=== PATIENT | female | born 1955 | race Caucasian/White ===

== ENCOUNTER 2019-03-15 10:22 | Day surgery (SDC) | payer BC, SELFPAY ==
[2019-03-15] VITALS (7 sets, daily range): BP systolic 81–133; BP diastolic 66–96; PULSE 50–64; RESP 14–18; TEMP 36.6–36.7; O2SAT 94–100; BMI 22.0
[2019-03-15 10:46] LABS: Prothrombin Time Fingerstick 14.8 SEC (11.9-14.4)
[2019-03-15] MEDS: Lactated Ringers 1,000 ML 100 ML IV (11:11)
[2019-03-15] MEDS: Cefazolin 2 GM in 0.9% Normal Saline 100 ML IV (11:46)
--- NOTE | 2019-03-15 11:50 | BON_PTH ---
PATIENT: LINDSAY DOS SANTOS [place] [facility] [id number] AGE/SX: 63/F ROOM: RE03/15/[address]: Dr. Orlando Shukla MD : 1955 BED: DIS: 03/15/2019 SPEC #: [id number] RECD: 03/15/19 15:42 STATUS: KRISTIE RENesha #: [id number] JARETH: 03/15/19 11:[address]: Orlando Shukla DEPT: SURGICAL PATHOLOGY RECD BY: Amado Plasencia ENTERED: 03/16/19 07:26 SP TYPE: Bone OTHR DR: Dr. Irvin Eisenberg MD Tissues: Vertebra, NOS Procedures: Decalcification bone/plaque Surgery Specimen Level IV HEADER OPERATION: Kyphoplasty L3 and L5 PRE-OP DIAGNOSIS: Compression fracture of spine, back pain, lumbosacral radiculopathy, degeneration of lumbosacral intervertebral disc, lumbosacral spondylosis TISSUE SUBMITTED: Vertebral body of L3 MICROSCOPIC DIAGNOSIS Vertebral body, L3, kyphoplasty: A piece of bone, negative for malignancy. See comment. MONA:jared 03/17/19 COMMENT The specimen also shows hematopoietic marrow with trilineage hematopoiesis. Bone also shows focal thinning of trabeculae suggestive of osteoporosis. MICROSCOPIC DESCRIPTION Slides are reviewed. GROSS DESCRIPTION Received in fixative is one container labeled with the patient's name and designated vertebral body of L3. The specimen consists of multiple irregular fragments of brownish soft tissue mixed with fragments of bone that in aggregate measure 1 x 1 x 0.1 cm. The specimen is totally submitted in one cassette after decalcification. / MONA:jared 03/16/19 TC:5 CPT: 66505, 74130
--- NOTE | 2019-03-15 11:55 | RAD_ITS ---
CLINICAL HISTORY: Female, 63 years old. Kyphoplasty of the L3 and L5 vertebrae. PROCEDURE: KYPHOPLASTY - L3 and L5 vertebrae. FLUOROSCOPY TIME (if supplied): (342 seconds) minutes/seconds TECHNIQUE: (All elements of maximal sterile barrier technique followed, including US elements as applicable) Under direct fluoroscopic guidance, the pain management physician performed arthroplasty of the L3 and L5 vertebrae. RAD/Lumbar Spine 2 or 3 Views IMPRESSION: Intraoperative imaging provided for arthroplasty of the L3 and L5 vertebrae. Electronically Signed: Jose Miguel Garcia, at 15:08 EST , Service support ,
[2019-03-15] MEDS: Bacitracin 500 UNITS/GM PACKET (13:00)
[2019-03-15] MEDS: Bupivacaine Mpf 0.5% 30 ML VIAL (13:00)
--- NOTE | 2019-03-15 13:41 | OP.PCM_ITS ---
Report of Operation Date of Procedure: 03/15/19 Description of Surgical Findings:: PROCEDURES: 1. Octavia balloon kyphoplasty at the L3 level and L5 level 2. Insertion of Octavia HV-R bone cement under low pressure at the L3 and L5 Level 3. Bone biopsy at L3 4. Fluoroscopic guidance and interpretation of images PREOPERATIVE DIAGNOSES: Osteoporosis, compression fracture of L3 and L5 POSTOPERATIVE DIAGNOSES: Osteoporosis, compression fracture of L3 and L5 ANESTHESIA: MAC COMPLICATIONS: None BLOOD LOSS: Less than 25 cc PROCEDURE IN DETAIL: History and physical today was reviewed. Risks and benefits of procedure explained. The patient understood, agreed to procedure, informed consent was obtained. IV inserted per routine protocol. The patient was taken to the operating room, placed in the prone position with a pillow positioned underneath the chest. A 2 g of Ancef IV piggyback was infused per anesthesia. The upper and middle back area was prepped and draped in a sterile fashion using iodine x3. Under direct visualization with fluoroscopy with the C-arm, which brought into position on AP as well as lateral view at the L3 level., the L3 pedicle was then identified. In the view of the collapsed L3, L5 a transpedicular approach to the vertebral body was appropriate. Starting on the left side at L3 level, an 11-gauge needle was advanced through the L3 pedicle through the junction of the pedicle and the vertebral body on the left side. Position was then confirmed on AP as well as lateral view. Following satisfactory placement of the needle to make sure it is further off the midline and interlaminar space. The stylet of the needle was then removed. A guide pen and then inserted through the 11-gauge trocar and advanced approximately 3 mm from the anterior cortex on the lateral view. AP and lateral images were then taken to verify position and trajectory of the needle. The needle was then removed leaving the guide pen in place. The introducer was then advanced through the pedicle. Once the Trochar was at the junction of the pedicle and the vertebral body, a lateral image was taken to ensure that the cannula was positioned approximately 1 cm past the vertebral body and a lateral image was then taken to ensure correct [id number] and through the cannula, a drill was then advanced into the vertebral body under fluoroscopic guidance towards the anterior cortex creating a channel. The anterior cortex were then probed with guide pen to ensure no perforation in the anterior cortex. After completion of the entry into the vertebral body, a 30 mL inflatable bone tamp was then inserted through the cannula and advanced under direct fluoroscopic guidance into the vertebral body near the anterior cortex., The biopsy was then taken at the L3 level. The above procedure was then repeated to the L5 level on the right side, after completion of the entry into the vertebral body, a balloon tamp utilizing radiopaque marker bands on the bone tamp were identified using AP and lateral images. The . Once both bone tamp were in position, they were inflated to approximately 3 mL and making sure that the pressure is not passing 250 psi. Expansion of the bone tamp was then done sequentially in an increments of 0.25 to 0.5 mL of contrast with a careful attention was being paid to the inflation pressure and the balloon position. The inflation was then monitored on AP and lateral view images. The final balloon volume was 3 mL on the left side and approximately 3.5 cc on the right at L5 There was no breach of the lateral wall or the anterior cortex of the vertebral body. Direct reduction of the fracture was then achieved. Endplate movement was then noticed and approximately 5 mm of the height gnosticism was achieved at L3 and at approximately 2 mm reduction was then achieved at the L3 level. Under fluoroscopic imaging and a bone void filler, internal fixation was achieved through a low pressure injection of a Octavia HV-R bone cement. The cavity was then filled with a total volume of 6.5 mL on the left side at L1 and approximately 7.5 mL of cement on the right side at the L5 level. Once the bone cement had hardened, the cannula was then removed. Once the cannula was removed and satisfactory hemostasis was maintained, the incision as then closed with a 4-0 Vicryl at the skin. The patient was kept in the prone position for approximately 10 minutes post-cement injection. The patient was then turned into supine position, monitored briefly and returned to PACU. The patient was moving both of her lower extremities at the same time without any apparent neurological deficits. Throughout the procedure, there were no intraoperative complications, motor as well as sensory exam was unchanged from prior to the procedure. ASSESSMENT AND PLAN: This is a 63-year-old female with compression fracture of L3, L5, osteoporosis, status post Delbarton balloon kyphoplasty at L3, [place]on balloon kyphoplasty at L5 and insertion of [place] HV-R bone cement under low pressure at L3 and L5 level and bone biopsy at L3 the patient will continue her current medication. . The patient will follow-up in approximately 1 week for re- evaluation.
== END 2019-03-15 15:25 | disposition home or self-care (01) ==
LOC: SDC 10:23 → AC 10:27
PROVIDERS: Family Provider Internal Medicine; PCP Internal Medicine; Referring Provider Anesthesiology Pain Medicine; Visit Provider Anesthesiology Pain Medicine
PROC: (CPT 22514; principal; 2019-03-15 11:35)
DX: M80.88XA Other osteoporosis with current pathological fracture, vertebra(e), initial encounter for fracture (principal); Z86.718 Personal history of other venous thrombosis and embolism; Z79.01 Long term (current) use of anticoagulants; F17.210 Nicotine dependence, cigarettes, uncomplicated
CPT/HCPCS: 22514; 22515; 36416; 72100; 76000; 85610; 88305; 88311; J7120; J2405

== ENCOUNTER → 2019-03-30 12:48 | Outpatient (CLI) | payer BC, SELFPAY ==
[2019-03-15 10:58] VITALS: BMI 22.0
--- NOTE | 2019-03-30 12:55 | BD_ITS ---
STUDY: DUAL ENERGY X-RAY ABSORPTIOMETRY / DXA REASON FOR EXAM: Female, 63 years old. Early menopause. Loss of height. TECHNIQUE: Bone Mineral Density (BMD) measurements of lumbar spine and bilateral hips were obtained. COMPARISON: None. FINDINGS: Lumbar Spine (L1-L4): g/cm2 (0.693) / T-score (-3.9) / Z-score (-2.6) Findings are suggestive of osteoporosis with a high fracture risk. Left Femur Total: g/cm2 (0.506) / T-score (-4.0) / Z-score (-3.0) Left Femoral Neck: g/cm2 (0.559) / T-score (-3.4) / Z-score (-2.2) Right Femur Total: g/cm2 (0.422) / T-score (-4.6) / Z-score (-3.7) Right Femoral Neck: g/cm2 (0.492) / T-score (-3.9) / Z-score (-2.6) BD/Dexa Bone Density Study IMPRESSION: The patient is considered osteoporotic as outlined below according to World Jai Organization (WHO) criteria with a high fracture risk. Reference Information: The T-score is the number of standard deviations above or below the standard which is normal for young adults at their peak bone mineral density. The World Health Organization (WHO) interprets the T-scores as follows: Above -1 Normal bone density Between -1 and -2.5 Osteopenia Equal to / or below -2.5 Osteoporosis As a practical clinical guideline, osteopenia may be graded as follows: Mild -1 through -1.5 Moderate -1.6 through -2.0 Severe -2.1 through -2.4 The Z-score is the number of standard deviations above or below age-matched controls. A Z-score of less than -1.5 would be considered abnormal. References: 1. NIH Osteoporosis and Related Bone Diseases http://www.osteo.org 2. International Society for Clinical Densitometry http://www.iscd.org 3. National Osteoporosis Foundation http://www.nof.org Electronically Signed: Jose Miguel Garcia, at 12:42 EST , Service support ,
--- NOTE | 2019-03-30 13:10 | BI_ITS ---
MAMMOGRAPHY - BILATERAL SCREENING REASON FOR EXAM: Female, 63 years old. Routine annual screening examination. PERTINENT HISTORY: Mother with breast cancer. TECHNIQUE: Digital bilateral breast ayde (3D mammographic acquisition) in the CC and MLO projections. 2-D mediolateral oblique (MLO) and craniocaudad (CC) views of both breasts were obtained. CAD: Full Field Digital Mammography with Computer Added Detection was performed. COMPARISON: Comparison is made with prior study dated July 01, 2016. FINDINGS: Breast Composition: The breasts are heterogeneously dense, which may obscure small masses. There are no dominant masses or suspicious calcifications. No other significant abnormalities are identified. There has been no significant change since the prior study. BI/SCREEN MAMM (CAD) W/AYDE BILAT IMPRESSION: Stable bilateral screening mammogram. Yearly follow-up mammogram recommended. (A) ASSESSMENT CATEGORY: BIRADS Category 1: Negative. A letter regarding these results will be sent to the patient by the facility within 30 days. Approximately 10% of breast cancers are not detected by mammography. A normal mammogram should not delay biopsy of a clinically suspicious abnormality. [id number] Electronically Signed: Jose Miguel Garcia, at 15:30 EST , Service support ,
== END ==
PROVIDERS: Family Provider Internal Medicine; PCP Internal Medicine; Referring Provider Internal Medicine; Visit Provider Internal Medicine
DX: Z12.31 Encounter for screening mammogram for malignant neoplasm of breast (principal); M81.0 Age-related osteoporosis without current pathological fracture
CPT/HCPCS: 77063; 77067; 77080

== ENCOUNTER → 2020-04-11 13:09 | Outpatient (CLI) | payer BC, SELFPAY ==
[2019-03-15 10:58] VITALS: BMI 22.0
--- NOTE | 2020-04-11 13:13 | BI_ITS ---
MAMMOGRAPHY - BILATERAL SCREENING REASON FOR EXAM: Female, 64 years old. Routine annual screening examination. PERTINENT HISTORY: PT MOTHER HAD BREAST CA AT AGE 65 PT WAS 16 WHEN SHE HAD HER FIRST CHILD NO SX TECHNIQUE: Digital bilateral breast ayde (3D mammographic acquisition) in the CC and MLO projections. 2-D mediolateral oblique (MLO) and craniocaudad (CC) views of both breasts were obtained. CAD: Full Field Digital Mammography with Computer Added Detection was performed. COMPARISON: 03/30/2019, 07/01/2016 FINDINGS: Breast Composition: The breasts are heterogeneously dense, which may obscure small masses. There are no dominant masses or suspicious calcifications. No other significant abnormalities are identified. BI/SCREEN MAMM (CAD) W/AYDE BILAT IMPRESSION: Stable bilateral screening mammogram. Yearly follow-up mammogram recommended. (A) ASSESSMENT CATEGORY: BIRADS Category 2: Benign. A letter regarding these results will be sent to the patient by the facility within 30 days. Approximately 10% of breast cancers are not detected by mammography. A normal mammogram should not delay biopsy of a clinically suspicious abnormality. [id number] Electronically Signed: Manuel Quigley, at 9:59 EST Tel , Service support ,
== END ==
PROVIDERS: PCP Internal Medicine; Referring Provider Internal Medicine; Visit Provider Internal Medicine
DX: Z12.31 Encounter for screening mammogram for malignant neoplasm of breast (principal)
CPT/HCPCS: 77063; 77067

== ENCOUNTER → 2021-10-10 | Outpatient (CLI) | payer BC, SELFPAY ==
--- NOTE | 2021-10-10 10:47 | BI_ITS ---
MAMMOGRAPHY - BILATERAL SCREENING REASON FOR EXAM: Female, 65 years old. Routine annual screening examination. PERTINENT HISTORY: Mother with breast cancer. TECHNIQUE: Digital bilateral breast ayde (3D mammographic acquisition) in the CC and MLO projections. 2-D mediolateral oblique (MLO) and craniocaudad (CC) views of both breasts were obtained. CAD: Full Field Digital Mammography with Computer Added Detection was performed. COMPARISON: Comparison is made with prior examination dated 04/11/2020 and 03/30/2019. FINDINGS: Breast Composition: The breasts are heterogeneously dense, which may obscure small masses. There are no dominant masses or suspicious calcifications. No other significant abnormalities are identified. There has been no significant change since the prior study. BI/SCRN MAMM (CAD)W/AYDE BILAT IMPRESSION: Stable bilateral screening mammogram. Yearly follow-up mammogram recommended. (A) ASSESSMENT CATEGORY: BIRADS Category 1: Negative. A letter regarding these results will be sent to the patient by the facility within 30 days. Approximately 10% of breast cancers are not detected by mammography. A normal mammogram should not delay biopsy of a clinically suspicious abnormality. [id number] Electronically Signed: Jose Miguel Garcia MD at 12:16 EDT ,
== END | disposition home or self-care (01) ==
LOC: OPBI 10:45
PROVIDERS: PCP Internal Medicine; Visit Provider Internal Medicine
DX: Z12.31 Encounter for screening mammogram for malignant neoplasm of breast (principal)
CPT/HCPCS: 77063; 77067

== ENCOUNTER → 2022-12-12 | Outpatient (CLI) | payer MEDICARE, OTHER, SELFPAY ==
--- NOTE | 2022-12-12 08:48 | BD_ITS ---
STUDY: DUAL ENERGY X-RAY ABSORPTIOMETRY / DXA REASON FOR EXAM: Female, 67 years old. 733.00OsteoporosisBONE DENSITY REASON FOR EXAM TECHNIQUE: Bone Mineral Density (BMD) measurements of lumbar spine and bilateral hips were obtained. COMPARISON: Comparison is made with prior study dated March 30, 2019. FINDINGS: Lumbar Spine (L1-L4): g/cm2 (0.832) / T-score (-1.3) / Z-score (0.3) Findings are suggestive of osteopenia with a low fracture risk. Left Femur Total: g/cm2 (0.588) / T-score (-2.9) / Z-score (-1.7) Left Femoral Neck: g/cm2 (0.515) / T-score (-3.0) / Z-score (-1.5) Right Femur Total: g/cm2 (0.532) / T-score (-3.4) / Z-score (-2.1) Right Femoral Neck: g/cm2 (0.442) / T-score (-3.7) / Z-score (-2.2) The T-Scores on the most recent prior examination were: Lumbar Spine (L1-L4): There has been improvement of bone density since the previous examination. Left Femur Total: which represents an improvement of 29.3%. Right Femur Total: which represents an improvement of 42.6%. BD/Dexa Bone Density Study IMPRESSION: The patient is considered normal as outlined below according to World Jai Organization (WHO) criteria with a low fracture risk. There has been improvement of bone density since the previous examination. Reference Information: The T-score is the number of standard deviations above or below the standard which is normal for young adults at their peak bone mineral density. The World Health Organization (WHO) interprets the T-scores as follows: Above -1 Normal bone density Between -1 and -2.5 Osteopenia Equal to / or below -2.5 Osteoporosis As a practical clinical guideline, osteopenia may be graded as follows: Mild -1 through -1.5 Moderate -1.6 through -2.0 Severe -2.1 through -2.4 The Z-score is the number of standard deviations above or below age-matched controls. A Z-score of less than -1.5 would be considered abnormal. References: 1. NIH Osteoporosis and Related Bone Diseases www osteo.org 2. International Society for Clinical Densitometry www iscd.org 3. National Osteoporosis Foundation www nof.org Electronically Signed: Jose Miguel Garcia MD at 10:58 EDT ,
--- NOTE | 2022-12-12 08:49 | BI_ITS ---
MAMMOGRAPHY - BILATERAL SCREENING REASON FOR EXAM: Female, 67 years old. Routine annual screening examination. PERTINENT HISTORY: Mother with breast cancer. Occasional right lateral breast heaviness. TECHNIQUE: Digital bilateral breast ayde (3D mammographic acquisition) in the CC and MLO projections. 2-D mediolateral oblique (MLO) and craniocaudad (CC) views of both breasts were obtained. CAD: Full Field Digital Mammography with Computer Added Detection was performed. COMPARISON: Comparison is made with prior study dated October 10, 2021. FINDINGS: Breast Composition: The breasts are heterogeneously dense, which may obscure small masses. I suspect a 6.9 mm x 10.5 mm well-defined nodule in the upper lateral aspect of the right breast. The patient will be recalled for additional views of the right breast including 90 degree lateral and compression spot views. No other significant abnormalities are identified. BI/SCRN MAMM (CAD)W/AYDE BILAT IMPRESSION: I suspect a 6.9 mm x 10.5 mm well-defined nodule in the upper lateral aspect of the right breast as described. The patient will be recalled for additional views of the right breast including 90 degree lateral and compression spot views. Recall Side: Right Breast ASSESSMENT CATEGORY: BIRADS Category 0: Incomplete. Need additional imaging evaluation. A letter regarding these results will be sent to the patient by the facility within 30 days. Approximately 10% of breast cancers are not detected by mammography. A normal mammogram should not delay biopsy of a clinically suspicious abnormality. [id number] Electronically Signed: Jose Miguel Garcia MD at 10:11 EDT ,
== END | disposition home or self-care (01) ==
PROVIDERS: PCP Internal Medicine; Referring Provider Internal Medicine; Visit Provider Internal Medicine
DX: Z12.31 Encounter for screening mammogram for malignant neoplasm of breast (principal); M81.0 Age-related osteoporosis without current pathological fracture
CPT/HCPCS: 77063; 77067; 77080

== ENCOUNTER → 2022-12-18 | Outpatient (CLI) | payer MEDICARE, OTHER, SELFPAY ==
--- NOTE | 2022-12-18 09:20 | US_ITS ---
STUDY: ULTRASOUND BREAST - RIGHT REASON FOR EXAM: Female, 67 years old. Abnormal screening mammogram. TECHNIQUE: Axial and longitudinal images of the RIGHT breast were performed with a high resolution ultrasound transducer. # OF IMAGES: 6 COMPARISON: Comparison is made with prior mammogram done earlier in the day. FINDINGS: RIGHT Breast: Mammographic abnormality corresponds to an 8 mm x 8 mm x 7 mm cyst is seen at the 9:00 position of the breast at 3 cm from the nipple. US/Breast Limited Unilateral IMPRESSION: 8 mm x 8 mm x 7 mm cyst at the 9:00 position of the breast at 3 cm from the nipple. ASSESSMENT CATEGORY: BIRADS Category 2: Benign. A letter regarding these results will be sent to the patient by the facility within 30 days. Electronically Signed: Jose Miguel Garcia MD at 12:37 EDT ,
--- NOTE | 2022-12-18 09:20 | BI_ITS ---
MAMMOGRAPHY - UNILATERAL DIAGNOSTIC: RIGHT BREAST REASON FOR EXAM: Female, 67 years old. Abnormal screening mammogram. PERTINENT HISTORY: Mother with breast cancer. TECHNIQUE: Compression spot views of the right breast in the mediolateral oblique and craniocaudal projections were obtained. CAD: Full Field Digital Mammography with Computer Added Detection was performed. COMPARISON: Comparison is made with prior mammogram dated December 12, 2022. FINDINGS: Breast Composition: The breasts are heterogeneously dense, which may obscure small masses. Persistent 1.1 cm x 1.4 cm well-defined nodule in the upper lateral aspect of the right breast. Correlation with ultrasound is recommended. No other significant abnormalities are identified. BI/DIAG MAMM W/CAD, UNILAT IMPRESSION: 1.1 cm x 1.4 cm well-defined nodule in the upper-outer aspect of the right breast. Correlation with ultrasound is recommended. ASSESSMENT CATEGORY: BIRADS Category 0: Incomplete. Need additional imaging evaluation. A letter regarding these results will be sent to the patient by the facility within 30 days. Approximately 10% of breast cancers are not detected by mammography. A normal mammogram should not delay biopsy of a clinically suspicious abnormality. Electronically Signed: Jose Miguel Garcia MD at 10:43 EDT ,
== END | disposition home or self-care (01) ==
LOC: OPBI 09:18
PROVIDERS: PCP Internal Medicine; Referring Provider Internal Medicine; Visit Provider Internal Medicine
DX: R92.8 Other abnormal and inconclusive findings on diagnostic imaging of breast (principal)
CPT/HCPCS: 76642; 77065

== ENCOUNTER → 2023-06-19 | Outpatient (CLI) | payer MEDICARE, OTHER, SELFPAY ==
--- NOTE | 2023-06-19 08:55 | BI_ITS ---
MAMMOGRAPHY - UNILATERAL DIAGNOSTIC: RIGHT BREAST REASON FOR EXAM: Female, 67 years old. ABN MAMM PERTINENT HISTORY: Non-contributory. TECHNIQUE: Digital examination. Mediolateral oblique (MLO) and craniocaudad (CC) views of the breast were obtained. CAD: CAD was not performed on this study. COMPARISON: 12/18/2022, 12/12/2022 FINDINGS: Breast Composition: There are scattered areas of fibroglandular density. There is no change in 1 cm oval circumscribed equal density mass in the upper outer quadrant right breast which has been proven to be a cyst. No other significant abnormalities are identified. BI/DIAG MAMM W/CAD, UNILAT IMPRESSION: Stable unilateral diagnostic mammogram. Ultrasound of the sestamibi obtained. ASSESSMENT CATEGORY: BIRADS Category 0: Incomplete. Need additional imaging evaluation. A letter regarding these results will be sent to the patient by the facility within 30 days. FOLLOW-UP RECOMMENDATION: Ultrasound recommended. (I) Approximately 10% of breast cancers are not detected by mammography. A normal mammogram should not delay biopsy of a clinically suspicious abnormality. Electronically Signed: Galindo Corrigan MD at 9:34 EST ,
--- NOTE | 2023-06-19 08:55 | US_ITS ---
STUDY: ULTRASOUND BREAST - RIGHT REASON FOR EXAM: Female, 67 years old. Short interval follow-up TECHNIQUE: Axial and longitudinal images of the RIGHT breast were performed with a high resolution ultrasound transducer. # OF IMAGES: 14 COMPARISON: Diagnostic mammogram earlier today, prior ultrasound 12/18/2022 FINDINGS: RIGHT Breast: Heterogeneous background echotexture. At 9:00, 3 cm in the portal, ultrasound confirms a 10 mm oval parallel circumscribed anechoic mass with posterior enhancement consistent with a cyst within some dense breast parenchyma consistent with fibrocystic change.: US/Breast Limited Unilateral IMPRESSION: Ultrasound confirms fibrocystic change with a 1 cm cyst. ASSESSMENT CATEGORY: BIRADS Category 2: Benign. A letter regarding these results will be sent to the patient by the facility within 30 days. Electronically Signed: Galindo Corrigan MD at 9:52 EST ,
== END | disposition home or self-care (01) ==
LOC: OPBI 08:53
PROVIDERS: PCP Internal Medicine; Referring Provider Internal Medicine; Visit Provider Internal Medicine
DX: R92.8 Other abnormal and inconclusive findings on diagnostic imaging of breast (principal)
CPT/HCPCS: 76642; 77061; 77065; G0279

== ENCOUNTER 2023-12-09 14:30 | Outpatient (RCR) | payer MEDICARE, OTHER, SELFPAY ==
[2023-11-18 14:24] VITALS: BP 144/72; PULSE 74; RESP 18; TEMP 36.3; BMI 24.3
--- NOTE | 2023-11-19 08:53 | WC ---
PHOTO 11/18/23 LLE POST
--- NOTE | 2023-11-19 11:41 | PCM.WC.HP ---
History of Present Illness Date of Service: 11/18/23 Chief Complaint: Ulcerations of the left posterior calf History of Wound: This is a 67-year-old female who claims to have experienced multiple bug bite in both lower extremities approximately 4 weeks prior to her presentation. She developed pain, swelling, and erythema in both leg following her claimed episode of bug bites. As result, she has been treated with 2 courses of oral antibiotics by her primary care physician. These have included a course of oral clindamycin, as well as cephalexin. The wounds/ulcerations on the patient's right leg have healed, and she presented with a clustered ulceration on the left posterior calf. The patient admits to having a history of swelling and edema in her lower extremities. She has a history of bilateral lower extremity deep vein thrombosis, and is on chronic systemic anticoagulation with warfarin. She indicates that she wears graduated compression stockings on a daily basis, which are of 30 to 40 mmHg compression. She has not been using any topical remedies relative to the ulceration on her left posterior calf. The patient is of normal body habitus, with a BMI of 24.3. PFSH Medical History Chronic anticoagulation Right leg swelling Left leg swelling Venous stasis ulcer Chronic venous insufficiency Degeneration of lumbosacral intervertebral disc Lumbosacral spondylosis Lumbosacral radiculopathy History of compression fracture of spine Hyperlipidemia History of thrombophlebitis of deep vein of lower extremity Migraine headache Osteoporosis Encounter for smoking cessation counseling Smoking greater than 30 pack years Home Medications ?Medication ?Instructions ?Recorded ?Last Taken ?Type ergocalciferol (vitamin D2) 1,250 50,000 unit PO .QOWEEK 03/10/19 Unknown History mcg (50,000 unit) capsule alendronate 70 mg tablet 70 mg PO QWEEK 11/18/23 Unknown History atorvastatin 20 mg tablet 20 mg PO DAILY 11/18/23 Unknown History warfarin 1 mg tablet 3 mg PO DAILY 11/18/23 Unknown History Allergy/AdvReac Type Severity Reaction Status Date / Time codeine Allergy Hives Verified 03/15/19 10:56 Sulfa (Sulfonamide Allergy Unknown Verified 03/15/19 10:56 Antibiotics) Surgical History History of tonsillectomy History of kyphoplasty Social History Smoking Status: Current every day smoker Vital Signs Vital Signs Vital Signs: 11/18/23 14:24 Temperature 97.3 F L Temperature Source Temporal Pulse Rate 74 Respiratory Rate 18 Blood Pressure 144/72 H Blood Pressure Mean 96 Blood Pressure Source Monitor Blood Pressure Position Semi-Fowlers Blood Pressure Location Left Arm Weight Weight: 160 lb Body Mass Index (BMI) 24.3 Physical Exam Const alert, oriented x3, no apparent distress, average body habitus, no limitations and well nourished Constitutional Narrative: The patient's BMI is 24.3 General Appearance: cooperative, comfortable, well kempt and well developed Orientation / Consciousness: awake, oriented to person, oriented to place and oriented to time Exam Limitations: no limitations HEENT normocephalic and head/scalp atraumatic Head and Scalp: normal to inspection, normocephalic and atraumatic Face and Sinus: normal facial exam Nose: external nose normal External Ear: external ears normal Eyes PERRL and EOMs intact bilaterally General Eye: normal appearance of both eyes Resp normal respiratory effort, normal air movement, no retractions and no use of accessory muscles Effort and Inspection: able to speak in complete sentences and symmetric chest movement Cardio regular rate and regular rhythm Extremity no calf tenderness General Extremity: Negative for clubbing or cyanosis Skin Wound Narrative: Slight swelling is noted in the patient's lower extremities bilaterally. Pedal pulses are palpable bilaterally. Hyperpigmentation and hemosiderin staining is noted to the medial malleoli bilaterally. An ulceration is noted on the left posterior calf there is a moderate amount of bioburden and nonviable tissue. Dimensions are documented elsewhere. There is significant erythema surrounding the ulceration. As a result, a swab culture has been obtained for aerobic and anaerobic bacterial growth. Hair: normal Neuro oriented x3, CN's II-XII intact bilaterally, moves all extremities, no focal motor deficits and no sensory deficits noted Psych Appearance: grossly normal and appropriate Attitude: calm Activity / Motor Behavior: appropriate eye contact Speech: normal speech Mood & Affect: euthymic mood Thought Process: normal thought process Thought Content: normal thought content Attention / Concentration: attention grossly intact Debridement Note Debridement Note Wound debrided: Left posterior calf Laterality: Left Type of Debridement: Excisional debridement Anesthesia Used: 5% Lidocaine Gel Depth: Down to and including healthy tissue and in the subcutaneous layer Percentage of wound debrided: 100 Instrument Used: 5mm curette Tissue Removed: Bioburden and nonviable tissue Severity: Fat Layer Exposed Amount of bleeding with debridement: Mild Bleeding Controlled with: Compression and gauze Patient tolerated procedure: Patient tolerated procedure well Post-Debridement Measurements and Additional Note: Post-Debridement Measurements/Treatment WC - Nurse 1 - General Ulcer Assessment Start: 11/18/23 14:21 Freq: Status: Active Protocol: SHAE Activity Type Activity Date Activity User E-sign Co-sign Detail Recorded Client Recorded Date Recorded By Document 11/18/23 14:24 RB [email or web address] 11/18/23 14:30 RB 11/18/23 14:24 - Today's Visit Information Type of service Initial Visit Arrival Mode Ambulatory Transfer Assistance None Patient Identification Verified (Name & Yes ) Patient Requires Transmission-Based No Precautions Height and Weight Height 5 ft 8 in Weight 160 lb Weight in Pounds 160.0 lbs Body Mass Index (BMI) 24.3 BMI Classification Normal BSA - Julian 1.86 Vital Signs Temperature (97.8 F-99.1 F) 97.3 F L Temperature Source Temporal Pulse Rate (60-100) 74 Pulse Location Monitor Respiratory Rate (12-18) 18 Respiratory rate source Observation Blood Pressure (90/60-120/80) 144/72 H Blood Pressure Mean 96 Source Monitor Position Semi-Fowlers Blood Pressure Location Left Arm Pain Scale: 0-10 Numeric Is Patient Pain Free? No LLE -Description Sharp,Burning, Aching -Intensity 6 -Duration (hours) Acute -Pain Behavior Guarding, Irritability, Withdrawal from Touch -Pain Aggravating Factors Exercise/ Activity, Walking -Alleviating Factors/Interventions Medication -Effectiveness of Alleviating Factor/ Minimally Intervention effective Lower Extremity Assessment/ Foot Assessment/ Toe Nail Assessment Right -Posterior Tibial Palpable Yes -Posterior Tibial Doppler Multiphasic -Dorsalis Pedis Palpable Yes -Dorsalis Pedis Doppler Multiphasic -Extremity Color Hyperpigmented -Hair Growth on Legs Yes -Hair Growth on Toes No -Temperature of Extremity Hot -Capillary Refill Less than 3 Seconds -Dependent Rubor No -Blanched when Elevated No -Lipodermatosclerosis No -Other Deformity No -Prior Foot Ulcer No -Charcot Joint No -Prior Amputation No -Thick No -Discolored No -Deformed No -Improper Length & Hygeine Yes Left -Posterior Tibial Palpable Yes -Posterior Tibial Doppler Multiphasic -Dorsalis Pedis Palpable Yes -Dorsalis Pedis Doppler Multiphasic -Extremity Color Hyperpigmented -Hair Growth on Legs Yes -Hair Growth on Toes No -Temperature of Extremity Warm -Capillary Refill Less than 3 Seconds -Dependent Rubor No -Blanched when Elevated No -Lipodermatosclerosis No -Other Deformity No -Prior Foot Ulcer No -Charcot Joint No -Prior Amputation No -Thick No -Discolored No -Deformed No -Improper Length & Hygeine Yes Neuropathy Assessment Feet - Top Side and Bottom <Entered> (a) Communication Assessment Preferred language [place] Workplace Rehabilitation Officer Required No Able to Read Yes Able to Write Yes Communication Tools None Right Hearing Abillity Normal Left Hearing Abillity Normal Visual Assistive Devices Glasses Teaching Assessment Preferences Verbal,Written, Demonstration Barriers to Learning None Readiness To Learn Good Willingness to Engage in Self Management Med Activies Readiness to Engage in Self Management Med Activities Anxiety Level Anxious Cooperation Cooperative Perception Coherent Interest in Health Problem Asks Questions Education Importance Acknowledges Need Does Patient Smoke tobacco or other No substances Smoking Status Current every day smoker Is Patient Diabetic No Functional Assessment Recent Decline in Ability to Perform Denies Any Declines Assistive Device With Patient No Culture/Methodist/Energy Rater Cultural/Methodist Needs that may affect No Treatment Plan Would you allow our hospital buffet server to No meet you for the purpose of spiritual/ emotional support? Energy Rater to contact place of jew No Teaching: Wound Center *Welcome to the Wound Center -Person Taught Patient -Teaching Method Discussion, Demonstration -Response to teaching Verbalize Understanding (a) 1 - + throughout WC - Nurse 1 - General Ulcer Measurement Start: 11/18/23 14:21 Freq: Status: Active Protocol: Activity Type Activity Date Activity User E-sign Co-sign Detail Recorded Client Recorded Date Recorded By Document 11/18/23 14:24 RB [email or web address] 11/18/23 14:30 RB 11/18/23 14:24 Wound Center Nurse 1 1. LLE posterior -Combined with other wound No -Current Size (cm) - Length 4 -Current Size (cm) - Width 6.5 -Current Size (cm) - Depth 0.1 -Total Square Cm 26.0 -Photo Taken Yes -Tunneling No -Undermining/Tunneling No -Circular Undermining No -Exudate Amt Medium -Exudate Type Serosanguineous -Wound Margin Distinct, Outline Attached -Granulation Amt Medium (34-66%) -Granulation Quality Allgood -Slough/Fibrin Yes -Necrosis Amt Medium (34-66%) -Necrotic Tissue Type Adherent Slough -Structure Exposed N/A -Texture (Mary-wound Skin Appearance) Assessed -Moisture (Mary-wound Skin Appearance) Assessed -Color (Mary-wound Skin Appearance) Hemosiderin Staining -Temperature (Mary-wound Skin No Abnormality Appearance) (Pt Warm) -Tenderness on Palpation (Mary-wound No Skin Appearance) -Ulcer Cleansing Wound Cleanser -Foul Odor after Cleansing No -Anesthetic Used 4% Lidocaine Solution Lower Limb Edema Present Yes Right Calf (cm) 36 Right Ankle (cm) 22.5 Left Calf (cm) 37.5 Left Ankle (cm) 24 WC - Nurse 2 - General Ulcer CM Notes Start: 11/18/23 14:21 Freq: Status: Active Protocol: Activity Type Activity Date Activity User E-sign Co-sign Detail Recorded Client Recorded Date Recorded By Document 11/18/23 14:41 DS 1 11/18/23 14:52 DS 11/18/23 14:41 Wound Center Nurse 2 1. LLE posterior -Time 14:45 -Correct Patient Yes -Correct Side, Site, Position Yes -Correct Procedure Yes -Procedure Performed Yes -Type of Procedure Debridement -Clinical Debridement Subcutaneous -Tissue Removed Subcutaneous -Post Debridement (cm) - Length 2.6 -Post Debridement (cm) - Width 6.0 -Post Debridement (cm) - Depth 0.1 -Total Square (Post) (cm) 15.60 -Area of Debridement (cm) - Length 2.6 -Area of Debridement (cm) - Width 6.0 -Total Square (Area) (cm) 15.60 -Tunneling No -Undermining/Tunneling No -Circular Undermining No -Wound/Ulcer Outcome Not Healed -Bleeding Controlled with Pressure -Treatment Response Procedure Tolerated Well -Debridement - Subq, 1st 20sq cm Yes Pain Scale: 0-10 Numeric Is Patient Pain Free? Yes GRISELDA - Nurse 3 - General Ulcer D/C NN Start: 11/18/23 14:21 Freq: Status: Active Protocol: Activity Type Activity Date Activity User E-sign Co-sign Detail Recorded Client Recorded Date Recorded By Document 11/18/23 15:20 RB woumd 11/18/23 15:21 RB 11/18/23 15:20 Wound Care Center Nurse 3 1. LLE posterior -Other Dressing hydrogel -Primary Dressing Covered/Secured with Dry Gauze & Roll Gauze, Secured with Tape bilateral LE -Stockings Yes -Other pt own stockings Treatment Response Procedure Tolerated Well Pain Scale: 0-10 Numeric Is Patient Pain Free? Yes WC - Visit Discharge Discharge Condition Stable Ambulatory Status Ambulatory Transportation Private Auto Medication Reconcilliation completed & No provided to patient/care provider Clinical Summary of Care Provided Yes Charges/Coding Multi Select Codes Visit Charges Office Visit/Consults: 17906 OV L4 New 45 min Integumentary Integumentary CPT Codes: 52300 Jenelle subq tissue 20 sq cm/< Assessment/Plan Assessment/Plan (1) Venous stasis ulcer: CODE(S): I83.009 - Varicose veins of unspecified lower extremity with ulcer of unspecified site; L97.909 - Non-pressure chronic ulcer of unspecified part of unspecified lower leg with unspecified severity QUALIFIERS: Venous stasis ulcer site: calf Varicose vein presence: without varicose veins Laterality: left Non-pressure ulcer stage: with fat layer exposed Qualified Code(s): I87.2 - Venous insufficiency (chronic) (peripheral); L97.222 - Non-pressure chronic ulcer of left calf with fat layer exposed (2) Chronic venous insufficiency: CODE(S): I87.2 - Venous insufficiency (chronic) (peripheral) (3) Left leg swelling: CODE(S): M79.89 - Other specified soft tissue disorders (4) Right leg swelling: CODE(S): M79.89 - Other specified soft tissue disorders (5) Smoking greater than 30 pack years: CODE(S): F17.210 - Nicotine dependence, cigarettes, uncomplicated (6) Encounter for smoking cessation counseling: CODE(S): Z71.6 - Tobacco abuse counseling (7) Osteoporosis: CODE(S): M81.0 - Age-related osteoporosis without current pathological fracture (8) Migraine headache: CODE(S): G43.909 - Migraine, unspecified, not intractable, without status migrainosus (9) History of thrombophlebitis of deep vein of lower extremity: CODE(S): Z86.72 - Personal history of thrombophlebitis (10) Hyperlipidemia: CODE(S): E78.5 - Hyperlipidemia, unspecified (11) History of compression fracture of spine: CODE(S): Z87.81 - Personal history of (healed) traumatic fracture (12) Lumbosacral radiculopathy: CODE(S): M54.17 - Radiculopathy, lumbosacral region (13) Lumbosacral spondylosis: CODE(S): M47.817 - Spondylosis without myelopathy or radiculopathy, lumbosacral region (14) Degeneration of lumbosacral intervertebral disc: CODE(S): M51.37 - Other intervertebral disc degeneration, lumbosacral region (15) History of kyphoplasty: CODE(S): Z98.890 - Other specified postprocedural states (16) History of tonsillectomy: CODE(S): Z90.89 - Acquired absence of other organs (17) Chronic anticoagulation: CODE(S): Z79.01 - termite renewal inspector (current) use of anticoagulants PLAN: Plan This is a 67-year-old female who presented with an ulceration on the left posterior calf. The ulceration has been present for approximately 4 weeks. Patient stated that the ulceration was initiated by means of bug bites . She has been treated by her primary care physician for cellulitis at the site, which has involved the use of 2 courses of oral antibiotics, clindamycin and cephalexin. Upon her presentation, significant erythema is noted about the ulceration, which prompted a concern for cellulitis. A swab culture was obtained for aerobic and anaerobic bacterial growth. Culture results will be awaited. Patient has a history of bilateral lower extremity deep vein thrombosis, and is treated with long-term systemic anticoagulation with warfarin. Her presenting manifestations are highly suggestive of chronic venous insufficiency. The patient has been instructed in the appropriate means of conservative management. Leg elevation has been advised. She is to sleep on a flat mattress at night. Legs are to be elevated both at night and during daytime hours. Legs are to be elevated to heart level, or higher. Prolonged idle sitting has been discouraged. Activity has been encouraged. She has been encouraged to continue wearing her graduated compression stockings on a daily basis. Her weight appears to be optimal. We are to implement the use of collagen hydrogel topically on a daily basis. Patient has been instructed in the appropriate means of application. A venous duplex examination and a noninvasive lower extremity arterial study are to be obtained. The patient is to return in 2 weeks for reevaluation. Total time: 50 minutes
--- NOTE | 2023-12-02 12:45 | ART_ITS ---
Reason For Study: wOUND Procedure A bilateral lower extremity continuous wave Doppler with analog waveform analysis,segmental pressures,and ankle brachial indexes without exercise. Left Segmental Pressures Left brachial= 133mmHg. Left posterior tibial artery = 158mmHg. Left dorsalis pedis artery = 175mmHg. Left digit = 118 mmHg. The left posterior tibial artery waveforms are triphasic. The left dorsalis pedis waveforms are triphasic. Right Segmental Pressures Right brachial= 130mmHg. Right posterior tibial artery = 139mmHg. Right dorsalis pedis artery = 150mmHg. Right digit = 101 mmHg. The right posterior tibial artery waveforms are triphasic. The right dorsalis pedis waveforms are triphasic. Indices The right ankle brachial index by the posterior tibial artery is 1.05. The right ankle brachial index by the dorsalis pedis is 1.13. The right digital-brachial index is 0.76. The left ankle brachial index by the posterior tibial artery is 1.19. The left ankle brachial index by the dorsalis pedis is 1.32. The left digital-brachial index is 0.89. VL/Lower Ext Art Exam w/o Exercis Interpretation Summary Triphasic Doppler waveforms are noted at ankle level bilaterally. Pulse-volume recordings appear satisfactory at all levels bilaterally. Resting ankle-brachial indices are norm al bilaterally. Digital-brachial indices are normal bilaterally. There is no evidence of significant arterial occlusive disease in the lower ext remities bilaterally. Ordering Physician: Qamar Robles Referring Physician: Krishna Eisenberg Performed By: Derrick Kelly, RVT
--- NOTE | 2023-12-02 12:46 | VDLE_ITS ---
Reason For Study: BLE Wound / Swelling RIGHT LEFT CFV is compressible, spontaneous, phasic, CFV is compressible, spontaneous, phasic, competent and demonstrates normal competent, and demonstrates normal augmentation. augmentation. FV is compressible, phasic, and INCOMPETENT FV is compressible, phasic, and INCOMPETENT for greater than 1.0 second. for greater than 1.0 second. POP V is compressible, phasic, and POP V is PARTIALLY COMPRESSIBLE w/ bright INCOMPETENT for greater than 1.0 second. intraluminal echoes consistent w/ CHRONIC T/P Trunk is PARTIALLY COMPRESSIBLE w/ bright DVT. POP is INCOMPETENT for greater than 1.0 intraluminal echoes consistent w/ CHRONIC second. DVT. T/P Trunk is PARTIALLY COMPRESSIBLE w/ bright PTV is compressible. intraluminal echoes consistent w/ CHRONIC RT PerV is compressible. DVT. SFJ is competent and measures 0.98 cm. PTV is PARTIALLY COMPRESSIBLE w/ bright GSV proximal thigh measures 0.84 x 0.99 cm. intraluminal echoes consistent w/ CHRONIC GSV at knee measures 0.57 x 0.60 cm. DVT. GSV above knee is competent. RT PerV is compressible. GSV below knee is dilated and NONCOMPRESSIBLE SFJ is competent and measures 0.79 cm. consistent w/ SVT. GSV proximal thigh measures 0.42 x 0.43 cm. SSV proximal calf is INCOMPETENT for greater GSV at knee measures 0.31 x 0.33 cm. than 0.5 seconds and measures 0.47 x 0.45 cm GSV above knee is INCOMPETENT for greater SSV mid and distal calf is dilated and than 0.5 seconds. NONCOMPRESSIBLE consistent w/ SVT. GSV below knee is dilated and NONCOMPRESSIBLE Procedure consistent w/ SVT Exam performed in department. SSV prox to distal calf is dilated and This is a venous duplex using B-mode, color NONCOMPRESSIBLE consistent w/ SVT. flow and spectral Doppler. The exam was diagnostic. The study was technically difficult. Patient was scanned in reverse Trendelenburg position during reflux assessment. A preliminary report was called and/or faxed to [facility]. VL/Venous Duplex US - Toney Extrem Interpretation Summary Valvular incompetence is noted in the right femoral vein and popliteal vein. Ch ronic venous changes are noted in the right tibio-peroneal trunk. The remainder of the right lower e xtremity deep venous system is patent and compressible. Valvular incompetence is noted in the left f emoral vein and popliteal vein. Chronic venous changes are noted in the left popliteal vein, ti bio-peroneal trunk, and posterior tibial vein. The remainder of the left lower extremity deep venou s system is patent and compressible. Sapheno-femoral junctions are bilaterally competent . The rig ht great saphenous vein appears competent above the knee. Acute superficial thrombophlebitis is no kenney in the right great saphenous vein below the knee. The left great saphenous vein is incompete nt above the knee. Acute superficial thrombophlebitis is noted in the left great saphenous vein be low the knee. Acute superficial thrombophlebitis is noted in the small saphenous veins bilaterally. Ordering Physician: Qamar Robles Referring Physician: Irvin Eisenberg Performed By: Derrick Kelly RVT
[2023-12-02 14:31] VITALS: BP 150/69; PULSE 85; RESP 18; TEMP 35.7; BMI 24.3
--- NOTE | 2023-12-02 17:54 | HP.PCM_ITS ---
History of Present Illness Date of Service: 12/02/23 Chief Complaint: Ulcerations of the left posterior calf History of Wound: This is a 68 year-old female who claims to have experienced multiple bug bite in both lower extremities approximately 4 weeks prior to her presentation. She developed pain, swelling, and erythema in both legs following her claimed episode of bug bites. As result, she was treated with 2 courses of oral antibiotics by her primary care physician. These have included a course of oral clindamycin, as well as cephalexin. The wounds/ulcerations on the patient's right leg have healed, and she presented with a clustered ulceration on the left posterior calf. The patient admits to having a history of swelling and edema in her lower extremities. She has a history of bilateral lower extremity deep vein thrombosis, and is on chronic systemic anticoagulation with warfarin. She indicates that she wears graduated compression stockings on a daily basis, which are of 30 to 40 mmHg compression. She had not been using any topical remedies relative to the ulceration on her left posterior calf. The patient is of normal body habitus, with a BMI of 24.3. [facility] Medical History Non-pressure chronic ulcer of left calf with fat layer exposed Chronic anticoagulation Right leg swelling Left leg swelling Venous stasis ulcer Chronic venous insufficiency Degeneration of lumbosacral intervertebral disc Lumbosacral spondylosis Lumbosacral radiculopathy History of compression fracture of spine Hyperlipidemia History of thrombophlebitis of deep vein of lower extremity Migraine headache Osteoporosis Encounter for smoking cessation counseling Smoking greater than 30 pack years Home Medications ?Medication ?Instructions ?Recorded ?Last Taken ?Type ergocalciferol (vitamin D2) 1,250 50,000 unit PO .QOWEEK 03/10/19 Unknown History mcg (50,000 unit) capsule alendronate 70 mg tablet 70 mg PO QWEEK 11/18/23 Unknown History atorvastatin 20 mg tablet 20 mg PO DAILY 11/18/23 Unknown History warfarin 1 mg tablet 3 mg PO DAILY 11/18/23 Unknown History Allergy/AdvReac Type Severity Reaction Status Date / Time codeine Allergy Hives Verified 03/15/19 10:56 Sulfa (Sulfonamide Allergy Unknown Verified 03/15/19 10:56 Antibiotics) Surgical History History of tonsillectomy History of kyphoplasty Social History Smoking Status: Current every day smoker Vital Signs Vital Signs Vital Signs: 12/02/23 14:31 Temperature 96.3 F L Temperature Source Temporal Pulse Rate 85 Respiratory Rate 18 Blood Pressure 150/69 H Blood Pressure Mean 96 Blood Pressure Source Monitor Blood Pressure Position Standing Blood Pressure Location Left Arm Oxygen Delivery Method Room Air Weight Weight: 160 lb Body Mass Index (BMI) 24.3 Physical Exam Const alert, oriented x3, no apparent distress, average body habitus, no limitations and well nourished Constitutional Narrative: The patient's BMI is 24.3 General Appearance: cooperative, comfortable, well kempt and well developed Orientation / Consciousness: awake, oriented to person, oriented to place and oriented to time Exam Limitations: no limitations HEENT normocephalic and head/scalp atraumatic Head and Scalp: normal to inspection, normocephalic and atraumatic Face and Sinus: normal facial exam Nose: external nose normal External Ear: external ears normal Eyes EOMs intact bilaterally General Eye: normal appearance of both eyes Neck full ROM Resp normal respiratory effort, normal air movement, no retractions and no use of accessory muscles Effort and Inspection: able to speak in complete sentences and symmetric chest movement Extremity no calf tenderness General Extremity: Negative for clubbing or cyanosis Skin Wound Narrative: Slight swelling is noted in the patient's lower extremities bilaterally. Pedal pulses are palpable bilaterally. Hyperpigmentation and hemosiderin staining is noted to the medial malleoli bilaterally. An ulceration is noted on the left posterior calf. There appears to have been significant deterioration since the patient's last visit. The ulceration on the left posterior calf now demonstrates a very large, dry, necrotic, black eschar. In addition, there is a rim of erythema about the ulceration, suggestive of cellulitis. The dimensions of the ulceration are documented elsewhere. Despite a culture result which was negative recently, a swab culture has again been obtained for aerobic and anaerobic bacterial growth. Culture results will be awaited. Hair: normal Neuro oriented x3, CN's II-XII intact bilaterally, moves all extremities, no focal motor deficits and no sensory deficits noted Sensorium / Orientation: awake, alert, oriented to person, oriented to place and oriented to time Psych Appearance: grossly normal and appropriate Attitude: calm Activity / Motor Behavior: appropriate eye contact Speech: normal speech Mood & Affect: euthymic mood Thought Process: normal thought process Thought Content: normal thought content Attention / Concentration: attention grossly intact Debridement Note Debridement Note Wound debrided: Left posterior calf Laterality: Left Type of Debridement: Excisional debridement Anesthesia Used: 5% Lidocaine Gel Depth: Down to and including healthy tissue and in the subcutaneous layer Percentage of wound debrided: 100 Instrument Used: 5mm curette, #15 blade and Forceps Tissue Removed: Necrotic tissue, eschar, and bioburden Severity: Fat Layer Exposed Amount of bleeding with debridement: Mild Bleeding Controlled with: Compression and gauze Patient tolerated procedure: Patient tolerated procedure well Debridement Free Text: The patient presented with a significant change in the appearance of her left posterior calf ulceration. A very large, necrotic eschar was present. Using sharp dissection with a #15 scalpel blade, the eschar was removed. There remains a small amount of frankly necrotic material within the ulceration, for which we are to initiate the use of collagenase Santyl topically. Post-Debridement Measurements and Additional Note: Post-Debridement Measurements/Treatment - Nurse 1 - General Ulcer Assessment Start: 11/18/23 14:21 Freq: Status: Active Protocol: WC.LOWEXT Activity Type Activity Date Activity User E-sign Co-sign Detail Recorded Client Recorded Date Recorded By Document 11/18/23 14:24 RB [email or web address] 11/18/23 14:30 RB Document 12/02/23 14:31 KW [id number] 12/02/23 14:36 KW 11/18/23 12/02/23 14:24 14:31 - Today's Visit Information Type of service Initial Visit Follow-up Visit (Physician/DRIVE IN TELLER ) Arrival Mode Ambulatory Ambulatory Transfer Assistance None Patient Identification Verified (Name & Yes Yes ) Patient Requires Transmission-Based No Precautions Height and Weight Height 5 ft 8 in Weight 160 lb Weight in Pounds 160.0 lbs Body Mass Index (BMI) 24.3 24.3 BMI Classification Normal Normal BSA - Julian 1.86 Vital Signs Temperature (97.8 F-99.1 F) 97.3 F L 96.3 F L Temperature Source Temporal Temporal Pulse Rate (60-100) 74 85 Pulse Location Monitor Monitor Respiratory Rate (12-18) 18 18 Respiratory rate source Observation Monitor Oxygen Delivery Method Room Air Blood Pressure (90/60-120/80) 144/72 H 150/69 H Blood Pressure Mean 96 96 Source Monitor Monitor Position Semi-Fowlers Standing Blood Pressure Location Left Arm Left Arm History Since Last Visit- (Skip if this is Patient's initial visit) Have you changed medications since your No last visit? Any new allergies or adverse reactions No Had a fall/change in ADL's that may No increase risk of falls Signs or symptoms of abuse and/or No neglect since last visit Have you been in the hospital since your No last visit? Has dressing in place as prescribed Yes Has compression in place as prescribed N/A Has offloadiing in place as prescribed N/A Experienced any changes in pain level or No management Left Footwear Regular Shoe Right Footwear Regular Shoe Pain Scale: 0-10 Numeric Is Patient Pain Free? No Yes LLE -Description Sharp,Burning, Aching -Intensity 6 -Duration (hours) Acute -Pain Behavior Guarding, Irritability, Withdrawal from Touch -Pain Aggravating Factors Exercise/ Activity, Walking -Alleviating Factors/Interventions Medication -Effectiveness of Alleviating Factor/ Minimally Intervention effective Lower Extremity Assessment/ Foot Assessment/ Toe Nail Assessment Right -Posterior Tibial Palpable Yes -Posterior Tibial Doppler Multiphasic -Dorsalis Pedis Palpable Yes -Dorsalis Pedis Doppler Multiphasic -Extremity Color Hyperpigmented -Hair Growth on Legs Yes -Hair Growth on Toes No -Temperature of Extremity Hot -Capillary Refill Less than 3 Seconds -Dependent Rubor No -Blanched when Elevated No -Lipodermatosclerosis No -Other Deformity No -Prior Foot Ulcer No -Charcot Joint No -Prior Amputation No -Thick No -Discolored No -Deformed No -Improper Length & Hygeine Yes Left -Posterior Tibial Palpable Yes -Posterior Tibial Doppler Multiphasic -Dorsalis Pedis Palpable Yes -Dorsalis Pedis Doppler Multiphasic -Extremity Color Hyperpigmented -Hair Growth on Legs Yes -Hair Growth on Toes No -Temperature of Extremity Warm -Capillary Refill Less than 3 Seconds -Dependent Rubor No -Blanched when Elevated No -Lipodermatosclerosis No -Other Deformity No -Prior Foot Ulcer No -Charcot Joint No -Prior Amputation No -Thick No -Discolored No -Deformed No -Improper Length & Hygeine Yes Neuropathy Assessment Feet - Top Side and Bottom <Entered> (a) Communication Assessment 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 language [employer]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 No Able to Read Yes Able to Write Yes Communication Tools None Right Hearing Abillity Normal Left Hearing Abillity Normal Visual Assistive Devices Glasses Teaching Assessment Preferences Verbal,Written, Demonstration Barriers to Learning None Readiness To Learn Good Willingness to Engage in Self Management Med Activies Readiness to Engage in Self Management Med Activities Anxiety Level Anxious Cooperation Cooperative Perception Coherent Interest in Health Problem Asks Questions Education Importance Acknowledges Need Does Patient Smoke tobacco or other No substances Smoking Status Current every day smoker Is Patient Diabetic No Functional Assessment Recent Decline in Ability to Perform Denies Any Declines Assistive Device With Patient No Culture/Yazidi/Web Development Director Cultural/Yazidi Needs that may affect No Treatment Plan Would you allow our [facility] welder fitter arc to No meet you for the purpose of spiritual/ emotional support? Web Development Director to contact place of anabaptism No Teaching: Wound Center *Welcome to the Wound Center -Person Taught Patient -Teaching Method Discussion, Demonstration -Response to teaching Verbalize Understanding (a) 1 - + throughout WC - Nurse 1 - General Ulcer Measurement Start: 11/18/23 14:21 Freq: Status: Active Protocol: Activity Type Activity Date Activity User E-sign Co-sign Detail Recorded Client Recorded Date Recorded By Document 11/18/23 14:24 RB [email or web address] 11/18/23 14:30 RB Document 12/02/23 14:31 KW [id number] 12/02/23 14:36 KW 11/18/23 12/02/23 14:24 14:31 Wound Center Nurse 1 1. LLE posterior -Combined with other wound No -Current Size (cm) - Length 4 3 -Current Size (cm) - Width 6.5 4.9 -Current Size (cm) - Depth 0.1 0.1 -Total Square Cm 26.0 14.7 -Photo Taken Yes -Tunneling No -Undermining/Tunneling No -Circular Undermining No -Exudate Amt Medium Small -Exudate Type Serosanguineous Serosanguineous -Wound Margin Distinct, Distinct, Outline Outline Attached Attached -Granulation Amt Medium (34-66%) Small (1-33%) -Granulation Quality [place] -Slough/Fibrin Yes -Necrosis Amt Medium (34-66%) Large (67-100%) -Necrotic Tissue Type Adherent Slough Eschar -Structure Exposed N/A -Texture (Mary-wound Skin Appearance) Assessed Assessed -Moisture (Mary-wound Skin Appearance) Assessed Assessed -Color (Mary-wound Skin Appearance) Hemosiderin Assessed, Staining Erythema -Temperature (Mary-wound Skin No Abnormality Appearance) (Pt Warm) -Tenderness on Palpation (Mary-wound No Skin Appearance) -Ulcer Cleansing Wound Cleanser Rinsed/ Irrigated with Saline -Foul Odor after Cleansing No -Anesthetic Used 4% Lidocaine 5% Lidocaine Solution Gel Lower Limb Edema Present Yes Right Calf (cm) 36 Right Ankle (cm) 22.5 Left Calf (cm) 37.5 Left Ankle (cm) 24 WC - Nurse 2 - General Ulcer CM Notes Start: 11/18/23 14:21 Freq: Status: Active Protocol: Activity Type Activity Date Activity User E-sign Co-sign Detail Recorded Client Recorded Date Recorded By Document 11/18/23 14:41 DS 1 11/18/23 14:52 DS Document 12/02/23 14:58 [id number] 12/02/23 15:12 11/18/23 12/02/23 14:41 14:58 Wound Center Nurse 2 1. LLE posterior -Time 14:45 14:58 -Correct Patient Yes Yes -Correct Side, Site, Position Yes Yes -Correct Procedure Yes Yes -Procedure Performed Yes Yes -Type of Procedure Debridement Debridement -Clinical Debridement Subcutaneous Subcutaneous -Tissue Removed Subcutaneous Subcutaneous -Post Debridement (cm) - Length 2.6 2.8 -Post Debridement (cm) - Width 6.0 5.5 -Post Debridement (cm) - Depth 0.1 0.4 -Total Square (Post) (cm) 15.60 15.40 -Area of Debridement (cm) - Length 2.6 2.8 -Area of Debridement (cm) - Width 6.0 5.5 -Total Square (Area) (cm) 15.60 15.40 -Tunneling No No -Undermining/Tunneling No No -Circular Undermining No No -Wound/Ulcer Outcome Not Healed Not Healed -Ulcer Cleansing Rinsed/ Irrigated with Saline -Foul Odor after Cleansing No -Bioengineered Tissue No -Bleeding Controlled with Pressure Pressure -Treatment Response Procedure Procedure Tolerated Well Tolerated Well -Offloading No -Debridement - Subq, 1st 20sq cm Yes Yes Pain Scale: 0-10 Numeric Is Patient Pain Free? Yes Yes WC - Nurse 3 - General Ulcer D/C NN Start: 11/18/23 14:21 Freq: Status: Active Protocol: Activity Type Activity Date Activity User E-sign Co-sign Detail Recorded Client Recorded Date Recorded By Document 11/18/23 15:20 RB [email or web address] 11/18/23 15:21 RB Document 12/02/23 15:32 RB [id number] 12/02/23 15:32 RB 11/18/23 12/02/23 15:20 15:32 Wound Care Center Nurse 3 1. LLE posterior -Ulcer Cleansing Wound Cleanser -Primary Dressing Applied C Hydrogel ($) -Other Dressing hydrogel -Primary Dressing Covered/Secured with Dry Gauze & Dry Gauze & Roll Gauze, Roll Gauze Secured with Tape bilateral LE -Stockings Yes Yes -Other pt own stockings Treatment Response Procedure Procedure Tolerated Well Tolerated Well Pain Scale: 0-10 Numeric Is Patient Pain Free? Yes Yes WC - Visit Discharge Discharge Condition Stable Stable Ambulatory Status Ambulatory Ambulatory Transportation Private Auto Private Auto Medication Reconcilliation completed & No No provided to patient/care provider Clinical Summary of Care Provided Yes Yes Charges/Coding Multi Select Codes Visit Charges Office Visit/Consults: 13650 OV L2 Est 10min Integumentary Integumentary CPT Codes: 48241 Jenelle subq tissue 20 sq cm/< Assessment/Plan Assessment/Plan (1) Non-pressure chronic ulcer of left calf with fat layer exposed: CODE(S): L97.222 - Non-pressure chronic ulcer of left calf with fat layer exposed (2) Venous stasis ulcer: CODE(S): I83.009 - Varicose veins of unspecified lower extremity with ulcer of unspecified site; L97.909 - Non-pressure chronic ulcer of unspecified part of unspecified lower leg with unspecified severity QUALIFIERS: Venous stasis ulcer site: calf Varicose vein presence: without varicose veins Laterality: left Non-pressure ulcer stage: with fat layer exposed Qualified Code(s): I87.2 - Venous insufficiency (chronic) (peripheral); L97.222 - Non-pressure chronic ulcer of left calf with fat layer exposed (3) Chronic venous insufficiency: CODE(S): I87.2 - Venous insufficiency (chronic) (peripheral) (4) Left leg swelling: CODE(S): M79.89 - Other specified soft tissue disorders (5) Right leg swelling: CODE(S): M79.89 - Other specified soft tissue disorders (6) Smoking greater than 30 pack years: CODE(S): F17.210 - Nicotine dependence, cigarettes, uncomplicated (7) Encounter for smoking cessation counseling: CODE(S): Z71.6 - Tobacco abuse counseling (8) Osteoporosis: CODE(S): M81.0 - Age-related osteoporosis without current pathological fra cture (9) Migraine headache: CODE(S): G43.909 - Migraine, unspecified, not intractable, without status migrainosus (10) History of thrombophlebitis of deep vein of lower extremity: CODE(S): Z86.72 - Personal history of thrombophlebitis (11) Hyperlipidemia: CODE(S): E78.5 - Hyperlipidemia, unspecified (12) History of compression fracture of spine: CODE(S): Z87.81 - Personal history of (healed) traumatic fracture (13) Lumbosacral radiculopathy: CODE(S): M54.17 - Radiculopathy, lumbosacral region (14) Lumbosacral spondylosis: CODE(S): M47.817 - Spondylosis without myelopathy or radiculopathy, lumbosacral region (15) Degeneration of lumbosacral intervertebral disc: CODE(S): M51.37 - Other intervertebral disc degeneration, lumbosacral region (16) History of kyphoplasty: CODE(S): Z98.890 - Other specified postprocedural states (17) History of tonsillectomy: CODE(S): Z90.89 - Acquired absence of other organs (18) Chronic anticoagulation: CODE(S): Z79.01 - terminal operations supervisor (current) use of anticoagulants PLAN: Plan This is a 68 year-old female who presented with an ulceration on the left posterior calf. The ulceration had been present for approximately 4 weeks. Patient stated that the ulceration was initiated by means of bug bites . She had been treated by her primary care physician for cellulitis at the site, which had involved the use of 2 courses of oral antibiotics, clindamycin and cephalexin. Upon her presentation, significant erythema was noted about the ulceration, which prompted a concern for cellulitis. A swab culture was obtained for aerobic and anaerobic bacterial growth. Culture results were negative. At the patient's follow-up visit today, there has been significant deterioration of her left calf ulceration, with the development of frankly necrotic and nonviable eschar. In addition, there is continued mary-ulcer erythema, somewhat worse than noted previously, and concerning for cellulitis. As result, swab cultures have again been obtained for aerobic and anaerobic bacterial culture. The results will be awaited. The patient has a history of bilateral lower extremity deep vein thrombosis, and is treated with long-term systemic anticoagulation using warfarin. A venous duplex examination and a noninvasive lower extremity arterial study have been performed today, and results noted. Patient's noninvasive lower extremity arterial study revealed triphasic Doppler waveforms at ankle level bilaterally, with normal resting ankle-brachial indices bilaterally, and normal digital-brachial indices bilaterally as well. Therefore, there is no evidence of significant arterial occlusive disease. The patient's venous duplex examination reveals incompetence in the deep venous systems bilaterally, involving the femoral and popliteal veins. Chronic venous changes are also noted in the deep venous systems bilaterally. In addition, acute superficial thrombophlebitis is noted in the great saphenous veins below the knees bilaterally. Acute superficial thrombophlebitis is also noted bilaterally in the small saphenous veins. In lieu of these findings, a discussion has been undertaken with the patient with regard to her anticoagulation management. She indicates that her most recent INR was 1.8, and that her dose of warfarin was increased by her primary care physician, Dr. Eisenberg. Indeed, the patient was recently on oral antibiotics, which may have affected her INR results. 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 The patient has been instructed in the appropriate means of conservative management. Leg elevation has been advised. She is to sleep on a flat mattress at night. Legs are to be elevated both at night and during daytime hours. Legs are to be elevated to heart level, or higher. Prolonged idle sitting has been discouraged. Activity has been encouraged. She has been encouraged to continue wearing her graduated compression stockings on a daily basis. Her weight appears to be optimal. We are to implement the use of collagenase Santyl topically to the ulceration on her left posterior calf. The patient has been instructed in the appropriate means of application. She has been provided a prescription for the collagenase Santyl, as well as a coupon to mitigate its cost. The patient is to return in 1 week for reevaluation. The results of the patient's recent vascular tests and her recent medical records are to be forwarded to her primary care physician, Dr. Eisenberg. We have discussed testing for a thrombophilic disorder, though further evaluation in this regard will be deferred to her other providers. Total time: minutes
--- NOTE | 2023-12-04 13:49 | WC ---
PHOTO 12/02/23 LLE POST
[2023-12-09 14:26] VITALS: BP 141/70; PULSE 83; RESP 16; TEMP 36.3; BMI 24.3
--- NOTE | 2023-12-09 16:24 | HP.PCM_ITS ---
History of Present Illness Date of Service: 12/09/23 Chief Complaint: Ulcerations of the left posterior calf History of Wound: This is a 68 year-old female who claims to have experienced multiple bug bite in both lower extremities approximately 4 weeks prior to her presentation. She developed pain, swelling, and erythema in both legs following her claimed episode of bug bites. As result, she was treated with 2 courses of oral antibiotics by her primary care physician. These included a course of oral clindamycin, as well as cephalexin. The wounds/ulcerations on the patient's right leg have healed, and she presented with a clustered ulceration on the left posterior calf. The patient admits to having a history of swelling and edema in her lower extremities. She has a history of bilateral lower extremity deep vein thrombosis, and is on chronic systemic anticoagulation with warfarin. She indicates that she wears graduated compression stockings on a daily basis, which are of 30 to 40 mmHg compression. She had not been using any topical remedies relative to the ulceration on her left posterior calf. The patient is of normal body habitus, with a BMI of 24.3. PFSH Medical History Superficial thrombophlebitis of both legs Non-pressure chronic ulcer of left calf with fat layer exposed Chronic anticoagulation Right leg swelling Left leg swelling Venous stasis ulcer Chronic venous insufficiency Degeneration of lumbosacral intervertebral disc Lumbosacral spondylosis Lumbosacral radiculopathy History of compression fracture of spine Hyperlipidemia History of thrombophlebitis of deep vein of lower extremity Migraine headache Osteoporosis Encounter for smoking cessation counseling Smoking greater than 30 pack years Home Medications ?Medication ?Instructions ?Recorded ?Last Taken ?Type ergocalciferol (vitamin D2) 1,250 50,000 unit PO .QOWEEK 03/10/19 Unknown History mcg (50,000 unit) capsule alendronate 70 mg tablet 70 mg PO QWEEK 11/18/23 Unknown History atorvastatin 20 mg tablet 20 mg PO DAILY 11/18/23 Unknown History warfarin 1 mg tablet 3 mg PO DAILY 11/18/23 Unknown History ciprofloxacin HCl 500 mg tablet 500 mg PO BID #20 tabs 12/08/23 Unknown Rx Allergy/AdvReac Type Severity Reaction Status Date / Time codeine Allergy Hives Verified 03/15/19 10:56 Sulfa (Sulfonamide Allergy Unknown Verified 03/15/19 10:56 Antibiotics) Surgical History History of tonsillectomy History of kyphoplasty Social History Smoking Status: Current every day smoker Vital Signs Vital Signs Vital Signs: 12/09/23 14:26 Temperature 97.3 F L Temperature Source Temporal Pulse Rate 83 Respiratory Rate 16 Blood Pressure 141/70 H Blood Pressure Mean 93 Blood Pressure Source Monitor Blood Pressure Position Sitting Blood Pressure Location Left Arm Oxygen Delivery Method Room Air Weight Weight: 160 lb Body Mass Index (BMI) 24.3 Physical Exam Const alert, oriented x3, no apparent distress, average body habitus, no limitations and well nourished Constitutional Narrative: The patient's BMI is 24.3 General Appearance: cooperative, comfortable, well kempt and well developed Orientation / Consciousness: awake, oriented to person, oriented to place and oriented to time Exam Limitations: no limitations HEENT normocephalic and head/scalp atraumatic Head and Scalp: normal to inspection, normocephalic and atraumatic Face and Sinus: normal facial exam Nose: external nose normal External Ear: external ears normal Eyes EOMs intact bilaterally General Eye: normal appearance of both eyes Neck full ROM Resp normal respiratory effort, normal air movement, no retractions and no use of accessory muscles Effort and Inspection: able to speak in complete sentences and symmetric chest movement Extremity no calf tenderness General Extremity: Negative for clubbing or cyanosis Skin Wound Narrative: There is no significant swelling or edema noted in the patient's lower extremities bilaterally. Pedal pulses are palpable bilaterally. Hyperpigmentation and hemosiderin staining is noted to the medial malleoli bilaterally. An ulceration is noted on the left posterior calf. It is full- thickness, extending into the subcutaneous tissues. There is a large amount of bioburden and necrotic, nonviable tissue. The large amount of dry, necrotic, black eschar which was noted on the previous visit has been eliminated. There is a rim of erythema about the ulceration, suggestive of cellulitis. The dimensions of the ulceration are documented elsewhere. Culture results, obtained last week, were positive for Serratia marcescens, and the patient has been placed on an antibiotic appropriate to the isolated bacterial culture. Hair: normal Neuro oriented x3, CN's II-XII intact bilaterally, moves all extremities, no focal motor deficits and no sensory deficits noted Sensorium / Orientation: awake, alert, oriented to person, oriented to place and oriented to time Psych Appearance: grossly normal and appropriate Attitude: calm Activity / Motor Behavior: appropriate eye contact Speech: normal speech Mood & Affect: euthymic mood Thought Process: normal thought process Thought Content: normal thought content Attention / Concentration: attention grossly intact Debridement Note Debridement Note Wound debrided: Left posterior calf Laterality: Left Type of Debridement: Excisional debridement Anesthesia Used: 5% Lidocaine Gel and Cetacaine Depth: Down to and including healthy tissue and in the subcutaneous layer Percentage of wound debrided: 100 Instrument Used: 5mm curette, #15 blade and Forceps Tissue Removed: Necrotic tissue, eschar, and bioburden Severity: Fat Layer Exposed Amount of bleeding with debridement: Mild Bleeding Controlled with: Compression and gauze Patient tolerated procedure: Patient tolerated procedure well Debridement Free Text: Both 5% lidocaine gel and Cetacaine spray were applied topically to optimize patient comfort. A large amount of necrotic and nonviable tissue was noted in the wound upon presentation today. Sharp debridement was performed using a 5 mm curette, #15 scalpel blade, and forceps in an effort to remove as much of the nonviable and necrotic tissue as possible. The patient tolerated the debridement generally well, but had some pain and discomfort which hindered the ability to remove all of the necrotic tissue. A large amount of the necrotic and nonviable tissue was removed, though a small amount remains. 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 ) ) Arrival Mode Ambulatory Ambulatory Ambulatory Transfer Assistance None Patient Identification Verified (Name & Yes Yes Yes ) Patient Requires Transmission-Based No Precautions Height and Weight Height 5 ft 8 in Weight 160 lb Weight in Pounds 160.0 lbs Body Mass Index (BMI) 24.3 24.3 24.3 BMI Classification Normal Normal Normal BSA - Julian 1.86 Vital Signs Temperature (97.8 F-99.1 F) 97.3 F L 96.3 F L 97.3 F L Temperature Source Temporal Temporal Temporal Pulse Rate (60-100) 74 85 83 Pulse Location Monitor Monitor Monitor Respiratory Rate (12-18) 18 18 16 Respiratory rate source Observation Monitor Observation Oxygen Delivery Method Room Air Room Air Blood Pressure (90/60-120/80) 144/72 H 150/69 H 141/70 H Blood Pressure Mean 96 96 93 Source Monitor Monitor Monitor Position Semi-Fowlers Standing Sitting Blood Pressure Location Left Arm Left Arm Left Arm History Since Last Visit- (Skip if this is Patient's initial visit) Have you changed medications since your No No last visit? Any new allergies or adverse reactions No No Had a fall/change in ADL's that may No No increase risk of falls Signs or symptoms of abuse and/or No No neglect since last visit Have you been in the hospital since your No No last visit? Has dressing in place as prescribed Yes Yes Has compression in place as prescribed N/A Yes Has offloadiing in place as prescribed N/A N/A Experienced any changes in pain level or No No management Left Footwear Regular Shoe Regular Shoe Right Footwear Regular Shoe Regular Shoe Pain Scale: 0-10 Numeric Is Patient Pain Free? No Yes No LLE -Description Sharp,Burning, Sharp,Burning Aching -Intensity 6 6 -Duration (hours) Acute -Pain Behavior Guarding, Irritability, Withdrawal from Touch -Pain Aggravating Factors Exercise/ Activity, Walking -Alleviating Factors/Interventions Medication Medication, Turning/ Repositioning -Effectiveness of Alleviating Factor/ Minimally Intervention effective Lower Extremity Assessment/ Foot Assessment/ Toe Nail Assessment Right -Posterior Tibial Palpable Yes -Posterior Tibial Doppler Multiphasic -Dorsalis Pedis Palpable Yes -Dorsalis Pedis Doppler Multiphasic -Extremity Color Hyperpigmented -Hair Growth on Legs Yes -Hair Growth on Toes No -Temperature of Extremity Hot -Capillary Refill Less than 3 Seconds -Dependent Rubor No -Blanched when Elevated No -Lipodermatosclerosis No -Other Deformity No -Prior Foot Ulcer No -Charcot Joint No -Prior Amputation No -Thick No -Discolored No -Deformed No -Improper Length & Hygeine Yes Left -Posterior Tibial Palpable Yes -Posterior Tibial Doppler Multiphasic -Dorsalis Pedis Palpable Yes -Dorsalis Pedis Doppler Multiphasic -Extremity Color Hyperpigmented -Hair Growth on Legs Yes -Hair Growth on Toes No -Temperature of Extremity Warm -Capillary Refill Less than 3 Seconds -Dependent Rubor No -Blanched when Elevated No -Lipodermatosclerosis No -Other Deformity No -Prior Foot Ulcer No -Charcot Joint No -Prior Amputation No -Thick No -Discolored No -Deformed No -Improper Length & Hygeine Yes Neuropathy Assessment Feet - Top Side and Bottom <Entered> (a) Communication Assessment Preferred language 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 Able to Read Yes Able to Write Yes Communication Tools None Right Hearing Abillity Normal Left Hearing Abillity Normal Visual Assistive Devices Glasses Teaching Assessment Preferences Verbal,Written, Demonstration Barriers to Learning None Readiness To Learn Good Willingness to Engage in Self Management Med Activies Readiness to Engage in Self Management Med Activities Anxiety Level Anxious Cooperation Cooperative Perception Coherent Interest in Health Problem Asks Questions Education Importance Acknowledges Need Does Patient Smoke tobacco or other No substances Smoking Status Current every day smoker Is Patient Diabetic No Functional Assessment Recent Decline in Ability to Perform Denies Any Declines Assistive Device With Patient No Culture/Mandaeism/[employer]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 [employer] Advanced Operator Maintainer to contact place of jainism No Teaching: Wound Center *Welcome to the Wound Center -Person Taught Patient -Teaching Method Discussion, Demonstration -Response to teaching Verbalize Understanding (a) 1 - + throughout WC - Nurse 1 - General Ulcer Measurement Start: 11/18/23 14:21 Freq: Status: Active Protocol: Activity Type Activity Date Activity User E-sign Co-sign Detail Recorded Client Recorded Date Recorded By Document 11/18/23 14:24 RB [email or web address] 11/18/23 14:30 RB Document 12/02/23 14:31 KW [id number] 12/02/23 14:36 KW Document 12/09/23 14:26 KW [id number] 12/09/23 14:36 KW 11/18/23 12/02/23 12/09/23 14:24 14:31 14:26 Wound Center Nurse 1 1. LLE posterior -Combined with other wound No -Current Size (cm) - Length 4 3 3 -Current Size (cm) - Width 6.5 4.9 4.8 -Current Size (cm) - Depth 0.1 0.1 0.4 -Total Square Cm 26.0 14.7 14.4 -Date of Last Picture (Recall this 12/09/23 field) -Photo Taken Yes -Tunneling No -Undermining/Tunneling No -Circular Undermining No -Exudate Amt Medium Small Small -Exudate Type Serosanguineous Serosanguineous Serosanguineous -Wound Margin Distinct, Distinct, Distinct, Outline Outline Outline Attached Attached Attached -Granulation Amt Medium (34-66%) Small (1-33%) Small (1-33%) -Granulation Quality [place] Kinderhook [place]inder[place] -Slough/Fibrin Yes -Necrosis Amt Medium (34-66%) Large (67-100%) Large (67-100%) -Necrotic Tissue Type Adherent Slough Eschar Adherent Slough -Structure Exposed N/A -Texture (Mary-wound Skin Appearance) Assessed Assessed Assessed -Moisture (Mary-wound Skin Appearance) Assessed Assessed Assessed -Color (Mary-wound Skin Appearance) Hemosiderin Assessed, Assessed, Staining Erythema Erythema -Temperature (Mary-wound Skin No Abnormality No Abnormality Appearance) (Pt Warm) (Pt Warm) -Tenderness on Palpation (Mary-wound No No Skin Appearance) -Ulcer Cleansing Wound Cleanser Rinsed/ Rinsed/ Irrigated with Irrigated with Saline Saline -Foul Odor after Cleansing No No -Anesthetic Used 4% Lidocaine 5% Lidocaine 5% Lidocaine Solution Gel Gel Lower Limb Edema Present Yes Right Calf (cm) 36 Right Ankle (cm) 22.5 Left Calf (cm) 37.5 Left Ankle (cm) 24 WC - Nurse 2 - General Ulcer CM Notes Start: 11/18/23 14:21 Freq: Status: Active Protocol: Activity Type Activity Date Activity User E-sign Co-sign Detail Recorded Client Recorded Date Recorded By Document 11/18/23 14:41 DS 1 11/18/23 14:52 DS Document 12/02/23 14:58 [id number] 12/02/23 15:12 Document 12/09/23 14:40 DS [id number] 12/09/23 14:53 DS 11/18/23 12/02/23 12/09/23 14:41 14:58 14:40 Wound Center Nurse 2 1. LLE posterior -Time 14:45 14:58 14:41 -Correct Patient Yes Yes Yes -Correct Side, Site, Position Yes Yes Yes -Correct Procedure Yes Yes Yes -Procedure Performed Yes Yes Yes -Type of Procedure Debridement Debridement Debridement -Clinical Debridement Subcutaneous Subcutaneous Subcutaneous -Tissue Removed Subcutaneous Subcutaneous Subcutaneous -Post Debridement (cm) - Length 2.6 2.8 3.4 -Post Debridement (cm) - Width 6.0 5.5 1.9 -Post Debridement (cm) - Depth 0.1 0.4 0.6 -Total Square (Post) (cm) 15.60 15.40 6.46 -Area of Debridement (cm) - Length 2.6 2.8 3.4 -Area of Debridement (cm) - Width 6.0 5.5 1.9 -Total Square (Area) (cm) 15.60 15.40 6.46 -Tunneling No No No -Undermining/Tunneling No No No -Circular Undermining No No No -Wound/Ulcer Outcome Not Healed Not Healed Not Healed -Ulcer Cleansing Rinsed/ Irrigated with Saline -Foul Odor after Cleansing No -Bioengineered Tissue No -Bleeding Controlled with Pressure Pressure -Treatment Response Procedure Procedure Tolerated Well Tolerated Well -Offloading No -Debridement - Subq, 1st 20sq cm Yes Yes Yes Pain Scale: 0-10 Numeric Is Patient Pain Free? Yes Yes No LLE -Description Sharp,Throbbing -Intensity 8 -Duration (hours) Acute -Pain Behavior Moaning, Irritability -Pain Aggravating Factors Debridement -Alleviating Factors/Interventions Medication -Comments cetacaine used WC - Nurse 3 - General Ulcer D/C NN Start: 11/18/23 14:21 Freq: Status: Active Protocol: Activity Type Activity Date Activity User E-sign Co-sign Detail Recorded Client Recorded Date Recorded By Document 11/18/23 15:20 RB [email or web address] 11/18/23 15:21 RB Document 12/02/23 15:32 RB [id number] 12/02/23 15:32 RB Document 12/09/23 15:07 RB [id number] 12/09/23 15:09 RB [id number] 12/09/23 15:20 15:32 15:07 Wound Care Center Nurse 3 1. LLE posterior -Ulcer Cleansing Wound Cleanser Wound Cleanser -Primary Dressing Applied C Hydrogel ($) -Other Dressing hydrogel hydrogel/ abd -Primary Dressing Covered/Secured with Dry Gauze & Dry Gauze & Dry Gauze & Roll Gauze, Roll Gauze Roll Gauze, Secured with Secured with Tape Tape bilateral LE -Stockings Yes Yes Yes -Other pt own stockings Treatment Response Procedure Procedure Procedure Tolerated Well Tolerated Well Tolerated Well Pain Scale: 0-10 Numeric Is Patient Pain Free? Yes Yes Yes Teaching: Wound Center Dressing Your Wound -Person Taught Patient -Teaching Method Discussion, Demonstration -Response to teaching Verbalize Understanding WC - Visit Discharge Discharge Condition Stable Stable Stable Ambulatory Status Ambulatory Ambulatory Ambulatory Transportation Private Auto Private Auto Private Auto Medication Reconcilliation completed & No No No provided to patient/care provider Clinical Summary of Care Provided Yes Yes Yes Lab / Micro Data Micro: Microbiology 12/02/23 15:07 Wound - Leg, Left Gram Stain - Final 12/02/23 15:07 Wound - Leg, Left Wound Culture - Final Serratia marcescens 12/02/23 15:07 Wound - Leg, Left Anaerobic Culture - Final No anaerobic bacteria isolated. Charges/Coding Multi Select Codes Visit Charges Office Visit/Consults: 01774 OV L2 Est 10min Integumentary Integumentary CPT Codes: 22026 Jenelle subq tissue 20 sq cm/< Assessment/Plan Assessment/Plan (1) Non-pressure chronic ulcer of left calf with fat layer exposed: CODE(S): L97.222 - Non-pressure chronic ulcer of left calf with fat layer exposed (2) Venous stasis ulcer: CODE(S): I83.009 - Varicose veins of unspecified lower extremity with ulcer of unspecified site; L97.909 - Non-pressure chronic ulcer of unspecified part of unspecified lower leg with unspecified severity QUALIFIERS: Venous stasis ulcer site: calf Varicose vein presence: without varicose veins Laterality: left Non-pressure ulcer stage: with fat layer exposed Qualified Code(s): I87.2 - Venous insufficiency (chronic) (peripheral); L97.222 - Non-pressure chronic ulcer of left calf with fat layer exposed (3) Chronic venous insufficiency: CODE(S): I87.2 - Venous insufficiency (chronic) (peripheral) (4) Left leg swelling: CODE(S): M79.89 - Other specified soft tissue disorders (5) Right leg swelling: CODE(S): M79.89 - Other specified soft tissue disorders (6) Superficial thrombophlebitis of both legs: CODE(S): I80.03 - Phlebitis and thrombophlebitis of superficial vessels of lower extremities, bilateral (7) Smoking greater than 30 pack years: CODE(S): F17.210 - Nicotine dependence, cigarettes, uncomplicated (8) Encounter for smoking cessation counseling: CODE(S): Z71.6 - Tobacco abuse counseling (9) Osteoporosis: CODE(S): M81.0 - Age-related osteoporosis without current pathological fracture (10) Migraine headache: CODE(S): G43.909 - Migraine, unspecified, not intractable, without status migrainosus (11) History of thrombophlebitis of deep vein of lower extremity: CODE(S): Z86.72 - Personal history of thrombophlebitis (12) Hyperlipidemia: CODE(S): E78.5 - Hyperlipidemia, unspecified (13) History of compression fracture of spine: CODE(S): Z87.81 - Personal history of (healed) traumatic fracture (14) Lumbosacral radiculopathy: CODE(S): M54.17 - Radiculopathy, lumbosacral region (15) Lumbosacral spondylosis: CODE(S): M47.817 - Spondylosis without myelopathy or radiculopathy, lumbosacral region (16) Degeneration of lumbosacral intervertebral disc: CODE(S): M51.37 - Other intervertebral disc degeneration, lumbosacral region (17) History of kyphoplasty: CODE(S): Z98.890 - Other specified postprocedural states (18) History of tonsillectomy: CODE(S): Z90.89 - Acquired absence of other organs (19) Chronic anticoagulation: 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 The ulceration had been present for approximately 4 weeks. The patient stated that the ulceration was initiated by means of bug bites . She had been treated by her primary care physician for cellulitis at the site, which had involved the use of 2 courses of oral antibiotics, clindamycin and cephalexin. Upon her presentation, significant erythema was noted about the ulceration, which prompted a concern for cellulitis. A swab culture was obtained for aerobic and anaerobic bacterial growth. The first culture results were negative. Subsequently, and a follow-up visit, a repeat culture was obtained. The most recent culture result, obtained on December 02, 2023, was positive for Serratia marcescens. Based upon culture results, the patient was placed on Cipro 500 mg p.o. twice daily for a total of 10 days. She was early in the course of the antibiotic. A rim of erythema persists, but is expected to respond to antibiotic therapy as a course of antibiotic nears completion. There has been significant deterioration of her left calf ulceration, with the development of frankly necrotic and nonviable tissue. An effort has been made to remove as much of the nonviable and necrotic material as possible, but patient discomfort today, despite the use of topical analgesics, limited the amount of nonviable tissue which could be removed mechanically. The patient has a history of bilateral lower extremity deep vein thrombosis, and is treated with long-term systemic anticoagulation using warfarin. A venous duplex examination and a noninvasive lower extremity arterial study performed on December 03, 2023, and results were noted. A noninvasive lower extremity arterial study revealed triphasic Doppler waveforms at ankle level bilaterally, with normal resting ankle-brachial indices bilaterally, and normal digital-brachial indices bilaterally as well. Therefore, there is no evidence of significant arterial occlusive disease. The patient's venous duplex examination revealed incompetence in the deep venous systems bilaterally, involving the femoral and popliteal veins. Chronic venous changes were also noted in the deep venous systems bilaterally. In addition, acute superficial thrombophlebitis was noted in the great saphenous veins below the knees bilaterally. Acute superficial thrombophlebitis was also noted bilaterally in the small saphenous veins. In lieu of these findings, a discussion has been undertaken with the patient with regard to her anticoagulation management. She indicates that her most recent INR was 1.8, and that her dose of warfarin was increased by her primary care physician, Dr. Eisenberg. Indeed, the patient was recently on oral antibiotics, which may have affected her INR results. The patient has been counseled that the new course of oral antibiotic may also affect her INR, and she has been advised to discuss this matter with her primary care physician, Dr. Eisenberg. She understands to make them aware that she is on a new course of antibiotics, which may affect her INR and require adjustment of her warfarin dose. She typically has her INR checked weekly on Fridays. 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 The patient has been instructed in the appropriate means of conservative management. Leg elevation has been advised. She is to sleep on a flat mattress at night. Legs are to be elevated both at night and during daytime hours. Legs are to be elevated to heart level, or higher. Prolonged idle sitting has been discouraged. Activity has been encouraged. She has been encouraged to continue wearing her graduated compression stockings on a daily basis. Her weight appears to be optimal. We are to continue the use of collagenase Santyl topically to the ulceration on her left posterior calf. The patient has been instructed in the appropriate means of application. The patient is to return in 1 week for reevaluation. The results of the patient's recent vascular tests and her recent medical records have been forwarded to her primary care physician, Dr. Eisenberg. We have discussed testing for a thrombophilic disorder, though further evaluation in this regard will be deferred to her other providers. Total time: 26 minutes
--- NOTE | 2023-12-17 09:45 | WC ---
PHOTO 12/09/23 LLE POST
== END 2023-12-13 23:59 | disposition home or self-care (01) ==
LOC: WC 14:30
PROVIDERS: PCP Internal Medicine; Referring Provider Internal Medicine; Visit Provider Surgery
DX: I83.022 Varicose veins of left lower extremity with ulcer of calf (principal); L97.222 Non-pressure chronic ulcer of left calf with fat layer exposed; I87.2 Venous insufficiency (chronic) (peripheral); G43.909 Migraine, unspecified, not intractable, without status migrainosus; E78.5 Hyperlipidemia, unspecified; M81.0 Age-related osteoporosis without current pathological fracture; Z71.6 Tobacco abuse counseling; M47.27 Other spondylosis with radiculopathy, lumbosacral region; M51.37 Other intervertebral disc degeneration, lumbosacral region; I80.03 Phlebitis and thrombophlebitis of superficial vessels of lower extremities, bilateral; F17.210 Nicotine dependence, cigarettes, uncomplicated; Z79.83 Long term (current) use of bisphosphonates; Z79.01 Long term (current) use of anticoagulants; Z79.899 Other long term (current) drug therapy; Z86.718 Personal history of other venous thrombosis and embolism
CPT/HCPCS: 11042; 87070; 87075; 87077; 87186; 87205; 93923; 93970; 99213; G0463

== ENCOUNTER 2023-12-30 14:30 | Outpatient (RCR) | payer MEDICARE, OTHER, SELFPAY ==
[2023-12-14 00:53] VITALS: BP 141/70; PULSE 83; RESP 16; TEMP 36.3; BMI 24.3
[2023-12-16 14:19] VITALS: BP 125/75; PULSE 75; RESP 18; TEMP 36.1; BMI 24.3
[2023-12-23 14:32] VITALS: BP 129/78; PULSE 78; RESP 14; TEMP 36.1; BMI 24.3
[2023-12-30 14:39] VITALS: BP 124/86; PULSE 99; RESP 18; TEMP 36.1; BMI 24.3
[2023-12-30 15:36] VITALS: BMI 24.3
== END 2024-01-12 23:59 | disposition home or self-care (01) ==
LOC: WC 14:30
PROVIDERS: PCP Internal Medicine; Referring Provider Internal Medicine; Visit Provider Surgery
DX: I87.332 Chronic venous hypertension (idiopathic) with ulcer and inflammation of left lower extremity (principal); L97.222 Non-pressure chronic ulcer of left calf with fat layer exposed; I87.2 Venous insufficiency (chronic) (peripheral); M79.89 Other specified soft tissue disorders; I80.03 Phlebitis and thrombophlebitis of superficial vessels of lower extremities, bilateral; M81.0 Age-related osteoporosis without current pathological fracture; E78.5 Hyperlipidemia, unspecified; M47.27 Other spondylosis with radiculopathy, lumbosacral region; M51.37 Other intervertebral disc degeneration, lumbosacral region; Z71.6 Tobacco abuse counseling; F17.210 Nicotine dependence, cigarettes, uncomplicated; Z79.83 Long term (current) use of bisphosphonates; Z79.01 Long term (current) use of anticoagulants; Z79.899 Other long term (current) drug therapy; Z86.718 Personal history of other venous thrombosis and embolism
CPT/HCPCS: 11042

== ENCOUNTER 2024-01-22 17:48 | Outpatient (CLI) | payer MEDICARE, OTHER, SELFPAY ==
[2024-01-22 12:14] LABS: Hematocrit 39.4 % (37-47); Hemoglobin 12.7 g/dL (12.0-15.0); Mean Corp Hgb Conc 32.2 g/dL (32-36); Mean Platelet Vol. 10.2 fl (6.2-12.0); Platelet Count 489 K/mm3 (150-450); RBC Distribution Width SD 51.5 fl (35.1-43.9); Red Blood Count 4.53 M/mm3 (4.2-5.4); White Blood Count 14.4 K/mm3 (4.4-11.0)
[2024-01-22 12:34] LABS: Anion Gap 7 (5-15); BUN 13 mg/dL (7-18); BUN/Creat Ratio 19.6 RATIO (10-20); Calcium,Total 9.1 mg/dL (8.5-10.1); Chloride 107 mmol/L (98-107); Creatinine, Serum 0.66 mg/dL (0.55-1.02); EST Glomerular Filtration Rate 95 mL/min (>60); Est Glom Filt Rate - Afr Amer 114 mL/min (>60); Glucose 101 mg/dL (74-106); Potassium 4.3 mmol/L (3.5-5.1); Sodium Level 139 mmol/L (136-145)
[2024-01-22 12:41] VITALS: BMI 23.1
[2024-01-22 13:00] LABS: International Normalized Ratio 2.2; Prothrombin Time (Protime)PT. 24.5 SECONDS (11.7-14.9)
--- NOTE | 2024-01-22 14:38 | PCM.HP.STD ---
HPI - General HPI Narrative LINDSAY DOS SANTOS, is a 68 F who presents with history of multiple bilateral LE DVT, on coumadin since the 90s. She has no known hypercoagulable state. Most recently she developed extensive DVT up to common femoral vein while therapeutic on coumadin. She has not ever been on alternative agent other than briefly on lovenox in one of her acute thrombus events. She presents now for IVC filter placement. 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 Post-phlebitic syndrome Superficial thrombophlebitis of both legs Non-pressure chronic ulcer of left calf with fat layer exposed Chronic anticoagulation Right leg swelling Left leg swelling Venous stasis ulcer Chronic venous insufficiency Degeneration of lumbosacral intervertebral disc Lumbosacral spondylosis Lumbosacral radiculopathy History of compression fracture of spine Hyperlipidemia History of thrombophlebitis of deep vein of lower extremity Migraine headache Osteoporosis Encounter for smoking cessation counseling Smoking greater than 30 pack years Home Medications ?Medication ?Instructions ?Recorded ?Last Taken ?Type ergocalciferol (vitamin D2) 1,250 50,000 unit PO .QOWEEK 03/10/19 Unknown History mcg (50,000 unit) capsule alendronate 70 mg tablet 70 mg PO QWEEK 11/18/23 Unknown History atorvastatin 20 mg tablet 20 mg PO DAILY 11/18/23 Unknown History warfarin 1 mg tablet 4 mg PO DAILY 11/18/23 01/20/24 History Allergy/AdvReac Type Severity Reaction Status Date / Time codeine Allergy Hives Verified 03/15/19 10:56 Sulfa (Sulfonamide Allergy Unknown Verified 03/15/19 10:56 Antibiotics) Surgical History History of tonsillectomy History of kyphoplasty Social History Smoking Status: Current every day smoker tobacco type: cigarettes ROS Constitutional Constitutional: Denies chills, fever(s), frequent falls, lethargy or weakness Eyes Eyes: Denies blind spots, change in vision or loss of vision ENT HEENT: Denies bleeding gums, hoarseness or sore throat Cardiovascular Cardiovascular: Reports leg edema; Denies abdominal pain, bluish discoloration of hand/feet, chest pain with activity, claudication, cold extremities, cyanosis, dyspnea on exertion, erythema on extremities, irregular heart rhythm, leg ulcers, numbness in extremities or weakness in extremities Respiratory/Chest Respiratory/Chest: Denies cough, excessive phlegm production, shortness of breath at rest, shortness of breath with exertion or wheezing Gastrointestinal Gastrointestinal: Denies anorexia, change in stool character, constipation, diarrhea, melena or rectal bleeding Genitourinary Genitourinary: Denies dysuria or hematuria Musculoskeletal Musculoskeletal: Denies abnormal gait Integumentary Integumentary: Reports wounds; Denies erythema or non-healing lesions Neurologic Neurologic: Denies abnormal speech, focal weakness, headache(s), loss of vision, numbness, paresthesias or sensory deficit Hematologic/Lymphatic Hematologic/Lymphatic: Denies easy bleeding, easy bruising or lymphadenopathy Vital Signs Vital Signs Vital Signs: Weight Weight: 148 lb Body Mass Index (BMI) 23.1 Results Lab / Micro Data 01/22/24 12:02 01/22/24 12:02 Labs: Laboratory Results - last 24 hr 01/22/24 12:02: WBC 14.4 H, RBC 4.53, Hgb 12.7, Hct 39.4, MCV 87.0, MCH 28.0, MCHC 32.2, RDW Std Deviation 51.5 H, RDW Coeff of Dimas 16.0 H, Plt Count 489 H, MPV 10.2, PT 24.5 H, INR 2.2, Sodium 139, Potassium 4.3, Chloride 107, Carbon Dioxide 25.0, Anion Gap 7, BUN 13, Creatinine 0.66, Est GFR (MDRD) Af Amer 114, Est GFR (MDRD) Non-Af 95, BUN/Creatinine Ratio 19.6, Glucose 101, Calcium 9.1 Assessment & Plan Assessment/Plan (1) Acute deep vein thrombosis of right lower extremity: QUALIFIERS: Affected thrombotic vein of extremity: femoral Qualified Code(s): I82.411 - Acute embolism and thrombosis of right femoral vein PLAN: -plan IVC filter -will discuss extermination supervisor anticoagulation plan with her PCP; may be beneficial to place on lovenox for 3 months then alternative oral agent -will also evaluate iliac veins for anatomic obstruction and extent of thrombus; with degree of symptoms may benefit from thrombectomy at later time
--- NOTE | 2024-01-22 16:12 | OP.PCM_ITS ---
Report of Operation Date of Procedure: 01/22/24 Pre-Operative Diagnosis: DVT while therapeutic on coumadin Post-Operative Diagnosis: same Surgery/Procedure Performed:: Insertion IVC filter IVUS bilateral common/external iliac veins Surgeon: Jeremy Batista Type of Anesthesia: Local and Sedation,Conscious Estimated Blood Loss (mL): 2 Description of Procedure: HPI: Patient is a 68-year-old female with history of multiple deep venous thrombosis events in bilateral extremities was maintained on Coumadin long-term. She recently developed new extensive DVT of the right lower extremity despite therapeutic INR. She is felt to be appropriate for filter placement so she presents now for both inferior vena cava filter placement as well as evaluation of the iliac vessels for possible anatomic cause for her recurrent thrombotic events. Description of procedure: Upon obtaining form consent and verification correct patient procedure site patient was taken to the Field Staff where she was positioned prepped and draped in usual sterile fashion. Timeouts performed, sedation administered Versed and fentanyl. An over the right internal jugular vein was anesthetized 1% lidocaine the vessel accessed under ultrasound guidance with a micropuncture needle wire. This exchanged for micropuncture sheath through which a Bentson wire is advanced into the inferior vena cava. The micropuncture sheath and exchanged for a short 8 Wallisian sheath through which a Bentson wire and straight flush catheter were utilized to navigate into the left iliac vein system. Once the catheter was positioned in the common femoral vein digital subtraction left iliac and IVC venogram was performed which revealed widening of the left common iliac vein. Wire was then readvanced and the catheter exchanged for an intravascular ultrasound probe and recorded pullback performed of the left external iliac, left common iliac, IVC. This revealed approximately 60% compression of the left common iliac vein. Next the intravascular shunt probe was pulled back into the IVC and the Bentson wire we navigated into the right iliac vein system advancing the wire and intravascular ultrasound catheter to the common femoral vein. This position recorded pullback was performed which revealed rather chronic appearing thrombus in the inferior aspect of the common iliac vein and the superior aspect of the external iliac vein. This also revealed more acute appearing thrombus in the common femoral vein. There was no significant compression of the right. Next the intravascular shunt probe was pulled back in the IVC and the position of the confluence of the iliac veins as well as the renal veins was marked. The intravascular ultrasound probe was then withdrawn and the 8 Wallisian sheath exchanged for the dilator for the [employer] filter delivery sheath was used to dilate the subcutaneous tissue. The dilator was then withdrawn and the Cook filter delivery sheath advanced into position in the inferior vena cava. Next a Cook [place] t[place]ip inferior vena cava filter was advanced and deployed in the mid vena cava inferior to the renal veins. Completion venacavogram confirmed satisfactory stent positioning and no significant tilt. The sheath was then withdrawn and manual pressure held for 5 minutes after satisfactory stasis was noted. The patient then taken to the PCU for bedrest prior to discharge home.
[2024-01-22 17:37] VITALS: BP 110/76; PULSE 80; RESP 18; TEMP 36.5; O2SAT 97
[2024-01-22 18:00] VITALS: BP 110/73; PULSE 84; RESP 18; TEMP 37.1; O2SAT 97
[2024-01-22 18:55] VITALS: BP 108/62; PULSE 81; RESP 16; TEMP 36.9; O2SAT 96
[2024-01-22 19:48] VITALS: BP 120/85; PULSE 78
--- NOTE | 2024-01-22 19:59 | NURSING ---
Pt off bedrest from post IVC filter via right jugular. Vitals taken and pt walked around room with no complaints. Discharged home.
== END 2024-01-22 19:55 | disposition home or self-care (01) ==
LOC: PCU 17:50 → CLSP 01-25 10:53 → PCU 01-25 10:54
PROVIDERS: PCP Internal Medicine; Referring Provider Surgery Trauma Surgery; Visit Provider Surgery Trauma Surgery
DX: I82.411 Acute embolism and thrombosis of right femoral vein (principal); F17.210 Nicotine dependence, cigarettes, uncomplicated; Z79.899 Other long term (current) drug therapy; Z86.718 Personal history of other venous thrombosis and embolism
CPT/HCPCS: 36415; 37191; 37252; 37253; 76937; 80048; 85027; 85610; 99152; 99153; C1753; C1769; C1880; C1894; Q9967

== ENCOUNTER 2024-02-05 08:21 | Day surgery (SDC) | payer MEDICARE, OTHER, SELFPAY ==
[2024-02-04 14:37] VITALS: BMI 23.6
--- NOTE | 2024-02-05 08:54 | NURSING ---
spoke with Dr. Umaña office. no need for pre operative atx at this time
[2024-02-05 13:02] LABS: ACT Activated Clotting Time 213 sec (74-137)
[2024-02-05 13:02] LABS: ACT Activated Clotting Time 165 sec (74-137)
--- NOTE | 2024-02-05 20:07 | OP.PCM_ITS ---
Operative Report (Standard) Operative Information Surgery/Procedure Performed: Venogram IVC IVUS IVC, right common/external iliac veins, right common femoral vein thrombectomy right common/external iliac vein, right common femoral vein angioplasty right common/external iliac vein Surgeon: Jeremy Batista Date of Procedure: 02/05/24 Procedure Start Time: 10:00 Procedure Stop Time: 13:00 Pre-Operative Diagnosis: DVT Post-Operative Diagnosis: Same Select all DRAINS/GRAFTS/IMPLANTS that apply: None Type of Anesthesia: Local and Sedation,Conscious Estimated Blood Loss: 50 Specimen collected: No Description of surgery: HPI: Patient is a 68 yo 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 She had an IVC filter placed and was transitioned to lovenox with no improvement in symptoms. She presents for venogram with possible thro mbectomy. Description of procedure: Upon obtaining informed consent and verification of correct patient, procedure and site she was taken to the experimental machining lab manager and positioned, prepped, and draped in the usual fashion. Time out was performed and sedation administered with versed and fentanyl. Skin overlying the left common femoral vein was anesthetized with 1% lidocaine and the vessel accessed under u ltrasound guidance with a micropuncture needle and wire. This was then exchanged for micropuncture sheath and hand injection iliac-IVC venogram performed revealing satisfactory position with no extravasation or dissection. This also revealed patent IVC and filter. Through the micropuncture sheath a glide advantage wire was advanced and the sheath exchanged for a 5 Fr sheath. Through this a C2 catheter was advanced and efforts made to cross the confluence into the contralateral iliac system. Further efforts were then continued with an omniflush catheter without success. We then anesthetized over the right common femoral vein and saphenofemoral junction access with the micropuncture needle and wire. This was then exchanged for the micropuncture sheath and hand injection venogram performed. This revealed satisfactory position and extensive thrombus throughout the common iliac, external iliac, and common femoral vein. A second glide advantage wire was then advanced into the IVC from the right femoral access sheath and exchanged for an 8 Fr sheath. IVUS was then advanced into the IVC and recorded pull back performed. This confirmed wire tract through the iliac vessels with no side branches entered. The left sheath was then exchanged for a 7 Fr sheath and a snare advanced. This was then used to snare the wire from the right access site and exteriorized. The patient was then heparinized and subsequent dosing performed based on ACTs. The left femoral sheath was then exchanged for the T20 Inari FlowTriever which was advanced across the confluence and positioned in the right external iliac vein. Multiple aspirations were performed throughout the external and common iliac with very chronic thrombus returned. Blood was returned via the right femoral sheath. After multiple aspirations were performed repeat venogram was performed that showed significant improvement though not resolution. Further aspirations were performed. The external and common iliac veins were balloon angioplastied with 10 mm x 40 Bard Conquest and more aspirations performed. The glide advantage was advanced via the Flowtriever and directed into the right femoral vein then exchanged for an Amplatz wire. The T20 was advanced into the common femoral vein and aspirations performed. Repeat venogram showed much improved iliac and common femoral veins but unfortunately very chronic appearing thrombus remained in the profunda vein and the femoral vein. A T16 was then advanced through the T20 and engaged in the profunda thrombus and multiple aspirations performed. Repeat venogram showed improvement but not resolution. Further aspirations and imaging resulted in no further thrombus return and minimal gains in flow lumen. It was felt that further efforts would not provide and significant gains and that hopefully the outflow clearance and lovenox would provide opportunity for thrombus resolution. Silk purse string sutures were then placed at the access sites and sheath removed followed by 5 minutes manual pressure and satisfactory hemostasis. Surgical Findings: right iliac and femoral occlusions with chronic thrombus; improved post thrombectomy Personal Lines Sales Executive caseworker protective services: No Complications Complications: No
== END 2024-02-05 14:54 | disposition home or self-care (01) ==
PROVIDERS: PCP Internal Medicine; Referring Provider Surgery Trauma Surgery; Visit Provider Surgery Trauma Surgery
DX: I82.411 Acute embolism and thrombosis of right femoral vein (principal); L97.222 Non-pressure chronic ulcer of left calf with fat layer exposed; F17.210 Nicotine dependence, cigarettes, uncomplicated; E78.5 Hyperlipidemia, unspecified; M79.89 Other specified soft tissue disorders; Z79.899 Other long term (current) drug therapy
CPT/HCPCS: 36010; 37187; 37248; 37252; 37253; 75825; 76937; 85347; 99152; 99153; C1753; C1757; C1769; C1887; C1894; J7040; Q9967; C1725; C1773

== ENCOUNTER 2024-02-09 13:00 | Outpatient (RCR) | payer MEDICARE, OTHER, SELFPAY ==
[2024-01-13 00:45] VITALS: BP 141/70; PULSE 83; RESP 16; TEMP 36.3; BMI 24.3
[2024-01-13 14:40] VITALS: BP 141/90; PULSE 84; RESP 18; TEMP 35.9; BMI 24.3
--- NOTE | 2024-01-14 15:38 | HP.PCM_ITS ---
History of Present Illness Date of Service: 01/13/24 Chief Complaint: Ulcerations of the left posterior calf History of Wound: This is a 68 year-old female who claims to have experienced multiple bug bites in both lower extremities approximately 4 weeks prior to her presentation. She developed pain, swelling, and erythema in both legs following her claimed episode of bug bites. As a result, she was treated with 2 courses of oral antibiotics by her primary care physician. These included a course of oral clindamycin, as well as cephalexin. The wounds/ulcerations on the patient's right leg have healed, and she presented with a clustered ulceration on the left posterior calf. The patient admits to having a history of swelling and edema in her lower extremities. She has a history of bilateral lower extremity deep vein thrombosis, and is on chronic systemic anticoagulation with warfarin. She indicates that she wears graduated compression stockings on a daily basis, which are of 20 to 30 mmHg compression. She had not been using any topical remedies relative to the ulceration on her left posterior calf. The patient is of normal body habitus, with a BMI of 24.3. 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 Post-phlebitic syndrome Superficial thrombophlebitis of both legs Non-pressure chronic ulcer of left calf with fat layer exposed Chronic anticoagulation Right leg swelling Left leg swelling Venous stasis ulcer Chronic venous insufficiency Degeneration of lumbosacral intervertebral disc Lumbosacral spondylosis Lumbosacral radiculopathy History of compression fracture of spine Hyperlipidemia History of thrombophlebitis of deep vein of lower extremity Migraine headache Osteoporosis Encounter for smoking cessation counseling Smoking greater than 30 pack years Home Medications ?Medication ?Instructions ?Recorded ?Last Taken ?Type ergocalciferol (vitamin D2) 1,250 50,000 unit PO .QOWEEK 03/10/19 Unknown History mcg (50,000 unit) capsule alendronate 70 mg tablet 70 mg PO QWEEK 11/18/23 Unknown History atorvastatin 20 mg tablet 20 mg PO DAILY 11/18/23 Unknown History warfarin 1 mg tablet 4 mg PO DAILY 11/18/23 Unknown History ciprofloxacin HCl 500 mg tablet 500 mg PO BID #20 tabs 12/08/23 Unknown Rx Allergy/AdvReac Type Severity Reaction Status Date / Time codeine Allergy Hives Verified 03/15/19 10:56 Sulfa (Sulfonamide Allergy Unknown Verified 03/15/19 10:56 Antibiotics) Surgical History History of tonsillectomy History of kyphoplasty Social History Smoking Status: Current every day smoker Vital Signs Vital Signs Vital Signs: Weight Weight: 160 lb Body Mass Index (BMI) 24.3 Physical Exam Const alert, oriented x3, no apparent distress, average body habitus, no limitations and well nourished Constitutional Narrative: The patient's BMI is 24.3 General Appearance: cooperative, comfortable, well kempt and well developed Orientation / Consciousness: awake, oriented to person, oriented to place and oriented to time Exam Limitations: no limitations HEENT normocephalic and head/scalp atraumatic Head and Scalp: normal to inspection, normocephalic and atraumatic Face and Sinus: normal facial exam Nose: external nose normal External Ear: external ears normal Eyes EOMs intact bilaterally General Eye: normal appearance of both eyes Neck full ROM Resp normal respiratory effort, normal air movement, no retractions and no use of accessory muscles Effort and Inspection: able to speak in complete sentences and symmetric chest movement Extremity no calf tenderness General Extremity: Negative for clubbing or cyanosis Skin Wound Narrative: There is no significant swelling or edema noted in the patient's lower extremities bilaterally. Pedal pulses are palpable bilaterally. Hyperpigmentation and hemosiderin staining is noted near the medial malleoli bilaterally. A clustered ulceration is noted on the left posterior calf. It is full-thickness, extending into the subcutaneous tissues. There is a moderate amount of bioburden, and a small amount of necrotic, nonviable tissue. The large amount of dry, necrotic, black eschar, which was noted initially, has been eliminated. The rim of erythema about the ulceration appears to have resolved. The dimensions of the ulceration are documented elsewhere. Although the size of the ulceration has not significantly diminished, the amount of necrotic and nonviable tissue continues to decrease. Hair: normal Neuro oriented x3, CN's II-XII intact bilaterally, moves all extremities, no focal motor deficits and no sensory deficits noted Sensorium / Orientation: awake, alert, oriented to person, oriented to place and oriented to time Psych Appearance: grossly normal and appropriate Attitude: calm Activity / Motor Behavior: appropriate eye contact Speech: normal speech Mood & Affect: euthymic mood Thought Process: normal thought process Thought Content: normal thought content Attention / Concentration: attention grossly intact Debridement Note Debridement Note Wound debrided: Left posterior calf ulceration Laterality: Left Type of Debridement: Excisional debridement Anesthesia Used: 5% Lidocaine Gel and Cetacaine Depth: Down to and including healthy tissue and in the subcutaneous layer Percentage of wound debrided: 100 Instrument Used: 5mm curette Tissue Removed: Bioburden and a small amount of necrotic and nonviable tissue Severity: Fat Layer Exposed Amount of bleeding with debridement: Mild Bleeding Controlled with: Compression and gauze Patient tolerated procedure: Patient did not tolerate procedure well Debridement Free Text: Both 5% lidocaine gel and Cetacaine spray were applied topically to optimize patient comfort. The patient tolerated the debridement generally well, but had some pain and discomfort which hindered the ability to remove all of the necrotic tissue. Post-Debridement Measurements and Additional Note: Post-Debridement Measurements/Treatment - Nurse 1 - General Ulcer Assessment Start: 01/13/24 14:40 Freq: Status: Active Protocol: SHAE Activity Type Activity Date Activity User E-sign Co-sign Detail Recorded Client Recorded Date Recorded By Document 01/13/24 14:40 RB [id number] 01/13/24 14:45 RB 01/13/24 14:40 - Today's Visit Information Type of service Follow-up Visit (Physician/SPECIAL SERVICES COORDINATOR ) Arrival Mode Ambulatory Transfer Assistance None Patient Identification Verified (Name & Yes ) Patient Requires Transmission-Based No Precautions Height and Weight Body Mass Index (BMI) 24.3 BMI Classification Normal Vital Signs Temperature (97.8 F-99.1 F) 96.6 F L Temperature Source Temporal Pulse Rate (60-100) 84 Pulse Location Monitor Respiratory Rate (12-18) 18 Respiratory rate source Observation Blood Pressure (90/60-120/80) 141/90 H Blood Pressure Mean 107 Source Monitor Position Sitting Blood Pressure Location Left Arm History Since Last Visit- (Skip if this is Patient's initial visit) Have you changed medications since your Yes last visit? Any new allergies or adverse reactions No Had a fall/change in ADL's that may No increase risk of falls Signs or symptoms of abuse and/or No neglect since last visit Have you been in the hospital since your Yes last visit? Has dressing in place as prescribed Yes Has compression in place as prescribed Yes Has offloadiing in place as prescribed No Experienced any changes in pain level or No management Pain Scale: 0-10 Numeric Is Patient Pain Free? No LLE -Description Aching -Intensity 8 -Duration (hours) Acute -Pain Behavior Withdrawal from Touch -Pain Aggravating Factors Exercise/ Activity -Alleviating Factors/Interventions Medication -Effectiveness of Alleviating Factor/ Moderately Intervention effective WC - Nurse 1 - General Ulcer Measurement Start: 01/13/24 14:40 Freq: Status: Active Protocol: Activity Type Activity Date Activity User E-sign Co-sign Detail Recorded Client Recorded Date Recorded By Document 01/13/24 14:40 RB [id number] 01/13/24 14:45 RB 01/13/24 14:40 Wound Center Nurse 1 1. LLE posterior -Combined with other wound No -Current Size (cm) - Length 3 -Current Size (cm) - Width 5 -Current Size (cm) - Depth 0.8 -Total Square Cm 15 -Tunneling No -Undermining/Tunneling No -Circular Undermining No -Exudate Amt Large -Exudate Type Serosanguineous -Wound Margin Thickened & Rolled Under -Granulation Amt Medium (34-66%) -Granulation Quality Orwin -Slough/Fibrin Yes -Necrosis Amt Large (67-100%) -Necrotic Tissue Type Adherent Slough -Structure Exposed N/A -Texture (Mary-wound Skin Appearance) Assessed, Scarring -Moisture (Mary-wound Skin Appearance) Assessed -Color (Mary-wound Skin Appearance) Assessed -Temperature (Mary-wound Skin No Abnormality Appearance) (Pt Warm) -Tenderness on Palpation (Mary-wound No Skin Appearance) -Ulcer Cleansing Wound Cleanser -Foul Odor after Cleansing No -Anesthetic Used 5% Lidocaine Gel -Wound Comment(s) pt stated today diagnosed with blood clot in R leg thigh ... .. Dr Eisenberg increased coumadin 4mg daily Lower Limb Edema Present Yes Left Calf (cm) 33.5 Left Ankle (cm) 21.5 WC - Nurse 2 - General Ulcer CM Notes Start: 01/13/24 14:40 Freq: Status: Active Protocol: Activity Type Activity Date Activity User E-sign Co-sign Detail Recorded Client Recorded Date Recorded By Document 01/13/24 15:19 DS [id number] 01/13/24 15:26 DS 10/01/24 15:19 Wound Center Nurse 2 1. LLE posterior -Time 15:20 -Correct Patient Yes -Correct Side, Site, Position Yes -Correct Procedure Yes -Procedure Performed Yes -Type of Procedure Debridement -Clinical Debridement Subcutaneous -Tissue Removed Subcutaneous -Post Debridement (cm) - Length 2.6 -Post Debridement (cm) - Width 5.4 -Post Debridement (cm) - Depth 0.5 -Total Square (Post) (cm) 14.04 -Area of Debridement (cm) - Length 2.6 -Area of Debridement (cm) - Width 5.4 -Total Square (Area) (cm) 14.04 -Tunneling No -Undermining/Tunneling No -Circular Undermining No -Wound/Ulcer Outcome Not Healed -Ulcer Cleansing Rinsed/ Irrigated with Saline -Bioengineered Tissue No -Bleeding Controlled with Pressure -Treatment Response Procedure Tolerated Well -Debridement - Subq, 1st 20sq cm Yes Pain Scale: 0-10 Numeric Is Patient Pain Free? No LLE -Description Sharp,Throbbing -Intensity 8 -Duration (hours) Chronic -Pain Behavior Moaning -Pain Aggravating Factors Debridement -Alleviating Factors/Interventions Will continue to monitor, Emotional Support -Comments cetecaine spray WC - Nurse 3 - General Ulcer D/C NN Start: 01/13/24 14:40 Freq: Status: Active Protocol: Activity Type Activity Date Activity User E-sign Co-sign Detail Recorded Client Recorded Date Recorded By Document 01/13/24 15:30 KW [id number] 01/13/24 15:31 KW 01/13/24 15:30 Wound Care Center Nurse 3 1. LLE posterior -Primary Dressing Applied Optilok 6.5x10 -Other Dressing pt santyl -Primary Dressing Covered/Secured with Dry Gauze & Roll Gauze, Secured with Tape -Optilok 6.5x10 1 Pain Scale: 0-10 Numeric Is Patient Pain Free? Yes WC - Visit Discharge Discharge Condition Stable Ambulatory Status Ambulatory Transportation Private Auto Medication Reconcilliation completed & No provided to patient/care provider Clinical Summary of Care Provided Yes Charges/Coding Procedures Integumentary [id number]: [id number] Jenelle subq tissue 20 sq cm/< Assessment/Plan Assessment/Plan (1) Non-pressure chronic ulcer of left calf with fat layer exposed: CODE(S): L97.222 - Non-pressure chronic ulcer of left calf with fat layer exposed (2) Venous stasis ulcer: CODE(S): I83.009 - Varicose veins of unspecified lower extremity with ulcer of unspecified site; L97.909 - Non-pressure chronic ulcer of unspecified part of unspecified lower leg with unspecified severity QUALIFIERS: Venous stasis ulcer site: calf Varicose vein presence: without varicose veins Laterality: left Non-pressure ulcer stage: with fat layer exposed Qualified Code(s): I87.2 - Venous insufficiency (chronic) (peripheral); L97.222 - Non-pressure chronic ulcer of left calf with fat layer exposed (3) Chronic venous insufficiency: CODE(S): I87.2 - Venous insufficiency (chronic) (peripheral) (4) Left leg swelling: CODE(S): M79.89 - Other specified soft tissue disorders (5) Right leg swelling: CODE(S): M79.89 - Other specified soft tissue disorders (6) Superficial thrombophlebitis of both legs: CODE(S): I80.03 - Phlebitis and thrombophlebitis of superficial vessels of lower extremities, bilateral (7) 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: CODE(S): I87.039 - Postthrombotic syndrome with ulcer and inflammation of unspecified lower extremity (8) Smoking greater than 30 pack years: CODE(S): F17.210 - Nicotine dependence, cigarettes, uncomplicated (9) Encounter for smoking cessation counseling: CODE(S): Z71.6 - Tobacco abuse counseling (10) Osteoporosis: CODE(S): M81.0 - Age-related osteoporosis without current pathological fracture (11) Migraine headache: CODE(S): G43.909 - Migraine, unspecified, not intractable, without status migrainosus (12) History of thrombophlebitis of deep vein of lower extremity: CODE(S): Z86.72 - Personal history of thrombophlebitis (13) Hyperlipidemia: CODE(S): E78.5 - Hyperlipidemia, unspecified (14) History of compression fracture of spine: CODE(S): Z87.81 - Personal history of (healed) traumatic fracture (15) Lumbosacral radiculopathy: CODE(S): M54.17 - Radiculopathy, lumbosacral region (16) Lumbosacral spondylosis: CODE(S): M47.817 - Spondylosis without myelopathy or radiculopathy, lumbosacral region (17) Degeneration of lumbosacral intervertebral disc: CODE(S): M51.37 - Other intervertebral disc degeneration, lumbosacral region (18) History of kyphoplasty: CODE(S): Z98.890 - Other specified postprocedural states (19) History of tonsillectomy: CODE(S): Z90.89 - Acquired absence of other organs (20) Chronic anticoagulation: CODE(S): Z79.01 - group home (current) use of anticoagulants PLAN: Plan This is a 68 year-old female who presented with an ulceration on the left posterior calf. The ulceration had been present for approximately 4 weeks. The patient stated that the ulceration was initiated by bug bites. She had been treated by her primary care physician for cellulitis at the site, which had involved the use of 2 courses of oral antibiotics, clindamycin and cephalexin. Upon her presentation, significant erythema was noted about the ulceration, which prompted a concern for cellulitis. A swab culture was obtained for aerobic and anaerobic bacterial growth. The first culture results were negative. Subsequently, and at a follow-up visit, a repeat culture was obtained. The most recent culture result, obtained on December 02, 2023, was positive for Serratia marcescens. Based upon culture results, the patient was placed on Cipro 500 mg p.o. twice daily for a total of 10 days. The course of antibiotics has been completed. The erythema about the ulceration has resolved. A small amount of necrotic and nonviable tissue persists within the patient's left posterior calf wound. An effort has been made to remove as much of the nonviable and necrotic material as possible, but patient discomfort today, despite the use of topical analgesics, limited the amount of nonviable tissue which could be removed mechanically. The patient has a history of bilateral lower extremity deep vein thrombosis, and is treated with long-term systemic anticoagulation using warfarin. A venous duplex examination and a noninvasive lower extremity arterial study were performed on December 03, 2023, and results were noted. A noninvasive lower extremity arterial study revealed triphasic Doppler waveforms at ankle level bilaterally, with normal resting ankle-brachial indices bilaterally, and normal digital-brachial indices bilaterally as well. Therefore, there is no evidence of significant arterial occlusive disease. The patient's venous duplex examination revealed incompetence in the deep venous systems bilaterally, involving the femoral and popliteal veins. Chronic venous changes were also noted in the deep venous systems bilaterally. In addition, acute superficial thrombophlebitis was noted in the great saphenous veins below the knees bilaterally. Acute superficial thrombophlebitis was also noted bi laterally in the small saphenous veins. The patient's anticoagulation management is overseen by her primary care physician, Dr. Eisenberg. Furthermore, the patient developed right thigh pain approximately 3 days ago, and underwent a venous duplex ultrasound examination earlier today, which revealed extension of her thrombophlebitis to the right side. Management continues by her primary care physician, and we await receipt of a fax with her ultrasound results. The patient indicates that her INR was 2.2 five days ago, and that her dose of warfarin has been increased. Oversight and management of the patient's systemic anticoagulation will be deferred to her primary care physician. The patient has a history of lower extremity deep vein thrombosis, with likely postphlebitic syndrome. She has been instructed in the appropriate means of conservative management. Leg elevation has been advised. She is to sleep on a flat mattress at night. Legs are to be elevated both at night and during daytime hours. Legs are to be elevated to heart level, or higher. Prolonged idle sitting has been discouraged. Activity has been encouraged. She has been encouraged to continue wearing her graduated compression stockings on a daily basis. Her weight appears to be optimal. Nutritional optimization has been advised. The patient indicates that she has recently undergone laboratory testing by her primary care physician, the results of which are to be requested. She indicates that her protein is low. She has been encouraged to enhance her protein intake. We are to continue the use of collagenase Santyl topically to the ulceration on her left posterior calf, and covered with dry gauze. We are to continue the use of Vashe, which will be used to moisten gauze with each dressing change. The moistened gauze will be placed within the ulceration for approximately 10 minutes each day, prior to the application of collagenase Santyl. The patient relates highly exudative drainage from her wound, and we are to assist her in obtaining Optilock, or another highly absorptive dressing. The patient is to return in 1 week for reevaluation. We have discussed testing for a thrombophilic disorder, though further evaluation in this regard will be deferred to her other providers. The patient has again been advised to discontinue her smoking habit. Total time: 26 minutes
[2024-01-20 14:36] VITALS: BP 124/84; PULSE 79; RESP 18; TEMP 36.1; BMI 24.3
[2024-01-20 15:21] VITALS: BP 134/60; PULSE 80; RESP 18
--- NOTE | 2024-01-20 17:15 | HP.PCM_ITS ---
History of Present Illness Date of Service: 01/20/24 Chief Complaint: Ulcerations of the left posterior calf History of Wound: This is a 68 year-old female who claims to have experienced multiple bug bites in both lower extremities approximately 4 weeks prior to her presentation. She developed pain, swelling, and erythema in both legs following her claimed episode of bug bites. As a result, she was treated with 2 courses of oral antibiotics by her primary care physician. These included a course of oral clindamycin, as well as cephalexin. The wounds/ulcerations on the patient's right leg have healed, and she presented with a clustered ulceration on the left posterior calf. The patient admits to having a history of swelling and edema in her lower extremities. She has a history of bilateral lower extremity deep vein thrombosis, and is on chronic systemic anticoagulation with warfarin. She indicates that she wears graduated compression stockings on a daily basis, which are of 20 to 30 mmHg compression. She had not been using any topical remedies relative to the ulceration on her left posterior calf. The patient is of normal body habitus, with a BMI of 24.3. 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 Post-phlebitic syndrome Superficial thrombophlebitis of both legs Non-pressure chronic ulcer of left calf with fat layer exposed Chronic anticoagulation Right leg swelling Left leg swelling Venous stasis ulcer Chronic venous insufficiency Degeneration of lumbosacral intervertebral disc Lumbosacral spondylosis Lumbosacral radiculopathy History of compression fracture of spine Hyperlipidemia History of thrombophlebitis of deep vein of lower extremity Migraine headache Osteoporosis Encounter for smoking cessation counseling Smoking greater than 30 pack years Home Medications ?Medication ?Instructions ?Recorded ?Last Taken ?Type ergocalciferol (vitamin D2) 1,250 50,000 unit PO .QOWEEK 03/10/19 Unknown History mcg (50,000 unit) capsule alendronate 70 mg tablet 70 mg PO QWEEK 11/18/23 Unknown History atorvastatin 20 mg tablet 20 mg PO DAILY 11/18/23 Unknown History warfarin 1 mg tablet 4 mg PO DAILY 11/18/23 Unknown History ciprofloxacin HCl 500 mg tablet 500 mg PO BID #20 tabs 12/08/23 Unknown Rx Allergy/AdvReac Type Severity Reaction Status Date / Time codeine Allergy Hives Verified 03/15/19 10:56 Sulfa (Sulfonamide Allergy Unknown Verified 03/15/19 10:56 Antibiotics) Surgical History History of tonsillectomy History of kyphoplasty Social History Smoking Status: Current every day smoker Vital Signs Vital Signs Vital Signs: 01/20/24 14:36 01/20/24 15:21 Temperature 97.0 F L Temperature Source Temporal Pulse Rate 79 80 Respiratory Rate 18 18 Blood Pressure 124/84 H 134/60 H Blood Pressure Mean 97 84 Blood Pressure Source Monitor Monitor Blood Pressure Position Semi-Fowlers Sitting Blood Pressure Location Left Arm Left Arm Oxygen Delivery Method Room Air Room Air Weight Weight: 160 lb Body Mass Index (BMI) 24.3 Physical Exam Const alert, oriented x3, no apparent distress, average body habitus, no limitations and well nourished Constitutional Narrative: The patient's BMI is 24.3 General Appearance: cooperative, comfortable, well kempt and well developed Orientation / Consciousness: awake, oriented to person, oriented to place and oriented to time Exam Limitations: no limitations HEENT normocephalic and head/scalp atraumatic Head and Scalp: normal to inspection, normocephalic and atraumatic Face and Sinus: normal facial exam Nose: external nose normal External Ear: external ears normal Eyes EOMs intact bilaterally General Eye: normal appearance of both eyes Neck full ROM Resp normal respiratory effort, normal air movement, no retractions and no use of accessory muscles Effort and Inspection: able to speak in complete sentences and symmetric chest movement Extremity no calf tenderness General Extremity: Negative for clubbing or cyanosis Skin Wound Narrative: There is no significant swelling or edema noted in the patient's left lower extremity. Pedal pulses are palpable bilaterally. Hyperpigmentation and hemosiderin staining are noted near the medial malleoli bilaterally. A clustered ulceration is noted on the left posterior calf. It is full-thickness, extending into the subcutaneous tissues. There is a moderate amount of bioburden, and a small amount of necrotic, nonviable tissue. The large amount of dry, necrotic, black eschar, which was noted initially, has been eliminated. The rim of erythema about the ulceration appears to have resolved. The dimensions of the ulceration are documented elsewhere. Although the size of the ulceration has not significantly diminished, the amount of necrotic and nonviable tissue continues to decrease. Hair: normal Neuro oriented x3, CN's II-XII intact bilaterally, moves all extremities, no focal mot or deficits and no sensory deficits noted Sensorium / Orientation: awake, alert, oriented to person, oriented to place and oriented to time Psych Appearance: grossly normal and appropriate Attitude: calm Activity / Motor Behavior: appropriate eye contact Speech: normal speech Mood & Affect: euthymic mood Thought Process: normal thought process Thought Content: normal thought content Attention / Concentration: attention grossly intact Debridement Note Debridement Note Wound debrided: Left posterior calf ulceration Laterality: Left Type of Debridement: Excisional debridement Anesthesia Used: 5% Lidocaine Gel and Cetacaine Depth: Down to and including healthy tissue and in the subcutaneous layer Percentage of wound debrided: 100 Instrument Used: 5mm curette Tissue Removed: Bioburden and a small amount of necrotic and nonviable tissue Severity: Fat Layer Exposed Amount of bleeding with debridement: Mild Bleeding Controlled with: Compression and gauze Patient tolerated procedure: Patient did not tolerate procedure well Debridement Free Text: Both 5% lidocaine gel and Cetacaine spray were applied topically to optimize patient comfort. The patient tolerated the debridement generally well, but had some pain and discomfort which hindered the removal of all of the necrotic tissue. Post-Debridement Measurements and Additional Note: Post-Debridement Measurements/Treatment - Nurse 1 - General Ulcer Assessment Start: 01/13/24 14:40 Freq: Status: Active Protocol: WC.LOWEXT Activity Type Activity Date Activity User E-sign Co-sign Detail Recorded Client Recorded Date Recorded By Document 01/13/24 14:40 RB [id number] 01/13/24 14:45 RB Document 01/20/24 14:36 KW [id number] 01/20/24 14:42 KW 01/13/24 01/20/24 14:40 14:36 - Today's Visit Information Type of service Follow-up Visit Follow-up Visit (Physician/FANCY STITCHER (Physician/FANCY STITCHER ) ) Arrival Mode Ambulatory Ambulatory Transfer Assistance None Patient Identification Verified (Name & Yes Yes ) Patient Requires Transmission-Based No Precautions Height and Weight Body Mass Index (BMI) 24.3 24.3 BMI Classification Normal Normal Vital Signs Temperature (97.8 F-99.1 F) 96.6 F L 97.0 F L Temperature Source Temporal Temporal Pulse Rate (60-100) 84 79 Pulse Location Monitor Monitor Respiratory Rate (12-18) 18 18 Respiratory rate source Observation Observation Oxygen Delivery Method Room Air Blood Pressure (90/60-120/80) 141/90 H 124/84 H Blood Pressure Mean 107 97 Source Monitor Monitor Position Sitting Semi-Fowlers Blood Pressure Location Left Arm Left Arm History Since Last Visit- (Skip if this is Patient's initial visit) Have you changed medications since your Yes No last visit? Any new allergies or adverse reactions No No Had a fall/change in ADL's that may No No increase risk of falls Signs or symptoms of abuse and/or No No neglect since last visit Have you been in the hospital since your Yes No last visit? Has dressing in place as prescribed Yes Yes Has compression in place as prescribed Yes Yes Has offloadiing in place as prescribed No N/A Experienced any changes in pain level or No No management Left Footwear Regular Shoe Right Footwear Regular Shoe Pain Scale: 0-10 Numeric Is Patient Pain Free? No No LLE -Description Aching -Intensity 8 9 -Duration (hours) Acute -Pain Behavior Withdrawal from Touch -Pain Aggravating Factors Exercise/ Activity -Alleviating Factors/Interventions Medication Medication -Effectiveness of Alleviating Factor/ Moderately Intervention effective WC - Nurse 1 - General Ulcer Measurement Start: 01/13/24 14:40 Freq: Status: Active Protocol: Activity Type Activity Date Activity User E-sign Co-sign Detail Recorded Client Recorded Date Recorded By Document 01/13/24 14:40 RB [id number] 01/13/24 14:45 RB Document 01/20/24 14:36 KW [id number] 01/20/24 14:42 KW 01/13/24 01/20/24 14:40 14:36 Wound Center Nurse 1 1. LLE posterior -Combined with other wound No -Current Size (cm) - Length 3 3 -Current Size (cm) - Width 5 5.3 -Current Size (cm) - Depth 0.8 0.5 -Total Square Cm 15 15.9 -Tunneling No -Undermining/Tunneling No -Circular Undermining No -Exudate Amt Large -Exudate Type Serosanguineous Serosanguineous -Wound Margin Thickened & Distinct, Rolled Under Outline Attached -Granulation Amt Medium (34-66%) Small (1-33%) -Granulation Quality [place] -Slough/Fibrin Yes -Necrosis Amt Large (67-100%) Large (67-100%) -Necrotic Tissue Type Adherent Slough Adherent Slough -Structure Exposed N/A -Texture (Mary-wound Skin Appearance) Assessed, Assessed Scarring -Moisture (Mary-wound Skin Appearance) Assessed Assessed -Color (Mary-wound Skin Appearance) Assessed Assessed -Temperature (Mary-wound Skin No Abnormality No Abnormality Appearance) (Pt Warm) (Pt Warm) -Tenderness on Palpation (Mary-wound No No Skin Appearance) -Ulcer Cleansing Wound Cleanser Rinsed/ Irrigated with Saline -Foul Odor after Cleansing No No -Anesthetic Used 5% Lidocaine 5% Lidocaine Gel Gel -Wound Comment(s) pt stated today diagnosed with blood clot in R leg thigh ... .. Dr Eisenberg increased coumadin 4mg daily Lower Limb Edema Present Yes Left Calf (cm) 33.5 36.5 Left Ankle (cm) 21.5 21.6 WC - Nurse 2 - General Ulcer CM Notes Start: 01/13/24 14:40 Freq: Status: Active Protocol: Activity Type Activity Date Activity User E-sign Co-sign Detail Recorded Client Recorded Date Recorded By Document 01/13/24 15:19 DS [id number] 01/13/24 15:26 DS Document 01/20/24 14:59 DS [id number] 01/20/24 15:06 DS 01/13/24 01/20/24 15:19 14:59 Wound Center Nurse 2 1. BRY posterior -Time 15:20 14:56 -Correct Patient Yes Yes -Correct Side, Site, Position Yes Yes -Correct Procedure Yes Yes -Procedure Performed Yes Yes -Type of Procedure Debridement Debridement -Clinical Debridement Subcutaneous Subcutaneous -Tissue Removed Subcutaneous Subcutaneous -Post Debridement (cm) - Length 2.6 3.0 -Post Debridement (cm) - Width 5.4 5.1 -Post Debridement (cm) - Depth 0.5 0.5 -Total Square (Post) (cm) 14.04 15.30 -Area of Debridement (cm) - Length 2.6 3.0 -Area of Debridement (cm) - Width 5.4 5.1 -Total Square (Area) (cm) 14.04 15.30 -Tunneling No No -Undermining/Tunneling No No -Circular Undermining No No -Wound/Ulcer Outcome Not Healed Not Healed -Ulcer Cleansing Rinsed/ Rinsed/ Irrigated with Irrigated with Saline Saline -Bioengineered Tissue No No -Bleeding Controlled with Pressure Pressure -Treatment Response Procedure Procedure Tolerated Well Tolerated Well -Debridement - Subq, 1st 20sq cm Yes Yes Pain Scale: 0-10 Numeric Is Patient Pain Free? No No LLE -Description Sharp,Throbbing Sharp,Throbbing -Intensity 8 9 -Duration (hours) Chronic Chronic -Pain Behavior Moaning Moaning, Guarding, Irritability, Withdrawal from Touch -Pain Aggravating Factors Debridement -Alleviating Factors/Interventions Will continue Will continue to monitor, to monitor, Emotional Emotional Support Support -Comments cetecaine spray cetecaine spray WC - Nurse 3 - General Ulcer D/C NN Start: 01/13/24 14:40 Freq: Status: Active Protocol: Activity Type Activity Date Activity User E-sign Co-sign Detail Recorded Client Recorded Date Recorded By Document 01/13/24 15:30 KW [id number] 01/13/24 15:31 KW Document 01/20/24 15:21 KW [id number] 01/20/24 15:22 KW Edit Result 01/20/24 15:21 KW (1) [id number] 01/20/24 15:27 KW (1) Pulse Rate (60-100) => 80 Pulse Location => Monitor Respiratory Rate (12-18) => 18 Respiratory rate source => Observation Oxygen Delivery Method => Room Air Blood Pressure (90/60-120/80) => 134/60 H Blood Pressure Mean => 84 Source => Monitor Position => Sitting Blood Pressure Location => Left Arm Comment => pt went from prone => to sitting up and => had a period of => fogginess and => dizzines 01/13/24 01/20/24 15:30 15:21 Wound Care Center Nurse 3 1. LLE posterior -Ulcer Cleansing Rinsed/ Irrigated with Saline -Primary Dressing Applied Optilok 6.5x10 Optilok 6.5x10 -Other Dressing pt santyl pt santyl -Primary Dressing Covered/Secured with Dry Gauze & Dry Gauze, Roll Gauze, Secured with Secured with Tape Tape -Optilok 6.5x10 1 1 BLE -Other pt own compression stockings Vital Signs Pulse Rate (60-100) 80 Pulse Location Monitor Respiratory Rate (12-18) 18 Respiratory rate source Observation Oxygen Delivery Method Room Air Blood Pressure (90/60-120/80) 134/60 H Blood Pressure Mean 84 Source Monitor Position Sitting Blood Pressure Location Left Arm Comment pt went from prone to sitting up and had a period of fogginess and dizzines Pain Scale: 0-10 Numeric Is Patient Pain Free? Yes Yes WC - Visit Discharge Discharge Condition Stable Ambulatory Status Ambulatory Transportation Private Auto Medication Reconcilliation completed & No provided to patient/care provider Clinical Summary of Care Provided Yes Charges/Coding Multi Select Codes Visit Charges Office Visit/Consults: 05098 OV L2 Est 10min Integumentary Integumentary CPT Codes: 78365 Jenelle subq tissue 20 sq cm/< Assessment/Plan Assessment/Plan (1) Non-pressure chronic ulcer of left calf with fat layer exposed: CODE(S): L97.222 - Non-pressure chronic ulcer of left calf with fat layer exposed (2) Venous stasis ulcer: CODE(S): I83.009 - Varicose veins of unspecified lower extremity with ulcer of unspecified site; L97.909 - Non-pressure chronic ulcer of unspecified part of unspecified lower leg with unspecified severity QUALIFIERS: Venous stasis ulcer site: calf Varicose vein presence: without varicose veins Laterality: left Non-pressure ulcer stage: with fat layer exposed Qualified Code(s): I87.2 - Venous insufficiency (chronic) (peripheral); L97.222 - Non-pressure chronic ulcer of left calf with fat layer exposed (3) Acute deep vein thrombosis of right lower extremity: CODE(S): I82.401 - Acute embolism and thrombosis of unspecified deep veins of right lower extremity QUALIFIERS: Affected thrombotic vein of extremity: femoral Qualified Code(s): I82.411 - Acute embolism and thrombosis of right femoral vein (4) Superficial thrombophlebitis of both legs: CODE(S): I80.03 - Phlebitis and thrombophlebitis of superficial vessels of lower extremities, bilateral (5) Chronic venous insufficiency: CODE(S): I87.2 - Venous insufficiency (chronic) (peripheral) (6) Left leg swelling: CODE(S): M79.89 - Other specified soft tissue disorders (7) Right leg swelling: CODE(S): M79.89 - Other specified soft tissue disorders (8) 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: CODE(S): I87.039 - Postthrombotic syndrome with ulcer and inflammation of unspecified lower extremity (9) Smoking greater than 30 pack years: CODE(S): F17.210 - Nicotine dependence, cigarettes, uncomplicated (10) Encounter for smoking cessation counseling: CODE(S): Z71.6 - Tobacco abuse counseling (11) Osteoporosis: CODE(S): M81.0 - Age-related osteoporosis without current pathological fracture (12) Migraine headache: CODE(S): G43.909 - Migraine, unspecified, not intractable, without status migrainosus (13) History of thrombophlebitis of deep vein of lower extremity: CODE(S): Z86.72 - Personal history of thrombophlebitis (14) Hyperlipidemia: CODE(S): E78.5 - Hyperlipidemia, unspecified (15) History of compression fracture of spine: CODE(S): Z87.81 - Personal history of (healed) traumatic fracture (16) Lumbosacral radiculopathy: CODE(S): M54.17 - Radiculopathy, lumbosacral region (17) Lumbosacral spondylosis: CODE(S): M47.817 - Spondylosis without myelopathy or radiculopathy, lumbosacral region (18) Degeneration of lumbosacral intervertebral disc: CODE(S): M51.37 - Other intervertebral disc degeneration, lumbosacral region (19) History of kyphoplasty: CODE(S): Z98.890 - Other specified postprocedural states (20) History of tonsillectomy: CODE(S): Z90.89 - Acquired absence of other organs (21) Chronic anticoagulation: CODE(S): Z79.01 - superintendent container terminal (current) use of anticoagulants PLAN: Plan This is a 68 year-old female who presented with an ulceration on the left posterior calf. The ulceration had been present for approximately 4 weeks. The patient stated that the ulceration was initiated by bug bites. She had been treated by her primary care physician for cellulitis at the site, which had involved the use of 2 courses of oral antibiotics, clindamycin and cephalexin. Upon her presentation, significant erythema was noted about the ulceration, which prompted a concern for cellulitis. A swab culture was obtained for aerobic and anaerobic bacterial growth. The first culture results were negative. Subsequently, and at a follow-up visit, a repeat culture was obtaine d. The most recent culture result, obtained on December 02, 2023, was positive for Serratia marcescens. Based upon culture results, the patient was placed on Cipro 500 mg p.o. twice daily for a total of 10 days. The course of antibiotics has been completed. The erythema about the ulceration has resolved. A small amount of necrotic and nonviable tissue persists within the patient's left posterior calf wound. An effort has been made to remove as much of the nonviable and necrotic material as possible, but patient discomfort today, despite the use of topical analgesics, limited the amount of nonviable tissue which could be removed mechanically. The patient has a history of bilateral lower extremity deep vein thrombosis, and is treated with long-term systemic anticoagulation using warfarin. The patient's warfarin dosage is regulated by her primary care physician, Dr. Eisenberg. Her warfarin dosage is monitored by means of weekly PT/INR results. It has been known that the patient developed a recent superficial thrombophlebitis, thought due to a drop in her INR as a result of her recent antibiotic which was used in treatment of her wound infection. However, it appears that her INRs have been relatively steady since that time. Of note, a right lower extremity venous duplex ultrasound result from January 13, 2024, performed at [facility], revealed Findings consistent with subacute to acute thrombus above and below the level of the knee. Involved vessels the common femoral vein, saphenofemoral junction, proximal and distal femoral vein, popliteal vein, tibioperoneal trunk, posterior tibial vein, and saphenous vein. Records have also been received by fax with serial INR test results for the last several months. However, the fax transmission is somewhat compromised, and dates and values are difficult to discern. For the most part, INR's appear to be well-regulated between 2.0 and 3.0, as desired. The apparent recent development of acute deep vein thrombosis in the patient's right lower extremity arouses concern. The development of acute deep vein thrombosis while systemically anticoagulated may be a risk for pulmonary embolism. In such a case, there may be an indication for placement of an inferior vena cava filter. This concern will be conveyed to the patient's primary care physician, Dr. Eisenberg, who is involved in the patient's medical management, and as regards her systemic anticoagulation. A recent noninvasive lower extremity arterial study revealed triphasic Doppler waveforms at ankle level bilaterally, with normal resting ankle-brachial indices bilaterally, and normal digital-brachial indices bilaterally as well. Therefore, there is no evidence of significant arterial occlusive disease. The patient has a history of lower extremity deep vein thrombosis, with symptoms of manifestations consistent with postphlebitic syndrome. She has been instructed in the appropriate means of conservative management. Leg elevation has been advised. She is to sleep on a flat mattress at night. Legs are to be elevated both at night and during daytime hours. Legs are to be elevated to heart level, or higher. Prolonged idle sitting has been discouraged. Activity has been encouraged. She has been encouraged to continue wearing her graduated compression stockings on a daily basis. Her weight appears to be optimal. Nutritional optimization has been advised. Receipt of recent laboratory testing at [facility] will continue to be awaited. She indicates that her protein is low. She has been encouraged to enhance her protein intake. We are to continue the use of collagenase Santyl topically to the ulceration on her left posterior calf, and covered with dry gauze. We are to continue the use of Vashe, which will be used to moisten gauze with each dressing change. The moistened gauze will be placed within the ulceration for approximately 10 minutes each day, prior to the application of collagenase Santyl. The patient relates highly exudative drainage from her wound, and she is to continue using Optilock, an absorptive dressing. The patient is to return in 1 week for reevaluation. We have discussed testing for a thrombophilic disorder, though further evaluation in this regard will be deferred to her other providers. The patient has again been advised to discontinue her smoking habit. Total time: 28 minutes - 15 minutes regarding discussion and review of recent venous duplex ultrasound study
[2024-01-27 13:31] VITALS: BP 119/77; PULSE 73; RESP 18; TEMP 35.8; BMI 24.3
[2024-01-27 17:22] LABS: International Normalized Ratio 2.4; Prothrombin Time (Protime)PT. 25.8 SECONDS (11.7-14.9)
--- NOTE | 2024-01-27 17:55 | HP.PCM_ITS ---
History of Present Illness Date of Service: 01/27/24 Chief Complaint: Ulcerations of the left posterior calf History of Wound: This is a 68 year-old female who claims to have experienced multiple bug bites in both lower extremities approximately 4 weeks prior to her presentation. She developed pain, swelling, and erythema in both legs following her claimed episode of bug bites. As a result, she was treated with 2 courses of oral antibiotics by her primary care physician. These included a course of oral clindamycin, as well as cephalexin. The wounds/ulcerations on the patient's right leg have healed, and she presented with a clustered ulceration on the left posterior calf. The patient admits to having a history of swelling and edema in her lower extremities. She has a history of bilateral lower extremity deep vein thrombosis, and is on chronic systemic anticoagulation with warfarin. She indicates that she wears graduated compression stockings on a daily basis, which are of 20 to 30 mmHg compression. She had not been using any topical remedies relative to the ulceration on her left posterior calf. The patient is of normal body habitus, with a BMI of 24.3. 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 Post-phlebitic syndrome Superficial thrombophlebitis of both legs Non-pressure chronic ulcer of left calf with fat layer exposed Chronic anticoagulation Right leg swelling Left leg swelling Venous stasis ulcer Chronic venous insufficiency Degeneration of lumbosacral intervertebral disc Lumbosacral spondylosis Lumbosacral radiculopathy History of compression fracture of spine Hyperlipidemia History of thrombophlebitis of deep vein of lower extremity Migraine headache Osteoporosis Encounter for smoking cessation counseling Smoking greater than 30 pack years Home Medications ?Medication ?Instructions ?Recorded ?Last Taken ?Type ergocalciferol (vitamin D2) 1,250 50,000 unit PO .QOWEEK 03/10/19 Unknown History mcg (50,000 unit) capsule alendronate 70 mg tablet 70 mg PO QWEEK 11/18/23 Unknown History atorvastatin 20 mg tablet 20 mg PO DAILY 11/18/23 Unknown History enoxaparin 80 mg/0.8 mL 70 mg (0.7 mL) subcut Q12H 30 days 01/27/24 Unknown Rx subcutaneous syringe (Lovenox) #42 mL warfarin 1 mg tablet 3.5 mg PO DAILY 01/27/24 Unknown History Allergy/AdvReac Type Severity Reaction Status Date / Time codeine Allergy Hives Verified 03/15/19 10:56 Sulfa (Sulfonamide Allergy Unknown Verified 03/15/19 10:56 Antibiotics) Surgical History History of tonsillectomy History of kyphoplasty Social History Smoking Status: Current every day smoker tobacco type: cigarettes Vital Signs Vital Signs Vital Signs: 01/27/24 13:31 Temperature 96.5 F L Temperature Source Temporal Pulse Rate 73 Respiratory Rate 18 Blood Pressure 119/77 Blood Pressure Mean 91 Blood Pressure Source Monitor Blood Pressure Position Sitting Blood Pressure Location Left Arm Oxygen Delivery Method Room Air Weight Weight: 160 lb Body Mass Index (BMI) 24.3 Physical Exam Const alert, oriented x3, no apparent distress, average body habitus, no limitations and well nourished Constitutional Narrative: The patient's BMI is 24.3 General Appearance: cooperative, comfortable, well kempt and well developed Orientation / Consciousness: awake, oriented to person, oriented to place and oriented to time Exam Limitations: no limitations HEENT normocephalic and head/scalp atraumatic Head and Scalp: normal to inspection, normocephalic and atraumatic Face and Sinus: normal facial exam Nose: external nose normal External Ear: external ears normal Eyes EOMs intact bilaterally General Eye: normal appearance of both eyes Neck full ROM Resp normal respiratory effort, normal air movement, no retractions and no use of accessory muscles Effort and Inspection: able to speak in complete sentences and symmetric chest movement Extremity no calf tenderness General Extremity: Negative for clubbing or cyanosis Skin Wound Narrative: There is no significant swelling or edema noted in the patient's left lower extremity. Pedal pulses are palpable bilaterally. Hyperpigmentation and hemosiderin staining are noted near the medial malleoli bilaterally. A clustered ulceration is noted on the left posterior calf. It is full-thickness, extending into the subcutaneous tissues. There is a moderate amount of bioburden and necrotic, nonviable tissue. The large amount of dry, necrotic, black eschar, which was noted initially, has been eliminated. A rim of erythema is noted about the ulcerations. The dimensions of the ulceration are documented elsewhere. The size of the ulcerations have not significantly diminished, and dimensions are documented elsewhere. There is slight undermining superiorly. Hair: normal Neuro oriented x3, CN's II-XII intact bilaterally, moves all extremities, no focal motor deficits and no sensory deficits noted Sensorium / Orientation: awake, alert, oriented to person, oriented to place and oriented to time Speech: speech normal Psych Appearance: grossly normal and appropriate Attitude: calm Activity / Motor Behavior: appropriate eye contact Speech: normal speech Mood & Affect: euthymic mood Thought Process: normal thought process Thought Content: normal thought content Attention / Concentration: attention grossly intact Debridement Note Debridement Note Wound debrided: Left posterior calf ulceration Laterality: Left Type of Debridement: Excisional debridement Anesthesia Used: 5% Lidocaine Gel and Cetacaine Depth: Down to and including healthy tissue and in the subcutaneous layer Percentage of wound debrided: 100 Instrument Used: 5mm curette and - (Misonix ultrasonic debridement) Tissue Removed: Bioburden and necrotic, nonviable tissue Severity: Fat Layer Exposed Amount of bleeding with debridement: Mild Bleeding Controlled with: Compression and gauze Patient tolerated procedure: Patient did not tolerate procedure well Debridement Free Text: Both 5% lidocaine gel and Cetacaine spray were applied topically to optimize patient comfort. The patient tolerated the debridement generally well, but had some pain and discomfort which hindered the removal of all of the necrotic tissue. Misonix ultrasonic debridement was also utilized to facilitate the removal of the necrotic and nonviable tissue. The use of ultrasonic debridement provided some enhanced capability in the removal of the nonviable tissue. However, patient discomfort continues to limit the ability of in-office debridement to remove all of the desired nonviable material. Due to the presence of slight mary-wound erythema, and persisting necrotic material within the wound, swab cultures were obtained for aerobic and anaerobic bacterial growth. Post-Debridement Measurements and Additional Note: Post-Debridement Measurements/Treatment WC - Nurse 1 - General Ulcer Assessment Start: 01/13/24 14:40 Freq: Status: Active Protocol: SHAE Activity Type Activity Date Activity User E-sign Co-sign Detail Recorded Client Recorded Date Recorded By Document 01/13/24 14:40 RB [id number] 01/13/24 14:45 RB Document 01/20/24 14:36 KW [id number] 01/20/24 14:42 KW Document 01/27/24 13:31 RB [id number] 01/27/24 13:35 RB 01/13/24 01/20/24 01/27/24 14:40 14:36 13:31 WC - Today's Visit Information Type of service Follow-up Visit Follow-up Visit Follow-up Visit (Physician/A R COLLECTIONS REP (Physician/A R COLLECTIONS REP (Physician/A R COLLECTIONS REP ) ) ) Arrival Mode Ambulatory Ambulatory Ambulatory Transfer Assistance None Patient Identification Verified (Name & Yes Yes Yes ) Patient Requires Transmission-Based No Precautions Height and Weight Body Mass Index (BMI) 24.3 24.3 24.3 BMI Classification Normal Normal Normal Vital Signs Temperature (97.8 F-99.1 F) 96.6 F L 97.0 F L 96.5 F L Temperature Source Temporal Temporal Temporal Pulse Rate (60-100) 84 79 73 Pulse Location Monitor Monitor Monitor Respiratory Rate (12-18) 18 18 18 Respiratory rate source Observation Observation Observation Oxygen Delivery Method Room Air Room Air Blood Pressure (90/60-120/80) 141/90 H 124/84 H 119/77 Blood Pressure Mean 107 97 91 Source Monitor Monitor Monitor Position Sitting Semi-Fowlers Sitting Blood Pressure Location Left Arm Left Arm Left Arm History Since Last Visit- (Skip if this is Patient's initial visit) Have you changed medications since your Yes No No last visit? Any new allergies or adverse reactions No No No Had a fall/change in ADL's that may No No No increase risk of falls Signs or symptoms of abuse and/or No No No neglect since last visit Have you been in the hospital since your Yes No No last visit? Has dressing in place as prescribed Yes Yes Yes Has compression in place as prescribed Yes Yes Yes Has offloadiing in place as prescribed No N/A N/A Experienced any changes in pain level or No No No management Left Footwear Regular Shoe Regular Shoe Right Footwear Regular Shoe Regular Shoe Pain Scale: 0-10 Numeric Is Patient Pain Free? No No Yes LLE -Description Aching -Intensity 8 9 -Duration (hours) Acute -Pain Behavior Withdrawal from Touch -Pain Aggravating Factors Exercise/ Activity -Alleviating Factors/Interventions Medication Medication -Effectiveness of Alleviating Factor/ Moderately Intervention effective WC - Nurse 1 - General Ulcer Measurement Start: 01/13/24 14:40 Freq: Status: Active Protocol: Activity Type Activity Date Activity User E-sign Co-sign Detail Recorded Client Recorded Date Recorded By Document 01/13/24 14:40 RB [id number] 01/13/24 14:45 RB Document 01/20/24 14:36 KW [id number] 01/20/24 14:42 KW Document 01/27/24 13:31 RB [id number] 01/27/24 13:35 RB 01/13/24 01/20/24 01/27/24 14:40 14:36 13:31 Wound Center Nurse 1 1. LLE posterior -Combined with other wound No -Current Size (cm) - Length 3 3 2.9 -Current Size (cm) - Width 5 5.3 5.4 -Current Size (cm) - Depth 0.8 0.5 0.8 -Total Square Cm 15 15.9 15.66 -Tunneling No -Undermining/Tunneling No -Circular Undermining No -Exudate Amt Large Medium -Exudate Type Serosanguineous Serosanguineous Serosanguineous -Wound Margin Thickened & Distinct, Distinct, Rolled Under Outline Outline Attached Attached -Granulation Amt Medium (34-66%) Small (1-33%) Small (1-33%) -Granulation Quality [place] -Slough/Fibrin Yes -Necrosis Amt Large (67-100%) Large (67-100%) Large (67-100%) -Necrotic Tissue Type Adherent Slough Adherent Slough Adherent Slough -Structure Exposed N/A -Texture (Mary-wound Skin Appearance) Assessed, Assessed Assessed Scarring -Moisture (Mary-wound Skin Appearance) Assessed Assessed Assessed -Color (Mary-wound Skin Appearance) Assessed Assessed Assessed -Temperature (Mary-wound Skin No Abnormality No Abnormality No Abnormality Appearance) (Pt Warm) (Pt Warm) (Pt Warm) -Tenderness on Palpation (Mary-wound No No No Skin Appearance) -Ulcer Cleansing Wound Cleanser Rinsed/ Rinsed/ Irrigated with Irrigated with Saline Saline -Foul Odor after Cleansing No No No -Anesthetic Used 5% Lidocaine 5% Lidocaine 4% Lidocaine Gel Gel Solution,5% Lidocaine Gel -Wound Comment(s) pt stated today diagnosed with blood clot in R leg thigh ... .. Dr James increased coumadin 4mg daily Lower Limb Edema Present Yes Left Calf (cm) 33.5 36.5 Left Ankle (cm) 21.5 21.6 33.3 Left Foot (cm) 21.5 WC - Nurse 2 - General Ulcer CM Notes Start: 10/01/24 14:40 Freq: Status: Active Protocol: Activity Type Activity Date Activity User E-sign Co-sign Detail Recorded Client Recorded Date Recorded By Document 01/13/24 15:19 DS [id number] 01/13/24 15:26 DS Document 01/20/24 14:59 DS [id number] 01/20/24 15:06 DS Document 01/27/24 14:11 DS [id number] 01/27/24 14:20 DS 01/13/24 01/20/24 01/27/24 15:19 14:59 14:11 Wound Center Nurse 2 1. LLE posterior -Time 15:20 14:56 14:00 -Correct Patient Yes Yes Yes -Correct Side, Site, Position Yes Yes Yes -Correct Procedure Yes Yes Yes -Procedure Performed Yes Yes Yes -Type of Procedure Debridement Debridement Debridement -Clinical Debridement Subcutaneous Subcutaneous Subcutaneous -Tissue Removed Subcutaneous Subcutaneous Subcutaneous -Post Debridement (cm) - Length 2.6 3.0 2.7 -Post Debridement (cm) - Width 5.4 5.1 5.1 -Post Debridement (cm) - Depth 0.5 0.5 0.5 -Total Square (Post) (cm) 14.04 15.30 13.77 -Area of Debridement (cm) - Length 2.6 3.0 2.7 -Area of Debridement (cm) - Width 5.4 5.1 5.1 -Total Square (Area) (cm) 14.04 15.30 13.77 -Tunneling No No Yes -Tunneling Position (O'clock) 12 -Tunneling Distance (cm) 0.5 -Undermining/Tunneling No No No -Circular Undermining No No No -Wound/Ulcer Outcome Not Healed Not Healed Not Healed -Ulcer Cleansing Rinsed/ Rinsed/ Rinsed/ Irrigated with Irrigated with Irrigated with Saline Saline Saline -Bioengineered Tissue No No No -Bleeding Controlled with Pressure Pressure -Treatment Response Procedure Procedure Tolerated Well Tolerated Well -Debridement - Subq, 1st 20sq cm Yes Yes Yes Pain Scale: 0-10 Numeric Is Patient Pain Free? No No No LLE -Description Sharp,Throbbing Sharp,Throbbing Sharp,Throbbing -Intensity 8 9 5 -Duration (hours) Chronic Chronic Acute -Pain Behavior Moaning Moaning, Guarding, Irritability, Withdrawal from Touch -Pain Aggravating Factors Debridement Debridement -Alleviating Factors/Interventions Will continue Will continue Will continue to monitor, to monitor, to monitor, Emotional Emotional Emotional Support Support Support -Comments cetecaine spray cetecaine spray cetecaine spray and misonix used for debridement WC - Nurse 3 - General Ulcer D/C NN Start: 01/13/24 14:40 Freq: Status: Active Protocol: Activity Type Activity Date Activity User E-sign Co-sign Detail Recorded Client Recorded Date Recorded By Document 01/13/24 15:30 KW [id number] 01/13/24 15:31 KW Document 01/20/24 15:21 KW [id number] 01/20/24 15:22 KW Edit Result 01/20/24 15:21 KW (1) [id number] 01/20/24 15:27 KW Document 01/27/24 14:33 KW [id number] 01/27/24 14:35 KW (1) Pulse Rate (60-100) => 80 Pulse Location => Monitor Respiratory Rate (12-18) => 18 Respiratory rate source => Observation Oxygen Delivery Method => Room Air Blood Pressure (90/60-120/80) => 134/60 H Blood Pressure Mean => 84 Source => Monitor Position => Sitting Blood Pressure Location => Left Arm Comment => pt went from prone => to sitting up and => had a period of => fogginess and => dizzines 01/13/24 01/20/24 01/27/24 15:30 15:21 14:33 Wound Care Center Nurse 3 1. LLE posterior -Ulcer Cleansing Rinsed/ Rinsed/ Irrigated with Irrigated with Saline Saline -Primary Dressing Applied Optilok 6.5x10 Optilok 6.5x10 Optilok 6.5x10 -Other Dressing pt santyl pt santyl pt own santyl moistened gauze -Primary Dressing Covered/Secured with Dry Gauze & Dry Gauze, Dry Gauze & Roll Gauze, Secured with Roll Gauze, Secured with Tape Secured with Tape Tape -Optilok 6.5x10 1 1 1 BLE -Other pt own pt own compression compression stockings stockings Vital Signs Pulse Rate (60-100) 80 Pulse Location Monitor Respiratory Rate (12-18) 18 Respiratory rate source Observation Oxygen Delivery Method Room Air Blood Pressure (90/60-120/80) 134/60 H Blood Pressure Mean 84 Source Monitor Position Sitting Blood Pressure Location Left Arm Comment pt went from prone to sitting up and had a period of fogginess and dizzines Pain Scale: 0-10 Numeric Is Patient Pain Free? Yes Yes Yes WC - Visit Discharge Discharge Condition Stable Ambulatory Status Ambulatory Transportation Private Auto Medication Reconcilliation completed & No provided to patient/care provider Clinical Summary of Care Provided Yes Lab / Micro Data Labs: Laboratory Results - last 24 hr 01/27/24 16:18: PT 25.8 H, INR 2.4 Charges/Coding Procedures Integumentary [id number]: [id number] Jenelle subq tissue 20 sq cm/< Assessment/Plan Assessment/Plan (1) Non-pressure chronic ulcer of left calf with fat layer exposed: CODE(S): L97.222 - Non-pressure chronic ulcer of left calf with fat layer exposed (2) Venous stasis ulcer: CODE(S): I83.009 - Varicose veins of unspecified lower extremity with ulcer of unspecified site; L97.909 - Non-pressure chronic ulcer of unspecified part of unspecified lower leg with unspecified severity QUALIFIERS: Venous stasis ulcer site: calf Varicose vein presence: without varicose veins Laterality: left Non-pressure ulcer stage: with fat layer exposed Qualified Code(s): I87.2 - Venous insufficiency (chronic) (peripheral); L97.222 - Non-pressure chronic ulcer of left calf with fat layer exposed (3) Acute deep vein thrombosis of right lower extremity: CODE(S): I82.401 - Acute embolism and thrombosis of unspecified deep veins of right lower extremity QUALIFIERS: Affected thrombotic vein of extremity: femoral Qualified Code(s): I82.411 - Acute embolism and thrombosis of right femoral vein (4) Superficial thrombophlebitis of both legs: CODE(S): I80.03 - Phlebitis and thrombophlebitis of superficial vessels of lower extremities, bilateral (5) Chronic venous insufficiency: CODE(S): I87.2 - Venous insufficiency (chronic) (peripheral) (6) Left leg swelling: CODE(S): M79.89 - Other specified soft tissue disorders (7) Right leg swelling: CODE(S): M79.89 - Other specified soft tissue disorders (8) 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: CODE(S): I87.039 - Postthrombotic syndrome with ulcer and inflammation of unspecified lower extremity (9) Smoking greater than 30 pack years: CODE(S): F17.210 - Nicotine dependence, cigarettes, uncomplicated (10) Encounter for smoking cessation counseling: CODE(S): Z71.6 - Tobacco abuse counseling (11) Osteoporosis: CODE(S): M81.0 - Age-related osteoporosis without current pathological fracture (12) Migraine headache: CODE(S): G43.909 - Migraine, unspecified, not intractable, without status migrainosus (13) History of thrombophlebitis of deep vein of lower extremity: CODE(S): Z86.72 - Personal history of thrombophlebitis (14) Hyperlipidemia: CODE(S): E78.5 - Hyperlipidemia, unspecified (15) History of compression fracture of spine: CODE(S): Z87.81 - Personal history of (healed) traumatic fracture (16) Lumbosacral radiculopathy: CODE(S): M54.17 - Radiculopathy, lumbosacral region (17) Lumbosacral spondylosis: CODE(S): M47.817 - Spondylosis without myelopathy or radiculopathy, lumbosacral region (18) Degeneration of lumbosacral intervertebral disc: CODE(S): M51.37 - Other intervertebral disc degeneration, lumbosacral region (19) History of kyphoplasty: CODE(S): Z98.890 - Other specified postprocedural states (20) History of tonsillectomy: CODE(S): Z90.89 - Acquired absence of other organs (21) Chronic anticoagulation: CODE(S): Z79.01 - residential (current) use of anticoagulants PLAN: Plan This is a 68 year-old female who presented with an ulceration on the left posterior calf. The ulceration had been present for approximately 4 weeks. The patient stated that the ulceration was initiated by bug bites. She had been treated by her primary care physician for cellulitis at the site, which had involved the use of 2 courses of oral antibiotics, clindamycin and cephalexin. Upon her presentation, significant erythema was noted about the ulceration, which prompted a concern for cellulitis. A swab culture was obtained for aerobic and anaerobic bacterial growth. The first culture results were negative. Subsequently, and at a follow-up visit, a repeat culture was obtained. The most recent culture result, obtained on December 02, 2023, was positive for Serratia marcescens. Based upon culture results, the patient was placed on Cipro 500 mg p.o. twice daily for a total of 10 days. The course of antibiotics was completed. The erythema about the ulceration resolved. Necrotic and nonviable tissue has persisted within the patient's left posterior calf wound. An effort has been made to remove as much of the nonviable and necrotic material as possible with each debridement, but patient discomfort has been an ongoing impediment. The [employer] ultrasonic debridement device was used for debridement today, as well as standard debridement using a sterile 5 mm curette. Because of the persisting necrotic and nonviable tissue within the w ound, as well as mary-wound erythema, swab cultures have been obtained today for aerobic and anaerobic bacterial growth. Culture results will be awaited. We are to continue the use of collagenase Santyl topically to the ulcer on a daily basis. The patient has been instructed in the appropriate means of application. She is also to continue using moistened gauze with Vashe hypochlorous acid for approximately 10 minutes prior to each dressing change. The patient has recently been diagnosed with right lower extremity acute deep vein thrombosis despite systemic anticoagulation therapy with warfarin. Despite adequate anticoagulation, the patient developed acute deep vein thrombosis in her right lower extremity, which was felt to warrant the placement of an inferior vena cava filter. An inferior vena cava filter was placed on January 22, 2024, by Dr. Batista. The patient is also known to have superficial thrombophlebitis in both lower extremities. A recent noninvasive lower extremity arterial study revealed no evidence of significant arterial occlusive disease. The patient has been advised to continue measures appropriate to conservative management of her lower extremity venous disease. Leg elevation has been advised. She is to sleep on a flat mattress at night. Legs are to be elevated both at night and during daytime hours. Legs are to be elevated to heart level, or higher. Prolonged idle sitting has been discouraged. Activity has been encouraged. She has been encouraged to continue wearing her graduated compression stockings on a daily basis. Her weight appears to be optimal. Nutritional optimization has been advised. The patient is to return in 1 week for reevaluation. The patient has again been advised to discontinue her smoking habit. We are to seek c onsultation with the Plastic Surgery service, Dr. Jarrod Umaña, for evaluation relative to the role of surgical debridement in the operating room setting, which may expedite the healing process. Total time: 28 minutes
[2024-02-02 15:35] VITALS: BP 136/80; PULSE 72; RESP 15; TEMP 35.6; BMI 24.3
--- NOTE | 2024-02-03 06:57 | PCM.WC.HP ---
History of Present Illness Date of Service: 02/02/24 Chief Complaint: Ulcerations of the left posterior calf History of Wound: From previous wound center HPI this is a 68 year-old female who claims to have experienced multiple bug bites in both lower extremities approximately 4 weeks prior to her presentation. She developed pain, swelling, and erythema in both legs following her claimed episode of bug bites. As a result, she was treated with 2 courses of oral antibiotics by her primary care physician. These included a course of oral clindamycin, as well as cephalexin. The wounds/ulcerations on the patient's right leg have healed, and she presented with a clustered ulceration on the left posterior calf. The patient admits to having a history of swelling and edema in her lower extremities. She has a history of bilateral lower extremity deep vein thrombosis, and is on chronic systemic anticoagulation with warfarin. She indicates that she wears graduated compression stockings on a daily basis, which are of 20 to 30 mmHg compression. She had not been using any topical remedies relative to the ulceration on her left posterior calf. The patient is of normal body habitus, with a BMI of 24.3. Current encounter 03 February 2024 Elizabeth Bartlett is a 68-year-old female referred to me by the vascular surgery team for left lower extremity wound on her posterior calf. There is a small cluster of wounds that have developed over the course of the past 3 months when she was reportedly bit by an insect on her left calf. She has been following with the vascular surgery team for lower extremity swelling and a right lower extremity deep vein thrombosis. They referred her to me for management of the wound and potential skin grafting. She is currently on Lovenox (but usually takes warfarin) to see if it improves the right lower extremity clot. She has been offered a right lower extremity thrombectomy and venogram with the vascular surgery team, and reports today that she would like to pursue this option. She has not had a hypercoagulable workup because it was deemed too dangerous to come off of the anticoagulation. She is status post IVC filter placement with Dr. Batista on 22 January 2024 (12 days ago). Of note her ABIs have been normal (recently done) and there are no planned lower extremity vascular interventions to improve arterial blood flow. 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 Post-phlebitic syndrome Superficial thrombophlebitis of both legs Non-pressure chronic ulcer of left calf with fat layer exposed Chronic anticoagulation Right leg swelling Left leg swelling Venous stasis ulcer Chronic venous insufficiency Degeneration of lumbosacral intervertebral disc Lumbosacral spondylosis Lumbosacral radiculopathy History of compression fracture of spine Hyperlipidemia History of thrombophlebitis of deep vein of lower extremity Migraine headache Osteoporosis Encounter for smoking cessation counseling Smoking greater than 30 pack years Home Medications ?Medication ?Instructions ?Recorded ?Last Taken ?Type ergocalciferol (vitamin D2) 1,250 50,000 unit PO .QOWEEK 03/10/19 Unknown History mcg (50,000 unit) capsule alendronate 70 mg tablet 70 mg PO QWEEK 11/18/23 Unknown History atorvastatin 20 mg tablet 20 mg PO DAILY 11/18/23 Unknown History enoxaparin 80 mg/0.8 mL 70 mg (0.7 mL) subcut Q12H 30 days 01/27/24 Unknown Rx subcutaneous syringe (Lovenox) #42 mL Allergy/AdvReac Type Severity Reaction Status Date / Time codeine Allergy Hives Verified 03/15/19 10:56 Sulfa (Sulfonamide Allergy Unknown Verified 03/15/19 10:56 Antibiotics) Surgical History History of tonsillectomy History of kyphoplasty Social History Smoking Status: Current every day smoker tobacco type: cigarettes Vital Signs Vital Signs Vital Signs: 02/02/24 15:35 Temperature 96.1 F L Temperature Source Temporal Pulse Rate 72 Respiratory Rate 15 Blood Pressure 136/80 H Blood Pressure Mean 98 Blood Pressure Source Monitor Blood Pressure Position Sitting Blood Pressure Location Left Arm Weight Weight: 160 lb Body Mass Index (BMI) 24.3 Physical Exam Narrative Left lower extremity Left lower extremity wound is exudative and contains fibrinous exudate quite tender to palpation. Intervening skin bridge between 2 wounds and a cluster. No purulent drainage and no signs of surrounding induration/cellulitis. No exposed vital structures. Extremity Peripheral Pulses: Yes pulses 2+ throughout Debridement Note Debridement Note Post-Debridement Measurements and Additional Note: Post-Debridement Measurements/Treatment WC - Nurse 1 - General Ulcer Assessment Start: 01/13/24 14:40 Freq: Status: Active Protocol: SHAE Activity Type Activity Date Activity User E-sign Co-sign Detail Recorded Client Recorded Date Recorded By Document 01/13/24 14:40 RB [id number] 01/13/24 14:45 RB Document 01/20/24 14:36 KW [id number] 01/20/24 14:42 KW Document 01/27/24 13:31 RB [id number] 01/27/24 13:35 RB Document 02/02/24 15:35 ML [id number] 02/02/24 15:47 ML 01/13/24 01/20/24 01/27/24 14:40 14:36 13:31 - Today's Visit Information Type of service Follow-up Visit Follow-up Visit Follow-up Visit (Physician/GROUNDS CREW SUPERVISOR (Physician/GROUNDS CREW SUPERVISOR (Physician/GROUNDS CREW SUPERVISOR ) ) ) Arrival Mode Ambulatory Ambulatory Ambulatory Transfer Assistance None Patient Identification Verified (Name & Yes Yes Yes ) Patient Requires Transmission-Based No Precautions Height and Weight Body Mass Index (BMI) 24.3 24.3 24.3 BMI Classification Normal Normal Normal Vital Signs Temperature (97.8 F-99.1 F) 96.6 F L 97.0 F L 96.5 F L Temperature Source Temporal Temporal Temporal Pulse Rate (60-100) 84 79 73 Pulse Location Monitor Monitor Monitor Respiratory Rate (12-18) 18 18 18 Respiratory rate source Observation Observation Observation Oxygen Delivery Method Room Air Room Air Blood Pressure (90/60-120/80) 141/90 H 124/84 H 119/77 Blood Pressure Mean 107 97 91 Source Monitor Monitor Monitor Position Sitting Semi-Fowlers Sitting Blood Pressure Location Left Arm Left Arm Left Arm History Since Last Visit- (Skip if this is Patient's initial visit) Have you changed medications since your Yes No No last visit? Any new allergies or adverse reactions No No No Had a fall/change in ADL's that may No No No increase risk of falls Signs or symptoms of abuse and/or No No No neglect since last visit Have you been in the hospital since your Yes No No last visit? Has dressing in place as prescribed Yes Yes Yes Has compression in place as prescribed Yes Yes Yes Has offloadiing in place as prescribed No N/A N/A Experienced any changes in pain level or No No No management Left Footwear Regular Shoe Regular Shoe Right Footwear Regular Shoe Regular Shoe Pain Scale: 0-10 Numeric Is Patient Pain Free? No No Yes LLE -Description Aching -Intensity 8 9 -Duration (hours) Acute -Pain Behavior Withdrawal from Touch -Pain Aggravating Factors Exercise/ Activity -Alleviating Factors/Interventions Medication Medication -Effectiveness of Alleviating Factor/ Moderately Intervention effective 02/02/24 15:35 WC - Today's Visit Information Type of service Follow-up Visit (Physician/GROUNDS CREW SUPERVISOR ) Arrival Mode Ambulatory Transfer Assistance None Patient Identification Verified (Name & Yes ) Patient Requires Transmission-Based No Precautions Height and Weight Body Mass Index (BMI) 24.3 BMI Classification Normal Vital Signs Temperature (97.8 F-99.1 F) 96.1 F L Temperature Source Temporal Pulse Rate (60-100) 72 Pulse Location Respiratory Rate (12-18) 15 Respiratory rate source Observation Oxygen Delivery Method Blood Pressure (90/60-120/80) 136/80 H Blood Pressure Mean 98 Source Monitor Position Sitting Blood Pressure Location Left Arm History Since Last Visit- (Skip if this is Patient's initial visit) Have you changed medications since your Yes last visit? Any new allergies or adverse reactions No Had a fall/change in ADL's that may No increase risk of falls Signs or symptoms of abuse and/or No neglect since last visit Have you been in the hospital since your No last visit? Has dressing in place as prescribed Yes Has compression in place as prescribed Yes Has offloadiing in place as prescribed No Experienced any changes in pain level or No management Left Footwear Right Footwear Pain Scale: 0-10 Numeric Is Patient Pain Free? Yes LLE -Description -Intensity -Duration (hours) -Pain Behavior -Pain Aggravating Factors -Alleviating Factors/Interventions -Effectiveness of Alleviating Factor/ Intervention - Nurse 1 - General Ulcer Measurement Start: 01/13/24 14:40 Freq: Status: Active Protocol: Activity Type Activity Date Activity User E-sign Co-sign Detail Recorded Client Recorded Date Recorded By Document 01/13/24 14:40 RB [id number] 01/13/24 14:45 RB Document 01/20/24 14:36 KW [id number] 01/20/24 14:42 KW Document 01/27/24 13:31 RB [id number] 01/27/24 13:35 RB Document 02/02/24 15:35 ML [id number] 02/02/24 15:47 ML 01/13/24 01/20/24 01/27/24 14:40 14:36 13:31 Wound Center Nurse 1 1. LLE posterior -Combined with other wound No -Current Size (cm) - Length 3 3 2.9 -Current Size (cm) - Width 5 5.3 5.4 -Current Size (cm) - Depth 0.8 0.5 0.8 -Total Square Cm 15 15.9 15.66 -Epithelialization -Tunneling No -Undermining/Tunneling No -Circular Undermining No -Exudate Amt Large Medium -Exudate Type Serosanguineous Serosanguineous Serosanguineous -Wound Margin Thickened & Distinct, Distinct, Rolled Under Outline Outline Attached Attached -Granulation Amt Medium (34-66%) Small (1-33%) Small (1-33%) -Granulation Quality [place] -Slough/Fibrin Yes -Necrosis Amt Large (67-100%) Large (67-100%) Large (67-100%) -Necrotic Tissue Type Adherent Slough Adherent Slough Adherent Slough -Structure Exposed N/A -Texture (Mary-wound Skin Appearance) Assessed, Assessed Assessed Scarring -Moisture (Mary-wound Skin Appearance) Assessed Assessed Assessed -Color (Mary-wound Skin Appearance) Assessed Assessed Assessed -Temperature (Mary-wound Skin No Abnormality No Abnormality No Abnormality Appearance) (Pt Warm) (Pt Warm) (Pt Warm) -Tenderness on Palpation (Mary-wound No No No Skin Appearance) -Ulcer Cleansing Wound Cleanser Rinsed/ Rinsed/ Irrigated with Irrigated with Saline Saline -Foul Odor after Cleansing No No No -Anesthetic Used 5% Lidocaine 5% Lidocaine 4% Lidocaine Gel Gel Solution,5% Lidocaine Gel -Wound Comment(s) pt stated today diagnosed with blood clot in R leg thigh ... .. Dr James increased coumadin 4mg daily Lower Limb Edema Present Yes Left Calf (cm) 33.5 36.5 Left Ankle (cm) 21.5 21.6 33.3 Left Foot (cm) 21.5 02/02/24 15:35 Wound Center Nurse 1 1. LLE posterior -Combined with other wound -Current Size (cm) - Length 3 -Current Size (cm) - Width 4.5 -Current Size (cm) - Depth 0.3 -Total Square Cm 13.5 -Epithelialization Medium 34-66% -Tunneling -Undermining/Tunneling -Circular Undermining -Exudate Amt Medium -Exudate Type Serosanguineous -Wound Margin Distinct, Outline Attached -Granulation Amt Medium (34-66%) -Granulation Quality -Slough/Fibrin -Necrosis Amt Medium (34-66%) -Necrotic Tissue Type Adherent Slough -Structure Exposed -Texture (Mary-wound Skin Appearance) No Abnormality -Moisture (Mary-wound Skin Appearance) No Abnormality -Color (Mary-wound Skin Appearance) No Abnormality -Temperature (Mary-wound Skin No Abnormality Appearance) (Pt Warm) -Tenderness on Palpation (Mary-wound Skin Appearance) -Ulcer Cleansing Rinsed/ Irrigated with Saline -Foul Odor after Cleansing No -Anesthetic Used 5% Lidocaine Gel -Wound Comment(s) Lower Limb Edema Present Left Calf (cm) Left Ankle (cm) Left Foot (cm) WC - Nurse 2 - General Ulcer CM Notes Start: 01/13/24 14:40 Freq: Status: Active Protocol: Activity Type Activity Date Activity User E-sign Co-sign Detail Recorded Client Recorded Date Recorded By Document 01/13/24 15:19 DS [id number] 01/13/24 15:26 DS Document 01/20/24 14:59 DS [id number] 01/20/24 15:06 DS Document 01/27/24 14:11 DS [id number] 01/27/24 14:20 DS Document 02/02/24 16:24 JF [id number] 02/02/24 16:31 01/13/24 01/20/24 01/27/24 15:19 14:59 14:11 Wound Center Nurse 2 1. LLE posterior -Time 15:20 14:56 14:00 -Correct Patient Yes Yes Yes -Correct Side, Site, Position Yes Yes Yes -Correct Procedure Yes Yes Yes -Procedure Performed Yes Yes Yes -Type of Procedure Debridement Debridement Debridement -Clinical Debridement Subcutaneous Subcutaneous Subcutaneous -Tissue Removed Subcutaneous Subcutaneous Subcutaneous -Post Debridement (cm) - Length 2.6 3.0 2.7 -Post Debridement (cm) - Width 5.4 5.1 5.1 -Post Debridement (cm) - Depth 0.5 0.5 0.5 -Total Square (Post) (cm) 14.04 15.30 13.77 -Area of Debridement (cm) - Length 2.6 3.0 2.7 -Area of Debridement (cm) - Width 5.4 5.1 5.1 -Total Square (Area) (cm) 14.04 15.30 13.77 -Tunneling No No Yes -Tunneling Position (O'clock) 12 -Tunneling Distance (cm) 0.5 -Undermining/Tunneling No No No -Circular Undermining No No No -Wound/Ulcer Outcome Not Healed Not Healed Not Healed -Ulcer Cleansing Rinsed/ Rinsed/ Rinsed/ Irrigated with Irrigated with Irrigated with Saline Saline Saline -Bioengineered Tissue No No No -Bleeding Controlled with Pressure Pressure -Treatment Response Procedure Procedure Tolerated Well Tolerated Well -Debridement - Subq, 1st 20sq cm Yes Yes Yes Pain Scale: 0-10 Numeric Is Patient Pain Free? No No No LLE -Description Sharp,Throbbing Sharp,Throbbing Sharp,Throbbing -Intensity 8 9 5 -Duration (hours) Chronic Chronic Acute -Pain Behavior Moaning Moaning, Guarding, Irritability, Withdrawal from Touch -Pain Aggravating Factors Debridement Debridement -Alleviating Factors/Interventions Will continue Will continue Will continue to monitor, to monitor, to monitor, Emotional Emotional Emotional Support Support Support -Comments cetecaine spray cetecaine spray cetecaine spray and misonix used for debridement 02/02/24 16:24 Wound Center Nurse 2 1. LLE posterior -Time -Correct Patient No -Correct Side, Site, Position No -Correct Procedure No -Procedure Performed No -Type of Procedure -Clinical Debridement -Tissue Removed -Post Debridement (cm) - Length -Post Debridement (cm) - Width -Post Debridement (cm) - Depth -Total Square (Post) (cm) -Area of Debridement (cm) - Length -Area of Debridement (cm) - Width -Total Square (Area) (cm) -Tunneling -Tunneling Position (O'clock) -Tunneling Distance (cm) -Undermining/Tunneling -Circular Undermining -Wound/Ulcer Outcome Not Healed -Ulcer Cleansing -Bioengineered Tissue -Bleeding Controlled with -Treatment Response -Debridement - Subq, 1st 20sq cm Pain Scale: 0-10 Numeric Is Patient Pain Free? Yes LLE -Description -Intensity -Duration (hours) -Pain Behavior -Pain Aggravating Factors -Alleviating Factors/Interventions -Comments WC - Nurse 3 - General Ulcer D/C NN Start: 01/13/24 14:40 Freq: Status: Active Protocol: Activity Type Activity Date Activity User E-sign Co-sign Detail Recorded Client Recorded Date Recorded By Document 01/13/24 15:30 KW [id number] 01/13/24 15:31 KW Document 01/20/24 15:21 KW [id number] 01/20/24 15:22 KW Edit Result 01/20/24 15:21 KW (1) [id number] 01/20/24 15:27 KW Document 01/27/24 14:33 KW [id number] 01/27/24 14:35 KW Document 02/02/24 16:45 BMF [id number] 02/02/24 16:46 BMF (1) Pulse Rate (60-100) => 80 Pulse Location => Monitor Respiratory Rate (12-18) => 18 Respiratory rate source => Observation Oxygen Delivery Method => Room Air Blood Pressure (90/60-120/80) => 134/60 H Blood Pressure Mean => 84 Source => Monitor Position => Sitting Blood Pressure Location => Left Arm Comment => pt went from prone => to sitting up and => had a period of => fogginess and => dizzines 01/13/24 01/20/24 01/27/24 15:30 15:21 14:33 Wound Care Center Nurse 3 1. LLE posterior -Ulcer Cleansing Rinsed/ Rinsed/ Irrigated with Irrigated with Saline Saline -Foul Odor after Cleansing -Primary Dressing Applied Optilok 6.5x10 Optilok 6.5x10 Optilok 6.5x10 -Other Dressing pt santyl pt santyl pt own santyl moistened gauze -Primary Dressing Covered/Secured with Dry Gauze & Dry Gauze, Dry Gauze & Roll Gauze, Secured with Roll Gauze, Secured with Tape Secured with Tape Tape -Other Covering -Optilok 6.5x10 1 1 1 BLE -Other pt own pt own compression compression stockings stockings Treatment Response Vital Signs Pulse Rate (60-100) 80 Pulse Location Monitor Respiratory Rate (12-18) 18 Respiratory rate source Observation Oxygen Delivery Method Room Air Blood Pressure (90/60-120/80) 134/60 H Blood Pressure Mean 84 Source Monitor Position Sitting Blood Pressure Location Left Arm Comment pt went from prone to sitting up and had a period of fogginess and dizzines Pain Scale: 0-10 Numeric Is Patient Pain Free? Yes Yes Yes WC - Visit Discharge Discharge Condition Stable Ambulatory Status Ambulatory Transportation Private Auto Accompanied by Medication Reconcilliation completed & No provided to patient/care provider Clinical Summary of Care Provided Yes 02/02/24 16:45 Wound Care Center Nurse 3 1. LLE posterior -Ulcer Cleansing Rinsed/ Irrigated with Saline -Foul Odor after Cleansing No -Primary Dressing Applied -Other Dressing santyl oint -Primary Dressing Covered/Secured with Dry Gauze & Roll Gauze, Secured with Tape -Other Covering abd -Optilok 6.5x10 BLE -Other pt applies own compression stocking Treatment Response Procedure Tolerated Well Vital Signs Pulse Rate (60-100) Pulse Location Respiratory Rate (12-18) Respiratory rate source Oxygen Delivery Method Blood Pressure (90/60-120/80) Blood Pressure Mean Source Position Blood Pressure Location Comment Pain Scale: 0-10 Numeric Is Patient Pain Free? Yes WC - Visit Discharge Discharge Condition Stable Ambulatory Status Ambulatory Transportation Private Auto Accompanied by Medication Reconcilliation completed & provided to patient/care provider Clinical Summary of Care Provided Charges/Coding Visit Charges Office Visits / Consults: [id number] OV L3 New 30min Assessment/Plan Assessment/Plan (1) Non-pressure chronic ulcer of left calf with fat layer exposed: CODE(S): L97.222 - Non-pressure chronic ulcer of left calf with fat layer exposed PLAN: Plan Patient has a nonhealing left calf wound. I discussed with her the option of debridement in the operating room with biopsy of the wound, followed by negative pressure wound therapy to promote granulation, followed by potential skin grafting. I talked to her about the risk benefits and alternatives of these procedures. She understands the risk of infection, bleeding, damage to surrounding structures, failure to obtain the desired result, failure of future skin grafts and need for revisions, and worsening of the wound. I will coordinate with Dr. Batista to potentially debride the wound at the same time that he performs the right lower extremity thrombectomy.
[2024-02-09 13:12] VITALS: BP 120/78; PULSE 73; RESP 18; TEMP 36.2; BMI 24.3
== END 2024-02-12 23:59 | disposition home or self-care (01) ==
LOC: WC 13:00
PROVIDERS: Physician Assistant; PCP Internal Medicine; Referring Provider Internal Medicine; Visit Provider Surgery
DX: L97.222 Non-pressure chronic ulcer of left calf with fat layer exposed (principal); I87.039 Postthrombotic syndrome with ulcer and inflammation of unspecified lower extremity; I82.411 Acute embolism and thrombosis of right femoral vein; I87.2 Venous insufficiency (chronic) (peripheral); I83.90 Asymptomatic varicose veins of unspecified lower extremity; M81.0 Age-related osteoporosis without current pathological fracture; Z79.83 Long term (current) use of bisphosphonates; Z71.6 Tobacco abuse counseling; Z79.01 Long term (current) use of anticoagulants; G43.909 Migraine, unspecified, not intractable, without status migrainosus; E78.5 Hyperlipidemia, unspecified; Z86.718 Personal history of other venous thrombosis and embolism; M47.27 Other spondylosis with radiculopathy, lumbosacral region; F17.210 Nicotine dependence, cigarettes, uncomplicated; Z86.72 Personal history of thrombophlebitis; Z87.81 Personal history of (healed) traumatic fracture; Z90.89 Acquired absence of other organs; M79.89 Other specified soft tissue disorders
CPT/HCPCS: 11042; 36415; 85610; 99213; G0463

== ENCOUNTER 2024-02-18 05:50 | Day surgery (SDC) | payer MEDICARE, OTHER, SELFPAY ==
[2024-02-18] VITALS (8 sets, daily range): BP systolic 89–119; BP diastolic 63–74; PULSE 64–69; RESP 14–16; TEMP 36.4–36.8; O2SAT 98–100; BMI 21.7
[2024-02-18] MEDS: 0.9% Saline Lock 10 ML Syringe IV (06:25)
[2024-02-18] MEDS: Cefazolin 2 GM in Syringe IV (07:34)
[2024-02-18] MEDS: Bupiv/Epi 0.25% 30 ML Vial (08:03)
[2024-02-18] MEDS: Lidocaine 1% /Epi 1:100 (50ml) 50 ML VIAL (08:03)
== END 2024-02-18 11:17 | disposition home or self-care (01) ==
LOC: SDC 05:51 → AC 05:52
PROVIDERS: PCP Internal Medicine; Referring Provider Surgery Plastic and Reconstructive Surgery; Visit Provider Surgery Plastic and Reconstructive Surgery
PROC: (CPT 15002; principal; 2024-02-18 07:15)
DX: L97.222 Non-pressure chronic ulcer of left calf with fat layer exposed (principal); E78.00 Pure hypercholesterolemia, unspecified; F17.200 Nicotine dependence, unspecified, uncomplicated; Z79.899 Other long term (current) drug therapy; Z79.83 Long term (current) use of bisphosphonates; Z86.718 Personal history of other venous thrombosis and embolism
CPT/HCPCS: 15002; 00400; 88305; 88312; A4216; J2405

== ENCOUNTER 2024-03-08 09:15 | Outpatient (RCR) | payer MEDICARE, OTHER, SELFPAY ==
[2024-02-13 00:23] VITALS: BP 141/70; PULSE 83; RESP 16; TEMP 36.3; BMI 24.3
[2024-02-20 11:48] VITALS: BP 148/87; PULSE 77; RESP 18; TEMP 35.7; BMI 24.3
[2024-02-23 13:18] VITALS: BP 140/83; PULSE 66; RESP 18; TEMP 36.4; BMI 24.3
--- NOTE | 2024-02-23 17:01 | PCM.WC.PN ---
History of Present Illness Date of Service: 02/23/24 Chief Complaint: Ulcerations of the left posterior calf History of Wound: This is a 68 year-old female who claims to have experienced multiple bug bites in both lower extremities approximately 4 weeks prior to her presentation. She developed pain, swelling, and erythema in both legs following her claimed episode of bug bites. As a result, she was treated with 2 courses of oral antibiotics by her primary care physician. These included a course of oral clindamycin, as well as cephalexin. The wounds/ulcerations on the patient's right leg have healed, and she presented with a clustered ulceration on the left posterior calf. The patient admits to having a history of swelling and edema in her lower extremities. She has a history of bilateral lower extremity deep vein thrombosis, and is on chronic systemic anticoagulation with warfarin. She indicates that she wears graduated compression stockings on a daily basis, which are of 20 to 30 mmHg compression. She had not been using any topical remedies relative to the ulceration on her left posterior calf. The patient is of normal body habitus, with a BMI of 24.3. Subjective Subjective 1 week post op debridement in the OR (POD 6). Tolerating VAC. Pain controlled. Has not had home health come for VAC changes (unable to find home health agency that comes to their community, so may have to continue coming to the [facility] for VAC changes). Objective Data Objective Data Vital Signs: Vital Signs Temp Pulse Resp BP O2 Del Method 97.6 F L 66 18 140/83 H Room Air 02/23/24 13:18 02/23/24 13:18 02/23/24 13:18 02/23/24 13:18 02/23/24 13:18 Oxygen Delivery Method Room Air Weight: 160 lb Body Mass Index (BMI) 24.3 Charges/Coding Procedures Integumentary 111xxx-113xx: 92166 Global Visit Physical Exam Narrative LEFT LOWER EXTREMITY Granulation tissue forming in the wound 2/2 VAC and s/p debridement. No signs of infection. VAC helping wound close well. 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 OPERATOR ) Arrival Mode Ambulatory Ambulatory Transfer Assistance None Accompanied by Patient Identification Verified (Name & Yes Yes ) Patient Requires Transmission-Based No Precautions Height and Weight Body Mass Index (BMI) 24.3 24.3 BMI Classification Normal Normal Vital Signs Temperature (97.8 F-99.1 F) 96.2 F L 97.6 F L Temperature Source Temporal Temporal Pulse Rate (60-100) 77 66 Pulse Location Monitor Monitor Respiratory Rate (12-18) 18 18 Respiratory rate source Observation Observation Oxygen Delivery Method Room Air Blood Pressure (90/60-120/80) 148/87 H 140/83 H Blood Pressure Mean (mm Hg) 107 102 Source Monitor Monitor Position Semi-Fowlers Sitting Blood Pressure Location Left Arm Right Arm History Since Last Visit- (Skip if this is Patient's initial visit) Have you changed medications since your No No last visit? Any new allergies or adverse reactions No No Had a fall/change in ADL's that may No No increase risk of falls Signs or symptoms of abuse and/or No No neglect since last visit Have you been in the hospital since your Yes No last visit? Has dressing in place as prescribed Yes Yes Has compression in place as prescribed Yes Yes Has offloadiing in place as prescribed No N/A Experienced any changes in pain level or No No management Left Footwear Regular Shoe Right Footwear Regular Shoe Pain Scale: 0-10 Numeric Is Patient Pain Free? No No LLE -Description Sharp -Intensity 8 -Duration (hours) Acute -Pain Behavior Irritability, Withdrawal from Touch -Pain Aggravating Factors ADL's -Alleviating Factors/Interventions Medication -Effectiveness of Alleviating Factor/ Moderately Intervention effective WC - Nurse 1 - General Ulcer Measurement Start: 02/20/24 11:48 Freq: Status: Active Protocol: Activity Type Activity Date Activity User E-sign Co-sign Detail Recorded Client Recorded Date Recorded By Document 02/20/24 11:48 RB [id number] 02/20/24 11:56 RB 02/20/24 11:48 Wound Center Nurse 1 1. LLE posterior -Exudate Amt Large -Exudate Type Serosanguineous -Wound Margin Distinct, Outline Attached -Granulation Amt Medium (34-66%) -Granulation Quality [place] -Slough/Fibrin Yes -Necrosis Amt Medium (34-66%) -Necrotic Tissue Type Adherent Slough -Structure Exposed N/A -Texture (Mary-wound Skin Appearance) Assessed -Moisture (Mary-wound Skin Appearance) Assessed -Color (Mary-wound Skin Appearance) Assessed -Temperature (Mary-wound Skin No Abnormality Appearance) (Pt Warm) -Tenderness on Palpation (Mary-wound No Skin Appearance) -Ulcer Cleansing Wound Cleanser -Foul Odor after Cleansing No WC - Nurse 2 - General Ulcer CM Notes Start: 02/20/24 11:48 Freq: Status: Active Protocol: Activity Type Activity Date Activity User E-sign Co-sign Detail Recorded Client Recorded Date Recorded By Document 02/23/24 13:36 [id number] 02/23/24 13:37 ROULA 02/23/24 13:36 Wound Center Nurse 2 -Correct Patient No -Correct Side, Site, Position No -Correct Procedure No -Procedure Performed No -Wound/Ulcer Outcome Not Healed -Bleeding Controlled with Pressure -Treatment Response Procedure Tolerated Well -Offloading No -Debridement - Subq, 1st 20sq cm No Pain Scale: 0-10 Numeric Is Patient Pain Free? Yes WC - Nurse 3 - General Ulcer D/C NN Start: 02/20/24 11:48 Freq: Status: Active Protocol: Activity Type Activity Date Activity User E-sign Co-sign Detail Recorded Client Recorded Date Recorded By Document 02/20/24 11:48 RB [id number] 02/20/24 11:56 RB Edit Result 02/20/24 11:48 RB (1) [id number] 02/20/24 11:58 RB Document 02/23/24 14:17 KW [id number] 02/23/24 14:19 KW (1) Left - Other => antonio with ABD pad => under tubing 02/20/24 02/23/24 11:48 14:17 Vital Signs Temperature (97.8 F-99.1 F) 96.2 F L Temperature Source Temporal Pulse Rate (60-100) 77 Pulse Location Monitor Respiratory Rate (12-18) 18 Respiratory rate source Observation Blood Pressure (90/60-120/80) 148/87 H Blood Pressure Mean (mm Hg) 107 Source Monitor Position Semi-Fowlers Blood Pressure Location Left Arm Pain Scale: 0-10 Numeric Is Patient Pain Free? No Yes LLE -Description Sharp -Intensity 8 -Duration (hours) Acute -Pain Behavior Irritability, Withdrawal from Touch -Pain Aggravating Factors ADL's -Alleviating Factors/Interventions Medication -Effectiveness of Alleviating Factor/ Moderately Intervention effective Wound Care Center Nurse 3 1. LLE posterior -Ulcer Cleansing Wound Cleanser Rinsed/ Irrigated with Saline -Negative Pressure Wound Therapy Continue Continue -Setting (mmHg) 125 150 -Negative Pressure is Continuous Continuous -NPWT Application Charge NPWT </= 50 sq NPWT </= 50 sq cm ($) cm ($) -Wound Comment(s) Misha drape used KCI dressing Left -Compression Wrap Antonio Wrap -Other antonio with ABD pad under tubing Treatment Response Procedure Tolerated Well WC - Visit Discharge Discharge Condition Stable Ambulatory Status Ambulatory Transportation Private Auto Medication Reconcilliation completed & No provided to patient/care provider Clinical Summary of Care Provided Yes Assessment/Plan Assessment/Plan (1) Non-pressure chronic ulcer of left calf with fat layer exposed: CODE(S): L97.222 - Non-pressure chronic ulcer of left calf with fat layer exposed PLAN: Healing well Discussed pathology report today with the patient (no cancer/malignancy in wound sample) Continue three times per week VAC changes I discussed risks, benefits, and alternatives to STSG. Discussed with vascular holding Lovenox for skin graft. Patient understands risks and would like to proceed with skin grafting. I will plan to schedule. CPT codes for insurance prior authorization are as follows: [id number]. [id number]
--- NOTE | 2024-02-24 10:02 | WC ---
PHOTO 02/23/24 LEFT POST CALF POST OP
[2024-02-25 13:59] VITALS: BP 127/78; PULSE 69; RESP 16; TEMP 36.1; BMI 24.3
[2024-03-01 13:59] VITALS: BP 129/81; PULSE 75; RESP 16; TEMP 36.1; BMI 24.3
--- NOTE | 2024-03-01 17:51 | PN.PCM_ITS ---
History of Present Illness Date of Service: 03/01/24 Chief Complaint: Ulcerations of the left posterior calf History of Wound: This is a 68 year-old female who claims to have experienced multiple bug bites in both lower extremities approximately 4 weeks prior to her presentation. She developed pain, swelling, and erythema in both legs following her claimed episode of bug bites. As a result, she was treated with 2 courses of oral antibiotics by her primary care physician. These included a course of oral clindamycin, as well as cephalexin. The wounds/ulcerations on the patient's right leg have healed, and she presented with a clustered ulceration on the left posterior calf. The patient admits to having a history of swelling and edema in her lower extremities. She has a history of bilateral lower extremity deep vein thrombosis, and is on chronic systemic anticoagulation with warfarin. She indicates that she wears graduated compression stockings on a daily basis, which are of 20 to 30 mmHg compression. She had not been using any topical remedies relative to the ulceration on her left posterior calf. The patient is of normal body habitus, with a BMI of 24.3. Subjective Subjective Patient here for follow-up and VAC change. Reports excellent home health care for VAC changes at home. Reports that she has exquisite pain with wound VAC changes. Objective Data Objective Data Vital Signs: Vital Signs Temp Pulse Resp BP O2 Del Method 97 F L 75 16 129/81 H Room Air 03/01/24 13:59 03/01/24 13:59 03/01/24 13:59 03/01/24 13:59 03/01/24 13:59 Oxygen Delivery Method Room Air Weight: 160 lb Body Mass Index (BMI) 24.3 Charges/Coding Procedures Integumentary 111xxx-113xx: 15367 Jenelle subq tissue 20 sq cm/< Add On Codes: 85472 Jenelle subq tissue add-on Physical Exam Narrative LEFT LOWER EXTREMITY Granulation tissue forming in the wound 2/2 VAC and s/p debridement. No signs of infection. VAC helping wound close well. Debridement Note Debridement Note Wound debrided: lEFT LOWER EXTREMITY LEG WOUND Laterality: Left Wound Grade/Stage: To subQ Type of Debridement: Excisional debridement Anesthesia Used: 4% Lidocaine Solution Depth: Down to and including healthy tissue and in the subcutaneous layer Percentage of wound debrided: 100 Instrument Used: 5mm curette Severity: Fat Layer Exposed Amount of bleeding with debridement: Mild Bleeding Controlled with: Pressure Patient tolerated procedure: Patient did not tolerate procedure well Post-Debridement Measurements and Additional Note: Post-Debridement Measurements/Treatment WC - Nurse 1 - General Ulcer Assessment Start: 02/20/24 11:48 Freq: Status: Active Protocol: SHAE Activity Type Activity Date Activity User E-sign Co-sign Detail Recorded Client Recorded Date Recorded By Document 02/20/24 11:48 RB [id number] 02/20/24 11:56 RB Document 02/23/24 13:18 KW [id number] 02/23/24 13:33 KW Document 02/25/24 13:59 KW [id number] 02/25/24 14:04 KW Document 03/01/24 13:59 BM [id number] 03/01/24 14:08 BMF 02/20/24 02/23/24 02/25/24 11:48 13:18 13:59 - Today's Visit Information Type of service Nurse-only Follow-up Visit Nurse-only Visit (Physician/ARMATURE BANDER Visit ) Arrival Mode Ambulatory Ambulatory Ambulatory Transfer Assistance None Accompanied by Patient Identification Verified (Name & Yes Yes Yes ) Patient Requires Transmission-Based No Precautions Height and Weight Body Mass Index (BMI) 24.3 24.3 24.3 BMI Classification Normal Normal Normal Vital Signs Temperature (97.8 F-99.1 F) 96.2 F L 97.6 F L 97.0 F L Temperature Source Temporal Temporal Temporal Pulse Rate (60-100) 77 66 69 Pulse Location Monitor Monitor Monitor Respiratory Rate (12-18) 18 18 16 Respiratory rate source Observation Observation Observation Oxygen Delivery Method Room Air Room Air Blood Pressure (90/60-120/80) 148/87 H 140/83 H 127/78 H Blood Pressure Mean (mm Hg) 107 102 94 Source Monitor Monitor Monitor Position Semi-Fowlers Sitting Sitting Blood Pressure Location Left Arm Right Arm Left Arm History Since Last Visit- (Skip if this is Patient's initial visit) Have you changed medications since your No No No last visit? Any new allergies or adverse reactions No No No Had a fall/change in ADL's that may No No No increase risk of falls Signs or symptoms of abuse and/or No No No neglect since last visit Have you been in the hospital since your Yes No No last visit? Has dressing in place as prescribed Yes Yes Yes Has compression in place as prescribed Yes Yes Yes Has offloadiing in place as prescribed No N/A N/A Experienced any changes in pain level or No No No management Left Footwear Regular Shoe Regular Shoe Right Footwear Regular Shoe Regular Shoe Pain Scale: 0-10 Numeric Is Patient Pain Free? No No Yes LLE -Description Sharp -Intensity 8 -Duration (hours) Acute -Pain Behavior Irritability, Withdrawal from Touch -Pain Aggravating Factors ADL's -Alleviating Factors/Interventions Medication -Effectiveness of Alleviating Factor/ Moderately Intervention effective 03/01/24 13:59 WC - Today's Visit Information Type of service Follow-up Visit (Physician/ARMATURE BANDER ) Arrival Mode Ambulatory Transfer Assistance None Accompanied by Patient Identification Verified (Name & Yes ) Patient Requires Transmission-Based No Precautions Height and Weight Body Mass Index (BMI) 24.3 BMI Classification Normal Vital Signs Temperature (97.8 F-99.1 F) 97 F L Temperature Source Temporal Pulse Rate (60-100) 75 Pulse Location Monitor Respiratory Rate (12-18) 16 Respiratory rate source Observation Oxygen Delivery Method Room Air Blood Pressure (90/60-120/80) 129/81 H Blood Pressure Mean (mm Hg) 97 Source Monitor Position Sitting Blood Pressure Location Left Arm History Since Last Visit- (Skip if this is Patient's initial visit) Have you changed medications since your No last visit? Any new allergies or adverse reactions No Had a fall/change in ADL's that may No increase risk of falls Signs or symptoms of abuse and/or No neglect since last visit Have you been in the hospital since your No last visit? Has dressing in place as prescribed Yes Has compression in place as prescribed N/A Has offloadiing in place as prescribed N/A Experienced any changes in pain level or No management Left Footwear Regular Shoe Right Footwear Regular Shoe Pain Scale: 0-10 Numeric Is Patient Pain Free? Yes LLE -Description -Intensity -Duration (hours) -Pain Behavior -Pain Aggravating Factors -Alleviating Factors/Interventions -Effectiveness of Alleviating Factor/ Intervention - Nurse 1 - General Ulcer Measurement Start: 02/20/24 11:48 Freq: Status: Active Protocol: Activity Type Activity Date Activity User E-sign Co-sign Detail Recorded Client Recorded Date Recorded By Document 02/20/24 11:48 RB [id number] 11/08/24 11:56 RB Document 03/01/24 13:59 [facility] [id number] 03/01/24 14:08 [facility] 02/20/24 03/01/24 11:48 13:59 Wound Center Nurse 1 1. LLE posterior -Combined with other wound No -Current Size (cm) - Length 3 -Current Size (cm) - Width 5.5 -Current Size (cm) - Depth 0.2 -Total Square Cm 16.5 -Date of Last Picture (Recall this 03/01/24 field) -Photo Taken Yes -Epithelialization Small 1-33% -Tunneling No -Undermining/Tunneling No -Circular Undermining No -Exudate Amt Large Medium -Exudate Type Serosanguineous Serosanguineous -Wound Margin Distinct, Distinct, Outline Outline Attached Attached -Granulation Amt Medium (34-66%) Medium (34-66%) -Granulation [place] -Slough/Fibrin Yes Yes -Necrosis Amt Medium (34-66%) Medium (34-66%) -Necrotic Tissue Type Adherent Slough Adherent Slough -Structure Exposed N/A -Texture (Mary-wound Skin Appearance) Assessed Assessed -Moisture (Mary-wound Skin Appearance) Assessed Assessed -Color (Mary-wound Skin Appearance) Assessed Assessed -Temperature (Mary-wound Skin No Abnormality No Abnormality Appearance) (Pt Warm) (Pt Warm) -Tenderness on Palpation (Mary-wound No No Skin Appearance) -Ulcer Cleansing Wound Cleanser Soap and Water -Foul Odor after Cleansing No No -Anesthetic Used 4% Lidocaine Solution WC - Nurse 2 - General Ulcer CM Notes Start: 02/20/24 11:48 Freq: Status: Active Protocol: Activity Type Activity Date Activity User E-sign Co-sign Detail Recorded Client Recorded Date Recorded By Document 02/23/24 13:36 [id number] 02/23/24 13:37 Document 03/01/24 14:30 [id number] 03/01/24 14:32 02/23/24 03/01/24 13:36 14:30 Wound Center Nurse 2 1. LLE posterior -Time 14:30 -Correct Patient No Yes -Correct Side, Site, Position No Yes -Correct Procedure No Yes -Procedure Performed No Yes -Type of Procedure Debridement -Clinical Debridement Subcutaneous -Tissue Removed Subcutaneous -Post Debridement (cm) - Length 7 -Post Debridement (cm) - Width 3.0 -Post Debridement (cm) - Depth 0.2 -Total Square (Post) (cm) 21.0 -Area of Debridement (cm) - Length 7 -Area of Debridement (cm) - Width 3.0 -Total Square (Area) (cm) 21.0 -Tunneling No -Undermining/Tunneling No -Circular Undermining No -Wound/Ulcer Outcome Not Healed Not Healed -Ulcer Cleansing Rinsed/ Irrigated with Saline -Foul Odor after Cleansing No -Bioengineered Tissue No -Bleeding Controlled with Pressure Pressure -Treatment Response Procedure Procedure Tolerated Well Tolerated Well -Offloading No No -Debridement - Subq, 1st 20sq cm No Yes -Debridement, SubQ, ea addt'l 20sq cm 1 or part thereof Pain Scale: 0-10 Numeric Is Patient Pain Free? Yes Yes WC - Nurse 3 - General Ulcer D/C NN Start: 02/20/24 11:48 Freq: Status: Active Protocol: Activity Type Activity Date Activity User E-sign Co-sign Detail Recorded Client Recorded Date Recorded By Document 02/20/24 11:48 RB [id number] 02/20/24 11:56 RB Edit Result 02/20/24 11:48 RB (1) [id number] 02/20/24 11:58 RB Document 02/23/24 14:17 KW [id number] 02/23/24 14:19 KW Document 02/25/24 13:59 KW [id number] 02/25/24 14:04 KW Document 03/01/24 15:06 BMF [id number] 03/01/24 15:07 BMF (1) Left - Other => antonio with ABD pad => under tubing 02/20/24 02/23/24 02/25/24 11:48 14:17 13:59 Vital Signs Temperature (97.8 F-99.1 F) 96.2 F L 97.0 F L Temperature Source Temporal Temporal Pulse Rate (60-100) 77 69 Pulse Location Monitor Monitor Respiratory Rate (12-18) 18 16 Respiratory rate source Observation Observation Oxygen Delivery Method Room Air Blood Pressure (90/60-120/80) 148/87 H 127/78 H Blood Pressure Mean (mm Hg) 107 94 Source Monitor Monitor Position Semi-Fowlers Sitting Blood Pressure Location Left Arm Left Arm Pain Scale: 0-10 Numeric Is Patient Pain Free? No Yes Yes LLE -Description Sharp -Intensity 8 -Duration (hours) Acute -Pain Behavior Irritability, Withdrawal from Touch -Pain Aggravating Factors ADL's -Alleviating Factors/Interventions Medication -Effectiveness of Alleviating Factor/ Moderately Intervention effective Wound Care Center Nurse 3 1. LLE posterior -Ulcer Cleansing Wound Cleanser Rinsed/ Soap and Water Irrigated with Saline -Foul Odor after Cleansing No -Negative Pressure Wound Therapy Continue Continue Continue -Setting (mmHg) 125 150 125 -Negative Pressure is Continuous Continuous Continuous -NPWT Application Charge NPWT </= 50 sq NPWT </= 50 sq NPWT > 50 sq cm cm ($) cm ($) ($) -Wound Comment(s) [place] drape used KCI dressing Left -Compression Wrap Antonio Wrap Antonio Wrap -Other antonio with ABD pad under tubing Treatment Response Procedure Tolerated Well WC - Visit Discharge Discharge Condition Stable Stable Ambulatory Status Ambulatory Transportation Private Auto Accompanied by Medication Reconcilliation completed & No provided to patient/care provider Clinical Summary of Care Provided Yes 03/01/24 15:06 Vital Signs Temperature (97.8 F-99.1 F) Temperature Source Pulse Rate (60-100) Pulse Location Respiratory Rate (12-18) Respiratory rate source Oxygen Delivery Method Blood Pressure (90/60-120/80) Blood Pressure Mean (mm Hg) Source Position Blood Pressure Location Pain Scale: 0-10 Numeric Is Patient Pain Free? Yes LLE -Description -Intensity -Duration (hours) -Pain Behavior -Pain Aggravating Factors -Alleviating Factors/Interventions -Effectiveness of Alleviating Factor/ Intervention Wound Care Center Nurse 3 1. LLE posterior -Ulcer Cleansing Soap and Water -Foul Odor after Cleansing No -Negative Pressure Wound Therapy Continue -Setting (mmHg) 125 -Negative Pressure is Continuous -NPWT Application Charge NPWT & Debridement (nc ) -Wound Comment(s) Left -Compression Wrap Antonio Wrap -Other Treatment Response Procedure Tolerated Well WC - Visit Discharge Discharge Condition Stable Ambulatory Status Ambulatory Transportation Private Auto Accompanied by Medication Reconcilliation completed & provided to patient/care provider Clinical Summary of Care Provided Assessment/Plan Assessment/Plan (1) Non-pressure chronic ulcer of left calf with fat layer exposed: CODE(S): L97.222 - Non-pressure chronic ulcer of left calf with fat layer exposed PLAN: Healing well Discussed pathology report with the patient (no cancer/malignancy in wound sample) Continue three times per week VAC changes I discussed risks, benefits, and alternatives to STSG. Discussed with vascular holding Lakhwinderx for skin graft. I talked the patient extensively about the risks of surgery, including bleeding, infection, damage to surrounding structures, surgical site dehiscence and wound formation, need for wound care, need for repeat operations, failure to obtain the desired result (WE TALKED ABOUT RISKS OF SKIN GRAFT FAILURE), worsening of DVT/PE, and the risks of anesthesia. All of their questions were answered. Also offered referral to partner for regenerative dermal substitute consultation (Dr. Gabriel or Dr. Robles) at [facility], as this would be another alternative to skin grafting. She will think about it. Also offered continue wound care, as well as dressing changes (if she doesn't want to continue the VAC). She is O.K. with continuing the VAC. F/u in 1 week Will make separate appointment for additional pre-operative counseling with our REGIONAL COMMERCIAL SALES MANAGER to discuss post-operative course/expectations. CPT codes for insurance prior authorization are as follows: [id number]. [id number]
--- NOTE | 2024-03-02 13:58 | WC ---
PHOTO 03/01/24 BRY POSTERIOR
[2024-03-08 09:26] VITALS: BP 119/67; PULSE 67; RESP 18; TEMP 36.5; BMI 24.3
--- NOTE | 2024-03-08 12:15 | PN.PCM_ITS ---
<Statement entered by Jarrod Umaña MD - 03/08/24 17:48> I have personally performed a face to face assessment of the patient and have reviewed the JAZZY Note. History of Present Illness Date of Service: 03/08/24 Chief Complaint: Ulcerations of the left posterior calf History of Wound: This is a 68 year-old female who claims to have experienced multiple bug bites in both lower extremities approximately 4 weeks prior to her presentation. She developed pain, swelling, and erythema in both legs following her claimed episode of bug bites. As a result, she was treated with 2 courses of oral antibiotics by her primary care physician. These included a course of oral clindamycin, as well as cephalexin. The wounds/ulcerations on the patient's right leg have healed, and she presented with a clustered ulceration on the left posterior calf. The patient admits to having a history of swelling and edema in her lower extremities. She has a history of bilateral lower extremity deep vein thrombosis, and is on chronic systemic anticoagulation with warfarin. She indicates that she wears graduated compression stockings on a daily basis, which are of 20 to 30 mmHg compression. She had not been using any topical remedies relative to the ulceration on her left posterior calf. The patient is of normal body habitus, with a BMI of 24.3. Surgery 02/18/[address] Umaañ for Left lower extremity wound excision, 7 x 4 cm and Placement of negative pressure wound therapy. Progress of Wound: She has had issues with pain control, especially with her wound VAC dressing changes. Had in-depth discussion about how she can remove the wound VAC or start to remove the wound VAC dressing in the shower so that it is easier to come off. She had asked for some lidocaine to use for dressing changes. I do not feel comfortable prescribing lidocaine for her to use at home with her dressing changes. Overall her left posterior leg ulcer is looking much better. It is smaller in size and there is decreased depth. Periwound is stable. Objective Data Objective Data Vital Signs: Vital Signs Temp Pulse Resp BP O2 Del Method 97.7 F L 67 18 119/67 Room Air 03/08/24 09:26 03/08/24 09:26 03/08/24 09:26 03/08/24 09:26 03/08/24 09:26 Oxygen Delivery Method Room Air Weight: 160 lb Body Mass Index (BMI) 24.3 Charges/Coding Procedures Integumentary 111xxx-113xx: 34030 Global Visit Physical Exam Narrative Left posterior lower leg ulcer. Is a nice beefy pink. It is overall smaller in size and has decreased depth. She continues to have pain and discomfort when touching this area. Debridement Note Debridement Note Wound debrided: Posterior leg ulcer Laterality: Left Wound Grade/Stage: Stage III. Type of Debridement: Excisional debridement Anesthesia Used: 5% Lidocaine Gel Depth: Down to and including healthy tissue and in the subcutaneous layer Percentage of wound debrided: 100 Instrument Used: 7mm curette Tissue Removed: Nonviable tissue and slough Severity: Fat Layer Exposed Amount of bleeding with debridement: Mild Bleeding Controlled with: Compression and gauze Patient tolerated procedure: Patient tolerated procedure well Post-Debridement Measurements and Additional Note: Post-Debridement Measurements/Treatment - Nurse 1 - General Ulcer Assessment Start: 02/20/24 11:48 Freq: Status: Active Protocol: .IRVIN Activity Type Activity Date Activity User E-sign Co-sign Detail Recorded Client Recorded Date Recorded By Document 02/20/24 11:48 [id number] 02/20/24 11:56 Document 02/23/24 13:18 KW [id number] 02/23/24 13:33 Document 02/25/24 13:59 KW [id number] 02/25/24 14:04 Document 03/01/24 13:59 [facility] [id number] 03/01/24 14:08 [facility] Document 03/08/24 09:26 KW [id number] 03/08/24 09:32 KW 02/20/24 02/23/24 02/25/24 11:48 13:18 13:59 - Today's Visit Information Type of service Nurse-only Follow-up Visit Nurse-only Visit (Physician/COMPRESSOR OPERATOR ADJUSTER Visit ) Arrival Mode Ambulatory Ambulatory Ambulatory Transfer Assistance None Accompanied by Patient Identification Verified (Name & Yes Yes Yes ) Patient Requires Transmission-Based No Precautions Height and Weight Body Mass Index (BMI) 24.3 24.3 24.3 BMI Classification Normal Normal Normal Vital Signs Temperature (97.8 F-99.1 F) 96.2 F L 97.6 F L 97.0 F L Temperature Source Temporal Temporal Temporal Pulse Rate (60-100) 77 66 69 Pulse Location Monitor Monitor Monitor Respiratory Rate (12-18) 18 18 16 Respiratory rate source Observation Observation Observation Oxygen Delivery Method Room Air Room Air Blood Pressure (90/60-120/80) 148/87 H 140/83 H 127/78 H Blood Pressure Mean (mm Hg) 107 102 94 Source Monitor Monitor Monitor Position Semi-Fowlers Sitting Sitting Blood Pressure Location Left Arm Right Arm Left Arm History Since Last Visit- (Skip if this is Patient's initial visit) Have you changed medications since your No No No last visit? Any new allergies or adverse reactions No No No Had a fall/change in ADL's that may No No No increase risk of falls Signs or symptoms of abuse and/or No No No neglect since last visit Have you been in the hospital since your Yes No No last visit? Has dressing in place as prescribed Yes Yes Yes Has compression in place as prescribed Yes Yes Yes Has offloadiing in place as prescribed No N/A N/A Experienced any changes in pain level or No No No management Left Footwear Regular Shoe Regular Shoe Right Footwear Regular Shoe Regular Shoe Pain Scale: 0-10 Numeric Is Patient Pain Free? No No Yes LLE -Description Sharp -Intensity 8 -Duration (hours) Acute -Pain Behavior Irritability, Withdrawal from Touch -Pain Aggravating Factors ADL's -Alleviating Factors/Interventions Medication -Effectiveness of Alleviating Factor/ Moderately Intervention effective 03/01/24 03/08/24 13:59 09:26 WC - Today's Visit Information Type of service Follow-up Visit Follow-up Visit (Physician/COMPRESSOR OPERATOR ADJUSTER (Physician/COMPRESSOR OPERATOR ADJUSTER ) ) Arrival Mode Ambulatory Ambulatory Transfer Assistance None Accompanied by Patient Identification Verified (Name & Yes Yes ) Patient Requires Transmission-Based No Precautions Height and Weight Body Mass Index (BMI) 24.3 24.3 BMI Classification Normal Normal Vital Signs Temperature (97.8 F-99.1 F) 97 F L 97.7 F L Temperature Source Temporal Temporal Pulse Rate (60-100) 75 67 Pulse Location Monitor Monitor Respiratory Rate (12-18) 16 18 Respiratory rate source Observation Observation Oxygen Delivery Method Room Air Room Air Blood Pressure (90/60-120/80) 129/81 H 119/67 Blood Pressure Mean (mm Hg) 97 84 Source Monitor Monitor Position Sitting Sitting Blood Pressure Location Left Arm Left Arm History Since Last Visit- (Skip if this is Patient's initial visit) Have you changed medications since your No No last visit? Any new allergies or adverse reactions No No Had a fall/change in ADL's that may No No increase risk of falls Signs or symptoms of abuse and/or No No neglect since last visit Have you been in the hospital since your No No last visit? Has dressing in place as prescribed Yes Yes Has compression in place as prescribed N/A Yes Has offloadiing in place as prescribed N/A N/A Experienced any changes in pain level or No No management Left Footwear Regular Shoe Regular Shoe Right Footwear Regular Shoe Regular Shoe Pain Scale: 0-10 Numeric Is Patient Pain Free? Yes No LLE -Description Sharp,Burning -Intensity 10 -Duration (hours) -Pain Behavior Irritability, Facial Grimacing, Screaming, Thrashing -Pain Aggravating Factors -Alleviating Factors/Interventions Medication, Inactivity/ Resting -Effectiveness of Alleviating Factor/ Intervention WC - Nurse 1 - General Ulcer Measurement Start: 02/20/24 11:48 Freq: Status: Active Protocol: Activity Type Activity Date Activity User E-sign Co-sign Detail Recorded Client Recorded Date Recorded By Document 02/20/24 11:48 RB [id number] 02/20/24 11:56 RB Document 03/01/24 13:59 [facility] [id number] 03/01/24 14:08 BM Document 03/08/24 09:26 KW [id number] 03/08/24 09:32 KW 02/20/24 03/01/24 03/08/24 11:48 13:59 09:26 Wound Center Nurse 1 1. LLE posterior -Combined with other wound No -Current Size (cm) - Length 3 3.1 -Current Size (cm) - Width 5.5 6 -Current Size (cm) - Depth 0.2 0.3 -Total Square Cm 16.5 18.6 -Date of Last Picture (Recall this 03/01/24 field) -Photo Taken Yes -Epithelialization Small 1-33% -Tunneling No -Undermining/Tunneling No -Circular Undermining No -Exudate Amt Large Medium Medium -Exudate Type Serosanguineous Serosanguineous Serosanguineous -Wound Margin Distinct, Distinct, Distinct, Outline Outline Outline Attached Attached Attached -Granulation Amt Medium (34-66%) Medium (34-66%) Medium (34-66%) -Granulation Quality [place] -Slough/Fibrin Yes Yes -Necrosis Amt Medium (34-66%) Medium (34-66%) Medium (34-66%) -Necrotic Tissue Type Adherent Slough Adherent Slough Adherent Slough -Structure Exposed N/A -Texture (Mary-wound Skin Appearance) Assessed Assessed Assessed,Rash -Moisture (Mary-wound Skin Appearance) Assessed Assessed Assessed -Color (Mary-wound Skin Appearance) Assessed Assessed Assessed -Temperature (Mary-wound Skin No Abnormality No Abnormality No Abnormality Appearance) (Pt Warm) (Pt Warm) (Pt Warm) -Tenderness on Palpation (Mary-wound No No No Skin Appearance) -Ulcer Cleansing Wound Cleanser Soap and Water Soap and Water -Foul Odor after Cleansing No No No -Anesthetic Used 4% Lidocaine 4% Lidocaine Solution Solution WC - Nurse 2 - General Ulcer CM Notes Start: 02/20/24 11:48 Freq: Status: Active Protocol: Activity Type Activity Date Activity User E-sign Co-sign Detail Recorded Client Recorded Date Recorded By Document 02/23/24 13:36 [id number] 02/23/24 13:37 Document 03/01/24 14:30 [id number] 03/01/24 14:32 Document 03/08/24 09:53 [id number] 03/08/24 09:54 02/23/24 03/01/24 03/08/24 13:36 14:30 09:53 -Time 14:30 09:53 -Correct Patient No Yes Yes -Correct Side, Site, Position No Yes Yes -Correct Procedure No Yes Yes -Procedure Performed No Yes Yes -Type of Procedure Debridement Debridement -Clinical Debridement Subcutaneous Subcutaneous -Tissue Removed Subcutaneous Subcutaneous -Post Debridement (cm) - Length 7 3.0 -Post Debridement (cm) - Width 3.0 6.3 -Post Debridement (cm) - Depth 0.2 0.3 -Total Square (Post) (cm) 21.0 18.90 -Area of Debridement (cm) - Length 7 3.0 -Area of Debridement (cm) - Width 3.0 6.3 -Total Square (Area) (cm) 21.0 18.90 -Tunneling No No -Undermining/Tunneling No No -Circular Undermining No No -Wound/Ulcer Outcome Not Healed Not Healed Not Healed -Ulcer Cleansing Rinsed/ Rinsed/ Irrigated with Irrigated with Saline Saline -Foul Odor after Cleansing No No -Bioengineered Tissue No No -Bleeding Controlled with Pressure Pressure Pressure -Treatment Response Procedure Procedure Procedure Tolerated Well Tolerated Well Tolerated Well -Offloading No No No -Debridement - Subq, 1st 20sq cm No Yes Yes -Debridement, SubQ, ea addt'l 20sq cm 1 or part thereof Pain Scale: 0-10 Numeric Is Patient Pain Free? Yes Yes Yes WC - Nurse 3 - General Ulcer D/C NN Start: 02/20/24 11:48 Freq: Status: Active Protocol: Activity Type Activity Date Activity User E-sign Co-sign Detail Recorded Client Recorded Date Recorded By Document 02/20/24 11:48 RB [id number] 02/20/24 11:56 RB Edit Result 02/20/24 11:48 RB (1) [id number] 02/20/24 11:58 RB Document 02/23/24 14:17 KW [id number] 02/23/24 14:19 KW Document 02/25/24 13:59 KW [id number] 02/25/24 14:04 KW Document 03/01/24 15:06 BMF [id number] 03/01/24 15:07 BMF Document 03/08/24 10:14 DL [id number] 03/08/24 10:16 DL (1) Left - Other => antonio with ABD pad => under tubing 02/20/24 02/23/24 02/25/24 11:48 14:17 13:59 Vital Signs Temperature (97.8 F-99.1 F) 96.2 F L 97.0 F L Temperature Source Temporal Temporal Pulse Rate (60-100) 77 69 Pulse Location Monitor Monitor Respiratory Rate (12-18) 18 16 Respiratory rate source Observation Observation Oxygen Delivery Method Room Air Blood Pressure (90/60-120/80) 148/87 H 127/78 H Blood Pressure Mean (mm Hg) 107 94 Source Monitor Monitor Position Semi-Fowlers Sitting Blood Pressure Location Left Arm Left Arm Pain Scale: 0-10 Numeric Is Patient Pain Free? No Yes Yes LLE -Description Sharp -Intensity 8 -Duration (hours) Acute -Pain Behavior Irritability, Withdrawal from Touch -Pain Aggravating Factors ADL's -Alleviating Factors/Interventions Medication -Effectiveness of Alleviating Factor/ Moderately Intervention effective Wound Care Center Nurse 3 1. LLE posterior -Ulcer Cleansing Wound Cleanser Rinsed/ Soap and Water Irrigated with Saline -Foul Odor after Cleansing No -Negative Pressure Wound Therapy Continue Continue Continue -Setting (mmHg) 125 150 125 -Negative Pressure is Continuous Continuous Continuous -NPWT Application Charge NPWT </= 50 sq NPWT </= 50 sq NPWT > 50 sq cm cm ($) cm ($) ($) -Wound Comment(s) Ioban drape used KCI dressing Left -Compression Wrap Antonio Wrap Antonoi Wrap -Other antonio with ABD pad under tubing Treatment Response Procedure Tolerated Well WC - Visit Discharge Discharge Condition Stable Stable Ambulatory Status Ambulatory Transportation Private Auto Accompanied by Medication Reconcilliation completed & No provided to patient/care provider Clinical Summary of Care Provided Yes Facility Type Orders Sent 03/01/24 03/08/24 15:06 10:14 Vital Signs Temperature (97.8 F-99.1 F) Temperature Source Pulse Rate (60-100) Pulse Location Respiratory Rate (12-18) Respiratory rate source Oxygen Delivery Method Blood Pressure (90/60-120/80) Blood Pressure Mean (mm Hg) Source Position Blood Pressure Location Pain Scale: 0-10 Numeric Is Patient Pain Free? Yes Yes LLE -Description -Intensity -Duration (hours) -Pain Behavior -Pain Aggravating Factors -Alleviating Factors/Interventions -Effectiveness of Alleviating Factor/ Intervention Wound Care Center Nurse 3 1. LLE posterior -Ulcer Cleansing Soap and Water Rinsed/ Irrigated with Saline -Foul Odor after Cleansing No No -Negative Pressure Wound Therapy Continue Continue -Setting (mmHg) 125 125 -Negative Pressure is Continuous Continuous -NPWT Application Charge NPWT & NPWT & Debridement (nc Debridement (nc ) ) -Wound Comment(s) Left -Compression Wrap Antonio Wrap Antonio Wrap -Other Treatment Response Procedure Procedure Tolerated Well Tolerated Well WC - Visit Discharge Discharge Condition Stable Stable Ambulatory Status Ambulatory Ambulatory Transportation Private Auto Private Auto Accompanied by Medication Reconcilliation completed & provided to patient/care provider Clinical Summary of Care Provided Facility Type Home Health Orders Sent Yes Assessment/Plan Assessment/Plan (1) Non-pressure chronic ulcer of left calf with fat layer exposed: CODE(S): L97.222 - Non-pressure chronic ulcer of left calf with fat layer exposed PLAN: Healing well Wound care - Continue three times per week VAC changes. Instructed her to make sure to wash the ulcer and periwound with soap and water at the time of the dressing changes. Had an in-depth discussion about her choices of either having surgery with a skin graft or doing localized wound care. She would be a good candidate for advanced wound healing products such as EpiFix. This would be applied once a week. Discussed that with her still smoking almost a pack of cigarettes a day that that would increase her chances of having some delayed wound healing and potential skin graft failure. Told her and her to think about their options and we would discuss them further next week. Discussed plan of care with Dr. Umaña. Follow-up in 1 week.
== END 2024-03-13 23:59 | disposition home or self-care (01) ==
LOC: WC 09:15
PROVIDERS: PCP Internal Medicine; Referring Provider Internal Medicine; Visit Provider Surgery Plastic and Reconstructive Surgery
DX: L97.222 Non-pressure chronic ulcer of left calf with fat layer exposed (principal)
CPT/HCPCS: 11042; 11045; 97605; 97606; 99214; G0463

== ENCOUNTER → 2024-03-09 | Outpatient (CLI) | payer MEDICARE, OTHER, SELFPAY ==
--- NOTE | 2024-03-09 13:53 | VDLE_ITS ---
Reason For Study: BLE Swelling RIGHT LEFT Rt GSV is dilated and NONCOMPRESSIBLE. GSV is normal. Rt CFV is PARTIALLY COMPRESSIBLE with CFV is compressible, spontaneous, phasic, intraluminal echoes. Flow is noted with competent, and demonstrates normal augmentation. augmentation. Rt FV is PARTIALLY COMPRESSIBLE with FV is compressible, spontaneous, phasic, intraluminal echoes. Flow is noted with competent and demonstrates normal augmentation. augmentation. Rt POP V is PARTIALLY COMPRESSIBLE with POP V is PARTIALLY COMPRESSIBLE with bright intraluminal echoes. Flow is noted with intraluminal echoes. Finding is consistent augmentation. with CHRONIC DVT. Proximal T/P trunk is PARTIALLY COMPRESSIBLE T/P Trunk is PARTIALLY COMPRESSIBLE with with intraluminal echoes. Acute deep vein intraluminal echoes. Finding is consistent thrombosis is noted in the distal T/P Trunk. with CHRONIC DVT. It is dilated and NONCOMPRESSIBLE. PTV is compressible Acute deep vein thrombosis is noted in the Yared V is compressible Gastrocnemius V. It is dilated and ASV mid calf is dilated and NONCOMPRESSIBLE. NONCOMPRESSIBLE. PTV is compressible. Limited Views obtained in Lt calf due to RT PerV is compressible. wound vac. SSV is dilated and NONCOMPRESSIBLE. Pt is S/P RLE Thrombectomy. Compare to study 12/02/2023. Procedure This is a venous duplex using B-mode, color flow and spectral Doppler. Exam performed in department. The exam was diagnostic. Patient was scanned in reverse Trendelenburg position during reflux assessment. A preliminary report was called and/or faxed to Corina MANJARREZ. VL/Venous Duplex US - Toney Extrem Interpretation Summary Acute deep vein thrombosis noted in the right gastrocnemius vein. Acute superficial vein thrombosis is noted in the right small saphenous vein. Acute superfiicial vein thrombosis is noted in the left accessory saphenous vei n in the calf. Chronic deep vein thrombosis noted in the right common femoral vein, femoral ve in, popliteal vein, tibioperoneal trunk vein. Chronic deep vein thrombosis is noted in the left popliteal vein, tibioperoneal trunk vein Chronic superficical vein thrombosis is noted in the right great saphenous vein Ordering Physician: Corina Guevara Referring Physician: Irvin Eisenberg Performed By: Derrick Kelly RVT
== END | disposition home or self-care (01) ==
LOC: CVS 13:52
PROVIDERS: PCP Internal Medicine; Referring Provider Physician Assistant; Visit Provider Physician Assistant
DX: Z86.72 Personal history of thrombophlebitis (principal); L97.222 Non-pressure chronic ulcer of left calf with fat layer exposed; I82.411 Acute embolism and thrombosis of right femoral vein; I87.2 Venous insufficiency (chronic) (peripheral); Z95.828 Presence of other vascular implants and grafts
CPT/HCPCS: 93970

== ENCOUNTER → 2024-03-22 | Outpatient (CLI) | payer MEDICARE, OTHER, SELFPAY ==
[2024-03-22 12:30] LABS: International Normalized Ratio 1.3
== END | disposition home or self-care (01) ==
LOC: BIMLAB 11:20
PROVIDERS: PCP Internal Medicine; Referring Provider Physician Assistant; Visit Provider Physician Assistant
DX: Z79.01 Long term (current) use of anticoagulants (principal)
CPT/HCPCS: 36415; 85610

== ENCOUNTER → 2024-03-25 | Outpatient (CLI) | payer MEDICARE, OTHER, SELFPAY ==
[2024-03-25 12:21] LABS: International Normalized Ratio 1.5; Prothrombin Time (Protime)PT. 18.4 SECONDS (11.7-14.9)
== END | disposition home or self-care (01) ==
LOC: BIMLAB 10:49
PROVIDERS: PCP Internal Medicine; Referring Provider Physician Assistant; Visit Provider Physician Assistant
DX: Z79.01 Long term (current) use of anticoagulants (principal)
CPT/HCPCS: 36415; 85610

== ENCOUNTER → 2024-03-29 | Outpatient (CLI) | payer MEDICARE, OTHER, SELFPAY ==
[2024-03-29 12:26] LABS: International Normalized Ratio 1.5; Prothrombin Time (Protime)PT. 17.6 SECONDS (11.7-14.9)
== END | disposition home or self-care (01) ==
LOC: BIMLAB 10:40
PROVIDERS: PCP Internal Medicine; Referring Provider Physician Assistant; Visit Provider Physician Assistant
DX: Z79.01 Long term (current) use of anticoagulants (principal)
CPT/HCPCS: 36415; 85610

== ENCOUNTER → 2024-04-01 | Outpatient (CLI) | payer MEDICARE, OTHER, SELFPAY ==
[2024-04-01 12:31] LABS: International Normalized Ratio 1.6; Prothrombin Time (Protime)PT. 19.3 SECONDS (11.7-14.9)
== END | disposition home or self-care (01) ==
LOC: BIMLAB 10:00
PROVIDERS: Physician Assistant; PCP Internal Medicine; Referring Provider Surgery Trauma Surgery; Visit Provider Surgery Trauma Surgery
DX: Z79.01 Long term (current) use of anticoagulants (principal)
CPT/HCPCS: 36415; 85610

== ENCOUNTER → 2024-04-05 | Outpatient (CLI) | payer MEDICARE, OTHER, SELFPAY ==
[2024-04-05 12:18] LABS: International Normalized Ratio 1.6; Prothrombin Time (Protime)PT. 18.7 SECONDS (11.7-14.9)
== END | disposition home or self-care (01) ==
LOC: BIMLAB 10:59
PROVIDERS: PCP Internal Medicine; Referring Provider Physician Assistant; Visit Provider Physician Assistant
DX: Z79.01 Long term (current) use of anticoagulants (principal)
CPT/HCPCS: 36415; 85610

== ENCOUNTER → 2024-04-09 | Outpatient (CLI) | payer MEDICARE, OTHER, SELFPAY ==
[2024-04-09 11:38] LABS: International Normalized Ratio 2.1; Prothrombin Time (Protime)PT. 23.4 SECONDS (11.7-14.9)
== END | disposition home or self-care (01) ==
LOC: LAB 10:25
PROVIDERS: PCP Internal Medicine; Referring Provider Physician Assistant; Visit Provider Physician Assistant
DX: Z79.01 Long term (current) use of anticoagulants (principal)
CPT/HCPCS: 36415; 85610

== ENCOUNTER 2024-04-12 10:00 | Outpatient (RCR) | payer MEDICARE, OTHER, SELFPAY ==
[2024-03-14 00:43] VITALS: BP 141/70; PULSE 83; RESP 16; TEMP 36.3; BMI 24.3
[2024-03-15 09:13] VITALS: BP 111/78; PULSE 73; RESP 18; TEMP 36.1; BMI 24.3
--- NOTE | 2024-03-15 10:21 | PCM.WC.PN ---
History of Present Illness Date of Service: 03/15/24 Chief Complaint: Ulcerations of the left posterior calf History of Wound: This is a 68 year-old female who claims to have experienced multiple bug bites in both lower extremities approximately 4 weeks prior to her presentation. She developed pain, swelling, and erythema in both legs following her claimed episode of bug bites. As a result, she was treated with 2 courses of oral antibiotics by her primary care physician. These included a course of oral clindamycin, as well as cephalexin. The wounds/ulcerations on the patient's right leg have healed, and she presented with a clustered ulceration on the left posterior calf. The patient admits to having a history of swelling and edema in her lower extremities. She has a history of bilateral lower extremity deep vein thrombosis, and is on chronic systemic anticoagulation with warfarin. She indicates that she wears graduated compression stockings on a daily basis, which are of 20 to 30 mmHg compression. She had not been using any topical remedies relative to the ulceration on her left posterior calf. The patient is of normal body habitus, with a BMI of 24.3. Progress of Wound: Left posterior leg ulcer has decreased depth. The overall ulcer is stable. Mary wound has improved. She has been approved for Epifix, the first application was placed today. She is having increased pain with the wound VAC when the disc is placed right over the ulcer. Objective Data Objective Data Vital Signs: Vital Signs Temp Pulse Resp BP O2 Del Method 96.9 F L 73 18 111/78 Room Air 03/15/24 09:13 03/15/24 09:13 03/15/24 09:13 03/15/24 09:13 03/15/24 09:13 Oxygen Delivery Method Room Air Weight: 160 lb Body Mass Index (BMI) 24.3 Charges/Coding Procedures Integumentary 150xxx-152xx: 98333 Skin sub graft trnk/arm/leg (58 modifier) Debridement Note Debridement Note Wound debrided: Posterior leg ulcer Laterality: Left Wound Grade/Stage: Stage III. Type of Debridement: Excisional debridement Anesthesia Used: 5% Lidocaine Gel Depth: Down to and including healthy tissue and in the subcutaneous layer Percentage of wound debrided: 100 Instrument Used: 7mm curette Tissue Removed: Nonviable tissue and slough Severity: Fat Layer Exposed Amount of bleeding with debridement: Mild Bleeding Controlled with: Compression and gauze Patient tolerated procedure: Patient tolerated procedure well Post-Debridement Measurements and Additional Note: Post-Debridement Measurements/Treatment WC - Nurse 1 - General Ulcer Assessment Start: 03/15/24 09:12 Freq: Status: Active Protocol: SHAE Activity Type Activity Date Activity User E-sign Co-sign Detail Recorded Client Recorded Date Recorded By Document 03/15/24 09:13 KW [id number] 03/15/24 09:28 KW 03/15/24 09:13 WC - Today's Visit Information Type of service 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 ) Arrival Mode Ambulatory Patient Identification Verified (Name & Yes ) Height and Weight Body Mass Index (BMI) 24.3 BMI Classification Normal Vital Signs Temperature (97.8 F-99.1 F) 96.9 F L Temperature Source Temporal Pulse Rate (60-100) 73 Pulse Location Monitor Respiratory Rate (12-18) 18 Respiratory rate source Observation Oxygen Delivery Method Room Air Blood Pressure (90/60-120/80) 111/78 Blood Pressure Mean (mm Hg) 89 Source Monitor Position Semi-Fowlers Blood Pressure Location Left Arm History Since Last Visit- (Skip if this is Patient's initial visit) Have you changed medications since your No last visit? Any new allergies or adverse reactions No Had a fall/change in ADL's that may No increase risk of falls Signs or symptoms of abuse and/or No neglect since last visit Have you been in the hospital since your No last visit? Has dressing in place as prescribed Yes Has compression in place as prescribed Yes Has offloadiing in place as prescribed N/A Experienced any changes in pain level or No management Left Footwear Regular Shoe Right Footwear Regular Shoe Pain Scale: 0-10 Numeric Is Patient Pain Free? Yes - Nurse 1 - General Ulcer Measurement Start: 03/15/24 09:12 Freq: Status: Active Protocol: Activity Type Activity Date Activity User E-sign Co-sign Detail Recorded Client Recorded Date Recorded By Document 03/15/24 09:13 KW [id number] 03/15/24 09:28 KW 03/15/24 09:13 Wound Center Nurse 1 1. LLE posterior -Current Size (cm) - Length 2.3 -Current Size (cm) - Width 5.1 -Current Size (cm) - Depth 0.3 -Total Square Cm 11.73 -Date of Last Picture (Recall this 12/02/24 field) -Exudate Amt Small -Exudate Type Serosanguineous -Wound Margin Distinct, Outline Attached -Granulation Amt Medium (34-66%) -Granulation Quality [place] -Necrosis Amt Medium (34-66%) -Necrotic Tissue Type Adherent Slough -Texture (Mary-wound Skin Appearance) Assessed -Moisture (Mary-wound Skin Appearance) Assessed -Color (Mary-wound Skin Appearance) Assessed -Temperature (Mary-wound Skin No Abnormality Appearance) (Pt Warm) -Tenderness on Palpation (Mary-wound No Skin Appearance) -Ulcer Cleansing Soap and Water -Foul Odor after Cleansing No -Anesthetic Used 4% Lidocaine Solution WC - Nurse 2 - General Ulcer CM Notes Start: 03/15/24 09:12 Freq: Status: Active Protocol: Activity Type Activity Date Activity User E-sign Co-sign Detail Recorded Client Recorded Date Recorded By Document 03/15/24 09:43 ROULA [id number] 03/15/24 09:51 ROULA 03/15/24 09:43 Wound Center Nurse 2 -Time 09:43 -Correct Patient Yes -Correct Side, Site, Position Yes -Correct Procedure Yes -Procedure Performed Yes -Type of Procedure Debridement -Clinical Debridement Subcutaneous -Tissue Removed Subcutaneous -Post Debridement (cm) - Length 3.0 -Post Debridement (cm) - Width 6.8 -Post Debridement (cm) - Depth 0.2 -Total Square (Post) (cm) 20.40 -Area of Debridement (cm) - Length 3.0 -Area of Debridement (cm) - Width 6.8 -Total Square (Area) (cm) 20.40 -Tunneling No -Undermining/Tunneling No -Circular Undermining No -Wound/Ulcer Outcome Not Healed -Ulcer Cleansing Rinsed/ Irrigated with Saline -Foul Odor after Cleansing No -Bioengineered Tissue No -Type of Bioengineered Tissue Epifix Mesh -Expiration Date 08/12/28 -Product Lot Number [id number] -Percent Used 100 -Lot number of Saline Used [id number] -Bleeding Controlled with Pressure -Treatment Response Procedure Tolerated Well -Offloading No -Debridement - Subq, 1st 20sq cm No -Apply Skin Sub - 1st 25 sq cm - Legs 1 -Epifix Mesh (per sq cm) 11 Pain Scale: 0-10 Numeric Is Patient Pain Free? Yes Assessment/Plan Assessment/Plan (1) Non-pressure chronic ulcer of left calf with fat layer exposed: CODE(S): L97.222 - Non-pressure chronic ulcer of left calf with fat layer exposed PLAN: Wound care - Approved for Epifix. Epifix #1 placed today. 100% of the 4 x 4 cm mesh was used. Wound veil placed and secured with steri strips. Wound VAC at 125 mmHg to be changed 2 times per week (since the Epifix is placed). She is not to get the epifix wet. Discussed plan of care with Dr. Umaña. Follow-up in 1 week.
--- NOTE | 2024-03-16 14:41 | WC ---
PHOTO LLE CALF 03/15/24
[2024-03-22 09:43] VITALS: BP 139/76; PULSE 70; TEMP 36.3; BMI 24.3
--- NOTE | 2024-03-22 14:22 | PN.PCM_ITS ---
History of Present Illness Date of Service: 03/22/24 Chief Complaint: Ulcerations of the left posterior calf History of Wound: This is a 68 year-old female who claims to have experienced multiple bug bites in both lower extremities approximately 4 weeks prior to her presentation. She developed pain, swelling, and erythema in both legs following her claimed episode of bug bites. As a result, she was treated with 2 courses of oral antibiotics by her primary care physician. These included a course of oral clindamycin, as well as cephalexin. The wounds/ulcerations on the patient's right leg have healed, and she presented with a clustered ulceration on the left posterior calf. The patient admits to having a history of swelling and edema in her lower extremities. She has a history of bilateral lower extremity deep vein thrombosis, and is on chronic systemic anticoagulation with warfarin. She indicates that she wears graduated compression stockings on a daily basis, which are of 20 to 30 mmHg compression. She had not been using any topical remedies relative to the ulceration on her left posterior calf. The patient is of normal body habitus, with a BMI of 24.3. Progress of Wound: Left posterior leg ulcer has decreased depth. The overall ulcer is smaller in size. Wound bed is nice beefy pink. Mary wound has improved. She had her first application of Epifix last week. Objective Data Objective Data Vital Signs: Vital Signs Temp Pulse Resp BP O2 Del Method 97.4 F L 70 18 139/76 H Room Air 03/22/24 09:43 03/22/24 09:43 03/15/24 09:13 03/22/24 09:43 03/22/24 09:43 Oxygen Delivery Method Room Air Weight: 160 lb Body Mass Index (BMI) 24.3 Charges/Coding Procedures Integumentary 150xxx-152xx: 37010 Skin sub graft trnk/arm/leg Physical Exam Narrative Left posterior leg a nice beefy pink color. The depth has decreased and the overall size is smaller. Mary wound is clear. Debridement Note Debridement Note Wound debrided: Posterior leg ulcer Laterality: Left Wound Grade/Stage: Stage III. Type of Debridement: Excisional debridement Anesthesia Used: 5% Lidocaine Gel Depth: Down to and including healthy tissue and in the subcutaneous layer Percentage of wound debrided: 100 Instrument Used: 5mm curette Tissue Removed: Nonviable tissue and slough Severity: Fat Layer Exposed Amount of bleeding with debridement: Mild Bleeding Controlled with: Compression and gauze Patient tolerated procedure: Patient tolerated procedure well (Patient has a difficult time with debridements. 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 ) ) Arrival Mode Ambulatory Ambulatory Transfer Assistance None Accompanied by husb Patient Identification Verified (Name & Yes Yes ) Patient Requires Transmission-Based No Precautions Height and Weight Body Mass Index (BMI) 24.3 24.3 BMI Classification Normal Normal Vital Signs Temperature (97.8 F-99.1 F) 96.9 F L 97.4 F L Temperature Source Temporal Temporal Pulse Rate (60-100) 73 70 Pulse Location Monitor Monitor Respiratory Rate (12-18) 18 Respiratory rate source Observation Observation Oxygen Delivery Method Room Air Room Air Blood Pressure (90/60-120/80) 111/78 139/76 H Blood Pressure Mean (mm Hg) 89 97 Source Monitor Monitor Position Semi-Fowlers Sitting Blood Pressure Location Left Arm Left Arm History Since Last Visit- (Skip if this is Patient's initial visit) Have you changed medications since your No No last visit? Any new allergies or adverse reactions No No Had a fall/change in ADL's that may No No increase risk of falls Signs or symptoms of abuse and/or No No neglect since last visit Have you been in the hospital since your No No last visit? Has dressing in place as prescribed Yes Yes Has compression in place as prescribed Yes N/A Has offloadiing in place as prescribed N/A N/A Experienced any changes in pain level or No No management Left Footwear Regular Shoe Regular Shoe Right Footwear Regular Shoe Regular Shoe Other Footwear epimesh came off with vac chg per home health Pain Scale: 0-10 Numeric Is Patient Pain Free? Yes Yes WC - Nurse 1 - General Ulcer Measurement Start: 03/15/24 09:12 Freq: Status: Active Protocol: Activity Type Activity Date Activity User E-sign Co-sign Detail Recorded Client Recorded Date Recorded By Document 03/15/24 09:13 KW [id number] 03/15/24 09:28 KW Document 03/22/24 09:43 BMF [id number] 03/22/24 09:55 BMF 03/15/24 03/22/24 09:13 09:43 Wound Center Nurse 1 1. LLE posterior -Combined with other wound No -Current Size (cm) - Length 2.3 2.9 -Current Size (cm) - Width 5.1 5.7 -Current Size (cm) - Depth 0.3 0.2 -Total Square Cm 11.73 16.53 -Date of Last Picture (Recall this 03/15/24 03/22/24 field) -Exudate Amt Small Small -Exudate Type Serosanguineous Serosanguineous -Wound Margin Distinct, Distinct, Outline Outline Attached Attached -Granulation Amt Medium (34-66%) Large (67-100%) -Granulation Quality Blende Blende,Red -Necrosis Amt Medium (34-66%) -Necrotic Tissue Type Adherent Slough -Texture (Mary-wound Skin Appearance) Assessed Assessed -Moisture (Mary-wound Skin Appearance) Assessed Assessed -Color (Mary-wound Skin Appearance) Assessed Assessed -Temperature (Mary-wound Skin No Abnormality No Abnormality Appearance) (Pt Warm) (Pt Warm) -Tenderness on Palpation (Mary-wound No No Skin Appearance) -Ulcer Cleansing Soap and Water Soap and Water -Foul Odor after Cleansing No No -Anesthetic Used 4% Lidocaine 5% Lidocaine Solution Gel WC - Nurse 2 - General Ulcer CM Notes Start: 03/15/24 09:12 Freq: Status: Active Protocol: Activity Type Activity Date Activity User E-sign Co-sign Detail Recorded Client Recorded Date Recorded By Document 03/15/24 09:43 JF [id number] 03/15/24 09:51 JF Document 03/22/24 10:37 JF [id number] 03/22/24 10:39 JF 03/15/24 03/22/24 09:43 10:37 Wound Center Nurse 2 1. LLE posterior -Time 09:43 10:37 -Correct Patient Yes Yes -Correct Side, Site, Position Yes Yes -Correct Procedure Yes Yes -Procedure Performed Yes Yes -Type of Procedure Debridement Debridement -Clinical Debridement Subcutaneous Subcutaneous -Tissue Removed Subcutaneous Subcutaneous -Post Debridement (cm) - Length 3.0 3.0 -Post Debridement (cm) - Width 6.8 6.3 -Post Debridement (cm) - Depth 0.2 0.2 -Total Square (Post) (cm) 20.40 18.90 -Area of Debridement (cm) - Length 3.0 3.0 -Area of Debridement (cm) - Width 6.8 6.3 -Total Square (Area) (cm) 20.40 18.90 -Tunneling No No -Undermining/Tunneling No No -Circular Undermining No No -Wound/Ulcer Outcome Not Healed Not Healed -Ulcer Cleansing Rinsed/ Rinsed/ Irrigated with Irrigated with Saline Saline -Foul Odor after Cleansing No No -Bioengineered Tissue No Yes -Type of Bioengineered Tissue Epifix Mesh Epifix Mesh -Expiration Date 08/12/28 08/12/28 -Product Lot Number [id number] -Percent Used 100 100 -Lot number of Saline Used [id number] -Bleeding Controlled with Pressure Pressure -Treatment Response Procedure Procedure Tolerated Well Tolerated Well -Offloading No No -Debridement - Subq, 1st 20sq cm No No -Apply Skin Sub - 1st 25 sq cm - Legs 1 1 -Epifix Mesh (per sq cm) 11 11 Pain Scale: 0-10 Numeric Is Patient Pain Free? Yes Yes WC - Nurse 3 - General Ulcer D/C NN Start: 03/15/24 09:12 Freq: Status: Active Protocol: Activity Type Activity Date Activity User E-sign Co-sign Detail Recorded Client Recorded Date Recorded By Document 03/15/24 10:30 KW [id number] 03/15/24 10:30 KW Document 03/22/24 11:07 DL [id number] 03/22/24 11:08 DL 03/15/24 03/22/24 10:30 11:07 Wound Care Center Nurse 3 1. LLE posterior -Ulcer Cleansing Not Cleansed -Foul Odor after Cleansing No -Negative Pressure Wound Therapy Continue -Setting (mmHg) 125 -Negative Pressure is Continuous -Primary Dressing Applied Mepilex Border -Other Dressing EPifix -NPWT Application Charge NPWT & Debridement (nc ) -Mepilex Border 1 Left -Compression Wrap [place] Wrap -Tubular Bandage Single Layer -Size of Tubigrip Used Size E -Size E ($) 1 Treatment Response Procedure Tolerated Well Pain Scale: 0-10 Numeric Is Patient Pain Free? Yes Yes WC - Visit Discharge Discharge Condition Stable Ambulatory Status Ambulatory Transportation Private Auto Assessment/Plan Assessment/Plan (1) Non-pressure chronic ulcer of left calf with fat layer exposed: CODE(S): L97.222 - Non-pressure chronic ulcer of left calf with fat layer exposed PLAN: Wound care - Approved for Epifix. Epifix #2 placed today. 100% of the 4 x 4 cm mesh was used. Wound veil placed and secured with steri strips. Cover with Mepilex/silicone border dressing. Only needs to change outer dressing if she is having a lot of drainage. Wound VAC holiday for a week and re-evaluate next week. She is not to get the epifix wet, but she may remove the dressing the day of her appointment next week and shower before coming in and cover ulcer with a dressing. She will wear a tubigrip for compression. Encouraged patient to stop smoking as it may have deleterious effects on wound healing. Discussed plan of care with Dr. Umaña. Follow-up in 1 week.
--- NOTE | 2024-03-23 14:36 | WC ---
PHOTO 03/22/24 LEFT CALF
[2024-03-29 09:47] VITALS: BP 151/67; PULSE 67; RESP 18; TEMP 35.8; BMI 24.3
--- NOTE | 2024-03-29 13:07 | PN.PCM_ITS ---
History of Present Illness Date of Service: 03/29/24 Chief Complaint: Ulcerations of the left posterior calf History of Wound: This is a 68 year-old female who claims to have experienced multiple bug bites in both lower extremities approximately 4 weeks prior to her presentation. She developed pain, swelling, and erythema in both legs following her claimed episode of bug bites. As a result, she was treated with 2 courses of oral antibiotics by her primary care physician. These included a course of oral clindamycin, as well as cephalexin. The wounds/ulcerations on the patient's right leg have healed, and she presented with a clustered ulceration on the left posterior calf. The patient admits to having a history of swelling and edema in her lower extremities. She has a history of bilateral lower extremity deep vein thrombosis, and is on chronic systemic anticoagulation with warfarin. She indicates that she wears graduated compression stockings on a daily basis, which are of 20 to 30 mmHg compression. She had not been using any topical remedies relative to the ulceration on her left posterior calf. The patient is of normal body habitus, with a BMI of 24.3. Progress of Wound: Left posterior leg ulcer has decreased depth. The overall ulcer is smaller in size. Wound bed is nice beefy pink. Mary wound has improved. She states her pain is much better controlled not having the wound VAC in place. Will discontinue the wound VAC since there was improvement in the ulcer with just the epifix. Objective Data Objective Data Vital Signs: Vital Signs Temp Pulse Resp BP O2 Del Method 96.4 F L 67 18 151/67 H Room Air 03/29/24 09:47 03/29/24 09:47 03/29/24 09:47 03/29/24 09:47 03/29/24 09:47 Oxygen Delivery Method Room Air Weight: 160 lb Body Mass Index (BMI) 24.3 Charges/Coding Procedures Integumentary 150xxx-152xx: 02162 Skin sub graft trnk/arm/leg Debridement Note Debridement Note Wound debrided: Posterior leg ulcer Laterality: Left Wound Grade/Stage: Stage III. Type of Debridement: Excisional debridement Anesthesia Used: 5% Lidocaine Gel Depth: Down to and including healthy tissue and in the subcutaneous layer Percentage of wound debrided: 100 Instrument Used: 5mm curette Tissue Removed: Nonviable tissue and slough Severity: Fat Layer Exposed Amount of bleeding with debridement: Mild Bleeding Controlled with: Compression and gauze Patient tolerated procedure: Patient tolerated procedure well (Patient has a difficult time with debridements. She tolerated it as best as she ever has) Post-Debridement Measurements and Additional Note: Post-Debridement Measurements/Treatment - Nurse 1 - General Ulcer Assessment Start: 03/15/24 09:12 Freq: Status: Active Protocol: GRISELDA.LOWBALDEMAR Activity Type Activity Date Activity User E-sign Co-sign Detail Recorded Client Recorded Date Recorded By Document 03/15/24 09:13 KW [id number] 03/15/24 09:28 KW Document 03/22/24 09:43 BM [id number] 03/22/24 09:55 BM Document 03/29/24 09:47 KW [id number] 03/29/24 09:53 KW 03/15/24 03/22/24 03/29/24 09:13 09:43 09:47 - Today's Visit Information Type of service Follow-up Visit Follow-up Visit Follow-up Visit (Physician/BAKER APPRENTICE (Physician/BAKER APPRENTICE (Physician/BAKER APPRENTICE ) ) ) Arrival Mode Ambulatory Ambulatory Ambulatory Transfer Assistance None Accompanied by husb Patient Identification Verified (Name & Yes Yes Yes ) Patient Requires Transmission-Based No Precautions Height and Weight Body Mass Index (BMI) 24.3 24.3 24.3 BMI Classification Normal Normal Normal Vital Signs Temperature (97.8 F-99.1 F) 96.9 F L 97.4 F L 96.4 F L Temperature Source Temporal Temporal Temporal Pulse Rate (60-100) 73 70 67 Pulse Location Monitor Monitor Monitor Respiratory Rate (12-18) 18 18 Respiratory rate source Observation Observation Observation Oxygen Delivery Method Room Air Room Air Room Air Blood Pressure (90/60-120/80) 111/78 139/76 H 151/67 H Blood Pressure Mean (mm Hg) 89 97 95 Source Monitor Monitor Monitor Position Semi-Fowlers Sitting Semi-Fowlers Blood Pressure Location Left Arm Left Arm Left Arm History Since Last Visit- (Skip if this is Patient's initial visit) Have you changed medications since your No No No last visit? Any new allergies or adverse reactions No No No Had a fall/change in ADL's that may No No No increase risk of falls Signs or symptoms of abuse and/or No No No neglect since last visit Have you been in the hospital since your No No No last visit? Has dressing in place as prescribed Yes Yes Yes Has compression in place as prescribed Yes N/A Yes Has offloadiing in place as prescribed N/A N/A N/A Experienced any changes in pain level or No No No management Left Footwear Regular Shoe Regular Shoe Regular Shoe Right Footwear Regular Shoe Regular Shoe Regular Shoe Other Footwear epimesh came off with vac chg per home health Pain Scale: 0-10 Numeric Is Patient Pain Free? Yes Yes Yes WC - Nurse 1 - General Ulcer Measurement Start: 03/15/24 09:12 Freq: Status: Active Protocol: Activity Type Activity Date Activity User E-sign Co-sign Detail Recorded Client Recorded Date Recorded By Document 03/15/24 09:13 KW [id number] 03/15/24 09:28 KW Document 03/22/24 09:43 [facility] [id number] 03/22/24 09:55 BM Document 03/29/24 09:47 KW [id number] 03/29/24 09:53 KW 03/15/24 03/22/24 03/29/24 09:13 09:43 09:47 Wound Center Nurse 1 1. LLE posterior -Combined with other wound No -Current Size (cm) - Length 2.3 2.9 3.1 -Current Size (cm) - Width 5.1 5.7 5.2 -Current Size (cm) - Depth 0.3 0.2 0.2 -Total Square Cm 11.73 16.53 16.12 -Date of Last Picture (Recall this 03/15/24 03/22/24 field) -Exudate Amt Small Small Small -Exudate Type Serosanguineous Serosanguineous Serosanguineous -Wound Margin Distinct, Distinct, Distinct, Outline Outline Outline Attached Attached Attached -Granulation Amt Medium (34-66%) Large (67-100%) Large (67-100%) -Granulation Quality Sarita Sarita,Red Red -Necrosis Amt Medium (34-66%) Small (1-33%) -Necrotic Tissue Type Adherent Slough Adherent Slough -Texture (Mary-wound Skin Appearance) Assessed Assessed Assessed -Moisture (Amry-wound Skin Appearance) Assessed Assessed Assessed -Color (Mary-wound Skin Appearance) Assessed Assessed Assessed -Temperature (Mary-wound Skin No Abnormality No Abnormality No Abnormality Appearance) (Pt Warm) (Pt Warm) (Pt Warm) -Tenderness on Palpation (Mary-wound No No No Skin Appearance) -Ulcer Cleansing Soap and Water Soap and Water Soap and Water -Foul Odor after Cleansing No No No -Anesthetic Used 4% Lidocaine 5% Lidocaine 4% Lidocaine Solution Gel Solution WC - Nurse 2 - General Ulcer CM Notes Start: 03/15/24 09:12 Freq: Status: Active Protocol: Activity Type Activity Date Activity User E-sign Co-sign Detail Recorded Client Recorded Date Recorded By Document 03/15/24 09:43 [id number] 03/15/24 09:51 Document 03/22/24 10:37 [id number] 03/22/24 10:39 Document 03/29/24 10:05 [id number] 03/29/24 10:11 03/15/24 03/22/24 03/29/24 09:43 10:37 10:05 Wound Center Nurse 2 1. LLE posterior -Time 09:43 10:37 10:08 -Correct Patient Yes Yes Yes -Correct Side, Site, Position Yes Yes Yes -Correct Procedure Yes Yes Yes -Procedure Performed Yes Yes Yes -Type of Procedure Debridement Debridement Debridement -Clinical Debridement Subcutaneous Subcutaneous Subcutaneous -Tissue Removed Subcutaneous Subcutaneous Subcutaneous -Post Debridement (cm) - Length 3.0 3.0 2.5 -Post Debridement (cm) - Width 6.8 6.3 5.6 -Post Debridement (cm) - Depth 0.2 0.2 0.2 -Total Square (Post) (cm) 20.40 18.90 14.00 -Area of Debridement (cm) - Length 3.0 3.0 2.5 -Area of Debridement (cm) - Width 6.8 6.3 5.6 -Total Square (Area) (cm) 20.40 18.90 14.00 -Tunneling No No No -Undermining/Tunneling No No No -Circular Undermining No No No -Wound/Ulcer Outcome Not Healed Not Healed Not Healed -Ulcer Cleansing Rinsed/ Rinsed/ Rinsed/ Irrigated with Irrigated with Irrigated with Saline Saline Saline -Foul Odor after Cleansing No No No -Bioengineered Tissue No Yes Yes -Type of Bioengineered Tissue Epifix Mesh Epifix Mesh [facility] -Expiration Date 08/12/28 08/12/28 08/12/28 -Product Lot Number [id number] -Percent Used 100 100 100 -Lot number of Saline Used [id number] -Bleeding Controlled with Pressure Pressure Pressure -Treatment Response Procedure Procedure Procedure Tolerated Well Tolerated Well Tolerated Well -Offloading No No No -Debridement - Subq, 1st 20sq cm No No No -Apply Skin Sub - 1st 25 sq cm - Legs 1 1 1 -Epifix Mesh (per sq cm) 11 11 11 Pain Scale: 0-10 Numeric Is Patient Pain Free? Yes Yes Yes - Nurse 3 - General Ulcer D/C NN Start: 03/15/24 09:12 Freq: Status: Active Protocol: Activity Type Activity Date Activity User E-sign Co-sign Detail Recorded Client Recorded Date Recorded By Document 03/15/24 10:30 KW [id number] 03/15/24 10:30 KW Document 03/22/24 11:07 DL [id number] 03/22/24 11:08 DL Document 03/29/24 10:15 JF [id number] 03/29/24 10:18 JF Document 03/29/24 10:25 BMF [id number] 03/29/24 10:26 BMF 03/15/24 03/22/24 03/29/24 10:30 11:07 10:15 Wound Care Center Nurse 3 1. LLE posterior -Ulcer Cleansing Not Cleansed Rinsed/ Irrigated with Saline -Foul Odor after Cleansing No No -Negative Pressure Wound Therapy Continue -Setting (mmHg) 125 -Negative Pressure is Continuous -Primary Dressing Applied Mepilex Border Mepilex Border -Other Dressing EPifix -Primary Dressing Covered/Secured with Dry Gauze -NPWT Application Charge NPWT & Debridement (nc ) -Mepilex Border 1 2 Left -Compression Wrap Antonio Wrap -Tubular Bandage Single Layer Single Layer -Size of Tubigrip Used Size E Size D -Size D ($) 1 -Size E ($) 1 Treatment Response Procedure Tolerated Well Pain Scale: 0-10 Numeric Is Patient Pain Free? Yes Yes Yes WC - Visit Discharge Discharge Condition Stable Stable Ambulatory Status Ambulatory Ambulatory Transportation Private Auto Private Auto Medication Reconcilliation completed & Yes provided to patient/care provider Clinical Summary of Care Provided Yes Facility Type 03/29/24 10:25 Wound Care Center Nurse 3 1. LLE posterior -Ulcer Cleansing -Foul Odor after Cleansing -Negative Pressure Wound Therapy -Setting (mmHg) -Negative Pressure is -Primary Dressing Applied Mepilex Border -Other Dressing epimesh -Primary Dressing Covered/Secured with -NPWT Application Charge -Mepilex Border 1 Left -Compression Wrap -Tubular Bandage Double Layer -Size of Tubigrip Used Size E -Size D ($) -Size E ($) 2 Treatment Response Procedure Tolerated Well Pain Scale: 0-10 Numeric Is Patient Pain Free? 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 Epifix #3 placed today. 100% of the 4 x 4 cm mesh was used. Wound veil placed and secured with steri strips. Cover with Mepilex/silicone border dressing. Only needs to change outer dressing if she is having a lot of drainage. Discontinue the wound VAC. she may return it. She is not to get the epifix wet, but she may remove the dressing the day of her appointment next week and shower before coming in and cover ulcer with a silicone bordered dressing. She will wear a double tubigrip for compression. Encouraged patient to stop smoking as it may have deleterious effects on wound healing. Will discontinue home health since she no longer has the wound VAC. Discussed plan of care with Dr. Umaña. Follow-up in 1 week.
--- NOTE | 2024-03-31 13:52 | WC ---
PHOTO 03/29/24 L THIGH
[2024-04-05 09:57] VITALS: BP 138/61; PULSE 62; RESP 16; TEMP 35.8; BMI 24.3
--- NOTE | 2024-04-05 12:29 | PCM.WC.PN ---
History of Present Illness Date of Service: 04/05/24 Chief Complaint: Ulcerations of the left posterior calf History of Wound: This is a 68 year-old female who claims to have experienced multiple bug bites in both lower extremities approximately 4 weeks prior to her presentation. She developed pain, swelling, and erythema in both legs following her claimed episode of bug bites. As a result, she was treated with 2 courses of oral antibiotics by her primary care physician. These included a course of oral clindamycin, as well as cephalexin. The wounds/ulcerations on the patient's right leg have healed, and she presented with a clustered ulceration on the left posterior calf. The patient admits to having a history of swelling and edema in her lower extremities. She has a history of bilateral lower extremity deep vein thrombosis, and is on chronic systemic anticoagulation with warfarin. She indicates that she wears graduated compression stockings on a daily basis, which are of 20 to 30 mmHg compression. She had not been using any topical remedies relative to the ulceration on her left posterior calf. The patient is of normal body habitus, with a BMI of 24.3. Progress of Wound: Left posterior leg ulcer has decreased size and depth. Wound bed is nice beefy pink. Mary wound is slightly excoriated. She is very happy not having the wound VAC in place and her pain is improved. She is tolerating the Epifix well. Objective Data Objective Data Vital Signs: Vital Signs Temp Pulse Resp BP O2 Del Method 96.5 F L 62 16 138/61 H Room Air 04/05/24 09:57 04/05/24 09:57 04/05/24 09:57 04/05/24 09:57 04/05/24 09:57 Oxygen Delivery Method Room Air Weight: 160 lb Body Mass Index (BMI) 24.3 Charges/Coding Procedures Integumentary 150xxx-152xx: 92481 Skin sub graft trnk/arm/leg Physical Exam Narrative Left posterior leg is nice beefy pink, small in size. Mary wound mildly excoriated from Mepilex dressing. (Picture with Epifx 4x4 mesh in [address]). Debridement Note Debridement Note Post-Debridement Measurements and Additional Note: Post-Debridement Measurements/Treatment GRISELDA - Nurse 1 - General Ulcer Assessment Start: 03/15/24 09:12 Freq: Status: Active Protocol: SHAE Activity Type Activity Date Activity User E-sign Co-sign Detail Recorded Client Recorded Date Recorded By Document 03/15/24 09:13 KW [id number] 03/15/24 09:28 KW Document 03/22/24 09:43 [facility] [id number] 03/22/24 09:55 BM Document 03/29/24 09:47 KW [id number] 03/29/24 09:53 KW Document 04/05/24 09:57 BM [id number] 04/05/24 10:05 BMF 03/15/24 03/22/24 03/29/24 09:13 09:43 09:47 - Today's Visit Information Type of service Follow-up Visit Follow-up Visit Follow-up Visit (Physician/MATERIAL CONTROL SUPERVISOR (Physician/MATERIAL CONTROL SUPERVISOR (Physician/MATERIAL CONTROL SUPERVISOR ) ) ) Arrival Mode Ambulatory Ambulatory Ambulatory Transfer Assistance None Accompanied by husb Patient Identification Verified (Name & Yes Yes Yes ) Patient Requires Transmission-Based No Precautions Height and Weight Body Mass Index (BMI) 24.3 24.3 24.3 BMI Classification Normal Normal Normal Vital Signs Temperature (97.8 F-99.1 F) 96.9 F L 97.4 F L 96.4 F L Temperature Source Temporal Temporal Temporal Pulse Rate (60-100) 73 70 67 Pulse Location Monitor Monitor Monitor Respiratory Rate (12-18) 18 18 Respiratory rate source Observation Observation Observation Oxygen Delivery Method Room Air Room Air Room Air Blood Pressure (90/60-120/80) 111/78 139/76 H 151/67 H Blood Pressure Mean (mm Hg) 89 97 95 Source Monitor Monitor Monitor Position Semi-Fowlers Sitting Semi-Fowlers Blood Pressure Location Left Arm Left Arm Left Arm History Since Last Visit- (Skip if this is Patient's initial visit) Have you changed medications since your No No No last visit? Any new allergies or adverse reactions No No No Had a fall/change in ADL's that may No No No increase risk of falls Signs or symptoms of abuse and/or No No No neglect since last visit Have you been in the hospital since your No No No last visit? Has dressing in place as prescribed Yes Yes Yes Has compression in place as prescribed Yes N/A Yes Has offloadiing in place as prescribed N/A N/A N/A Experienced any changes in pain level or No No No management Left Footwear Regular Shoe Regular Shoe Regular Shoe Right Footwear Regular Shoe Regular Shoe Regular Shoe Other Footwear epimesh came off with vac chg per home health Pain Scale: 0-10 Numeric Is Patient Pain Free? Yes Yes Yes 04/05/24 09:57 WC - Today's Visit Information Type of service Follow-up Visit (Physician/MATERIAL CONTROL SUPERVISOR ) Arrival Mode Ambulatory Transfer Assistance None Accompanied by Patient Identification Verified (Name & No ) Patient Requires Transmission-Based No Precautions Height and Weight Body Mass Index (BMI) 24.3 BMI Classification Normal Vital Signs Temperature (97.8 F-99.1 F) 96.5 F L Temperature Source Temporal Pulse Rate (60-100) 62 Pulse Location Monitor Respiratory Rate (12-18) 16 Respiratory rate source Observation Oxygen Delivery Method Room Air Blood Pressure (90/60-120/80) 138/61 H Blood Pressure Mean (mm Hg) 86 Source Monitor Position Sitting Blood Pressure Location Left Arm History Since Last Visit- (Skip if this is Patient's initial visit) Have you changed medications since your No last visit? Any new allergies or adverse reactions No Had a fall/change in ADL's that may No increase risk of falls Signs or symptoms of abuse and/or No neglect since last visit Have you been in the hospital since your No last visit? Has dressing in place as prescribed Yes Has compression in place as prescribed Yes Has offloadiing in place as prescribed N/A Experienced any changes in pain level or No management Left Footwear Regular Shoe Right Footwear Regular Shoe Other Footwear Pain Scale: 0-10 Numeric Is Patient Pain Free? Yes - Nurse 1 - General Ulcer Measurement Start: 03/15/24 09:12 Freq: Status: Active Protocol: Activity Type Activity Date Activity User E-sign Co-sign Detail Recorded Client Recorded Date Recorded By Document 03/15/24 09:13 KW [id number] 03/15/24 09:28 KW Document 03/22/24 09:43 [facility] [id number] 03/22/24 09:55 BM Document 03/29/24 09:47 KW [id number] 03/29/24 09:53 KW Document 04/05/24 09:57 BM [id number] 04/05/24 10:05 BMF 03/15/24 03/22/24 03/29/24 09:13 09:43 09:47 Wound Center Nurse 1 1. LLE posterior -Combined with other wound No -Current Size (cm) - Length 2.3 2.9 3.1 -Current Size (cm) - Width 5.1 5.7 5.2 -Current Size (cm) - Depth 0.3 0.2 0.2 -Total Square Cm 11.73 16.53 16.12 -Date of Last Picture (Recall this 03/15/24 03/22/24 field) -Photo Taken -Epithelialization -Tunneling -Undermining/Tunneling -Circular Undermining -Exudate Amt Small Small Small -Exudate Type Serosanguineous Serosanguineous Serosanguineous -Wound Margin Distinct, Distinct, Distinct, Outline Outline Outline Attached Attached Attached -Granulation Amt Medium (34-66%) Large (67-100%) Large (67-100%) -Granulation Quality Lluveras Lluveras,Red Red -Slough/Fibrin -Necrosis Amt Medium (34-66%) Small (1-33%) -Necrotic Tissue Type Adherent Slough Adherent Slough -Texture (Mary-wound Skin Appearance) Assessed Assessed Assessed -Moisture (Mary-wound Skin Appearance) Assessed Assessed Assessed -Color (Mary-wound Skin Appearance) Assessed Assessed Assessed -Temperature (Mary-wound Skin No Abnormality No Abnormality No Abnormality Appearance) (Pt Warm) (Pt Warm) (Pt Warm) -Tenderness on Palpation (Mary-wound No No No Skin Appearance) -Ulcer Cleansing Soap and Water Soap and Water Soap and Water -Foul Odor after Cleansing No No No -Anesthetic Used 4% Lidocaine 5% Lidocaine 4% Lidocaine Solution Gel Solution 04/05/24 09:57 Wound Center Nurse 1 1. LLE posterior -Combined with other wound No -Current Size (cm) - Length 2.4 -Current Size (cm) - Width 5.1 -Current Size (cm) - Depth 0.2 -Total Square Cm 12. -Date of Last Picture (Recall this 04/05/24 field) -Photo Taken Yes -Epithelialization Small 1-33% -Tunneling No -Undermining/Tunneling No -Circular Undermining No -Exudate Amt Medium -Exudate Type Serosanguineous -Wound Margin Distinct, Outline Attached -Granulation Amt Large (67-100%) -Granulation Quality Red -Slough/Fibrin Yes -Necrosis Amt Small (1-33%) -Necrotic Tissue Type Adherent Slough -Texture (Mary-wound Skin Appearance) Assessed -Moisture (Mary-wound Skin Appearance) Assessed -Color (Mary-wound Skin Appearance) Assessed -Temperature (Mary-wound Skin No Abnormality Appearance) (Pt Warm) -Tenderness on Palpation (Mary-wound No Skin Appearance) -Ulcer Cleansing Soap and Water -Foul Odor after Cleansing No -Anesthetic Used 4% Lidocaine Solution WC - Nurse 2 - General Ulcer CM Notes Start: 03/15/24 09:12 Freq: Status: Active Protocol: Activity Type Activity Date Activity User E-sign Co-sign Detail Recorded Client Recorded Date Recorded By Document 03/15/24 09:43 [id number] 03/15/24 09:51 Document 03/22/24 10:37 [id number] 03/22/24 10:39 Document 03/29/24 10:05 [id number] 03/29/24 10:11 Document 04/05/24 10:31 [id number] 04/05/24 10:33 03/15/24 03/22/24 03/29/24 09:43 10:37 10:05 Wound Center Nurse 2 1Aleida LONDONO posterior -Time 09:43 10:37 10:08 -Correct Patient Yes Yes Yes -Correct Side, Site, Position Yes Yes Yes -Correct Procedure Yes Yes Yes -Procedure Performed Yes Yes Yes -Type of Procedure Debridement Debridement Debridement -Clinical Debridement Subcutaneous Subcutaneous Subcutaneous -Tissue Removed Subcutaneous Subcutaneous Subcutaneous -Post Debridement (cm) - Length 3.0 3.0 2.5 -Post Debridement (cm) - Width 6.8 6.3 5.6 -Post Debridement (cm) - Depth 0.2 0.2 0.2 -Total Square (Post) (cm) 20.40 18.90 14.00 -Area of Debridement (cm) - Length 3.0 3.0 2.5 -Area of Debridement (cm) - Width 6.8 6.3 5.6 -Total Square (Area) (cm) 20.40 18.90 14.00 -Tunneling No No No -Undermining/Tunneling No No No -Circular Undermining No No No -Wound/Ulcer Outcome Not Healed Not Healed Not Healed -Ulcer Cleansing Rinsed/ Rinsed/ Rinsed/ Irrigated with Irrigated with Irrigated with Saline Saline Saline -Foul Odor after Cleansing No No No -Bioengineered Tissue No Yes Yes -Type of Bioengineered Tissue Epifix Mesh Epifix Mesh NuShield -Expiration Date 08/12/28 08/12/28 08/12/28 -Product Lot Number [id number] -Percent Used 100 100 100 -Lot number of Saline Used [id number] -Bleeding Controlled with Pressure Pressure Pressure -Treatment Response Procedure Procedure Procedure Tolerated Well Tolerated Well Tolerated Well -Offloading No No No -Debridement - Subq, 1st 20sq cm No No No -Apply Skin Sub - 1st 25 sq cm - Legs 1 1 1 -Epifix Mesh (per sq cm) 11 11 11 Pain Scale: 0-10 Numeric Is Patient Pain Free? Yes Yes Yes 04/05/24 10:31 Wound Center Nurse 2 1Aleida LONDONO posterior -Time 10:31 -Correct Patient Yes -Correct Side, Site, Position Yes -Correct Procedure Yes -Procedure Performed Yes -Type of Procedure Debridement -Clinical Debridement Subcutaneous -Tissue Removed Subcutaneous -Post Debridement (cm) - Length 2.4 -Post Debridement (cm) - Width 5.4 -Post Debridement (cm) - Depth 0.2 -Total Square (Post) (cm) 12.96 -Area of Debridement (cm) - Length 2.4 -Area of Debridement (cm) - Width 5.4 -Total Square (Area) (cm) 12.96 -Tunneling No -Undermining/Tunneling No -Circular Undermining No -Wound/Ulcer Outcome Not Healed -Ulcer Cleansing Rinsed/ Irrigated with Saline -Foul Odor after Cleansing No -Bioengineered Tissue Yes -Type of Bioengineered Tissue Epifix Mesh -Expiration Date 10/12/28 -Product Lot Number [id number] -Percent Used 100 -Lot number of Saline Used [id number] -Bleeding Controlled with Pressure -Treatment Response Procedure Tolerated Well -Offloading No -Debridement - Subq, 1st 20sq cm No -Apply Skin Sub - 1st 25 sq cm - Legs 1 -Epifix Mesh (per sq cm) 11 Pain Scale: 0-10 Numeric Is Patient Pain Free? Yes WC - Nurse 3 - General Ulcer D/C NN Start: 03/15/24 09:12 Freq: Status: Active Protocol: Activity Type Activity Date Activity User E-sign Co-sign Detail Recorded Client Recorded Date Recorded By Document 03/15/24 10:30 KW [id number] 03/15/24 10:30 KW Document 03/22/24 11:07 DL [id number] 03/22/24 11:08 DL Document 03/29/24 10:15 JF [id number] 03/29/24 10:18 JF Document 03/29/24 10:25 BMF [id number] 03/29/24 10:26 BM Document 04/05/24 10:34 JF [id number] 04/05/24 10:35 JF 03/15/24 03/22/24 03/29/24 10:30 11:07 10:15 Wound Care Center Nurse 3 1. LLE posterior -Ulcer Cleansing Not Cleansed Rinsed/ Irrigated with Saline -Foul Odor after Cleansing No No -Negative Pressure Wound Therapy Continue -Setting (mmHg) 125 -Negative Pressure is Continuous -Primary Dressing Applied Mepilex Border Mepilex Border -Other Dressing EPifix -Primary Dressing Covered/Secured with Dry Gauze -NPWT Application Charge NPWT & Debridement (nc ) -Mepilex Border 1 2 Left -Compression Wrap Antonio Wrap -Tubular Bandage Single Layer Single Layer -Size of Tubigrip Used Size E Size D -Size D ($) 1 -Size E ($) 1 Treatment Response Procedure Tolerated Well Pain Scale: 0-10 Numeric Is Patient Pain Free? Yes Yes Yes WC - Visit Discharge Discharge Condition Stable Stable Ambulatory Status Ambulatory Ambulatory Transportation Private Auto Private Auto Medication Reconcilliation completed & Yes provided to patient/care provider Clinical Summary of Care Provided Yes Facility Type 03/29/24 04/05/24 10:25 10:34 Wound Care Center Nurse 3 1. LLE posterior -Ulcer Cleansing Rinsed/ Irrigated with Saline -Foul Odor after Cleansing No -Negative Pressure Wound Therapy -Setting (mmHg) -Negative Pressure is -Primary Dressing Applied Mepilex Border Mepilex Border -Other Dressing epimesh -Primary Dressing Covered/Secured with -NPWT Application Charge -Mepilex Border 1 1 Left -Compression Wrap -Tubular Bandage Double Layer Single Layer -Size of Tubigrip Used Size E Size D -Size D ($) 1 -Size E ($) 2 Treatment Response Procedure Tolerated Well Pain Scale: 0-10 Numeric Is Patient Pain Free? 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 Epifix #4 placed today. 100% of the 4 x 4 cm mesh was used. Wound veil placed and secured with steri strips. Cover with Mepilex/silicone border dressing (placed skin protectant over whole mary wound to help prevent excoriation. Only needs to change outer dressing if she is having a lot of drainage. Discontinue the wound VAC. she may return it. She is not to get the epifix wet, but she may remove the dressing the day of her appointment next week and shower before coming in and cover ulcer with a silicone bordered dressing. She will wear a double tubigrip for compression. Encouraged patient to stop smoking as it may have deleterious effects on wound healing. Will discontinue home health since she no longer has the wound VAC. Discussed plan of care with Dr. Umaña. Follow-up in 1 week.
[2024-04-12 09:59] VITALS: BP 150/76; PULSE 70; RESP 16; TEMP 36.3; BMI 24.3
--- NOTE | 2024-04-12 16:05 | PCM.WC.PN ---
History of Present Illness Date of Service: 04/12/24 Chief Complaint: Ulcerations of the left posterior calf History of Wound: This is a 68 year-old female who claims to have experienced multiple bug bites in both lower extremities approximately 4 weeks prior to her presentation. She developed pain, swelling, and erythema in both legs following her claimed episode of bug bites. As a result, she was treated with 2 courses of oral antibiotics by her primary care physician. These included a course of oral clindamycin, as well as cephalexin. The wounds/ulcerations on the patient's right leg have healed, and she presented with a clustered ulceration on the left posterior calf. The patient admits to having a history of swelling and edema in her lower extremities. She has a history of bilateral lower extremity deep vein thrombosis, and is on chronic systemic anticoagulation with warfarin. She indicates that she wears graduated compression stockings on a daily basis, which are of 20 to 30 mmHg compression. She had not been using any topical remedies relative to the ulceration on her left posterior calf. The patient is of normal body habitus, with a BMI of 24.3. Progress of Wound: Left posterior leg ulcer has decreased size and depth. Wound bed is nice beefy pink. Mary wound excoriation has improved. She is tolerating the Epifix well. She states that she had some erythema around her entire leg last week and her PCP placed her on Augmentin 500 mg BID x 7 days. She states that the redness is improving. There is some mild erythema around the ulcer site. Objective Data Objective Data Vital Signs: Vital Signs Temp Pulse Resp BP O2 Del Method 97.3 F L 70 16 150/76 H Room Air 04/12/24 09:59 04/12/24 09:59 04/12/24 09:59 04/12/24 09:59 04/12/24 09:59 Oxygen Delivery Method Room Air Weight: 160 lb Body Mass Index (BMI) 24.3 Charges/Coding Procedures Integumentary 150xxx-152xx: [id number] Skin sub graft trnk/arm/leg Debridement Note Debridement Note Wound debrided: Posterior leg ulcer Laterality: Left Wound Grade/Stage: Stage III. Type of Debridement: Excisional debridement Anesthesia Used: 5% Lidocaine Gel Depth: Down to and including healthy tissue and in the subcutaneous layer Percentage of wound debrided: 100 Instrument Used: 5mm curette Tissue Removed: Nonviable tissue and slough Severity: Fat Layer Exposed Amount of bleeding with debridement: Mild Bleeding Controlled with: Compression and gauze Patient tolerated procedure: Patient tolerated procedure well (Patient has a difficult time with debridements. She tolerated it as best as she ever has) Post-Debridement Measurements and Additional Note: Post-Debridement Measurements/Treatment - Nurse 1 - General Ulcer Assessment Start: 03/15/24 09:12 Freq: Status: Active Protocol: SHAE Activity Type Activity Date Activity User E-sign Co-sign Detail Recorded Client Recorded Date Recorded By Document 03/15/24 09:13 KW [id number] 03/15/24 09:28 KW Document 03/22/24 09:43 BM [id number] 03/22/24 09:55 BM Document 03/29/24 09:47 KW [id number] 03/29/24 09:53 KW Document 04/05/24 09:57 BMF [id number] 04/05/24 10:05 BMF Document 04/12/24 09:59 GM [id number] 04/12/24 10:05 GM 03/15/24 03/22/24 03/29/24 09:13 09:43 09:47 - Today's Visit Information Type of service Follow-up Visit Follow-up Visit Follow-up Visit (Physician/HAMMER SETTER (Physician/HAMMER SETTER (Physician/HAMMER SETTER ) ) ) Arrival Mode Ambulatory Ambulatory Ambulatory Transfer Assistance None Accompanied by husb Patient Identification Verified (Name & Yes Yes Yes ) Patient Requires Transmission-Based No Precautions Height and Weight Body Mass Index (BMI) 24.3 24.3 24.3 BMI Classification Normal Normal Normal Vital Signs Temperature (97.8 F-99.1 F) 96.9 F L 97.4 F L 96.4 F L Temperature Source Temporal Temporal Temporal Pulse Rate (60-100) 73 70 67 Pulse Location Monitor Monitor Monitor Respiratory Rate (12-18) 18 18 Respiratory rate source Observation Observation Observation Oxygen Delivery Method Room Air Room Air Room Air Blood Pressure (90/60-120/80) 111/78 139/76 H 151/67 H Blood Pressure Mean (mm Hg) 89 97 95 Source Monitor Monitor Monitor Position Semi-Fowlers Sitting Semi-Fowlers Blood Pressure Location Left Arm Left Arm Left Arm History Since Last Visit- (Skip if this is Patient's initial visit) Have you changed medications since your No No No last visit? Any new allergies or adverse reactions No No No Had a fall/change in ADL's that may No No No increase risk of falls Signs or symptoms of abuse and/or No No No neglect since last visit Have you been in the hospital since your No No No last visit? Has dressing in place as prescribed Yes Yes Yes Has compression in place as prescribed Yes N/A Yes Has offloadiing in place as prescribed N/A N/A N/A Experienced any changes in pain level or No No No management Left Footwear Regular Shoe Regular Shoe Regular Shoe Right Footwear Regular Shoe Regular Shoe Regular Shoe Other Footwear epimesh came off with vac chg per home health Pain Scale: 0-10 Numeric Is Patient Pain Free? Yes Yes Yes LLE -Description -Intensity -Duration (hours) -Pain Behavior -Alleviating Factors/Interventions 04/05/24 04/12/24 09:57 09:59 WC - Today's Visit Information Type of service Follow-up Visit Follow-up Visit (Physician/HAMMER SETTER (Physician/HAMMER SETTER ) ) Arrival Mode Ambulatory Ambulatory Transfer Assistance None None Accompanied by Patient Identification Verified (Name & No No ) Patient Requires Transmission-Based No Precautions Height and Weight Body Mass Index (BMI) 24.3 24.3 BMI Classification Normal Normal Vital Signs Temperature (97.8 F-99.1 F) 96.5 F L 97.3 F L Temperature Source Temporal Temporal Pulse Rate (60-100) 62 70 Pulse Location Monitor Monitor Respiratory Rate (12-18) 16 16 Respiratory rate source Observation Observation Oxygen Delivery Method Room Air Room Air Blood Pressure (90/60-120/80) 138/61 H 150/76 H Blood Pressure Mean (mm Hg) 86 100 Source Monitor Monitor Position Sitting Sitting Blood Pressure Location Left Arm Right Arm History Since Last Visit- (Skip if this is Patient's initial visit) Have you changed medications since your No Yes last visit? Any new allergies or adverse reactions No No Had a fall/change in ADL's that may No No increase risk of falls Signs or symptoms of abuse and/or No No neglect since last visit Have you been in the hospital since your No last visit? Has dressing in place as prescribed Yes Yes Has compression in place as prescribed Yes Yes Has offloadiing in place as prescribed N/A N/A Experienced any changes in pain level or No Yes management Left Footwear Regular Shoe Right Footwear Regular Shoe Other Footwear Pain Scale: 0-10 Numeric Is Patient Pain Free? Yes Yes LLE -Description Aching -Intensity 3 -Duration (hours) Chronic -Pain Behavior No Change in Behavior -Alleviating Factors/Interventions Medication, Inactivity/ Resting,Will continue to monitor WC - Nurse 1 - General Ulcer Measurement Start: 03/15/24 09:12 Freq: Status: Active Protocol: Activity Type Activity Date Activity User E-sign Co-sign Detail Recorded Client Recorded Date Recorded By Document 03/15/24 09:13 KW [id number] 03/15/24 09:28 KW Document 03/22/24 09:43 BM [id number] 03/22/24 09:55 BMF Document 03/29/24 09:47 KW [id number] 03/29/24 09:53 KW Document 04/05/24 09:57 BMF [id number] 04/05/24 10:05 BMF Document 04/12/24 09:59 GM [id number] 04/12/24 10:05 GM 03/15/24 03/22/24 03/29/24 09:13 09:43 09:47 Wound Center Nurse 1 1. LLE posterior -Combined with other wound No -Current Size (cm) - Length 2.3 2.9 3.1 -Current Size (cm) - Width 5.1 5.7 5.2 -Current Size (cm) - Depth 0.3 0.2 0.2 -Total Square Cm 11.73 16.53 16.12 -Date of Last Picture (Recall this 03/15/24 03/22/24 field) -Photo Taken -Epithelialization -Tunneling -Undermining/Tunneling -Circular Undermining -Exudate Amt Small Small Small -Exudate Type Serosanguineous Serosanguineous Serosanguineous -Wound Margin Distinct, Distinct, Distinct, Outline Outline Outline Attached Attached Attached -Granulation Amt Medium (34-66%) Large (67-100%) Large (67-100%) -Granulation Quality [place],Red Red -Slough/Fibrin -Necrosis Amt Medium (34-66%) Small (1-33%) -Necrotic Tissue Type Adherent Slough Adherent Slough -Texture (Mary-wound Skin Appearance) Assessed Assessed Assessed -Moisture (Mary-wound Skin Appearance) Assessed Assessed Assessed -Color (Mary-wound Skin Appearance) Assessed Assessed Assessed -Temperature (Mary-wound Skin No Abnormality No Abnormality No Abnormality Appearance) (Pt Warm) (Pt Warm) (Pt Warm) -Tenderness on Palpation (Mary-wound No No No Skin Appearance) -Ulcer Cleansing Soap and Water Soap and Water Soap and Water -Foul Odor after Cleansing No No No -Anesthetic Used 4% Lidocaine 5% Lidocaine 4% Lidocaine Solution Gel Solution 04/05/24 04/12/24 09:57 09:59 Wound Center Nurse 1 1. LLE posterior -Combined with other wound No No -Current Size (cm) - Length 2.4 2.5 -Current Size (cm) - Width 5.1 5.5 -Current Size (cm) - Depth 0.2 0.2 -Total Square Cm 04.06 13.75 -Date of Last Picture (Recall this 04/05/24 04/12/24 field) -Photo Taken Yes Yes -Epithelialization Small 1-33% Small 1-33% -Tunneling No No -Undermining/Tunneling No No -Circular Undermining No No -Exudate Amt Medium Small -Exudate Type Serosanguineous Serosanguineous -Wound Margin Distinct, Distinct, Outline Outline Attached Attached -Granulation Amt Large (67-100%) Large (67-100%) -Granulation Quality [place] -Slough/Fibrin Yes No -Necrosis Amt Small (1-33%) -Necrotic Tissue Type Adherent Slough Adherent Slough -Texture (Mary-wound Skin Appearance) Assessed Assessed -Moisture (Mary-wound Skin Appearance) Assessed Assessed -Color (Amry-wound Skin Appearance) Assessed Assessed -Temperature (Mary-wound Skin No Abnormality No Abnormality Appearance) (Pt Warm) (Pt Warm) -Tenderness on Palpation (Mary-wound No Yes Skin Appearance) -Ulcer Cleansing Soap and Water Soap and Water -Foul Odor after Cleansing No Yes -Anesthetic Used 4% Lidocaine 5% Lidocaine Solution Gel WC - Nurse 2 - General Ulcer CM Notes Start: 03/15/24 09:12 Freq: Status: Active Protocol: Activity Type Activity Date Activity User E-sign Co-sign Detail Recorded Client Recorded Date Recorded By Document 03/15/24 09:43 ROULA [id number] 03/15/24 09:51 Document 03/22/24 10:37 JF [id number] 03/22/24 10:39 JF Document 03/29/24 10:05 JF [id number] 03/29/24 10:11 JF Document 04/05/24 10:31 JF [id number] 04/05/24 10:33 JF Document 04/12/24 10:19 DS [id number] 04/12/24 10:27 DS 03/15/24 03/22/24 03/29/24 09:43 10:37 10:05 Wound Center Nurse 2 1. LLE posterior -Time 09:43 10:37 10:08 -Correct Patient Yes Yes Yes -Correct Side, Site, Position Yes Yes Yes -Correct Procedure Yes Yes Yes -Procedure Performed Yes Yes Yes -Type of Procedure Debridement Debridement Debridement -Clinical Debridement Subcutaneous Subcutaneous Subcutaneous -Tissue Removed Subcutaneous Subcutaneous Subcutaneous -Post Debridement (cm) - Length 3.0 3.0 2.5 -Post Debridement (cm) - Width 6.8 6.3 5.6 -Post Debridement (cm) - Depth 0.2 0.2 0.2 -Total Square (Post) (cm) 20.40 18.90 14.00 -Area of Debridement (cm) - Length 3.0 3.0 2.5 -Area of Debridement (cm) - Width 6.8 6.3 5.6 -Total Square (Area) (cm) 20.40 18.90 14.00 -Tunneling No No No -Undermining/Tunneling No No No -Circular Undermining No No No -Wound/Ulcer Outcome Not Healed Not Healed Not Healed -Ulcer Cleansing Rinsed/ Rinsed/ Rinsed/ Irrigated with Irrigated with Irrigated with Saline Saline Saline -Foul Odor after Cleansing No No No -Bioengineered Tissue No Yes Yes -Type of Bioengineered Tissue Epifix Mesh Epifix Mesh [facility] -Expiration Date 08/12/28 08/12/28 08/12/28 -Product Lot Number [id number] -Percent Used 100 100 100 -Lot number of Saline Used [id number] -Bleeding Controlled with Pressure Pressure Pressure -Treatment Response Procedure Procedure Procedure Tolerated Well Tolerated Well Tolerated Well -Offloading No No No -Debridement - Subq, 1st 20sq cm No No No -Apply Skin Sub - 1st 25 sq cm - Legs 1 1 1 -Epifix Mesh (per sq cm) 11 11 11 Pain Scale: 0-10 Numeric Is Patient Pain Free? Yes Yes Yes LLE -Description -Intensity -Duration (hours) -Pain Behavior -Pain Aggravating Factors -Alleviating Factors/Interventions 04/05/24 04/12/24 10:31 10:19 Wound Center Nurse 2 1. LLE posterior -Time 10:31 10:17 -Correct Patient Yes Yes -Correct Side, Site, Position Yes Yes -Correct Procedure Yes Yes -Procedure Performed Yes Yes -Type of Procedure Debridement Debridement -Clinical Debridement Subcutaneous Subcutaneous -Tissue Removed Subcutaneous Subcutaneous -Post Debridement (cm) - Length 2.4 2.4 -Post Debridement (cm) - Width 5.4 5.2 -Post Debridement (cm) - Depth 0.2 0.1 -Total Square (Post) (cm) 12.96 12.48 -Area of Debridement (cm) - Length 2.4 2.4 -Area of Debridement (cm) - Width 5.4 5.2 -Total Square (Area) (cm) 12.96 12.48 -Tunneling No No -Undermining/Tunneling No No -Circular Undermining No No -Wound/Ulcer Outcome Not Healed Not Healed -Ulcer Cleansing Rinsed/ Rinsed/ Irrigated with Irrigated with Saline Saline -Foul Odor after Cleansing No -Bioengineered Tissue Yes Yes -Type of Bioengineered Tissue Epifix Mesh Epifix Mesh -Expiration Date 10/12/28 10/12/28 -Product Lot Number [id number] -Percent Used 100 100 -Lot number of Saline Used [id number] -Bleeding Controlled with Pressure Pressure -Treatment Response Procedure Procedure Tolerated Well Tolerated Well -Offloading No -Debridement - Subq, 1st 20sq cm No No -Apply Skin Sub - 1st 25 sq cm - Legs 1 1 -Epifix Mesh (per sq cm) 11 11 Pain Scale: 0-10 Numeric Is Patient Pain Free? Yes No LLE -Description Aching -Intensity 6 -Duration (hours) Chronic -Pain Behavior Facial Grimacing -Pain Aggravating Factors Debridement -Alleviating Factors/Interventions Will continue to monitor, Emotional Support WC - Nurse 3 - General Ulcer D/C NN Start: 03/15/24 09:12 Freq: Status: Active Protocol: Activity Type Activity Date Activity User E-sign Co-sign Detail Recorded Client Recorded Date Recorded By Document 03/15/24 10:30 KW [id number] 03/15/24 10:30 KW Document 03/22/24 11:07 DL [id number] 03/22/24 11:08 DL Document 03/29/24 10:15 JF [id number] 03/29/24 10:18 JF Document 03/29/24 10:25 BMF [id number] 03/29/24 10:26 BMF Document 04/05/24 10:34 JF [id number] 04/05/24 10:35 JF Document 04/12/24 10:31 GM [id number] 04/12/24 10:32 GM 03/15/24 03/22/24 03/29/24 10:30 11:07 10:15 Wound Care Center Nurse 3 1. LLE posterior -Ulcer Cleansing Not Cleansed Rinsed/ Irrigated with Saline -Foul Odor after Cleansing No No -Negative Pressure Wound Therapy Continue -Setting (mmHg) 125 -Negative Pressure is Continuous -Primary Dressing Applied Mepilex Border Mepilex Border -Other Dressing EPifix -Primary Dressing Covered/Secured with Dry Gauze -NPWT Application Charge NPWT & Debridement (nc ) -Mepilex Border 1 2 Left -Lotion applied to leg before compression wrap -Compression Wrap [place] Wrap -Tubular Bandage Single Layer Single Layer -Size of Tubigrip Used Size E Size D -Size D ($) 1 -Size E ($) 1 Treatment Response Procedure Tolerated Well Pain Scale: 0-10 Numeric Is Patient Pain Free? Yes Yes Yes WC - Visit Discharge Discharge Condition Stable Stable Ambulatory Status Ambulatory Ambulatory Transportation Private Auto Private Auto Medication Reconcilliation completed & Yes provided to patient/care provider Clinical Summary of Care Provided Yes Facility Type 03/29/24 04/05/24 04/12/24 10:25 10:34 10:31 Wound Care Center Nurse 3 1. LLE posterior -Ulcer Cleansing Rinsed/ Not Cleansed Irrigated with Saline -Foul Odor after Cleansing No No -Negative Pressure Wound Therapy -Setting (mmHg) -Negative Pressure is -Primary Dressing Applied Mepilex Border Mepilex Border Mepilex Border -Other Dressing epimesh -Primary Dressing Covered/Secured with -NPWT Application Charge -Mepilex Border 1 1 1 Left -Lotion applied to leg before No compression wrap -Compression Wrap -Tubular Bandage Double Layer Single Layer Double Layer -Size of Tubigrip Used Size E Size D Size D -Size D ($) 1 2 -Size E ($) 2 Treatment Response Procedure Tolerated Well Pain Scale: 0-10 Numeric Is Patient Pain Free? 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 Epifix #5 placed today. 100% of the 4 x 4 cm mesh was used. Adaptic touch placed and secured with steri strips. Cover with Mepilex/silicone border dressing (placed skin protectant over whole mary wound to help prevent excoriation. Only needs to change outer dressing if she is having a lot of drainage. She is not to get the epifix wet, but she may remove the dressing the day of her appointment next week and shower before coming in and cover ulcer with a silicone bordered dressing. She will wear a double tubigrip for compression. Encouraged patient to stop smoking as it may have deleterious effects on wound healing. She is to continue the antibiotics that her PCP placed her on. Discussed plan of care with Dr. Umaña. Follow-up in 1 week.
--- NOTE | 2024-04-19 09:52 | WC ---
PHOTO 04/05/24 LEFT CALF
--- NOTE | 2024-04-19 10:12 | WC ---
PHOTO 04/12/24 LEFT CALF
== END 2024-04-13 23:59 | disposition home or self-care (01) ==
LOC: WC 10:00
PROVIDERS: PCP Internal Medicine; Referring Provider Internal Medicine; Visit Provider Surgery Plastic and Reconstructive Surgery
DX: L97.222 Non-pressure chronic ulcer of left calf with fat layer exposed (principal); I82.411 Acute embolism and thrombosis of right femoral vein; Z79.01 Long term (current) use of anticoagulants; F17.210 Nicotine dependence, cigarettes, uncomplicated
CPT/HCPCS: 15271; Q4186

== ENCOUNTER 2024-05-10 09:30 | Outpatient (RCR) | payer MEDICARE, OTHER, SELFPAY ==
[2024-04-14 00:23] VITALS: BP 141/70; PULSE 83; RESP 16; TEMP 36.3; BMI 24.3
[2024-04-20 14:35] VITALS: BP 123/80; PULSE 70; RESP 18; TEMP 36.1; BMI 24.3
--- NOTE | 2024-04-25 17:21 | HP.PCM_ITS ---
History of Present Illness Date of Service: 04/20/24 Chief Complaint: Ulceration of the left posterior calf History of Wound: This is a 68 year-old female who claims to have experienced multiple bug bites in both lower extremities approximately 4 weeks prior to her presentation. She developed pain, swelling, and erythema in both legs following her claimed episode of bug bites. As a result, she was treated with 2 courses of oral antibiotics by her primary care physician. These included a course of oral clindamycin, as well as cephalexin. The wounds/ulcerations on the patient's right leg have healed, and she presented with a clustered ulceration on the left posterior calf. The patient admits to having a history of swelling and edema in her lower extremities. She has a history of bilateral lower extremity deep vein thrombosis, and is on chronic systemic anticoagulation with warfarin. She indicates that she wears graduated compression stockings on a daily basis, which are of 20 to 30 mmHg compression. She had not been using any topical remedies relative to the ulceration on her left posterior calf. The patient is of normal body habitus, with a BMI of 24.3. The patient's medical history in recent months has been reviewed. On January 22, 2024, the patient underwent insertion of an IVC filter by Dr. Jeremy Batista, due to a diagnosis of acute deep vein thrombosis while therapeutic on Coumadin. On February 05, 2024, the patient underwent right iliac and femoral vein thrombectomy and angioplasty. She has been under the care of the Plastic Surgery service in recent months, and underwent left lower extremity wound excision by Dr. Jarrod Umaña on February 18, 2024. Negative pressure wound therapy was utilized thereafter, until the recent implementation of cellular tissue products (CTP's). EpiFix #5 was placed at the patient's last visit on April 12, 2024. 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 Post-phlebitic syndrome Superficial thrombophlebitis of both legs Non-pressure chronic ulcer of left calf with fat layer exposed Chronic anticoagulation Right leg swelling Left leg swelling Venous stasis ulcer Chronic venous insufficiency Degeneration of lumbosacral intervertebral disc Lumbosacral spondylosis Lumbosacral radiculopathy History of compression fracture of spine Hyperlipidemia History of thrombophlebitis of deep vein of lower extremity Migraine headache Osteoporosis Encounter for smoking cessation counseling Smoking greater than 30 pack years Home Medications ?Medication ?Instructions ?Recorded ?Last Taken ?Type ergocalciferol (vitamin D2) 1,250 50,000 unit PO .QOWEEK 03/10/19 Unknown History mcg (50,000 unit) capsule alendronate 70 mg tablet 70 mg PO QWEEK 11/18/23 Unknown History atorvastatin 20 mg tablet 20 mg PO DAILY 11/18/23 Unknown History tramadol 50 mg tablet 50 mg PO Q6H PRN pain (scale score 02/18/24 Unknown Rx 7-10) 5 days #14 tabs warfarin 1 mg tablet 1 mg PO DAILY 03/22/24 Unknown History warfarin 5 mg tablet 5 mg PO DAILY 03/22/24 Unknown History warfarin 5 mg tablet (Jantoven) 5 mg PO DAILY 04/20/24 Unknown History Allergy/AdvReac Type Severity Reaction Status Date / Time adhesive tape Allergy Severe RASH Verified 02/18/24 06:13 diphenhydramine (From Allergy Severe Other Verified 02/18/24 06:13 Benadryl) codeine Allergy Hives Verified 02/18/24 06:13 Sulfa (Sulfonamide Allergy Unknown Verified 02/18/24 06:13 Antibiotics) Family History Other Cancer Colon cancer Ovarian cancer Surgical History Hx of surgical procedure History of tonsillectomy History of kyphoplasty Social History Smoking Status: Current every day smoker tobacco type: cigarettes Vital Signs Vital Signs Vital Signs: Weight Weight: 160 lb Body Mass Index (BMI) 24.3 Physical Exam Const alert, oriented x3, no apparent distress, average body habitus, no limitations, healthy appearing and well nourished General Appearance: cooperative, comfortable, well kempt and well developed Orientation / Consciousness: awake, oriented to person, oriented to place and oriented to time Exam Limitations: no limitations HEENT normocephalic, head/scalp atraumatic and hearing grossly normal bilaterally Head and Scalp: normal to inspection, normocephalic and atraumatic Face and Sinus: normal facial exam Nose: external nose normal External Ear: external ears normal Eyes EOMs intact bilaterally General Eye: normal appearance of both eyes Neck full ROM Resp normal respiratory effort, normal air movement, no retractions and no use of accessory muscles Effort and Inspection: able to speak in complete sentences Extremity General Extremity: Negative for clubbing or cyanosis Skin Wound Narrative: A large ulceration is noted on the left posterior calf. Dimensions are documented elsewhere. The ulceration is full-thickness, extending into the subcutaneous adipose layers. Ulcer margins are well beveled. There is no sign of infection or cellulitis. The base of the ulceration is generally pink and healthy in appearance, with active granulation tissue. There is only a small amount of bioburden. Neuro oriented x3, CN's II-XII intact bilaterally, moves all extremities, no focal motor deficits and no sensory deficits noted Sensorium / Orientation: awake, alert, oriented to person, oriented to place and oriented to time Speech: speech normal Psych Appearance: grossly normal and appropriate Attitude: calm Activity / Motor Behavior: appropriate eye contact Speech: normal speech Mood & Affect: euthymic mood Thought Process: normal thought process Thought Content: normal thought content Attention / Concentration: attention grossly intact Debridement Note Debridement Note Wound debrided: Left posterior calf ulceration Laterality: Left Wound Grade/Stage: Stage III Type of Debridement: Excisional debridement Anesthesia Used: 5% Lidocaine Gel Depth: Down to and including healthy tissue and in the subcutaneous layer Percentage of wound debrided: 100 Instrument Used: 5mm curette Tissue Removed: Nonviable tissue and bioburden Severity: Fat Layer Exposed Amount of bleeding with debridement: Mild Bleeding Controlled with: Compression and gauze Patient tolerated procedure: Patient tolerated procedure well (Patient has a difficult time with debridements. She tolerated it as best as she ever has) Debridement Free Text: Following an excisional debridement, which was well- tolerated by the patient, and EpiFix meshed allograft was applied. A 4 cm x 4.5 cm meshed EpiFix allograft was selected. It was removed from its sterile packaging. It was cut to the appropriate size and dimensions, and was applied in the appropriate orientation topically to the ulceration. Approximately 90% of the allograft was utilized. Once applied, it was covered by Adaptic Touch, which was then secured in place using Steri-Strips. A small amount of collagen hydrogel was applied topically to the Adaptic Touch. A dry sterile gauze dressing was then applied. The procedure was well-tolerated by the patient. 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 ) Arrival Mode Ambulatory Transfer Assistance None Patient Identification Verified (Name & Yes ) Patient Requires Transmission-Based No Precautions Height and Weight Body Mass Index (BMI) 24.3 BMI Classification Normal Vital Signs Temperature (97.8 F-99.1 F) 97 F L Temperature Source Temporal Pulse Rate (60-100) 70 Pulse Location Monitor Respiratory Rate (12-18) 18 Respiratory rate source Observation Blood Pressure (90/60-120/80) 123/80 H Blood Pressure Mean 94 Source Monitor Position Sitting Blood Pressure Location Left Arm History Since Last Visit- (Skip if this is Patient's initial visit) Have you changed medications since your No last visit? Any new allergies or adverse reactions No Had a fall/change in ADL's that may No increase risk of falls Signs or symptoms of abuse and/or No neglect since last visit Have you been in the hospital since your No last visit? Has dressing in place as prescribed Yes Has compression in place as prescribed No Has offloadiing in place as prescribed No Experienced any changes in pain level or No management Pain Scale: 0-10 Numeric Is Patient Pain Free? Yes - Nurse 1 - General Ulcer Measurement Start: 04/20/24 14:35 Freq: Status: Active Protocol: Activity Type Activity Date Activity User E-sign Co-sign Detail Recorded Client Recorded Date Recorded By Document 04/20/24 14:35 DOUGLAS [id number] 04/20/24 14:37 RB 04/20/24 14:35 Wound Center Nurse 1 1. LLE posterior -Combined with other wound No -Current Size (cm) - Length 1.7 -Current Size (cm) - Width 4.8 -Current Size (cm) - Depth 0.1 -Total Square Cm 8.16 -Tunneling No -Undermining/Tunneling No -Circular Undermining No -Exudate Amt Medium -Exudate Type Serosanguineous -Wound Margin Distinct, Outline Attached -Granulation Amt Large (67-100%) -Granulation Quality [place] -Slough/Fibrin Yes -Necrosis Amt Small (1-33%) -Necrotic Tissue Type Adherent Slough -Structure Exposed N/A -Texture (Mary-wound Skin Appearance) Assessed, Excoriation -Moisture (Mary-wound Skin Appearance) Assessed -Color (Mary-wound Skin Appearance) Assessed -Temperature (Mary-wound Skin No Abnormality Appearance) (Pt Warm) -Tenderness on Palpation (Mary-wound No Skin Appearance) -Ulcer Cleansing Wound Cleanser -Foul Odor after Cleansing No -Anesthetic Used 5% Lidocaine Gel Lower Limb Edema Present Yes Left Calf (cm) 33.2 Left Ankle (cm) 22 WC - Nurse 2 - General Ulcer CM Notes Start: 04/20/24 14:35 Freq: Status: Active Protocol: Activity Type Activity Date Activity User E-sign Co-sign Detail Recorded Client Recorded Date Recorded By Document 04/20/24 15:37 DS [id number] 04/20/24 15:39 DS Edit Result 04/20/24 15:37 DS (1) [id number] 04/20/24 15:39 DS Edit Result 04/20/24 15:37 DS (2) [id number] 04/20/24 16:26 DS (1) 1. LLE posterior - Debridement - Subq, 1st 20sq cm Yes => No (2) 1. LLE posterior - Apply Skin Sub - 1st 25 sq cm - Legs => 1 - Epifix Mesh (per sq cm) => 11 04/20/24 15:37 Wound Center Nurse 2 1. LLE posterior -Time 15:30 -Correct Patient Yes -Correct Side, Site, Position Yes -Correct Procedure Yes -Procedure Performed Yes -Type of Procedure Debridement -Clinical Debridement Subcutaneous -Tissue Removed Subcutaneous -Post Debridement (cm) - Length 1.9 -Post Debridement (cm) - Width 4.6 -Post Debridement (cm) - Depth 0.4 -Total Square (Post) (cm) 8.74 -Area of Debridement (cm) - Length 1.9 -Area of Debridement (cm) - Width 4.6 -Total Square (Area) (cm) 8.74 -Tunneling No -Undermining/Tunneling No -Circular Undermining No -Wound/Ulcer Outcome Not Healed -Ulcer Cleansing Rinsed/ Irrigated with Saline -Bioengineered Tissue Yes -Type of Bioengineered Tissue Epifix Mesh -Expiration Date 10/12/28 -Product Lot Number [id number] -Percent Used 100 -Lot number of Saline Used [id number] -Bleeding Controlled with Pressure -Treatment Response Procedure Tolerated Well -Debridement - Subq, 1st 20sq cm No -Apply Skin Sub - 1st 25 sq cm - Legs 1 -Epifix Mesh (per sq cm) 11 Pain Scale: 0-10 Numeric Is Patient Pain Free? Yes - Nurse 3 - General Ulcer D/C NN Start: 04/20/24 14:35 Freq: Status: Active Protocol: Activity Type Activity Date Activity User E-sign Co-sign Detail Recorded Client Recorded Date Recorded By Document 04/20/24 15:51 KW [id number] 04/20/24 15:51 KW 04/20/24 15:51 Wound Care Center Nurse 3 1. LLE posterior -Primary Dressing Applied Mepilex Border -Mepilex Border 1 Left -Lotion applied to leg before Yes compression wrap -Tubular Bandage Double Layer -Size of Tubigrip Used Size D -Size D ($) 2 -Other USED hcs SO ONLY GAVE 1 LAYER DUE TO IT BEING EQUIV. TO DOUBLE Pain Scale: 0-10 Numeric Is Patient Pain Free? 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 The patient's medical history has been reviewed. The most recent care for her left posterior calf ulceration has been by means of a cellular tissue product, EpiFix. The 6th such EpiFix allograft was applied today. The site is to remain intact, though the external portion of the dressing may be changed as needed. The patient has been encouraged to discontinue her tobacco habit. Nutritional optimization has been advised. A mild rash is noted inferior and remote to the patient's ulceration, for which the patient is to use hydrocortisone 1% ointment topically. The patient is to return in 1 week for reevaluation by providers on the Plastic Surgery service. Total time: 25 minutes
[2024-04-26 09:59] VITALS: BP 111/72; PULSE 68; RESP 16; TEMP 35.6; BMI 24.3
--- NOTE | 2024-04-26 12:13 | PN.PCM_ITS ---
History of Present Illness Date of Service: 04/26/24 Chief Complaint: Ulceration of the left posterior calf History of Wound: This is a 68 year-old female who claims to have experienced multiple bug bites in both lower extremities approximately 4 weeks prior to her presentation. She developed pain, swelling, and erythema in both legs following her claimed episode of bug bites. As a result, she was treated with 2 courses of oral antibiotics by her primary care physician. These included a course of oral clindamycin, as well as cephalexin. The wounds/ulcerations on the patient's right leg have healed, and she presented with a clustered ulceration on the left posterior calf. The patient admits to having a history of swelling and edema in her lower extremities. She has a history of bilateral lower extremity deep vein thrombosis, and is on chronic systemic anticoagulation with warfarin. She indicates that she wears graduated compression stockings on a daily basis, which are of 20 to 30 mmHg compression. She had not been using any topical remedies relative to the ulceration on her left posterior calf. The patient is of normal body habitus, with a BMI of 24.3. The patient's medical history in recent months has been reviewed. On January 22, 2024, the patient underwent insertion of an IVC filter by Dr. Jeremy Batista, due to a diagnosis of acute deep vein thrombosis while therapeutic on Coumadin. On February 05, 2024, the patient underwent right iliac and femoral vein thrombectomy and angioplasty. She has been under the care of the Plastic Surgery service in recent months, and underwent left lower extremity wound excision by Dr. Jarrod Umaña on February 18, 2024. Negative pressure wound therapy was utilized thereafter, until the recent implementation of cellular tissue products (CTP's). EpiFix #5 was placed at the patient's last visit on April 12, 2024. Progress of Wound: Left posterior leg ulcer has decreased size and depth. Wound bed is nice beefy pink. Mary wound excoriation is present on the most distal portion of her leg at the edge of the silicone bordered dressing. Suspect that there is too much moisture in the silicone bordered dressing and that may be causing irritation. She is tolerating the Epifix well. Objective Data Objective Data Vital Signs: Vital Signs Temp Pulse Resp BP O2 Del Method 96.0 F L 68 16 111/72 Room Air 04/26/24 09:59 04/26/24 09:59 04/26/24 09:59 04/26/24 09:59 04/26/24 09:59 Oxygen Delivery Method Room Air Weight: 160 lb Body Mass Index (BMI) 24.3 Charges/Coding Procedures Integumentary 150xxx-152xx: 70194 Skin sub graft trnk/arm/leg Debridement Note Debridement Note Wound debrided: Posterior leg ulcer Laterality: Left Wound Grade/Stage: Stage III. Type of Debridement: Excisional debridement Anesthesia Used: 5% Lidocaine Gel Depth: Down to and including healthy tissue and in the subcutaneous layer Percentage of wound debrided: 100 Instrument Used: 5mm curette Tissue Removed: Nonviable tissue and slough Severity: Fat Layer Exposed Amount of bleeding with debridement: Mild Bleeding Controlled with: Compression and gauze Patient tolerated procedure: Patient tolerated procedure well Post-Debridement Measurements and Additional Note: Post-Debridement Measurements/Treatment - Nurse 1 - General Ulcer Assessment Start: 04/20/24 14:35 Freq: Status: Active Protocol: SHAE Activity Type Activity Date Activity User E-sign Co-sign Detail Recorded Client Recorded Date Recorded By Document 04/20/24 14:35 RB [id number] 04/20/24 14:37 RB Document 04/26/24 09:59 KW [id number] 04/26/24 10:02 KW 04/20/24 04/26/24 14:35 09:59 - Today's Visit Information Type of service Follow-up Visit Follow-up Visit (Physician/CLINICAL RESEARCH DIRECTOR (Physician/CLINICAL RESEARCH DIRECTOR ) ) Arrival Mode Ambulatory Ambulatory Transfer Assistance None Accompanied by Patient Identification Verified (Name & Yes Yes ) Patient Requires Transmission-Based No Precautions Height and Weight Body Mass Index (BMI) 24.3 24.3 BMI Classification Normal Normal Vital Signs Temperature (97.8 F-99.1 F) 97 F L 96.0 F L Temperature Source Temporal Temporal Pulse Rate (60-100) 70 68 Pulse Location Monitor Monitor Respiratory Rate (12-18) 18 16 Respiratory rate source Observation Observation Oxygen Delivery Method Room Air Blood Pressure (90/60-120/80) 123/80 H 111/72 Blood Pressure Mean (mm Hg) 94 85 Source Monitor Monitor Position Sitting Sitting Blood Pressure Location Left Arm Left Arm History Since Last Visit- (Skip if this is Patient's initial visit) Have you changed medications since your No No last visit? Any new allergies or adverse reactions No No Had a fall/change in ADL's that may No No increase risk of falls Signs or symptoms of abuse and/or No No neglect since last visit Have you been in the hospital since your No No last visit? Has dressing in place as prescribed Yes Yes Has compression in place as prescribed No Yes Has offloadiing in place as prescribed No N/A Experienced any changes in pain level or No No management Left Footwear Regular Shoe Right Footwear Regular Shoe Pain Scale: 0-10 Numeric Is Patient Pain Free? Yes Yes WC - Nurse 1 - General Ulcer Measurement Start: 04/20/24 14:35 Freq: Status: Active Protocol: Activity Type Activity Date Activity User E-sign Co-sign Detail Recorded Client Recorded Date Recorded By Document 04/20/24 14:35 RB [id number] 04/20/24 14:37 RB Document 04/26/24 09:59 KW [id number] 04/26/24 10:02 KW 04/20/24 04/26/24 14:35 09:59 Wound Center Nurse 1 1. LLE posterior -Combined with other wound No -Current Size (cm) - Length 1.7 1.6 -Current Size (cm) - Width 4.8 3.9 -Current Size (cm) - Depth 0.1 0.1 -Total Square Cm 8.16 6.24 -Date of Last Picture (Recall this 04/26/24 field) -Epithelialization Medium 34-66% -Tunneling No -Undermining/Tunneling No -Circular Undermining No -Exudate Amt Medium Small -Exudate Type Serosanguineous Serosanguineous -Wound Margin Distinct, Outline Attached -Granulation Amt Large (67-100%) Medium (34-66%) -Granulation Quality [place] Red -Slough/Fibrin Yes -Necrosis Amt Small (1-33%) Small (1-33%) -Necrotic Tissue Type Adherent Slough Adherent Slough -Structure Exposed N/A -Texture (Mary-wound Skin Appearance) Assessed, Assessed,Rash Excoriation -Moisture (Mary-wound Skin Appearance) Assessed Assessed -Color (Mary-wound Skin Appearance) Assessed Assessed, Erythema -Temperature (Mary-wound Skin No Abnormality No Abnormality Appearance) (Pt Warm) (Pt Warm) -Tenderness on Palpation (Mary-wound No No Skin Appearance) -Ulcer Cleansing Wound Cleanser Soap and Water -Foul Odor after Cleansing No No -Anesthetic Used 5% Lidocaine 5% Lidocaine Gel Gel Lower Limb Edema Present Yes Left Calf (cm) 33.2 32.5 Left Ankle (cm) 22 22.3 WC - Nurse 2 - General Ulcer CM Notes Start: 04/20/24 14:35 Freq: Status: Active Protocol: Activity Type Activity Date Activity User E-sign Co-sign Detail Recorded Client Recorded Date Recorded By Document 04/20/24 15:37 DS [id number] 04/20/24 15:39 DS Edit Result 04/20/24 15:37 DS (1) [id number] 04/20/24 15:39 DS Edit Result 04/20/24 15:37 DS (2) [id number] 04/20/24 16:26 DS Document 04/26/24 10:17 GM [id number] 04/26/24 10:31 GM (1) 1. LLE posterior - Debridement - Subq, 1st 20sq cm Yes => No (2) 1. LLE posterior - Apply Skin Sub - 1st 25 sq cm - Legs => 1 - Epifix Mesh (per sq cm) => 11 04/20/24 04/26/24 15:37 10:17 Wound Center Nurse 2 1. LLE posterior -Time 15:30 10:17 -Correct Patient Yes Yes -Correct Side, Site, Position Yes Yes -Correct Procedure Yes Yes -Procedure Performed Yes Yes -Type of Procedure Debridement Debridement -Clinical Debridement Subcutaneous Subcutaneous -Tissue Removed Subcutaneous Subcutaneous -Post Debridement (cm) - Length 1.9 1.5 -Post Debridement (cm) - Width 4.6 4.7 -Post Debridement (cm) - Depth 0.4 0.1 -Total Square (Post) (cm) 8.74 7.05 -Area of Debridement (cm) - Length 1.9 1.5 -Area of Debridement (cm) - Width 4.6 4.7 -Total Square (Area) (cm) 8.74 7.05 -Tunneling No No -Undermining/Tunneling No No -Circular Undermining No No -Wound/Ulcer Outcome Not Healed Not Healed -Ulcer Cleansing Rinsed/ Rinsed/ Irrigated with Irrigated with Saline Saline -Foul Odor after Cleansing No -Bioengineered Tissue Yes Yes -Type of Bioengineered Tissue Epifix Mesh Epifix -Expiration Date 10/12/28 11/12/28 -Product Lot Number [id number] -Percent Used 100 100 -Lot number of Saline Used [id number] -Bleeding Controlled with Pressure Pressure -Treatment Response Procedure Procedure Tolerated Well Tolerated Well -Debridement - Subq, 1st 20sq cm No No -Apply Skin Sub - 1st 25 sq cm - Legs 1 1 -Epifix (per sq cm) 4 -Epifix Mesh (per sq cm) 11 Pain Scale: 0-10 Numeric Is Patient Pain Free? Yes Yes - Nurse 3 - General Ulcer D/C NN Start: 04/20/24 14:35 Freq: Status: Active Protocol: Activity Type Activity Date Activity User E-sign Co-sign Detail Recorded Client Recorded Date Recorded By Document 04/20/24 15:51 KW [id number] 04/20/24 15:51 KW Document 04/26/24 10:31 GM [id number] 04/26/24 10:32 GM Edit Result 04/26/24 10:31 GM (1) [id number] 04/26/24 10:38 GM (1) Left - Tubular Bandage => Double Layer - Size of Tubigrip Used => Size D - Size D ($) => 2 04/20/24 04/26/24 15:51 10:31 Wound Care Center Nurse 3 1. LLE posterior -Ulcer Cleansing Not Cleansed -Foul Odor after Cleansing No -Primary Dressing Applied Mepilex Border -Primary Dressing Applied Silicone Border Foam 4x4 -Primary Dressing Covered/Secured with Dry Gauze -Mepilex Border 1 -Silicone Border Foam 4x4 1 Left -Lotion applied to leg before Yes compression wrap -Tubular Bandage Double Layer Double Layer -Size of Tubigrip Used Size D Size D -Size D ($) 2 2 -Other USED hcs SO ONLY GAVE 1 LAYER DUE TO IT BEING EQUIV. TO DOUBLE Pain Scale: 0-10 Numeric Is Patient Pain Free? 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 Epifix #7 placed today. 100% of the 2 x 2 cm mesh was used. Adaptic touch placed and secured with steri strips. Cover with smaller Mepilex/silicone border dressing (placed skin protectant over whole mary wound to help prevent excoriation. Change outer dressing as needed. She is not to get the epifix wet, but she may remove the dressing the day of her appointment next week and shower before coming in and cover ulcer with a silicone bordered dressing. She can place Hydrocortisone cream 1% over the excoriated area on her distal part of her leg (distal to the ulcer), 1-2 times per day to help with the erythema. She will wear a double tubigrip for compression. Encouraged patient to stop smoking as it may have deleterious effects on wound healing. Follow-up in 1 week.
--- NOTE | 2024-04-30 08:55 | WC ---
PHOTO 04/26/24 LEFT CALF
[2024-05-03 14:02] VITALS: BP 162/74; PULSE 67; RESP 16; TEMP 35.9; BMI 24.3
--- NOTE | 2024-05-03 15:27 | PCM.WC.PN ---
History of Present Illness Date of Service: 05/03/24 Chief Complaint: Ulceration of the left posterior calf History of Wound: This is a 68 year-old female who claims to have experienced multiple bug bites in both lower extremities approximately 4 weeks prior to her presentation. She developed pain, swelling, and erythema in both legs following her claimed episode of bug bites. As a result, she was treated with 2 courses of oral antibiotics by her primary care physician. These included a course of oral clindamycin, as well as cephalexin. The wounds/ulcerations on the patient's right leg have healed, and she presented with a clustered ulceration on the left posterior calf. The patient admits to having a history of swelling and edema in her lower extremities. She has a history of bilateral lower extremity deep vein thrombosis, and is on chronic systemic anticoagulation with warfarin. She indicates that she wears graduated compression stockings on a daily basis, which are of 20 to 30 mmHg compression. She had not been using any topical remedies relative to the ulceration on her left posterior calf. The patient is of normal body habitus, with a BMI of 24.3. The patient's medical history in recent months has been reviewed. On January 22, 2024, the patient underwent insertion of an IVC filter by Dr. Jeremy Batista, due to a diagnosis of acute deep vein thrombosis while therapeutic on Coumadin. On February 05, 2024, the patient underwent right iliac and femoral vein thrombectomy and angioplasty. She has been under the care of the Plastic Surgery service in recent months, and underwent left lower extremity wound excision by Dr. Jarrod Umaña on February 18, 2024. Negative pressure wound therapy was utilized thereafter, until the recent implementation of cellular tissue products (CTP's). EpiFix #5 was placed at the patient's last visit on April 12, 2024. Progress of Wound: Left posterior leg ulcer has decreased size. Wound bed is nice beefy pink. There is a small area that possibly could be tendon exposure. Will continue to monitor. Mary wound excoriation is worse this week. She is tolerating the Epifix well. She states she has a rash on her trunk and arms, not on her face and chest. It is pink and raised and itchy. She denies any new medications, soaps, detergents, lotions. She states that she has been taking a lot of tylenol for discomfort. Objective Data Objective Data Vital Signs: Vital Signs Temp Pulse Resp BP O2 Del Method 96.7 F L 67 16 162/74 H Room Air 05/03/24 14:02 05/03/24 14:02 05/03/24 14:02 05/03/24 14:02 04/26/24 09:59 Oxygen Delivery Method Room Air Weight: 160 lb Body Mass Index (BMI) 24.3 Charges/Coding Procedures Integumentary 150xxx-152xx: [id number] Skin sub graft trnk/arm/leg Debridement Note Debridement Note Wound debrided: Posterior leg ulcer Laterality: Left Wound Grade/Stage: Stage III. Type of Debridement: Excisional debridement Anesthesia Used: 5% Lidocaine Gel Depth: Down to and including healthy tissue and in the subcutaneous layer Percentage of wound debrided: 100 Instrument Used: 3mm curette Tissue Removed: Nonviable tissue and slough Severity: Fat Layer Exposed Amount of bleeding with debridement: Mild Bleeding Controlled with: Compression and gauze Patient tolerated procedure: Patient tolerated procedure well Post-Debridement Measurements and Additional Note: Post-Debridement Measurements/Treatment - Nurse 1 - General Ulcer Assessment Start: 04/20/24 14:35 Freq: Status: Active Protocol: GRISELDA.IRVIN Activity Type Activity Date Activity User E-sign Co-sign Detail Recorded Client Recorded Date Recorded By Document 04/20/24 14:35 RB [id number] 04/20/24 14:37 RB Document 04/26/24 09:59 KW [id number] 04/26/24 10:02 KW Document 05/03/24 14:02 DL [id number] 05/03/24 14:06 DL 04/20/24 04/26/24 05/03/24 14:35 09:59 14:02 - Today's Visit Information Type of service Follow-up Visit Follow-up Visit Follow-up Visit (Physician/HOSPITAL ADMISSIONS CLERK (Physician/HOSPITAL ADMISSIONS CLERK (Physician/HOSPITAL ADMISSIONS CLERK ) ) ) Arrival Mode Ambulatory Ambulatory Ambulatory Transfer Assistance None None Accompanied by Patient Identification Verified (Name & Yes Yes Yes ) Patient Requires Transmission-Based No No Precautions Height and Weight Body Mass Index (BMI) 24.3 24.3 24.3 BMI Classification Normal Normal Normal Vital Signs Temperature (97.8 F-99.1 F) 97 F L 96.0 F L 96.7 F L Temperature Source Temporal Temporal Temporal Pulse Rate (60-100) 70 68 67 Pulse Location Monitor Monitor Monitor Respiratory Rate (12-18) 18 16 16 Respiratory rate source Observation Observation Observation Oxygen Delivery Method Room Air Blood Pressure (90/60-120/80) 123/80 H 111/72 162/74 H Blood Pressure Mean (mm Hg) 94 85 103 Source Monitor Monitor Monitor Position Sitting Sitting Blood Pressure Location Left Arm Left Arm History Since Last Visit- (Skip if this is Patient's initial visit) Have you changed medications since your No No No last visit? Any new allergies or adverse reactions No No No Had a fall/change in ADL's that may No No No increase risk of falls Signs or symptoms of abuse and/or No No No neglect since last visit Have you been in the hospital since your No No No last visit? Has dressing in place as prescribed Yes Yes Yes Has compression in place as prescribed No Yes Yes Has offloadiing in place as prescribed No N/A N/A Experienced any changes in pain level or No No No management Left Footwear Regular Shoe Right Footwear Regular Shoe Pain Scale: 0-10 Numeric Is Patient Pain Free? Yes Yes Yes WC - Nurse 1 - General Ulcer Measurement Start: 04/20/24 14:35 Freq: Status: Active Protocol: Activity Type Activity Date Activity User E-sign Co-sign Detail Recorded Client Recorded Date Recorded By Document 04/20/24 14:35 RB [id number] 04/20/24 14:37 RB Document 04/26/24 09:59 KW [id number] 04/26/24 10:02 KW Document 05/03/24 14:02 DL [id number] 05/03/24 14:06 DL 04/20/24 04/26/24 05/03/24 14:35 09:59 14:02 Wound Center Nurse 1 1. LLE posterior -Combined with other wound No -Current Size (cm) - Length 1.7 1.6 1 -Current Size (cm) - Width 4.8 3.9 5 -Current Size (cm) - Depth 0.1 0.1 0.2 -Total Square Cm 8.16 6.24 5 -Date of Last Picture (Recall this 04/26/24 field) -Epithelialization Medium 34-66% -Tunneling No -Undermining/Tunneling No -Circular Undermining No -Exudate Amt Medium Small Medium -Exudate Type Serosanguineous Serosanguineous Serosanguineous -Wound Margin Distinct, Distinct, Outline Outline Attached Attached -Granulation Amt Large (67-100%) Medium (34-66%) Medium (34-66%) -Granulation Quality [place] Red Red -Slough/Fibrin Yes -Necrosis Amt Small (1-33%) Small (1-33%) Medium (34-66%) -Necrotic Tissue Type Adherent Slough Adherent Slough Adherent Slough -Structure Exposed N/A N/A -Texture (Mary-wound Skin Appearance) Assessed, Assessed,Rash Excoriation, Excoriation Scarring,Rash -Moisture (Mary-wound Skin Appearance) Assessed Assessed Dry/Scaly -Color (Mary-wound Skin Appearance) Assessed Assessed, No Abnormality Erythema -Temperature (Mary-wound Skin No Abnormality No Abnormality No Abnormality Appearance) (Pt Warm) (Pt Warm) (Pt Warm) -Tenderness on Palpation (Mary-wound No No Skin Appearance) -Ulcer Cleansing Wound Cleanser Soap and Water Soap and Water -Foul Odor after Cleansing No No No -Anesthetic Used 5% Lidocaine 5% Lidocaine 4% Lidocaine Gel Gel Solution Lower Limb Edema Present Yes Left Calf (cm) 33.2 32.5 33.5 Left Ankle (cm) 22 22.3 22.5 WC - Nurse 2 - General Ulcer CM Notes Start: 04/20/24 14:35 Freq: Status: Active Protocol: Activity Type Activity Date Activity User E-sign Co-sign Detail Recorded Client Recorded Date Recorded By Document 04/20/24 15:37 DS [id number] 04/20/24 15:39 DS Edit Result 04/20/24 15:37 DS (1) [id number] 04/20/24 15:39 DS Edit Result 04/20/24 15:37 DS (2) [id number] 04/20/24 16:26 DS Document 04/26/24 10:17 GM [id number] 04/26/24 10:31 GM Document 05/03/24 14:13 DS [id number] 05/03/24 14:20 DS (1) 1. LLE posterior - Debridement - Subq, 1st 20sq cm Yes => No (2) 1. LLE posterior - Apply Skin Sub - 1st 25 sq cm - Legs => 1 - Epifix Mesh (per sq cm) => 11 04/20/24 04/26/24 05/03/24 15:37 10:17 14:13 Wound Center Nurse 2 1Aleida LONDONO posterior -Time 15:30 10:17 14:10 -Correct Patient Yes Yes Yes -Correct Side, Site, Position Yes Yes Yes -Correct Procedure Yes Yes Yes -Procedure Performed Yes Yes Yes -Type of Procedure Debridement Debridement Debridement -Clinical Debridement Subcutaneous Subcutaneous Subcutaneous -Tissue Removed Subcutaneous Subcutaneous Subcutaneous -Post Debridement (cm) - Length 1.9 1.5 1.6 -Post Debridement (cm) - Width 4.6 4.7 3.5 -Post Debridement (cm) - Depth 0.4 0.1 0.2 -Total Square (Post) (cm) 8.74 7.05 5.60 -Area of Debridement (cm) - Length 1.9 1.5 1.6 -Area of Debridement (cm) - Width 4.6 4.7 3.5 -Total Square (Area) (cm) 8.74 7.05 5.60 -Tunneling No No No -Undermining/Tunneling No No No -Circular Undermining No No No -Wound/Ulcer Outcome Not Healed Not Healed Not Healed -Ulcer Cleansing Rinsed/ Rinsed/ Rinsed/ Irrigated with Irrigated with Irrigated with Saline Saline Saline -Foul Odor after Cleansing No No -Bioengineered Tissue Yes Yes Yes -Type of Bioengineered Tissue Epifix Mesh Epifix Epifix -Expiration Date 10/12/28 11/12/28 11/12/28 -Product Lot Number [id number] -Percent Used 100 100 100 -Lot number of Saline Used [id number] -Bleeding Controlled with Pressure Pressure Pressure -Treatment Response Procedure Procedure Procedure Tolerated Well Tolerated Well Tolerated Well -Debridement - Subq, 1st 20sq cm No No No -Apply Skin Sub - 1st 25 sq cm - Legs 1 1 1 -Epifix (per sq cm) 4 4 -Epifix Mesh (per sq cm) 11 Pain Scale: 0-10 Numeric Is Patient Pain Free? Yes Yes Yes WC - Nurse 3 - General Ulcer D/C NN Start: 04/20/24 14:35 Freq: Status: Active Protocol: Activity Type Activity Date Activity User E-sign Co-sign Detail Recorded Client Recorded Date Recorded By Document 04/20/24 15:51 KW [id number] 04/20/24 15:51 KW Document 04/26/24 10:31 GM [id number] 04/26/24 10:32 GM Edit Result 04/26/24 10:31 GM (1) [id number] 04/26/24 10:38 GM Document 05/03/24 14:39 BMF [id number] 05/03/24 14:40 BMF (1) Left - Tubular Bandage => Double Layer - Size of Tubigrip Used => Size D - Size D ($) => 2 04/20/24 04/26/24 05/03/24 15:51 10:31 14:39 Wound Care Center Nurse 3 1. LLE posterior -Ulcer Cleansing Not Cleansed -Foul Odor after Cleansing No -Primary Dressing Applied Mepilex Border -Primary Dressing Applied Silicone Border Foam 4x4 -Other Dressing EPIFIX -Primary Dressing Covered/Secured with Dry Gauze Dry Gauze & Roll Gauze, Secured with Tape -Mepilex Border 1 -Silicone Border Foam 4x4 1 Left -Lotion applied to leg before Yes compression wrap -Tubular Bandage Double Layer Double Layer Double Layer -Size of Tubigrip Used Size D Size D Size D -Size D ($) 2 2 2 -Other USED hcs SO ONLY GAVE 1 LAYER DUE TO IT BEING EQUIV. TO DOUBLE Treatment Response Procedure Tolerated Well Pain Scale: 0-10 Numeric Is Patient Pain Free? 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 Epifix #8 placed today. 100% of the 2 x 2 cm was used. Skin protectant used on mary wound. Wound veil placed and secured with steri strips. Cover with gauze or ABD. Instructed to change outer dressing daily. She will place Nystatin/Triamcinolone ointment to mary wound twice daily (wash hands well before and after applying). She is not to get the epifix wet, but she may remove the dressing the day of her appointment next week and shower before coming in and cover ulcer with a silicone bordered dressing. She will wear a double tubigrip for compression. Encouraged patient to stop smoking as it may have deleterious effects on wound healing. Follow-up in 1 week.
[2024-05-10 09:32] VITALS: BP 119/75; PULSE 63; TEMP 36.3; BMI 24.3
--- NOTE | 2024-05-10 12:52 | PCM.WC.PN ---
History of Present Illness Date of Service: 05/10/24 Chief Complaint: Ulceration of the left posterior calf History of Wound: This is a 68 year-old female who claims to have experienced multiple bug bites in both lower extremities approximately 4 weeks prior to her presentation. She developed pain, swelling, and erythema in both legs following her claimed episode of bug bites. As a result, she was treated with 2 courses of oral antibiotics by her primary care physician. These included a course of oral clindamycin, as well as cephalexin. The wounds/ulcerations on the patient's right leg have healed, and she presented with a clustered ulceration on the left posterior calf. The patient admits to having a history of swelling and edema in her lower extremities. She has a history of bilateral lower extremity deep vein thrombosis, and is on chronic systemic anticoagulation with warfarin. She indicates that she wears graduated compression stockings on a daily basis, which are of 20 to 30 mmHg compression. She had not been using any topical remedies relative to the ulceration on her left posterior calf. The patient is of normal body habitus, with a BMI of 24.3. The patient's medical history in recent months has been reviewed. On January 22, 2024, the patient underwent insertion of an IVC filter by Dr. Jeremy Batista, due to a diagnosis of acute deep vein thrombosis while therapeutic on Coumadin. On February 05, 2024, the patient underwent right iliac and femoral vein thrombectomy and angioplasty. She has been under the care of the Plastic Surgery service in recent months, and underwent left lower extremity wound excision by Dr. Jarrod Umaña on February 18, 2024. Negative pressure wound therapy was utilized thereafter, until the recent implementation of cellular tissue products (CTP's). EpiFix #5 was placed at the patient's last visit on April 12, 2024. Progress of Wound: Left posterior leg ulcer has decreased size, it is now a cluster. The wound bed is nice beefy pink. There is a small area that is white. There is no movement in it with flexion and extension of her foot and ankle. Will continue to monitor this area, it is definately smaller. Mary wound excoriation much improved with the nystatin/triamcinolone cream. She is tolerating the Epifix well. Objective Data Objective Data Vital Signs: Vital Signs Temp Pulse Resp BP O2 Del Method 97.4 F L 63 16 119/75 Room Air 05/10/24 09:32 05/10/24 09:32 05/03/24 14:02 05/10/24 09:32 05/10/24 09:32 Oxygen Delivery Method Room Air Weight: 160 lb Body Mass Index (BMI) 24.3 Charges/Coding Procedures Integumentary 150xxx-152xx: 98150 Skin sub graft trnk/arm/leg Debridement Note Debridement Note Wound debrided: Posterior leg ulcer Laterality: Left Wound Grade/Stage: Stage III. Type of Debridement: Excisional debridement Anesthesia Used: 5% Lidocaine Gel Depth: Down to and including healthy tissue and in the subcutaneous layer Percentage of wound debrided: 100 Instrument Used: 3mm curette Tissue Removed: Nonviable tissue and slough Severity: Fat Layer Exposed Amount of bleeding with debridement: Mild Bleeding Controlled with: Compression and gauze Patient tolerated procedure: Patient tolerated procedure well Post-Debridement Measurements and Additional Note: Post-Debridement Measurements/Treatment - Nurse 1 - General Ulcer Assessment Start: 04/20/24 14:35 Freq: Status: Active Protocol: SHAE Activity Type Activity Date Activity User E-sign Co-sign Detail Recorded Client Recorded Date Recorded By Document 04/20/24 14:35 RB [id number] 04/20/24 14:37 RB Document 04/26/24 09:59 KW [id number] 04/26/24 10:02 KW Document 05/03/24 14:02 DL [id number] 05/03/24 14:06 DL Document 05/10/24 09:32 BMF [id number] 05/10/24 09:41 BMF 04/20/24 04/26/24 05/03/24 14:35 09:59 14:02 - Today's Visit Information Type of service Follow-up Visit Follow-up Visit Follow-up Visit (Physician/SALVATIONIST (Physician/SALVATIONIST (Physician/SALVATIONIST ) ) ) Arrival Mode Ambulatory Ambulatory Ambulatory Transfer Assistance None None Accompanied by Patient Identification Verified (Name & Yes Yes Yes ) Patient Requires Transmission-Based No No Precautions Height and Weight Body Mass Index (BMI) 24.3 24.3 24.3 BMI Classification Normal Normal Normal Vital Signs Temperature (97.8 F-99.1 F) 97 F L 96.0 F L 96.7 F L Temperature Source Temporal Temporal Temporal Pulse Rate (60-100) 70 68 67 Pulse Location Monitor Monitor Monitor Respiratory Rate (12-18) 18 16 16 Respiratory rate source Observation Observation Observation Oxygen Delivery Method Room Air Blood Pressure (90/60-120/80) 123/80 H 111/72 162/74 H Blood Pressure Mean (mm Hg) 94 85 103 Source Monitor Monitor Monitor Position Sitting Sitting Blood Pressure Location Left Arm Left Arm History Since Last Visit- (Skip if this is Patient's initial visit) Have you changed medications since your No No No last visit? Any new allergies or adverse reactions No No No Had a fall/change in ADL's that may No No No increase risk of falls Signs or symptoms of abuse and/or No No No neglect since last visit Have you been in the hospital since your No No No last visit? Has dressing in place as prescribed Yes Yes Yes Has compression in place as prescribed No Yes Yes Has offloadiing in place as prescribed No N/A N/A Experienced any changes in pain level or No No No management Left Footwear Regular Shoe Right Footwear Regular Shoe Pain Scale: 0-10 Numeric Is Patient Pain Free? Yes Yes Yes 05/10/24 09:32 WC - Today's Visit Information Type of service Follow-up Visit (Physician/SALVATIONIST ) Arrival Mode Ambulatory Transfer Assistance None Accompanied by Patient Identification Verified (Name & Yes ) Patient Requires Transmission-Based No Precautions Height and Weight Body Mass Index (BMI) 24.3 BMI Classification Normal Vital Signs Temperature (97.8 F-99.1 F) 97.4 F L Temperature Source Temporal Pulse Rate (60-100) 63 Pulse Location Monitor Respiratory Rate (12-18) Respiratory rate source Observation Oxygen Delivery Method Room Air Blood Pressure (90/60-120/80) 119/75 Blood Pressure Mean (mm Hg) 89 Source Monitor Position Sitting Blood Pressure Location Left Arm History Since Last Visit- (Skip if this is Patient's initial visit) Have you changed medications since your No last visit? Any new allergies or adverse reactions No Had a fall/change in ADL's that may No increase risk of falls Signs or symptoms of abuse and/or No neglect since last visit Have you been in the hospital since your No last visit? Has dressing in place as prescribed Yes Has compression in place as prescribed Yes Has offloadiing in place as prescribed N/A Experienced any changes in pain level or No management Left Footwear Regular Shoe Right Footwear Regular Shoe Pain Scale: 0-10 Numeric Is Patient Pain Free? Yes WC - Nurse 1 - General Ulcer Measurement Start: 04/20/24 14:35 Freq: Status: Active Protocol: Activity Type Activity Date Activity User E-sign Co-sign Detail Recorded Client Recorded Date Recorded By Document 04/20/24 14:35 RB [id number] 04/20/24 14:37 RB Document 04/26/24 09:59 KW [id number] 04/26/24 10:02 KW Document 05/03/24 14:02 DL [id number] 05/03/24 14:06 DL Document 05/10/24 09:32 BMF [id number] 05/10/24 09:41 BMF 04/20/24 04/26/24 05/03/24 14:35 09:59 14:02 Wound Center Nurse 1 1. LLE posterior -Combined with other wound No -Current Size (cm) - Length 1.7 1.6 1 -Current Size (cm) - Width 4.8 3.9 5 -Current Size (cm) - Depth 0.1 0.1 0.2 -Total Square Cm 8.16 6.24 5 -Date of Last Picture (Recall this 04/26/24 field) -Photo Taken -Epithelialization Medium 34-66% -Tunneling No -Undermining/Tunneling No -Circular Undermining No -Exudate Amt Medium Small Medium -Exudate Type Serosanguineous Serosanguineous Serosanguineous -Wound Margin Distinct, Distinct, Outline Outline Attached Attached -Granulation Amt Large (67-100%) Medium (34-66%) Medium (34-66%) -Granulation Quality [place] Red Red -Slough/Fibrin Yes -Necrosis Amt Small (1-33%) Small (1-33%) Medium (34-66%) -Necrotic Tissue Type Adherent Slough Adherent Slough Adherent Slough -Structure Exposed N/A N/A -Texture (Mary-wound Skin Appearance) Assessed, Assessed,Rash Excoriation, Excoriation Scarring,Rash -Moisture (Mary-wound Skin Appearance) Assessed Assessed Dry/Scaly -Color (Mary-wound Skin Appearance) Assessed Assessed, No Abnormality Erythema -Temperature (Mary-wound Skin No Abnormality No Abnormality No Abnormality Appearance) (Pt Warm) (Pt Warm) (Pt Warm) -Tenderness on Palpation (Mary-wound No No Skin Appearance) -Ulcer Cleansing Wound Cleanser Soap and Water Soap and Water -Foul Odor after Cleansing No No No -Anesthetic Used 5% Lidocaine 5% Lidocaine 4% Lidocaine Gel Gel Solution -Wound Comment(s) Lower Limb Edema Present Yes Left Calf (cm) 33.2 32.5 33.5 Left Ankle (cm) 22 22.3 22.5 05/10/24 09:32 Wound Center Nurse 1 1. LLE posterior -Combined with other wound No -Current Size (cm) - Length 1.3 -Current Size (cm) - Width 3.8 -Current Size (cm) - Depth 0.1 -Total Square Cm 4.94 -Date of Last Picture (Recall this 05/10/24 field) -Photo Taken Yes -Epithelialization Medium 34-66% -Tunneling No -Undermining/Tunneling No -Circular Undermining No -Exudate Amt Small -Exudate Type Serosanguineous -Wound Margin Distinct, Outline Attached -Granulation Amt None Present (0 %) -Granulation Quality -Slough/Fibrin Yes -Necrosis Amt Large (67-100%) -Necrotic Tissue Type Eschar -Structure Exposed -Texture (Mary-wound Skin Appearance) Assessed, Scarring -Moisture (Mary-wound Skin Appearance) Assessed,Dry/ Scaly -Color (Mary-wound Skin Appearance) Assessed -Temperature (Mary-wound Skin No Abnormality Appearance) (Pt Warm) -Tenderness on Palpation (Mary-wound No Skin Appearance) -Ulcer Cleansing Soap and Water -Foul Odor after Cleansing No -Anesthetic Used 5% Lidocaine Gel -Wound Comment(s) mary rash from last week appears to be resolved Lower Limb Edema Present Left Calf (cm) 33.2 Left Ankle (cm) 21.5 WC - Nurse 2 - General Ulcer CM Notes Start: 04/20/24 14:35 Freq: Status: Active Protocol: Activity Type Activity Date Activity User E-sign Co-sign Detail Recorded Client Recorded Date Recorded By Document 04/20/24 15:37 DS [id number] 04/20/24 15:39 DS Edit Result 04/20/24 15:37 DS (1) [id number] 04/20/24 15:39 DS Edit Result 04/20/24 15:37 DS (2) [id number] 04/20/24 16:26 DS Document 04/26/24 10:17 GM [id number] 04/26/24 10:31 GM Document 05/03/24 14:13 DS [id number] 05/03/24 14:20 DS Document 05/10/24 10:05 JF [id number] 05/10/24 10:10 JF (1) 1. LLE posterior - Debridement - Subq, 1st 20sq cm Yes => No (2) 1. LLE posterior - Apply Skin Sub - 1st 25 sq cm - Legs => 1 - Epifix Mesh (per sq cm) => 11 04/20/24 04/26/24 05/03/24 15:37 10:17 14:13 Wound Center Nurse 2 1. LLE posterior -Time 15:30 10:17 14:10 -Correct Patient Yes Yes Yes -Correct Side, Site, Position Yes Yes Yes -Correct Procedure Yes Yes Yes -Procedure Performed Yes Yes Yes -Type of Procedure Debridement Debridement Debridement -Clinical Debridement Subcutaneous Subcutaneous Subcutaneous -Tissue Removed Subcutaneous Subcutaneous Subcutaneous -Post Debridement (cm) - Length 1.9 1.5 1.6 -Post Debridement (cm) - Width 4.6 4.7 3.5 -Post Debridement (cm) - Depth 0.4 0.1 0.2 -Total Square (Post) (cm) 8.74 7.05 5.60 -Area of Debridement (cm) - Length 1.9 1.5 1.6 -Area of Debridement (cm) - Width 4.6 4.7 3.5 -Total Square (Area) (cm) 8.74 7.05 5.60 -Tunneling No No No -Undermining/Tunneling No No No -Circular Undermining No No No -Wound/Ulcer Outcome Not Healed Not Healed Not Healed -Ulcer Cleansing Rinsed/ Rinsed/ Rinsed/ Irrigated with Irrigated with Irrigated with Saline Saline Saline -Foul Odor after Cleansing No No -Bioengineered Tissue Yes Yes Yes -Type of Bioengineered Tissue Epifix Mesh Epifix Epifix -Expiration Date 10/12/28 11/12/28 11/12/28 -Product Lot Number [id number] -Percent Used 100 100 100 -Lot number of Saline Used [id number] -Bleeding Controlled with Pressure Pressure Pressure -Treatment Response Procedure Procedure Procedure Tolerated Well Tolerated Well Tolerated Well -Offloading -Debridement - Subq, 1st 20sq cm No No No -Apply Skin Sub - 1st 25 sq cm - Legs 1 1 1 -Epifix (per sq cm) 4 4 -Epifix 18mm Disc -Epifix Mesh (per sq cm) 11 Pain Scale: 0-10 Numeric Is Patient Pain Free? Yes Yes Yes 05/10/24 10:05 Wound Center Nurse 2 1. LLE posterior -Time 10:05 -Correct Patient Yes -Correct Side, Site, Position Yes -Correct Procedure Yes -Procedure Performed Yes -Type of Procedure Debridement -Clinical Debridement Subcutaneous -Tissue Removed Subcutaneous -Post Debridement (cm) - Length 1.0 -Post Debridement (cm) - Width 3.5 -Post Debridement (cm) - Depth 0.2 -Total Square (Post) (cm) 3.50 -Area of Debridement (cm) - Length 1.0 -Area of Debridement (cm) - Width 3.5 -Total Square (Area) (cm) 3.50 -Tunneling No -Undermining/Tunneling No -Circular Undermining No -Wound/Ulcer Outcome Not Healed -Ulcer Cleansing Rinsed/ Irrigated with Saline -Foul Odor after Cleansing No -Bioengineered Tissue Yes -Type of Bioengineered Tissue Epifix 18mm Disc -Expiration Date 12/13/28 -Product Lot Number [id number] -Percent Used 100 -Lot number of Saline Used [id number] -Bleeding Controlled with Pressure -Treatment Response Procedure Tolerated Well -Offloading No -Debridement - Subq, 1st 20sq cm No -Apply Skin Sub - 1st 25 sq cm - Legs 1 -Epifix (per sq cm) -Epifix 18mm Disc 3 -Epifix Mesh (per sq cm) Pain Scale: 0-10 Numeric Is Patient Pain Free? Yes WC - Nurse 3 - General Ulcer D/C NN Start: 04/20/24 14:35 Freq: Status: Active Protocol: Activity Type Activity Date Activity User E-sign Co-sign Detail Recorded Client Recorded Date Recorded By Document 04/20/24 15:51 KW [id number] 04/20/24 15:51 KW Document 04/26/24 10:31 GM [id number] 04/26/24 10:32 GM Edit Result 04/26/24 10:31 GM (1) [id number] 04/26/24 10:38 GM Document 05/03/24 14:39 BMF [id number] 05/03/24 14:40 BMF Document 05/10/24 10:24 BMF [id number] 05/10/24 10:25 BMF (1) Left - Tubular Bandage => Double Layer - Size of Tubigrip Used => Size D - Size D ($) => 2 04/20/24 04/26/24 05/03/24 15:51 10:31 14:39 Wound Care Center Nurse 3 1. LLE posterior -Ulcer Cleansing Not Cleansed -Foul Odor after Cleansing No -Primary Dressing Applied Mepilex Border -Primary Dressing Applied Silicone Border Foam 4x4 -Other Dressing EPIFIX -Primary Dressing Covered/Secured with Dry Gauze Dry Gauze & Roll Gauze, Secured with Tape -Other Covering -Mepilex Border 1 -Silicone Border Foam 4x4 1 Left -Lotion applied to leg before Yes compression wrap -Tubular Bandage Double Layer Double Layer Double Layer -Size of Tubigrip Used Size D Size D Size D -Size D ($) 2 2 2 -Other USED hcs SO ONLY GAVE 1 LAYER DUE TO IT BEING EQUIV. TO DOUBLE Treatment Response Procedure Tolerated Well Pain Scale: 0-10 Numeric Is Patient Pain Free? Yes Yes Yes WC - Visit Discharge Discharge Condition Stable Stable Stable Ambulatory Status Ambulatory Ambulatory Ambulatory Transportation Private Auto Private Auto Private Auto Accompanied by Medication Reconcilliation completed & No provided to patient/care provider Clinical Summary of Care Provided Yes 05/10/24 10:24 Wound Care Center Nurse 3 1. LLE posterior -Ulcer Cleansing -Foul Odor after Cleansing -Primary Dressing Applied -Primary Dressing Applied -Other Dressing drsg per kw bag patcher -Primary Dressing Covered/Secured with Dry Gauze & Roll Gauze, Secured with Tape -Other Covering nystatin/ triamcinolone applied to mary wound -Mepilex Border -Silicone Border Foam 4x4 Left -Lotion applied to leg before compression wrap -Tubular Bandage Single Layer -Size of Tubigrip Used Size D -Size D ($) 1 -Other hcs brand single instead of double Treatment Response Procedure Tolerated Well Pain Scale: 0-10 Numeric Is Patient Pain Free? Yes WC - Visit Discharge Discharge Condition Stable Ambulatory Status Ambulatory Transportation Private Auto Accompanied by Medication Reconcilliation completed & provided to patient/care provider Clinical Summary of Care Provided Assessment/Plan Assessment/Plan (1) Non-pressure chronic ulcer of left calf with fat layer exposed: CODE(S): L97.222 - Non-pressure chronic ulcer of left calf with fat layer exposed (2) Chronic anticoagulation: CODE(S): Z79.01 - assisted (current) use of anticoagulants (3) Acute deep vein thrombosis of right lower extremity: CODE(S): I82.401 - Acute embolism and thrombosis of unspecified deep veins of right lower extremity QUALIFIERS: Affected thrombotic vein of extremity: femoral Qualified Code(s): I82.411 - Acute embolism and thrombosis of right femoral vein (4) Smoking greater than 30 pack years: CODE(S): F17.210 - Nicotine dependence, cigarettes, uncomplicated (5) Tobacco abuse counseling: CODE(S): Z71.6 - Tobacco abuse counseling PLAN: Plan Wound care - Approved for Epifix. Epifix #9 placed today. 100% of the 18 mm was used. Skin protectant used on mary wound. Adaptic touch placed and secured with steri strips. Collagen hydrogel applied. Cover with gauze or ABD. Instructed to change outer dressing daily. She will continue to place Nystatin/Triamcinolone ointment to mary wound twice daily (wash hands well before and after applying). She is not to get the epifix wet, but she may remove the dressing the day of her appointment next week and shower before coming in and cover ulcer with a silicone bordered dressing. She will wear a double tubigrip for compression. Encouraged patient to stop smoking as it may have deleterious effects on wound healing. Follow-up in 1 week.
--- NOTE | 2024-05-11 09:22 | WC ---
PHOTO 05/10/24 LEFT CALF
== END 2024-05-14 23:59 | disposition home or self-care (01) ==
LOC: WC 09:30
PROVIDERS: PCP Internal Medicine; Referring Provider Internal Medicine; Visit Provider Surgery Plastic and Reconstructive Surgery
DX: L97.222 Non-pressure chronic ulcer of left calf with fat layer exposed (principal); I82.411 Acute embolism and thrombosis of right femoral vein; F17.210 Nicotine dependence, cigarettes, uncomplicated; E78.00 Pure hypercholesterolemia, unspecified; Z86.718 Personal history of other venous thrombosis and embolism; Z79.01 Long term (current) use of anticoagulants
CPT/HCPCS: 15271; Q4186

== ENCOUNTER 2024-05-31 09:15 | Outpatient (RCR) | payer MEDICARE, OTHER, SELFPAY ==
[2024-05-15 01:56] VITALS: BP 119/75; PULSE 63; RESP 16; TEMP 36.3; BMI 24.3
[2024-05-17 09:29] VITALS: BP 117/65; PULSE 68; RESP 16; TEMP 36.6; BMI 24.3
--- NOTE | 2024-05-17 11:37 | PN.PCM_ITS ---
History of Present Illness Date of Service: 05/17/24 Chief Complaint: Ulceration of the left posterior calf History of Wound: This is a 68 year-old female who claims to have experienced multiple bug bites in both lower extremities approximately 4 weeks prior to her presentation. She developed pain, swelling, and erythema in both legs following her claimed episode of bug bites. As a result, she was treated with 2 courses of oral antibiotics by her primary care physician. These included a course of oral clindamycin, as well as cephalexin. The wounds/ulcerations on the patient's right leg have healed, and she presented with a clustered ulceration on the left posterior calf. The patient admits to having a history of swelling and edema in her lower extremities. She has a history of bilateral lower extremity deep vein thrombosis, and is on chronic systemic anticoagulation with warfarin. She indicates that she wears graduated compression stockings on a daily basis, which are of 20 to 30 mmHg compression. She had not been using any topical remedies relative to the ulceration on her left posterior calf. The patient is of normal body habitus, with a BMI of 24.3. The patient's medical history in recent months has been reviewed. On January 22, 2024, the patient underwent insertion of an IVC filter by Dr. Jeremy Batista, due to a diagnosis of acute deep vein thrombosis while therapeutic on Coumadin. On February 05, 2024, the patient underwent right iliac and femoral vein thrombectomy and angioplasty. She has been under the care of the Plastic Surgery service in recent months, and underwent left lower extremity wound excision by Dr. Jarrod Umaña on February 18, 2024. Negative pressure wound therapy was utilized thereafter, until the recent implementation of cellular tissue products (CTP's). EpiFix #5 was placed at the patient's last visit on April 12, 2024. Progress of Wound: Left posterior leg ulcer cluster is much smaller in size. It is almost healed. The few areas still open are superficial. Mary wound is clear. Objective Data Objective Data Vital Signs: Vital Signs Temp Pulse Resp BP O2 Del Method 97.8 F 68 16 117/65 Room Air 05/17/24 09:29 05/17/24 09:29 05/17/24 09:29 05/17/24 09:29 05/17/24 09:29 Oxygen Delivery Method Room Air Weight: 160 lb Body Mass Index (BMI) 24.3 Charges/Coding Procedures Integumentary 111xxx-113xx: 22205 Jenelle subq tissue 20 sq cm/< Debridement Note Debridement Note Wound debrided: Posterior leg ulcer Laterality: Left Wound Grade/Stage: Stage III. Type of Debridement: Excisional debridement Anesthesia Used: 5% Lidocaine Gel Depth: Down to and including healthy tissue and in the subcutaneous layer Percentage of wound debrided: 100 Instrument Used: 3mm curette Tissue Removed: Nonviable tissue and slough Severity: Fat Layer Exposed Amount of bleeding with debridement: Mild Bleeding Controlled with: Compression and gauze Patient tolerated procedure: Patient tolerated procedure well Post-Debridement Measurements and Additional Note: Post-Debridement Measurements/Treatment - Nurse 1 - General Ulcer Assessment Start: 05/17/24 09:29 Freq: Status: Active Protocol: SHAE Activity Type Activity Date Activity User E-sign Co-sign Detail Recorded Client Recorded Date Recorded By Document 05/17/24 09:29 KW [id number] 05/17/24 09:32 KW 05/17/24 09:29 WC - Today's Visit Information Type of service Follow-up Visit (Physician/STOCKROOM ASSOCIATE ) Arrival Mode Ambulatory Accompanied by Patient Identification Verified (Name & Yes ) Height and Weight Body Mass Index (BMI) 24.3 BMI Classification Normal Vital Signs Temperature (97.8 F-99.1 F) 97.8 F Temperature Source Temporal Pulse Rate (60-100) 68 Pulse Location Monitor Respiratory Rate (12-18) 16 Respiratory rate source Observation Oxygen Delivery Method Room Air Blood Pressure (90/60-120/80) 117/65 Blood Pressure Mean (mm Hg) 82 Source Monitor Position Semi-Fowlers Blood Pressure Location Left Arm History Since Last Visit- (Skip if this is Patient's initial visit) Have you changed medications since your No last visit? Any new allergies or adverse reactions No Had a fall/change in ADL's that may No increase risk of falls Signs or symptoms of abuse and/or No neglect since last visit Have you been in the hospital since your No last visit? Has dressing in place as prescribed Yes Has compression in place as prescribed Yes Has offloadiing in place as prescribed N/A Experienced any changes in pain level or No management Left Footwear Regular Shoe Right Footwear Regular Shoe Pain Scale: 0-10 Numeric Is Patient Pain Free? Yes - Nurse 1 - General Ulcer Measurement Start: 05/17/24 09:29 Freq: Status: Active Protocol: Activity Type Activity Date Activity User E-sign Co-sign Detail Recorded Client Recorded Date Recorded By Document 05/17/24 09:29 KW [id number] 05/17/24 09:32 KW 05/17/24 09:29 Wound Center Nurse 1 1. LLE posterior -Current Size (cm) - Length 0.1 -Current Size (cm) - Width 0.1 -Current Size (cm) - Depth 0 -Total Square Cm 0.01 -Date of Last Picture (Recall this 05/17/24 field) -Epithelialization Large 67-100% -Exudate Amt None Present -Texture (Mary-wound Skin Appearance) Assessed -Moisture (Mary-wound Skin Appearance) Assessed -Color (Mary-wound Skin Appearance) Assessed -Temperature (Mary-wound Skin No Abnormality Appearance) (Pt Warm) -Tenderness on Palpation (Mary-wound No Skin Appearance) -Ulcer Cleansing Soap and Water -Foul Odor after Cleansing No -Anesthetic Used 5% Lidocaine Gel WC - Nurse 2 - General Ulcer CM Notes Start: 05/17/24 09:29 Freq: Status: Active Protocol: Activity Type Activity Date Activity User E-sign Co-sign Detail Recorded Client Recorded Date Recorded By Document 05/17/24 09:44 JF [id number] 05/17/24 09:46 05/17/24 09:44 Wound Center Nurse 2 -Time 09:45 -Correct Patient Yes -Correct Side, Site, Position Yes -Correct Procedure Yes -Procedure Performed Yes -Type of Procedure Debridement -Clinical Debridement Subcutaneous -Tissue Removed Subcutaneous -Post Debridement (cm) - Length 0.3 -Post Debridement (cm) - Width 4.0 -Post Debridement (cm) - Depth 0.1 -Total Square (Post) (cm) 1.20 -Area of Debridement (cm) - Length 0.3 -Area of Debridement (cm) - Width 4.0 -Total Square (Area) (cm) 1.20 -Tunneling No -Undermining/Tunneling No -Circular Undermining No -Wound/Ulcer Outcome Not Healed -Ulcer Cleansing Rinsed/ Irrigated with Saline -Foul Odor after Cleansing No -Bioengineered Tissue No -Bleeding Controlled with Pressure -Treatment Response Procedure Tolerated Well -Offloading No -Debridement - Subq, 1st 20sq cm Yes Pain Scale: 0-10 Numeric Is Patient Pain Free? Yes - Nurse 3 - General Ulcer D/C NN Start: 05/17/24 09:29 Freq: Status: Active Protocol: Activity Type Activity Date Activity User E-sign Co-sign Detail Recorded Client Recorded Date Recorded By Document 05/17/24 09:58 SIVAN [id number] 05/17/24 09:58 KW 05/17/24 09:58 Wound Care Center Nurse 3 1. LLE posterior -Primary Dressing Applied C Hydrogel ($), NonAdherent Contact Layer -Primary Dressing Covered/Secured with Dry Gauze & Roll Gauze, Secured with Tape Left -Tubular Bandage Single Layer -Size of Tubigrip Used Size D -Size D ($) 1 Pain Scale: 0-10 Numeric Is Patient Pain Free? Yes WC - Visit Discharge Discharge Condition Stable Ambulatory Status Ambulatory Transportation Private Auto Medication Reconcilliation completed & No provided to patient/care provider Clinical Summary of Care Provided Yes Assessment/Plan Assessment/Plan (1) Non-pressure chronic ulcer of left calf with fat layer exposed: CODE(S): L97.222 - Non-pressure chronic ulcer of left calf with fat layer exposed (2) Chronic anticoagulation: CODE(S): Z79.01 - senior living (current) use of anticoagulants (3) Acute deep vein thrombosis of right lower extremity: CODE(S): I82.401 - Acute embolism and thrombosis of unspecified deep veins of right lower extremity QUALIFIERS: Affected thrombotic vein of extremity: femoral Qualified Code(s): I82.411 - Acute embolism and thrombosis of right femoral vein (4) Smoking greater than 30 pack years: CODE(S): F17.210 - Nicotine dependence, cigarettes, uncomplicated (5) Tobacco abuse counseling: CODE(S): Z71.6 - Tobacco abuse counseling PLAN: Plan Wound care - Approved for Epifix. Epifix #9 applications. Will hold off on the next application this week. She will apply Collagen hydrogel covered with adaptic and topped with gauze daily. She may wash this area every day with soap and water. She may get it wet in the shower. She will stop the nystatin/triamcinolone cream to the mary wound. She will wear a double tubigrip for compression. Encouraged patient to stop smoking as it may have deleterious effects on wound healing. Follow-up in 1 week.
--- NOTE | 2024-05-18 12:10 | WC ---
PHOTO 05/17/24 LEFT CALF
[2024-05-24 09:20] VITALS: BP 150/81; PULSE 68; RESP 14; TEMP 36.5; BMI 24.3
--- NOTE | 2024-05-24 12:17 | PN.PCM_ITS ---
History of Present Illness Date of Service: 05/24/24 Chief Complaint: Ulceration of the left posterior calf History of Wound: This is a 68 year-old female who claims to have experienced multiple bug bites in both lower extremities approximately 4 weeks prior to her presentation. She developed pain, swelling, and erythema in both legs following her claimed episode of bug bites. As a result, she was treated with 2 courses of oral antibiotics by her primary care physician. These included a course of oral clindamycin, as well as cephalexin. The wounds/ulcerations on the patient's right leg have healed, and she presented with a clustered ulceration on the left posterior calf. The patient admits to having a history of swelling and edema in her lower extremities. She has a history of bilateral lower extremity deep vein thrombosis, and is on chronic systemic anticoagulation with warfarin. She indicates that she wears graduated compression stockings on a daily basis, which are of 20 to 30 mmHg compression. She had not been using any topical remedies relative to the ulceration on her left posterior calf. The patient is of normal body habitus, with a BMI of 24.3. The patient's medical history in recent months has been reviewed. On January 22, 2024, the patient underwent insertion of an IVC filter by Dr. Jeremy Batista, due to a diagnosis of acute deep vein thrombosis while therapeutic on Coumadin. On February 05, 2024, the patient underwent right iliac and femoral vein thrombectomy and angioplasty. She has been under the care of the Plastic Surgery service in recent months, and underwent left lower extremity wound excision by Dr. Jarrod Umaña on February 18, 2024. Negative pressure wound therapy was utilized thereafter, until the recent implementation of cellular tissue products (CTP's). EpiFix #5 was placed at the patient's last visit on April 12, 2024. Progress of Wound: Left posterior leg ulcer cluster is much smaller in size. It is almost healed. Mary wound is stable. Will place her last epifix today. Objective Data Objective Data Vital Signs: Vital Signs Temp Pulse Resp BP O2 Del Method 97.7 F L 68 14 150/81 H Room Air 05/24/24 09:20 05/24/24 09:20 05/24/24 09:20 05/24/24 09:20 05/17/24 09:29 Oxygen Delivery Method Room Air Weight: 160 lb Body Mass Index (BMI) 24.3 Charges/Coding Procedures Integumentary 150xxx-152xx: 18969 Skin sub graft trnk/arm/leg Debridement Note Debridement Note Wound debrided: Posterior leg ulcer Laterality: Left Wound Grade/Stage: Stage III. Type of Debridement: Excisional debridement Anesthesia Used: 5% Lidocaine Gel Depth: Down to and including healthy tissue and in the subcutaneous layer Percentage of wound debrided: 100 Instrument Used: 3mm curette Tissue Removed: Nonviable tissue and slough Severity: Fat Layer Exposed Amount of bleeding with debridement: Mild Bleeding Controlled with: Compression and gauze Patient tolerated procedure: Patient tolerated procedure well Post-Debridement Measurements and Additional Note: Post-Debridement Measurements/Treatment - Nurse 1 - General Ulcer Assessment Start: 05/17/24 09:29 Freq: Status: Active Protocol: SHAE Activity Type Activity Date Activity User E-sign Co-sign Detail Recorded Client Recorded Date Recorded By Document 05/17/24 09:29 KW [id number] 05/17/24 09:32 KW Document 05/24/24 09:20 ML [id number] 05/24/24 09:22 ML 05/17/24 05/24/24 09:29 09:20 - Today's Visit Information Type of service Follow-up Visit Follow-up Visit (Physician/WATER REGULATOR AND VALVE REPAIRER (Physician/WATER REGULATOR AND VALVE REPAIRER ) ) Arrival Mode Ambulatory Ambulatory Transfer Assistance None Accompanied by Patient Identification Verified (Name & Yes Yes ) Patient Requires Transmission-Based No Precautions Height and Weight Body Mass Index (BMI) 24.3 24.3 BMI Classification Normal Normal Vital Signs Temperature (97.8 F-99.1 F) 97.8 F 97.7 F L Temperature Source Temporal Temporal Pulse Rate (60-100) 68 68 Pulse Location Monitor Monitor Respiratory Rate (12-18) 16 14 Respiratory rate source Observation Observation Oxygen Delivery Method Room Air Blood Pressure (90/60-120/80) 117/65 150/81 H Blood Pressure Mean (mm Hg) 82 104 Source Monitor Monitor Position Semi-Fowlers Blood Pressure Location Left Arm History Since Last Visit- (Skip if this is Patient's initial visit) Have you changed medications since your No No last visit? Any new allergies or adverse reactions No No Had a fall/change in ADL's that may No No increase risk of falls Signs or symptoms of abuse and/or No No neglect since last visit Have you been in the hospital since your No No last visit? Has dressing in place as prescribed Yes Yes Has compression in place as prescribed Yes N/A Has offloadiing in place as prescribed N/A N/A Experienced any changes in pain level or No No management Left Footwear Regular Shoe Right Footwear Regular Shoe Pain Scale: 0-10 Numeric Is Patient Pain Free? Yes Yes WC - Nurse 1 - General Ulcer Measurement Start: 05/17/24 09:29 Freq: Status: Active Protocol: Activity Type Activity Date Activity User E-sign Co-sign Detail Recorded Client Recorded Date Recorded By Document 05/17/24 09:29 KW [id number] 05/17/24 09:32 KW Document 05/24/24 09:20 ML [id number] 05/24/24 09:22 ML 05/17/24 05/24/24 09:29 09:20 Wound Center Nurse 1 1. LLE posterior -Current Size (cm) - Length 0.1 0.2 -Current Size (cm) - Width 0.1 2 -Current Size (cm) - Depth 0 0.1 -Total Square Cm 0.01 0.4 -Date of Last Picture (Recall this 05/17/24 field) -Epithelialization Large 67-100% -Exudate Amt None Present Small -Exudate Type Serosanguineous -Wound Margin Distinct, Outline Attached -Granulation Amt Large (67-100%) -Granulation Quality [place] -Slough/Fibrin Yes -Necrosis Amt Small (1-33%) -Necrotic Tissue Type Adherent Slough -Texture (Mary-wound Skin Appearance) Assessed Assessed,Rash -Moisture (Amry-wound Skin Appearance) Assessed Assessed -Color (Mary-wound Skin Appearance) Assessed Assessed -Temperature (Mary-wound Skin No Abnormality No Abnormality Appearance) (Pt Warm) (Pt Warm) -Tenderness on Palpation (Mary-wound No Yes Skin Appearance) -Ulcer Cleansing Soap and Water Rinsed/ Irrigated with Saline -Foul Odor after Cleansing No No -Anesthetic Used 5% Lidocaine 5% Lidocaine Gel Gel WC - Nurse 2 - General Ulcer CM Notes Start: 05/17/24 09:29 Freq: Status: Active Protocol: Activity Type Activity Date Activity User E-sign Co-sign Detail Recorded Client Recorded Date Recorded By Document 05/17/24 09:44 JF [id number] 05/17/24 09:46 JF Document 05/24/24 09:52 JF [id number] 05/24/24 10:00 JF 05/17/24 05/24/24 09:44 09:52 Wound Center Nurse 2 1. LLE posterior -Time 09:45 09:52 -Correct Patient Yes Yes -Correct Side, Site, Position Yes Yes -Correct Procedure Yes Yes -Procedure Performed Yes Yes -Type of Procedure Debridement Debridement -Clinical Debridement Subcutaneous Subcutaneous -Tissue Removed Subcutaneous Subcutaneous -Post Debridement (cm) - Length 0.3 0.5 -Post Debridement (cm) - Width 4.0 0.7 -Post Debridement (cm) - Depth 0.1 0.1 -Total Square (Post) (cm) 1.20 0.35 -Area of Debridement (cm) - Length 0.3 0.5 -Area of Debridement (cm) - Width 4.0 0.7 -Total Square (Area) (cm) 1.20 0.35 -Tunneling No No -Undermining/Tunneling No No -Circular Undermining No No -Wound/Ulcer Outcome Not Healed Not Healed -Ulcer Cleansing Rinsed/ Rinsed/ Irrigated with Irrigated with Saline Saline -Foul Odor after Cleansing No No -Bioengineered Tissue No Yes -Type of Bioengineered Tissue Epifix 18mm Disc -Expiration Date 12/13/28 -Product Lot Number [id number] -Percent Used 100 -Lot number of Saline Used [id number] -Bleeding Controlled with Pressure Pressure -Treatment Response Procedure Procedure Tolerated Well Tolerated Well -Offloading No No -Debridement - Subq, 1st 20sq cm Yes No -Apply Skin Sub - 1st 25 sq cm - Legs 1 -Epifix 18mm Disc 3 Pain Scale: 0-10 Numeric Is Patient Pain Free? Yes Yes - Nurse 3 - General Ulcer D/C NN Start: 05/17/24 09:29 Freq: Status: Active Protocol: Activity Type Activity Date Activity User E-sign Co-sign Detail Recorded Client Recorded Date Recorded By Document 05/17/24 09:58 KW [id number] 05/17/24 09:58 KW Document 05/24/24 10:17 BM [id number] 05/24/24 10:17 BMF 05/17/24 05/24/24 09:58 10:17 Wound Care Center Nurse 3 1. LLE posterior -Primary Dressing Applied C Hydrogel ($), NonAdherent Contact Layer -Other Dressing epifix -Primary Dressing Covered/Secured with Dry Gauze & Dry Gauze & Roll Gauze, Roll Gauze, Secured with Secured with Tape Tape Left -Tubular Bandage Single Layer Single Layer -Size of Tubigrip Used Size D Size D -Size D ($) 1 1 -Other hcs brand Treatment Response Procedure Tolerated Well Pain Scale: 0-10 Numeric Is Patient Pain Free? Yes Yes WC - Visit Discharge Discharge Condition Stable Stable Ambulatory Status Ambulatory Ambulatory Transportation Private Auto Private Auto Medication Reconcilliation completed & No provided to patient/care provider Clinical Summary of Care Provided Yes Assessment/Plan Assessment/Plan (1) Non-pressure chronic ulcer of left calf with fat layer exposed: CODE(S): L97.222 - Non-pressure chronic ulcer of left calf with fat layer exposed (2) Chronic anticoagulation: CODE(S): Z79.01 - senior living (current) use of anticoagulants (3) Acute deep vein thrombosis of right lower extremity: CODE(S): I82.401 - Acute embolism and thrombosis of unspecified deep veins of right lower extremity QUALIFIERS: Affected thrombotic vein of extremity: femoral Qualified Code(s): I82.411 - Acute embolism and thrombosis of right femoral vein (4) Smoking greater than 30 pack years: CODE(S): F17.210 - Nicotine dependence, cigarettes, uncomplicated (5) Tobacco abuse counseling: CODE(S): Z71.6 - Tobacco abuse counseling PLAN: Plan Wound care - Approved for Epifix. Epifix #10 (18mm) applied today. 100% of the product was used. Covered with wound veil that was secured with steri strips. Collagen hydrogel placed on top of the product and cover with ABD. She may change the outer dressing as needed. Instructed not to get this area wet for one week. She will wear a double tubigrip for compression. Encouraged patient to stop smoking as it may have deleterious effects on wound healing. Follow-up in 1 week.
[2024-05-31 09:19] VITALS: BP 123/76; PULSE 66; RESP 18; TEMP 36.4; BMI 24.3
--- NOTE | 2024-05-31 15:13 | PCM.WC.PN ---
History of Present Illness Date of Service: 05/31/24 Chief Complaint: Ulceration of the left posterior calf History of Wound: This is a 68 year-old female who claims to have experienced multiple bug bites in both lower extremities approximately 4 weeks prior to her presentation. She developed pain, swelling, and erythema in both legs following her claimed episode of bug bites. As a result, she was treated with 2 courses of oral antibiotics by her primary care physician. These included a course of oral clindamycin, as well as cephalexin. The wounds/ulcerations on the patient's right leg have healed, and she presented with a clustered ulceration on the left posterior calf. The patient admits to having a history of swelling and edema in her lower extremities. She has a history of bilateral lower extremity deep vein thrombosis, and is on chronic systemic anticoagulation with warfarin. She indicates that she wears graduated compression stockings on a daily basis, which are of 20 to 30 mmHg compression. She had not been using any topical remedies relative to the ulceration on her left posterior calf. The patient is of normal body habitus, with a BMI of 24.3. The patient's medical history in recent months has been reviewed. On January 22, 2024, the patient underwent insertion of an IVC filter by Dr. Jeremy Batista, due to a diagnosis of acute deep vein thrombosis while therapeutic on Coumadin. On February 05, 2024, the patient underwent right iliac and femoral vein thrombectomy and angioplasty. She has been under the care of the Plastic Surgery service in recent months, and underwent left lower extremity wound excision by Dr. Jarrod Umaña on February 18, 2024. Negative pressure wound therapy was utilized thereafter, until the recent implementation of cellular tissue products (CTP's). EpiFix #5 was placed at the patient's last visit on April 12, 2024. Progress of Wound: Left posterior leg ulcer cluster is now a single small ulcer. It is almost healed. Mary wound is stable. Objective Data Objective Data Vital Signs: Vital Signs Temp Pulse Resp BP O2 Del Method 97.6 F L 66 18 123/76 H Room Air 05/31/24 09:19 05/31/24 09:19 05/31/24 09:19 05/31/24 09:19 05/31/24 09:19 Oxygen Delivery Method Room Air Weight: 160 lb Body Mass Index (BMI) 24.3 Charges/Coding Procedures Integumentary [id number]: [id number] Jenelle subq tissue 20 sq cm/< Physical Exam Narrative Left posterior leg ulcer is smaller and no longer a cluster. Debridement Note Debridement Note Wound debrided: Posterior leg ulcer Laterality: Left Wound Grade/Stage: Stage III. Type of Debridement: Excisional debridement Anesthesia Used: 5% Lidocaine Gel Depth: Down to and including healthy tissue and in the subcutaneous layer Percentage of wound debrided: 100 Instrument Used: 3mm curette Tissue Removed: Nonviable tissue and slough Severity: Fat Layer Exposed Amount of bleeding with debridement: Mild Bleeding Controlled with: Compression and gauze Patient tolerated procedure: Patient tolerated procedure well Post-Debridement Measurements and Additional Note: Post-Debridement Measurements/Treatment - Nurse 1 - General Ulcer Assessment Start: 05/17/24 09:29 Freq: Status: Active Protocol: SHAE Activity Type Activity Date Activity User E-sign Co-sign Detail Recorded Client Recorded Date Recorded By Document 05/17/24 09:29 KW [id number] 05/17/24 09:32 KW Document 05/24/24 09:20 ML [id number] 05/24/24 09:22 ML Document 05/31/24 09:19 KW [id number] 05/31/24 09:24 KW 05/17/24 05/24/24 05/31/24 09:29 09:20 09:19 - Today's Visit Information Type of service Follow-up Visit Follow-up Visit Follow-up Visit (Physician/CARGO SUPERVISOR (Physician/CARGO SUPERVISOR (Physician/CARGO SUPERVISOR ) ) ) Arrival Mode Ambulatory Ambulatory Ambulatory Transfer Assistance None Accompanied by Patient Identification Verified (Name & Yes Yes Yes ) Patient Requires Transmission-Based No Precautions Height and Weight Body Mass Index (BMI) 24.3 24.3 24.3 BMI Classification Normal Normal Normal Vital Signs Temperature (97.8 F-99.1 F) 97.8 F 97.7 F L 97.6 F L Temperature Source Temporal Temporal Temporal Pulse Rate (60-100) 68 68 66 Pulse Location Monitor Monitor Monitor Respiratory Rate (12-18) 16 14 18 Respiratory rate source Observation Observation Observation Oxygen Delivery Method Room Air Room Air Blood Pressure (90/60-120/80) 117/65 150/81 H 123/76 H Blood Pressure Mean (mm Hg) 82 104 91 Source Monitor Monitor Monitor Position Semi-Fowlers Semi-Fowlers Blood Pressure Location Left Arm Left Arm History Since Last Visit- (Skip if this is Patient's initial visit) Have you changed medications since your No No No last visit? Any new allergies or adverse reactions No No No Had a fall/change in ADL's that may No No No increase risk of falls Signs or symptoms of abuse and/or No No No neglect since last visit Have you been in the hospital since your No No No last visit? Has dressing in place as prescribed Yes Yes Yes Has compression in place as prescribed Yes N/A Yes Has offloadiing in place as prescribed N/A N/A N/A Experienced any changes in pain level or No No No management Left Footwear Regular Shoe Regular Shoe Right Footwear Regular Shoe Regular Shoe Pain Scale: 0-10 Numeric Is Patient Pain Free? Yes Yes Yes WC - Nurse 1 - General Ulcer Measurement Start: 05/17/24 09:29 Freq: Status: Active Protocol: Activity Type Activity Date Activity User E-sign Co-sign Detail Recorded Client Recorded Date Recorded By Document 05/17/24 09:29 KW [id number] 05/17/24 09:32 KW Document 05/24/24 09:20 ML [id number] 05/24/24 09:22 ML Document 05/31/24 09:19 KW [id number] 05/31/24 09:24 KW 05/17/24 05/24/24 05/31/24 09:29 09:20 09:19 Wound Center Nurse 1 1. LLE posterior -Current Size (cm) - Length 0.1 0.2 0.1 -Current Size (cm) - Width 0.1 2 0.1 -Current Size (cm) - Depth 0 0.1 0 -Total Square Cm 0.01 0.4 0.01 -Date of Last Picture (Recall this 05/17/24 05/31/24 field) -Epithelialization Large 67-100% Large 67-100% -Exudate Amt None Present Small None Present -Exudate Type Serosanguineous -Wound Margin Distinct, Outline Attached -Granulation Amt Large (67-100%) -Granulation Quality [place] -Slough/Fibrin Yes -Necrosis Amt Small (1-33%) -Necrotic Tissue Type Adherent Slough -Texture (Mary-wound Skin Appearance) Assessed Assessed,Rash Assessed -Moisture (Mary-wound Skin Appearance) Assessed Assessed Assessed -Color (Mary-wound Skin Appearance) Assessed Assessed Assessed -Temperature (Mary-wound Skin No Abnormality No Abnormality No Abnormality Appearance) (Pt Warm) (Pt Warm) (Pt Warm) -Tenderness on Palpation (Mary-wound No Yes No Skin Appearance) -Ulcer Cleansing Soap and Water Rinsed/ Rinsed/ Irrigated with Irrigated with Saline Saline -Foul Odor after Cleansing No No No -Anesthetic Used 5% Lidocaine 5% Lidocaine 5% Lidocaine Gel Gel Gel -Wound Comment(s) possibly healed WC - Nurse 2 - General Ulcer CM Notes Start: 05/17/24 09:29 Freq: Status: Active Protocol: Activity Type Activity Date Activity User E-sign Co-sign Detail Recorded Client Recorded Date Recorded By Document 05/17/24 09:44 [id number] 05/17/24 09:46 Document 05/24/24 09:52 [id number] 05/24/24 10:00 Document 05/31/24 09:52 [id number] 05/31/24 10:02 05/17/24 05/24/24 05/31/24 09:44 09:52 09:52 Wound Center Nurse 2 1. LLE posterior -Time 09:45 09:52 09:56 -Correct Patient Yes Yes Yes -Correct Side, Site, Position Yes Yes Yes -Correct Procedure Yes Yes Yes -Procedure Performed Yes Yes Yes -Type of Procedure Debridement Debridement Debridement -Clinical Debridement Subcutaneous Subcutaneous Subcutaneous -Tissue Removed Subcutaneous Subcutaneous Subcutaneous -Post Debridement (cm) - Length 0.3 0.5 0.3 -Post Debridement (cm) - Width 4.0 0.7 0.4 -Post Debridement (cm) - Depth 0.1 0.1 0.1 -Total Square (Post) (cm) 1.20 0.35 0.12 -Area of Debridement (cm) - Length 0.3 0.5 0.3 -Area of Debridement (cm) - Width 4.0 0.7 0.4 -Total Square (Area) (cm) 1.20 0.35 0.12 -Tunneling No No No -Undermining/Tunneling No No No -Circular Undermining No No No -Wound/Ulcer Outcome Not Healed Not Healed Not Healed -Ulcer Cleansing Rinsed/ Rinsed/ Rinsed/ Irrigated with Irrigated with Irrigated with Saline Saline Saline -Foul Odor after Cleansing No No No -Bioengineered Tissue No Yes No -Type of Bioengineered Tissue Epifix 18mm Disc -Expiration Date 12/13/28 -Product Lot Number [id number] -Percent Used 100 -Lot number of Saline Used [id number] -Bleeding Controlled with Pressure Pressure Pressure -Treatment Response Procedure Procedure Procedure Tolerated Well Tolerated Well Tolerated Well -Offloading No No No -Debridement - Subq, 1st 20sq cm Yes No Yes -Apply Skin Sub - 1st 25 sq cm - Legs 1 -Epifix 18mm Disc 3 Pain Scale: 0-10 Numeric Is Patient Pain Free? Yes Yes Yes - Nurse 3 - General Ulcer D/C NN Start: 05/17/24 09:29 Freq: Status: Active Protocol: Activity Type Activity Date Activity User E-sign Co-sign Detail Recorded Client Recorded Date Recorded By Document 05/17/24 09:58 KW [id number] 05/17/24 09:58 KW Document 05/24/24 10:17 [employer] [id number] 05/24/24 10:17 [employer] Document 05/31/24 10:14 [facility] [id number] 05/31/24 10:14 BMF 05/17/24 05/24/24 05/31/24 09:58 10:17 10:14 Wound Care Center Nurse 3 1. LLE posterior -Ulcer Cleansing Rinsed/ Irrigated with Saline -Foul Odor after Cleansing No -Primary Dressing Applied C Hydrogel, NonAdherent NonAdherent Contact Layer, Contact Layer Promogran Hortensia Matter -Other Dressing epifix -Primary Dressing Covered/Secured with Dry Gauze & Dry Gauze & Dry Gauze & Roll Gauze, Roll Gauze, Roll Gauze, Secured with Secured with Secured with Tape Tape Tape -Promogran Hortensia Matter 1 Left -Tubular Bandage Single Layer Single Layer Single Layer -Size of Tubigrip Used Size D Size D Size D -Size D ($) 1 1 1 -Other hcs brand hcs brand Treatment Response Procedure Procedure Tolerated Well Tolerated Well Pain Scale: 0-10 Numeric Is Patient Pain Free? 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 She had 10 application of Epifix with much improvement in healing her ulcer. She continues to have increased hypersensitivity to this area. Encouraged her to take a hand held shower and spray the area to help desensitize it. If it continues to not improved, may consider sending her to PT for ROM, strengthening and desensitization therapy. Wound care - Moistened Hortensia covered with gauze daily. May wash with soap and water daily at the time of the dressing change. She will wear a double tubigrip for compression. Encouraged patient to stop smoking as it may have deleterious effects on wound healing. She states she is trying to cut back. Follow-up in 2 weeks.
--- NOTE | 2024-05-31 16:22 | NURSING ---
PHOTO 05/31/24 Left Calf
== END 2024-06-11 23:59 | disposition home or self-care (01) ==
LOC: WC 09:15
PROVIDERS: PCP Internal Medicine; Referring Provider Internal Medicine; Visit Provider Surgery Plastic and Reconstructive Surgery
DX: L97.222 Non-pressure chronic ulcer of left calf with fat layer exposed (principal); I82.411 Acute embolism and thrombosis of right femoral vein; F17.210 Nicotine dependence, cigarettes, uncomplicated; Z71.6 Tobacco abuse counseling; Z79.01 Long term (current) use of anticoagulants; Z79.899 Other long term (current) drug therapy; Z98.62 Peripheral vascular angioplasty status
CPT/HCPCS: 11042; 15271; Q4186

== ENCOUNTER 2024-06-23 13:08 | Outpatient (RCR) | payer MEDICARE, OTHER, SELFPAY ==
[2024-06-12 02:16] VITALS: BP 123/76; PULSE 66; RESP 18; TEMP 36.4; BMI 24.3
[2024-06-23 13:37] VITALS: BP 130/71; PULSE 68; RESP 16; TEMP 36.3; BMI 24.3
--- NOTE | 2024-06-23 15:24 | PN.PCM_ITS ---
<Statement entered by Jarrod Umaña MD - 06/25/24 17:31> I have personally performed a face to face assessment of the patient and have reviewed the JAZZY Note. History of Present Illness Date of Service: 06/23/24 Chief Complaint: Ulceration of the left posterior calf History of Wound: This is a 68 year-old female who claims to have experienced multiple bug bites in both lower extremities approximately 4 weeks prior to her presentation. She developed pain, swelling, and erythema in both legs following her claimed episode of bug bites. As a result, she was treated with 2 courses of oral antibiotics by her primary care physician. These included a course of oral clindamycin, as well as cephalexin. The wounds/ulcerations on the patient's right leg have healed, and she presented with a clustered ulceration on the left posterior calf. The patient admits to having a history of swelling and edema in her lower extremities. She has a history of bilateral lower extremity deep vein thrombosis, and is on chronic systemic anticoagulation with warfarin. She indicates that she wears graduated compression stockings on a daily basis, which are of 20 to 30 mmHg compression. She had not been using any topical remedies relative to the ulceration on her left posterior calf. The patient is of normal body habitus, with a BMI of 24.3. The patient's medical history in recent months has been reviewed. On January 22, 2024, the patient underwent insertion of an IVC filter by Dr. Jeremy Batista, due to a diagnosis of acute deep vein thrombosis while therapeutic on Coumadin. On February 05, 2024, the patient underwent right iliac and femoral vein thrombectomy and angioplasty. She has been under the care of the Plastic Surgery service in recent months, and underwent left lower extremity wound excision by Dr. Jarrod Umaña on February 18, 2024. Negative pressure wound therapy was utilized thereafter, until the recent implementation of cellular tissue products (CTP's). EpiFix #5 was placed at the patient's last visit on April 12, 2024. Progress of Wound: Left posterior leg ulcer is healed today. It continues to be hyper sensitive surrounding the healed ulcer. Mary wound is clear. Objective Data Objective Data Vital Signs: Vital Signs Temp Pulse Resp BP O2 Del Method 97.3 F L 68 16 130/71 H Room Air 06/23/24 13:37 06/23/24 13:37 06/23/24 13:37 06/23/24 13:37 06/23/24 13:37 Oxygen Delivery Method Room Air Weight: 160 lb Body Mass Index (BMI) 24.3 Physical Exam Narrative Left posterior leg ulcer is healed. Mary wound is clear. Const alert and oriented x3 HEENT normocephalic Eyes General Eye: normal appearance of both eyes Lymph Lymphatic: no lymphedema noted Resp normal respiratory effort Effort and Inspection: able to speak in complete sentences Cardio regular rate and regular rhythm Extremity normal to inspection and normal capillary refill Extremity Narrative: +1 lower extremity non pitting edema Skin Wound Narrative: Left posterior leg ulcer is healed. Neuro CN's II-XII intact bilaterally Psych affect normal Debridement Note Debridement Note No debridement was completed: No debridement was completed today Post-Debridement Measurements and Additional Note: Post-Debridement Measurements/Treatment - Nurse 1 - General Ulcer Assessment Start: 06/23/24 13:37 Freq: Status: Active Protocol: WC.LOWEXT Activity Type Activity Date Activity User E-sign Co-sign Detail Recorded Client Recorded Date Recorded By Document 06/23/24 13:37 [facility] [id number] 06/23/24 13:42 [facility] 06/23/24 13:37 - Today's Visit Information Type of service Follow-up Visit (Physician/LABORER ROAD ) Arrival Mode Ambulatory Transfer Assistance None Accompanied by Patient Identification Verified (Name & Yes ) Patient Requires Transmission-Based No Precautions Height and Weight Body Mass Index (BMI) 24.3 BMI Classification Normal Vital Signs Temperature (97.8 F-99.1 F) 97.3 F L Temperature Source Temporal Pulse Rate (60-100) 68 Pulse Location Monitor Respiratory Rate (12-18) 16 Respiratory rate source Observation Oxygen Delivery Method Room Air Blood Pressure (90/60-120/80) 130/71 H Blood Pressure Mean (mm Hg) 90 Source Monitor Position Sitting Blood Pressure Location Left Arm History Since Last Visit- (Skip if this is Patient's initial visit) Have you changed medications since your No last visit? Any new allergies or adverse reactions No Had a fall/change in ADL's that may No increase risk of falls Signs or symptoms of abuse and/or No neglect since last visit Have you been in the hospital since your No last visit? Has dressing in place as prescribed Yes Has compression in place as prescribed N/A Has offloadiing in place as prescribed N/A Experienced any changes in pain level or No management Left Footwear Regular Shoe Right Footwear Regular Shoe Pain Scale: 0-10 Numeric Is Patient Pain Free? Yes WC - Nurse 1 - General Ulcer Measurement Start: 06/23/24 13:37 Freq: Status: Active Protocol: Activity Type Activity Date Activity User E-sign Co-sign Detail Recorded Client Recorded Date Recorded By Document 06/23/24 13:37 [facility] [id number] 06/23/24 13:42 [facility] 06/23/24 13:37 Wound Center Nurse 1 1. LLE posterior -Combined with other wound No -Current Size (cm) - Length 0.1 -Current Size (cm) - Width 0.1 -Current Size (cm) - Depth 0.1 -Total Square Cm 0.01 -Date of Last Picture (Recall this 06/23/24 field) -Photo Taken Yes -Epithelialization Large 67-100% -Texture (Mary-wound Skin Appearance) Assessed -Moisture (Mary-wound Skin Appearance) Assessed -Color (Mary-wound Skin Appearance) Assessed WC - Nurse 2 - General Ulcer CM Notes Start: 06/23/24 13:37 Freq: Status: Active Protocol: Activity Type Activity Date Activity User E-sign Co-sign Detail Recorded Client Recorded Date Recorded By Document 06/23/24 13:46 [id number] 06/23/24 13:46 06/23/24 13:46 Wound Center Nurse 2 -Time 13:46 -Correct Patient Yes -Correct Side, Site, Position Yes -Correct Procedure No -Procedure Performed No -Tunneling No -Undermining/Tunneling No -Circular Undermining No -Wound/Ulcer Outcome Healed- Epithelialized -Ulcer Cleansing Not Cleansed -Foul Odor after Cleansing No -Bioengineered Tissue No -Bleeding Controlled with NA -Offloading No -Debridement - Open, 1st 20sq cm No -Debridement - Subq, 1st 20sq cm No -Debridement - Muscle / Fascia, 1st No 20sq cm -Debridement - Bone, 1st 20sq cm No Pain Scale: 0-10 Numeric Is Patient Pain Free? Yes WC - Nurse 3 - General Ulcer D/C NN Start: 06/23/24 13:37 Freq: Status: Active Protocol: Activity Type Activity Date Activity User E-sign Co-sign Detail Recorded Client Recorded Date Recorded By Document 06/23/24 13:56 [id number] 06/23/24 13:57 KW 06/23/24 13:56 Wound Care Center Nurse 3 LLE -Tubular Bandage Single Layer -Size of Tubigrip Used Size D -Size D ($) 1 Pain Scale: 0-10 Numeric Is Patient Pain Free? 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 Her left posterior leg ulcer is healed. She continues to have some hypersensitivity. Encouraged her to continue massage her healing scar to help soften it and help with desensitization. She states that the discomfort is decreasing. She denies any pain with activity. Compression- Encouraged her to continue to wear compression during the day. She has compression stockings at home. Encouraged patient to stop smoking as it may have deleterious effects on wound healing. She states she is trying to cut back. Discussed plan of care with Dr. Umaña. She may follow up on an as needed. basis.
--- NOTE | 2024-06-24 11:55 | WC ---
PHOTO 06/23/24 LLE POST
== END 2024-07-12 16:18 | disposition home or self-care (01) ==
LOC: WC 13:08
PROVIDERS: PCP Internal Medicine; Referring Provider Internal Medicine; Visit Provider Surgery Plastic and Reconstructive Surgery
DX: Z09 Encounter for follow-up examination after completed treatment for conditions other than malignant neoplasm (principal); Z79.01 Long term (current) use of anticoagulants; Z79.899 Other long term (current) drug therapy; Z86.718 Personal history of other venous thrombosis and embolism; Z98.62 Peripheral vascular angioplasty status
CPT/HCPCS: 99213; G0463

== ENCOUNTER → 2024-08-24 | Outpatient (CLI) | payer MEDICARE, OTHER, SELFPAY ==
--- NOTE | 2024-08-24 14:50 | BI_ITS ---
EXAM: SCRN MAMM (CAD)W/AYDE BILAT DATE: 08/24/2024 CLINICAL HISTORY: F, Age 68 y/o , SCREENING Mother with breast cancer. BREAST CANCER RISK ASSESSMENT: Not assessed. TECHNIQUE: Bilateral screening digital breast tomosynthesis with 2D and 3D images. Computer aided detection. COMPARISON: Prior exam(s) dated prior study dated June 19, 2023.. FINDINGS: TISSUE DENSITY: The breast tissue is composed of scattered area of fibroglandular density. Bilateral Breast Mammographic Findings: No significant masses, calcifications or other abnormalities are identified. Stable 1 cm well-defined nodule in the slightly upper lateral aspect of the right breast. This was demonstrated to be a cyst on prior study. No suspicious masses, areas of developing architectural distortion, or suspicious calcifications. There has been no significant interval change. BI/SCRN MAMM (CAD)W/AYDE BILAT IMPRESSION: OVERALL FINAL ASSESSMENT: BIRADS 2 BENIGN FINDING RECOMMENDATION: Routine annual follow-up in 1 Year A letter with findings and recommendations will be mailed to the patient. Reading Location: [id number]
== END | disposition home or self-care (01) ==
LOC: OPBI 14:49
PROVIDERS: PCP Internal Medicine; Referring Provider Internal Medicine; Visit Provider Internal Medicine
DX: Z12.31 Encounter for screening mammogram for malignant neoplasm of breast (principal)
CPT/HCPCS: 77063; 77067

== ENCOUNTER → 2025-03-09 | Outpatient (CLI) | payer MEDICARE, OTHER, SELFPAY ==
--- NOTE | 2025-03-09 09:55 | BD_ITS ---
PROCEDURE: DEXA BONE DENSITY STUDY 03/09/2025 REASON FOR EXAM: F, age 69 y/o . Patient is postmenopausal. TECHNIQUE: Procedure Code: BDDBD Modality: DX Procedure: DEXA BONE DENSITY STUDY COMPARISON: DEXA examination dated 12/12/2022 FINDINGS: BMD and T-SCORES Lumbar spine: 0.904 g/cm2, T-score -0.7 Levels: L1 through L2 Change from prior: There has been a significant increase in the bone mineral density of the lumbar spine by 8.7% since the prior study dated 12/12/2022. Left femoral neck: 0.397 g/cm2, T-score -4.1 Left total hip: 0.511 g/cm2, T-score -3.5 Change from prior: There has been a significant decrease in the bone mineral density by 13.1% since the prior study dated 12/12/2022. Right femoral neck: 0.404 g/cm2, T-score -4.0 Right total hip: 0.509 g/cm2, T-score -3.5 Change from prior: There has been a decrease in the bone mineral density of the right hip by 4.3% since the prior study dated 12/12/2022. The World Health Organization has defined the following categories based on bone density: Normal bone density: T-score equal to or greater than -1.0 Osteopenia: T-score between -1.0 and -2.5 Osteoporosis: T-score equal to or less than -2.5 FRAX (or Comparable) Fracture Risk Assessment: 10 Year Probability of Fracture: Major Osteoporotic Fracture: 63% Hip Fracture: 46% (Note: FRAX is not to be reported in setting of normal range bone density, osteoporosis on DEXA, known history of osteoporosis, prior osteoporotic hip or vertebral fracture, or for any patient undergoing pharmacological treatment for bone loss.) The National Osteoporosis Foundation (NOF) recommends pharmacological treatment for patients with a FRAX 10-year risk of 3% or higher for a hip fracture, or 20% or higher for a major osteoporotic fracture, to prevent osteoporosis and reduce fracture risk. The patient does meet the pharmacological treatment recommendations for prevention of osteoporosis. BD/Dexa Bone Density Study IMPRESSION: OSTEOPOROSIS. Recommend follow-up as clinically warranted. Reading Location: [id number]
== END | disposition home or self-care (01) ==
PROVIDERS: PCP Internal Medicine; Referring Provider Nurse Practitioner Primary Care; Visit Provider Nurse Practitioner Primary Care
DX: M81.0 Age-related osteoporosis without current pathological fracture (principal)
CPT/HCPCS: 77080